=== PATIENT | male | born 1960 | race Caucasian/White ===

== ENCOUNTER → 2016-09-25 | Outpatient (CLI) | payer OTHER ==
[~2016-09-25] MED LIST: ASPCH81; ASPI81TA28 PO; ATOR-24 PO; DVN80 PO; EFF50 PO; GLC500 PO; HYDR-5688 PO; INSDGI SC; INSU1.2I INJ; LISI-725 PO; MORP15TA19 PO; OXYC-57 PO; PRED10TA PO; PREG1CAP28 PO; SIMV40TA2 PO; VIT C; VIT D; VITAMIN C PO
--- NOTE | 2016-09-25 12:59 | DIAGNOSTIC IMAGING REPORT ---
CT LEFT ANKLE NO CONTRAST CT DOSE: CLINICAL HISTORY: Left ankle pain. History of fifth metatarsal fracture. Diabetes. TECHNIQUE: Helical images in the transverse plane were acquired. Sagittal and coronal reformatted images were acquired. A dose lowering technique was utilized adhering to the principles of ALARA. COMPARISON STUDY: None. FINDINGS: There is lateral soft tissue edema. There is diffuse muscular atrophy. Degenerative changes are present with thin the tarsometatarsal joints. Degenerative changes are present within the intercuneiform joints. Degenerative changes are present at the navicular cuneiform articulation. There are degenerative changes within the subpatellar joint. There are degenerative changes present within the talus navicular joint. There is chronic irregularity of the medial malleolus and lateral malleolus. There are soft tissue calcifications located lateral to the distal fibula. There are extensive peritendinous Achilles calcifications. There is partial visualization of a healing fifth metatarsal neck fracture. IMPRESSION: 1. No acute fractures identified 2. Partial visualization of a healing fifth metatarsal tarsal neck fracture 3. Moderately extensive multifocal degenerative changes within the midfoot and hindfoot. 3. Extensive peritendinous Achilles calcifications, and soft tissue calcifications located adjacent to the distal fibula. 4. Diffuse muscular atrophy. Lateral soft tissue edema. Electronically signed by: Urbano Monroe M.D. 09/25/2016 12:58 PM Dictated Date/Time: 09/25/2016 12:49 PM
--- NOTE | 2016-09-25 13:05 | DIAGNOSTIC IMAGING REPORT ---
CT LEFT FOREFOOT NO CONTRAST CT DOSE: 236.18 mGy.cm CLINICAL HISTORY: Left foot pain. Fifth metatarsal fracture. TECHNIQUE: A dose lowering technique was utilized adhering to the principles of ALARA. COMPARISON STUDY: None. FINDINGS: Helical images were acquired in the transverse plane. Sagittal and coronal reformatted imaging was performed. There is a healing comminuted fracture the fifth metatarsal neck and head. There is disruption of the articular surface of the fifth metatarsal head which is minimally displaced respect to the fifth metatarsal neck. There is exuberant callus formation. The fracture line is still visualized. No additional fractures are visualized. There are moderately advanced degenerative changes present within the midfoot and hindfoot. There are extensive peritendinous Achilles calcifications. There are soft tissue calcifications adjacent to the distal fibula. There is lateral soft tissue edema. There is generalized muscular atrophy. IMPRESSION: 1. Incomplete bony union of a comminuted fracture involving the fifth metatarsal head and neck. There is disruption of the articular surface of the fifth metatarsal head. 2. Moderately advanced degenerative changes in the midfoot and hindfoot 3. Extensive peritendinous Achilles calcification and soft tissue calcifications adjacent distal fibula Electronically signed by: Urbano Monroe M.D. 09/25/2016 1:03 PM Dictated Date/Time: 09/25/2016 12:59 PM
--- NOTE | 2016-09-25 13:07 | DIAGNOSTIC IMAGING REPORT ---
CHEST 2 VIEWS ROUTINE HISTORY: PREOP - GOING TO CT FIRST COMPARISON: None. FINDINGS: The lungs are clear. Cardiac silhouette is normal in size. No pleural effusions. No pneumothorax. IMPRESSION: No acute process. Electronically signed by: Marco A Osborn M.D. 09/25/2016 1:06 PM Dictated Date/Time: 09/25/2016 1:02 PM
== END | disposition home or self-care (01) ==
LOC: C.CTS 12:07
PROVIDERS: ATTEND Podiatrist Foot & Ankle Surgery
DX: S92.352A Displaced fracture of fifth metatarsal bone, left foot, initial encounter for closed fracture (principal); X58.XXXA Exposure to other specified factors, initial encounter; Z01.818 Encounter for other preprocedural examination; M62.572 Muscle wasting and atrophy, not elsewhere classified, left ankle and foot; M79.9 Soft tissue disorder, unspecified; M24.872 Other specific joint derangements of left ankle, not elsewhere classified; M76.899 Other specified enthesopathies of unspecified lower limb, excluding foot; M79.662 Pain in left lower leg

== ENCOUNTER → 2016-09-25 | Outpatient (CLI) | payer OTHER ==
[2016-09-25 12:26] LABS: BASO % 1.1 %; BASO ABS # 0.15 K/uL (0-0.2); COMPLETE YES; EOS % 4.3 %; HEMATOCRIT 34.8 % (42-52); IG% 0.6 %; LYMPH % 24.8 %; LYMPH ABS # 3.38 K/uL (1.2-3.4); MEAN CELL VOLUME 80.9 fL (80-100); MEAN CORPUSCULAR HEMOGLOBIN 25.3 pg (25-34); MEAN CORPUSCULAR HGB CONC 31.3 g/dl (32-36); MEAN PLATELET VOLUME 10.2 fL (7.4-10.4); MONO % 7.9 %; NEUT % 61.3 %; PLATELET COUNT 375 K/uL (130-400); WHITE BLOOD COUNT 13.61 K/uL (4.8-10.8)
[2016-09-25 12:49] LABS: C-REACTIVE PROTEIN 0.47 mg/dl (0-0.29); RHEUMATOID FACTOR < 10.0 U/mL (0-15); URIC ACID 7.1 mg/dl (2.6-7.2)
[2016-09-28 20:19] LABS: HLA-B27** TC 528X NEGATIVE (NEGATIVE)
== END | disposition home or self-care (01) ==
LOC: C.RAD1850 11:15
PROVIDERS: ATTEND Podiatrist Foot & Ankle Surgery
DX: M24.872 Other specific joint derangements of left ankle, not elsewhere classified (principal); M76.899 Other specified enthesopathies of unspecified lower limb, excluding foot; M79.662 Pain in left lower leg

== ENCOUNTER 2016-09-29 10:50 | Day surgery (SDC) | payer OTHER ==
[2016-09-28 14:15] VITALS: BMI 28.0
--- NOTE | 2016-09-28 18:25 | HISTORY & PHYSICAL EXAMINATION ---
DATE OF ADMISSION: 09/29/2016 PREOPERATIVE HISTORY AND PHYSICAL HISTORY OF PRESENT ILLNESS: A 56-year-old male presents for followup of ankle pain, requesting surgical intervention. Condition is present on the left extremity. He has 2 problems, the ankle pain and foot pain, graded as an 8 on a 10-point scale with more pain focally on the ankle. He describes aching, swelling and throbbing that has been going on for approximately 2 months. He was also put into a Cam walker to help his foot pain secondary to a fracture which he notes he has been wearing since the spring with little improvement. Past treatment and test include ABIs, blood work, CT, MRI radiographs, steroid shots, nonsteroidals with little relief. Due to the nature of the discomfort, he is requesting surgical intervention. He has no ankle pain for over 2 years and has had extensive conservative treatment by and several foot doctors in [place]. He also notes a foot fracture appeared in the spring of this year, I am unsure why but notes that this occurred around with increasing pain. He has been in Cam walker since with no improvement, over the past 3 months. PAST SURGICAL HISTORY: Knee replacement in 2013 on the left and 2016 on the right, wrist surgery in 2011, back surgery x5 between the years of 1994 and 2001. PAST MEDICAL HISTORY: Hyperlipidemia, hypertension, diabetes mellitus, arthritis, back problems and gout. MEDICATIONS: Lisinopril, Lantus, Lyrica. ALLERGIES: POLLEN AND PENICILLIN. FAMILY HISTORY: Arthritis, diabetes, high cholesterol, and hypertension. SOCIAL HISTORY: The patient admits to tobacco use, is using 1 can of chew a day. REVIEW OF SYSTEMS: Unremarkable except chief complaint. PHYSICAL EXAMINATION: VITAL SIGNS: Height 5 feet 9 inches, weight 190 pounds. Body mass index 28. CONSTITUTIONAL: The patient appears well developed and nourished body grooming habitus. HEAD AND FACE: Head is normocephalic, atraumatic without any gross head, face, or neck masses. HEENT: Eyes conjunctivae accommodation normal. EARS, NOSE, MOUTH AND THROAT: Unremarkable. NECK: Supple. Trachea is midline. CARDIOVASCULAR: Normal S1, S2, without murmur, gallops, rubs, or clicks noted. Cardiovascular exam is normal. RESPIRATORY: Chest is symmetric. No scars are visible. LUNGS: Clear to auscultation bilaterally. GASTROINTESTINAL: Abdominal organs, bladder, and kidney showed no abnormalities, rigidity. LOWER EXTREMITIES: DP palpable. PT palpable. Digital hair is sparse. There is focal swelling noted over the left ankle, more anteriorly and moderate swelling noted over the neck of the metatarsal region. DERMATOLOGICAL: No rash, subcutaneous nodules or lesions observed. NEUROLOGICAL: Touch pin sensations are normal, deep tendon reflexes are normal. MUSCULOSKELETAL: Muscle tone is normal. Muscle strength is 5/5, anterior aspect of the left ankle. Precludes reliable exam with limited range of motion shows crepitance with pain, severe swelling precluding reliable exam on the left ankle. Ankle brachial indexes performed on September 23, the results are still pending. Will obtain these preoperatively. DATA: BRIGITTE and HLA-B27 are still pending. Uric acid 7.1, within normal limits, eosinophils and monocytes with complete blood count were high with the neutrophils. CT scan on 09/25/2016 showed partial visualization of a healing fifth metatarsal neck fracture, multi-degenerative changes within the mid foot and the hindfoot. Extensive Achilles calcification, soft tissue calcifications located adjacent to the distal fibula, diffuse muscular atrophy, lateral soft tissue edema. The ankle showed incomplete bony union of that fifth metatarsal, neck fracture with disruption of acute undersurface of the fifth metatarsal head, moderately advanced degenerative changes in the midfoot, hindfoot, extensive peritendinitis, Achilles contracture and soft tissue calcifications on the distal On 08/14/2016: Diffuse thickening of the anterior talofibular ligament, lobular soft tissue calcifications overlying the lateral posterior aspect of the Achilles tendon corresponding the findings on complex comparison radiographs, dorsally angulated fracture of the fifth metatarsal neck that is best appreciated on the sagittal sequence with bony edema tracking proximally tuberosity, diffuse fatty atrophy of the abductor digiti minimi muscle belly, suggestion of chronic Moraes's neuropathy. There is partially calcified subcutaneous nodule overlying the lateral malleolus that measures up to 22 mm partially calcified subcutaneous nodule overlying the lateral malleolus, course lobular calcification along the lateral and posterior aspect of the Achilles tendon. There are multiple differential considerations for the periarticular and soft tissue calcifications including gout, prior trauma, deposition connective tissue disorders. There is dorsally angulated fracture of the fifth metatarsal neck, moderate osteoarthritis, gout throughout the midfoot, hindfoot and ankle and diffuse nonspecific edema throughout the musculature of the foot and lower leg. IMPRESSION: 1. Degenerative joint capsulitis of the left. 2. Degenerative joint disease, left ankle. 3. Left fifth metatarsal neck fracture, nonunion with continued instability. 4. Pain. 5. Calcifications. 6. Pain, left leg and foot. PLAN AND RECOMMENDATIONS: Discussed conservative treatment options consisting of rest, ice, analgesics, nonsteroidals anti-inflammatory drugs, physical therapy, steroid injections, orthotics. We discussed the fact that the calcifications and underlying cause. The patient is quite frustrated he has seen multiple doctors in the past several years. He has had multiple conservative treatments and notes the pain is becoming worse and is requesting surgery at this date and time. He is aware that if the gout is the underlying cause, this surgery could make his ankle worse. Despite this, he would like to proceed with surgical intervention. surgeries to be performed: 1. Surgical arthroscopy, extensive debridement, left ankle. 2. Closed reduction, possible ORIF of fifth metatarsal fracture, this will be performed under general anesthesia as an outpatient at the hospital. The procedure, risks and complications were personally reviewed with the patient. The patient was sent to me by another crank hand in [place] requesting surgical intervention. We reviewed all of the procedure risks and complications including those that can be missed as we do not have an underlying diagnosis for the calcifications that are occurring structure of the lower extremity as well as muscle atrophy. We reviewed consent form and the foot diagram, all in their entirety. All the patient's questions were answered. He is aware that there is partial healing of the fifth metatarsal at this time and we may just pin this rather than a full open reduction internal fixation, partly due to the diabetes and partly due to he has had some there just with some added stability and he is aware that this is not 100% anatomical, this was performed would also allow earlier weightbearing to the ankle joint which is his main focal complaint. This was all discussed in detail and was outlined of the foot diagram. Other complications were discussed in detail with the patient including pain, infection, swelling that may not be excessive, pins and needles feeling, numbness, metatarsalgia, excessive bleeding, delayed or nonhealing of bone, delayed or nonhealing skin, enlarged scar, failure of the procedure, may not require further surgery, reaction to anesthesia, allergic reaction to suture or other implant material, Cam walker for minimum of 6-8 weeks and not return to postoperative edema second opinion. The patient stated they understood, consent form was signed, copy of the foot the patient. Verbal and written postoperative instructions were given. The patient to return to the office for postop check or sooner necessary. Instructed to keep the dressing clean, dry and intact at the office at the time of the preoperative appointment. Prescriptions for clindamycin and Percocet were dispensed. This is Olaf Gamble. AUGUST
[~2016-09-29] VITALS: Ht 175.3 cm; Wt 86.4 kg
[~2016-09-29 10:50] MED LIST changes: -ASPCH81; +ATROPINE SULFATE 0.1 MG/ML 5ML SYR IV PRN; +CEFAZOLIN 2000 MG/60 ML D5W IV SCH; -DVN80 PO; +EpHEDrine SULFATE INJ 50 MG/ML AMP IV PRN; +FENTANYL CITRATE INJ 50 MCG/1 ML 2 ML VIAL IV PRN; -GLC500 PO; -HYDR-5688 PO; +HYDROmorphone INJ 1 MG/ML SYR IV PRN; -INSDGI SC; -MORP15TA19 PO; +ONDANSETRON INJ 2 MG/ML 2 ML VIAL IV PRN; -PRED10TA PO; -SIMV40TA2 PO; +SODIUM CHLORIDE 0.9% 1000ML IV SCH; -VIT C; -VIT D
[2016-09-29 11:20] VITALS: BP 127/85; PULSE 81; TEMP 36.8; O2SAT 96; Ht 175.3 cm; Wt 86.4 kg
[2016-09-29 11:46] LABS: PROTHROMBIN TIME (PATIENT) 10.7 SECONDS (9.0-12.0)
[2016-09-29 11:55] LABS: ESTIMATED AVERAGE GLUCOSE 140 mg/dl; HA1C FLAG Normal (Normal)
[2016-09-29 11:58] LABS: BUN/CREATININE RATIO 15.6 (10-20); CALCIUM 8.6 mg/dl (8.5-10.1); CREATININE 1.1 mg/dl (0.60-1.40); POTASSIUM 4.6 mmol/L (3.5-5.1)
[2016-09-29] MEDS ORDERED: LIDOCAINE HCL 2% LOCAL 50ML VIAL ONE (13:01)
[2016-09-29] MEDS ORDERED: LIDOCAINE/EPINEPHRINE 1% 20 ML VIAL ONE (13:01)
[2016-09-29] MEDS ORDERED: BUPIVACAINE 0.25% 30 ML VIAL ONE ×2 (13:01→13:22)
[2016-09-29] MEDS ORDERED: BUPIVACAINE 0.5 % 5 MG/1 ML MPF 30ML VIAL ONE (13:02)
[2016-09-29] MEDS ORDERED: LIDOCAINE HCL 2% 2 ML VIAL (20MG/ML) ONE (13:03)
[2016-09-29] MEDS ORDERED: ROCURONIUM BROMIDE 10 MG/ML 5 ML VIAL ONE (13:03)
[2016-09-29] MEDS ORDERED: DEXAMETHASONE **PF** INJ 10 MG/ML VIAL ONE (13:03)
[2016-09-29] MEDS ORDERED: PROPOFOL IV EMULSION 10 MG/ML 20 ML VIAL IV ONE (13:03)
[2016-09-29] MEDS ORDERED: FENTANYL CITRATE INJ 50 MCG/1 ML 2 ML VIAL ONE (13:04)
[2016-09-29] MEDS ORDERED: MIDAZOLAM HCL 1 MG/ML 2ML VIAL ONE (13:04)
[2016-09-29] MEDS ORDERED: ROPIVACAINE 0.5% 5 MG/ML 30 ML VIAL ONE (13:20)
[2016-09-29] MEDS ORDERED: CLINDAMYCIN 600 MG/54 ML D5W IV ONE (13:23)
[2016-09-29] MEDS ORDERED: NURSING VERBAL MED ORDER ONE (13:30)
--- NOTE | 2016-09-29 13:30 | History & Physical Bridge Note ---
H&P Re-Evaluation Bridge Note: I have examined the patient, reviewed the History & Physical and in the interval since the performance of the History & Physical I have noted the following changes of clinical significance: No changes noted
[2016-09-29] MEDS ORDERED: SODIUM CHLORIDE 0.9% 1000ML 1,000 ML IV SCH (13:40)
--- NOTE | 2016-09-29 13:40 | Discharge Instructions ---
Discharge Instructions Date of Service Sep 29, 2016. Admission Reason for Admission: Left Ankle Capsulitis, Degenerative Joint Disease Discharge Discharge Diagnosis / Problem: same as above Discharge Goals Goal(s): Decrease discomfort Activity Recommendations Activity Limitations: as noted below Medications: * Resume previous medications unless instructed by your surgeon. * Take your medications as prescribed. Call our office ([phone]) at any time, if you experience severe pain that does not subside shortly after taking your pain medication. Activity: * Do not put any standing weight on your operated foot/ankle. Use the crutches or walker as instructed. Special Care: * Keep your bandage clean and dry. Do not remove your bandage unless otherwise instructed. A small amount of blood may appear on the bandage over the surgical site. Call our office ([phone]) if you bandage becomes blood-soaked or wet. * Elevate your operated foot/ankle on pillows, above the level of your heart, as often as possible during the first 2-3 days following surgery. Keep your knee flexed slightly with a pillow under your knee when you elevate your foot/ankle. * Apply a ice bag to your foot/ankle over the operative site for 20-30 minutes out of each hour while you are awake. Do not allow the ice bag to directly contact bare skin. * Avoid bumping or handling any pins visible in your toes. If any pin feels or appears loose, call the office ([phone]). * Take your oral temperature in the morning and at bedtime. Call our office ([phone]) if your temperature rises above 101 degrees Fahrenheit. Call your surgeon's office at ([phone]) for any problems or concerns such as excessive bleeding and/or pain unrelieved by your prescribed pain medications. If you have any questions, please do not hesitate to ask them. Avoid all tobacco products. If you need help to stop smoking, call [place]'s FREE QUITLINE at . This is a free call. Follow-up: Follow-up with Dr. Rubin . Current Hospital Diet Patient's current hospital diet: Discharge Diet Recommended Diet: Diabetes Type 2 Diet Pending Studies Studies pending at discharge: no Laboratory Results Hemoglobin A1c Test 09/29/16 11:23 Range/Units Estimated Average Glucose 140 mg/dl Hemoglobin A1c 6.5 H 4.5-5.6 % Medical Emergencies . Who to Call and When: Medical Emergencies: If at any time you feel your situation is an emergency, please call 911 immediately. . Non-Emergent Contact Non-Emergency issues call your: Primary Care Provider . "Provider Documentation" section prepared by Ara Pete. . VTE Core Measure Inpt VTE Proph given/why not?: Treatment not indicated
[2016-09-29] MEDS ORDERED: CLINDAMYCIN 600 MG/54 ML D5W IV STA (13:41)
[2016-09-29] MEDS ORDERED: ONDANSETRON INJ 2 MG/ML 2 ML VIAL ONE (14:19)
[2016-09-29] MEDS ORDERED: EpHEDrine SULFATE 50MG/5ML SYR ONE (14:20)
[2016-09-29] MEDS ORDERED: KETOROLAC TROMETHAMINE 30 MG/ML VIAL ONE (15:47)
--- NOTE | 2016-09-29 16:15 | DIAGNOSTIC IMAGING REPORT ---
LEFT ANKLE 2 VIEWS CLINICAL HISTORY: LT ARTHROSCOPY/POSS ORIF TECHNIQUE: Image intensifier COMPARISON STUDY: None FINDINGS: Linear pin placement traversing the distal aspect fifth metatarsal and associated phalanges. These images were utilized for intraoperative surgical planning purposes IMPRESSION: Image intensifier use of usage for surgical planning purposes post pin fixation fifth metatarsal and associated phalanges The above report was generated using voice recognition software. It may contain grammatical, syntax or spelling errors. Electronically signed by: Db Schmitz M.D. 09/29/2016 4:14 PM Dictated Date/Time: 09/29/2016 4:12 PM
[2016-09-29 16:59] VITALS: BP 185/86; PULSE 89; TEMP 36.5; O2SAT 95
[2016-09-29 17:30] VITALS: BP 178/93; PULSE 91; TEMP 36.6; O2SAT 96
[2016-09-29 18:00] VITALS: BP 165/85; PULSE 90; TEMP 36.6; O2SAT 98
--- NOTE | 2016-09-29 18:30 | Anesthesiology Progress Note ---
Anesthesia Post Op Note Date & Time Sep 29, 2016 at 16:41 Vital Signs Pain Intensity: 0 Vital Signs Past 12 Hours Date Time Temp Pulse Resp B/P (MAP) Pulse Ox O2 Delivery O2 Flow Rate FiO2 09/29/16 16:30 83 14 152/84 100 Oxymask 10 09/29/16 16:20 95 18 172/88 100 Oxymask 10 09/29/16 16:12 36.3 92 12 167/84 100 Oxymask 10 09/29/16 11:20 36.8 81 18 127/85 (99) 96 Room Air Notes Mental Status: alert / awake / arousable, participated in evaluation Pt Amnestic to Procedure: Yes Nausea / Vomiting: adequately controlled Pain: adequately controlled Airway Patency, RR, SpO2: stable & adequate BP & HR: stable & adequate Hydration State: stable & adequate Anesthetic Complications: no major complications apparent
--- NOTE | 2016-09-30 00:08 | OPERATIVE REPORT ---
DATE OF OPERATION: 09/29/2016 SURGEON: Ara Rubin DPM. PREOPERATIVE DIAGNOSES: 1. Ankle capsulitis with degenerative joint disease. 2. Multi calcified subcutaneous nodules and calcific tendinosis. 3. Closed displaced metatarsal fracture left fifth. POSTOPERATIVE DIAGNOSES: Same with crystalline deposition disease. PROCEDURE: 1. Surgical arthroscopy of left ankle with extensive debridement. 2. Joint tap left ankle. 3. Open reduction and internal fixation left fifth metatarsal fracture. 4. Biopsy synovial tissue of the ankle and fifth metatarsophalangeal joint. ANESTHESIA: General with regional field block performed by anesthesia. HEMOSTASIS: Pneumatic thigh tourniquet inflated to 300 mmHg for a total tourniquet time of 34 minutes. ESTIMATED BLOOD LOSS: 5 mL INJECTABLES: Dexamethasone sodium phosphate 10 mg/mL for a total of 1 mL. MATERIALS: 3-0 Vicryl and 4-0 nylon. 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 COMPLICATIONS: None. The patient tolerated the procedure and anesthesia well without complications. PROCEDURE IN DETAIL: The patient was brought to the OR and placed on the OR table in supine position. Upon completion of general anesthesia and a local field block, a well-padded thigh tourniquet was applied to the left lower extremity. Extremity was scrubbed, prepped and draped in the usual aseptic fashion. The extremity was positioned in a knee funk. It was also placed in a noninvasive distractor. Prior to the incision, a joint tap was performed to the ankle and fluid sent to pathology. The joint was then infiltrated with 20 mL of 1% lidocaine with 1:1000 intraarticular. At this time, just medial to tendon of tibialis anterior, a lateral stab incision was made using a 15 blade, just lateral to extensor tendons and peroneus tertius inferior to the joint line. Both these incisions were deepened using a small hemostat and blunt trocar. A camera was placed in the medial portal and the Sabre shaver 2.9 was placed in the lateral portal. This was used to abrade a large amount of hypertrophic synovium over the lateral aspect of the joint. Cartilage surface was examined both superior and inferior aspects. No specific cartilage defect; however, this was covered in a crystalline deposition type disease. Synovium was abraded and cartilage was examined. A large amount of hypertrophic synovium was abraded. Ligaments were intact. There was no instability to the ankle joint, rather a large amount of hypertrophic synovium. The shaver and the camera were switched. Again, the remaining portion of hypertrophic synovium was abraded. The wound was copiously lavaged. The camera and shaver were removed. Skin margins were closed in a deep fashion using 3-0 Vicryl. Superficial deep structures were closed using 4-0 nylon. One mL of dexamethasone sodium phosphate was instilled in the joint, 10 mg/mL. At this time, attention was directed to the fifth metatarsal fracture, it was attempted to be reduced. Exposure was gained over the axis of fifth metatarsal neck. It should be noted that upon opening the joint, there was a large amount of crystalline deposition disease within the joint. This was sent for biopsy. It should also be noted that during the ankle arthroscopy, punch was used to obtain synovial tissue which also was sent for biopsy. There was a large amount of destruction of fifth metatarsal head of arthritis mutilans with crystalline deposition disease. The metatarsal neck fracture was partly healed. It was stabilized using a K-wire. The wound was copiously lavaged with normal saline. C-arm was used to check positioning. Deep structures were closed using 3-0 Vicryl. Skin margins were reapproximated using 4-0 nylon in a running interlocking fashion. Dry sterile dressing was applied upon release of the tourniquet with normal hyperemic mendiola to digits 1 through 5, consisting of Adaptic, 4 x 4's, Kerlix and TIAGO. The patient tolerated the procedure and anesthesia well without complications and transported to the recovery room with vital signs stable and neurovascular status intact. I attest to the content of the Intraoperative Record and any orders documented therein. Any exceptions are noted below. MTDD
== END 2016-09-29 18:11 | disposition home or self-care (01) ==
LOC: C.ACU 10:50
PROVIDERS: ATTEND Podiatrist Foot & Ankle Surgery
DX: M65.272 Calcific tendinitis, left ankle and foot (principal); M77.8 Other enthesopathies, not elsewhere classified; M10.9 Gout, unspecified; S92.352A Displaced fracture of fifth metatarsal bone, left foot, initial encounter for closed fracture; X58.XXXA Exposure to other specified factors, initial encounter; E78.5 Hyperlipidemia, unspecified; I10 Essential (primary) hypertension; F17.220 Nicotine dependence, chewing tobacco, uncomplicated; E11.9 Type 2 diabetes mellitus without complications; M19.90 Unspecified osteoarthritis, unspecified site; Z96.653 Presence of artificial knee joint, bilateral; Z83.3 Family history of diabetes mellitus; Z82.49 Family history of ischemic heart disease and other diseases of the circulatory system

== ENCOUNTER → 2017-04-23 | Outpatient (CLI) | payer OTHER ==
[~2017-04-23] MED LIST changes: -ATROPINE SULFATE 0.1 MG/ML 5ML SYR IV PRN; -CEFAZOLIN 2000 MG/60 ML D5W IV SCH; -EpHEDrine SULFATE INJ 50 MG/ML AMP IV PRN; -FENTANYL CITRATE INJ 50 MCG/1 ML 2 ML VIAL IV PRN; -HYDROmorphone INJ 1 MG/ML SYR IV PRN; -ONDANSETRON INJ 2 MG/ML 2 ML VIAL IV PRN; +OPTIRAY 320 IV PRN; -SODIUM CHLORIDE 0.9% 1000ML IV SCH
--- NOTE | 2017-04-23 14:40 | DIAGNOSTIC IMAGING REPORT ---
L LOWER EXTREMITY COMBO HISTORY: 56 years-old Male L FOOT, FRAC L 5TH METATARSAL, L 5TH MTPJ follow-up study in a patient with prior fracture of the fifth metatarsal. Study is ordered to assess for healing. COMPARISON: Spot fluoroscopic images of the left ankle, 09/29/2016, left lower extremity CT 09/25/2016. TECHNIQUE: Multiple axial CT images of the left foot were obtained both with and without the use of 93 mL Optiray 320. A dose lowering technique was used consistent with the principals of JOERA. FINDINGS: The bones appear moderately demineralized throughout. Distal tibia and fibula appear intact. There is no acute fracture or subluxation identified. Multifocal degenerative changes about the forefoot, midfoot and hindfoot are noted with mild to moderate tibiotalar, moderate talonavicular, naviculocuneiform and cuneiform metatarsal osteoarthritis. Mild to moderate first MTP joint osteoarthritis. 4 mm osteochondral defect of the central posterior tibial plafond, image 44 series 401. Moderate enthesophytes about the calcaneus. Healed fracture deformity of the distal fifth metatarsal with cortical thickening noted medially. Subcortical cystic changes with mild fragmentation involves the distal fifth metatarsal with subcortical cystic changes and fragmentation also noted involving the base of the fifth proximal phalanx, nicely seen on image 62 of series 401. Loose bodies were seen within the fifth MTP joint on comparison CT 09/25/2016. No definite intra-articular loose bodies are identified at this time. Mild soft tissue swelling is noted about the fifth MTP joint. There is moderate atrophy involving the intrinsic musculature of the foot. Indeterminate soft tissue calcifications are seen within the subcutaneous tissues adjacent to the lateral malleolus measuring up to 2.6 cm in length which appear to have progressed from prior study. Calcifications are seen adjacent to the thickened mid and distal Achilles tendon which are partially imaged measuring up to 5.7 cm in length. Peripheral vascular disease. There is no abnormal enhancement identified. IMPRESSION: 1. Healed fracture deformity of the distal fifth metatarsal. Subcortical cystic changes with mild fragmentation involves the fifth metatarsal head and base of the fifth proximal phalanx. The changes involving the base of the fifth proximal phalanx are new from comparison CT 09/25/2016. These findings may be degenerative secondary to chronic intra-articular loose bodies, posttraumatic or alternatively may be sequela of septic arthropathy. Correlate with clinical presentation. 2. No acute fracture or subluxation. 3. Demineralized appearance of the bones with at least moderate multifocal degenerative changes throughout the hindfoot, midfoot and forefoot as above. 4. Moderate atrophy involves the intrinsic musculature of the foot, likely secondary to degeneration changes associated with patient's diabetes. 5. Peripheral vascular disease. 6. Extensive soft tissue calcifications are noted adjacent to the distal Achilles tendon and also within the subcutaneous tissues adjacent to the lateral malleolus. The above report was generated using voice recognition software. It may contain grammatical, syntax or spelling errors. Electronically signed by: Crow Resendiz M.D. 04/23/2017 2:38 PM Dictated Date/Time: 04/23/2017 2:23 PM
== END | disposition home or self-care (01) ==
LOC: C.CTS 13:37
PROVIDERS: ATTEND Podiatrist Foot & Ankle Surgery
DX: S92.352A Displaced fracture of fifth metatarsal bone, left foot, initial encounter for closed fracture (principal); X58.XXXA Exposure to other specified factors, initial encounter; I73.9 Peripheral vascular disease, unspecified

== ENCOUNTER 2024-11-17 13:34 | Inpatient (IN) ==
--- NOTE | 2024-11-17 13:52 | Emergency Department Note ---
Impression & Plan Fever, Acute hypotension, SIRS (systemic inflammatory response syndrome) ED Provider Note HISTORY OF PRESENT ILLNESS: Patient is a 64-year-old male presenting with hypotension and fever. Patient had presented to outpatient dialysis for his regularly scheduled Wednesday/Wednesday/Wednesday dialysis session. He reportedly was hypotensive in the 80s. He was noted to have a fever of 101.3 earlier today and was given Tylenol at 11:30 AM. Patient did have a full dialysis session 48 hours ago. He denies any chest pain or shortness of breath. Denies any abdominal pain, nausea or vomiting. He denies any recent sick contact exposures. He does not make urine. ROS: as above PHYSICAL EXAM: Constitutional: Patient appears in no acute distress. HENT: Head: Normocephalic and atraumatic. Eyes: EOMI, PERRL Mouth/Throat: Mucous membranes moist. Neck: Trachea midline. Neck supple. Cardiovascular: RRR, No murmurs, rubs or gallops. Intact distal pulses. Pulmonary/Chest: No respiratory distress. Breath sounds clear and equal bilaterally. No wheezes or rales. Right subclavian dialysis port noted on chest wall. Abdominal: Abdomen soft, no tenderness, rebound or guarding. Musculoskeletal: Bilateral BKA's. Skin: Warm and dry. No rash, erythema, pallor or cyanosis Psychiatric: Appropriate mood and affect for situation. Neurological: Alert and keenly responsive. CN II-XII grossly intact MDM: - Vitals signs showed elevated temperature - History obtained via patient. History as above. - Chronic conditions affecting care: ESRD - Differential diagnoses include, but are not limited to: Pneumonia; viral syndrome; ACS; electrolyte abnormality; line infection - Order placed for continuous cardiac monitoring. At this time, monitor showed rate of 83 bpm with normal sinus rhythm, per my interpretation. - External medical records reviewed. - EKG image interpreted by myself showed normal sinus rhythm. Rate 90 bpm. QT 358. No acute ischemic changes. - Laboratory workup interpreted by myself showed leukocytosis (WBC 11.06) with neutrophil predominance; chronic anemia; normal PT/INR; stable electrolytes; ESRD; elevated procalcitonin (0.53); normal lactate - Viral respiratory panel negative - CXR image reviewed by myself was negative for pneumonia but does show some pulmonary vascular congestion, per my interpretation. Radiology notes atelectasis versus pneumonia in the right lung base and mild CHF. - Patient given 50 mcg IV fentanyl for upper back pain. - Given IV levophed and daptomycin for empiric sepsis coverage given the patient's fever and hypotension. Patient has no focal source of infection other than the potential pneumonia in his right lower lung on chest x-ray imaging. There is still concern for potential line infection, given that he has a subclavian dialysis port. - Discussion was had with case management assistant about patient's case and need for admission - Hospitalist consulted for admission - Patient admitted to [facility] service for further evaluation and management. ASSESSMENT AND PLAN: Diagnosis: Fever; hypotension; SIRS Plan: Admit Past Med/Surg History Problem List (Updated 11/17/24 @ 16:41 by Kaila Bain MD) SIRS (systemic inflammatory response syndrome) (Acute) Acute hypotension (Acute) Fever (Acute) Social History Smoking Status: Never smoker Feels Safe at Home: Yes Allergies Allergies Allergy/AdvReac Type Severity Reaction Status Date / Time Penicillins Allergy Severe THROAT Verified 08/24/23 11:47 [facility] Home Medications Medication Instructions Recorded Confirmed lidocaine 4 % topical patch 1 patch topical Q12 08/24/23 11/17/24 acetaminophen 325 mg tablet 650 mg PO Q6 PRN PAIN 1-10 SCALE 11/17/24 11/17/24 (Tylenol) acetaminophen 325 mg tablet 650 mg PO Q6 PRN temp above 100.1 11/17/24 11/17/24 (Tylenol) allopurinol 100 mg tablet 100 mg PO UD 11/17/24 11/17/24 (Zyloprim) apixaban 5 mg tablet (Eliquis) 5 mg PO AMHS 11/17/24 11/17/24 aspirin 81 mg tablet,delayed 81 mg PO QAM 11/17/24 11/17/24 release clonidine HCl 0.1 mg tablet 0.1 mg PO .EVERY 24 HOURS PRN 11/17/24 11/17/24 Hypertension dextran 70-hypromellose (PF) 0.1 1 drp OPB QAM 11/17/24 11/17/24 %-0.3 % eye drops in a dropperette (Artificial Tears (PF)) diphenhydramine HCl 25 mg tablet 25 mg PO Q6 PRN Allergy Symptoms 11/17/24 11/17/24 (Benadryl Allergy) doxepin 10 mg capsule 10 mg PO HS 11/17/24 11/17/24 ergocalciferol (vitamin D2) 1,250 1,250 mcg PO WK 11/17/24 11/17/24 mcg (50,000 unit) capsule escitalopram oxalate 5 mg tablet 5 mg PO QAM 11/17/24 11/17/24 (Lexapro) ferric citrate 210 mg iron tablet 210 mg PO DAILY 11/17/24 11/17/24 (Auryxia) ferric citrate 210 mg iron tablet 420 mg PO WM 11/17/24 11/17/24 (Auryxia) gabapentin 100 mg tablet 200 mg PO TID 11/17/24 11/17/24 levetiracetam 1,000 mg tablet 1,000 mg PO QAM 11/17/24 11/17/24 levetiracetam 500 mg tablet 500 mg PO 3XWK 11/17/24 11/17/24 linagliptin 5 mg tablet 5 mg PO DAILY 11/17/24 11/17/24 loperamide 2 mg tablet (Imodium 2 mg PO Q6H PRN LOOSE STOOLS 11/17/24 11/17/24 A-D) menthol 0.44 %-zinc oxide 20.6 % 1 applic topical Q12 PRN Itching 11/17/24 11/17/24 topical ointment (Calmoseptine) menthol 0.44 %-zinc oxide 20.6 % 1 applic topical TID 11/17/24 11/17/24 topical ointment (Calmoseptine) nicotine 21 mg/24 hr daily 1 patch transdermal DAILY 11/17/24 11/17/24 transdermal patch oxycodone 10 mg tablet,crush 10 mg PO AMHS 11/17/24 11/17/24 resistant,extended release 12 hr (OxyContin) pantoprazole 40 mg tablet,delayed 40 mg PO QAM 11/17/24 11/17/24 release prazosin 1 mg capsule 1 mg PO HS 11/17/24 11/17/24 rosuvastatin 10 mg tablet 10 mg PO QPM 11/17/24 11/17/24 triamcinolone acetonide 0.1 % 1 applic topical 2XD 11/17/24 11/17/24 topical cream vitamin B complex-vitamin C-folic 1 tab PO QAM 11/17/24 11/17/24 acid 0.8 mg tablet (Renal Vitamin) Results & Data (ED) Vital Signs Vital Signs - 24 hr 11/17/24 13:52 11/17/24 14:08 11/17/24 14:08 Temperature 37.6 C H Temperature Source Oral Pulse Rate 91 H 92 H Pulse Rate from SpO2 Sensor Respiratory Rate 18 16 Respiratory Effort / Characteristics Non-Labored Spontaneous Respiratory Depth Normal Blood Pressure 105/68 Blood Pressure Mean 80 Pulse Oximetry 95 100 100 Oxygen Delivery Method Room Air Room Air Room Air Sepsis Recent Fever Within 48 Hours Yes Sepsis New/Unexplained Change in Mental Status No Sepsis Action Taken by Nursing No Action Required 11/17/24 14:31 11/17/24 15:00 11/17/24 15:31 Temperature Temperature Source Pulse Rate 91 H 91 H 86 Pulse Rate from SpO2 Sensor 92 H 92 H 86 Respiratory Rate 11 L 21 17 Respiratory Effort / Characteristics Respiratory Depth Blood Pressure 108/64 96/59 L 106/68 Blood Pressure Mean 82 63 82 Pulse Oximetry 94 95 95 Oxygen Delivery Method Room Air Room Air Room Air Sepsis Recent Fever Within 48 Hours Sepsis New/Unexplained Change in Mental Status Sepsis Action Taken by Nursing 11/17/24 15:47 11/17/24 16:00 11/17/24 16:30 Temperature Temperature Source Pulse Rate 83 83 86 Pulse Rate from SpO2 Sensor 84 Respiratory Rate 13 14 Respiratory Effort / Characteristics Respiratory Depth Blood Pressure 117/74 118/82 Blood Pressure Mean 95 103 Pulse Oximetry 98 Oxygen Delivery Method Room Air Sepsis Recent Fever Within 48 Hours Sepsis New/Unexplained Change in Mental Status Sepsis Action Taken by Nursing 11/17/24 17:00 Temperature Temperature Source Pulse Rate Pulse Rate from SpO2 Sensor Respiratory Rate Respiratory Effort / Characteristics Respiratory Depth Blood Pressure 122/73 Blood Pressure Mean 110 Pulse Oximetry Oxygen Delivery Method Sepsis Recent Fever Within 48 Hours Sepsis New/Unexplained Change in Mental Status Sepsis Action Taken by Nursing Laboratory Data 11/17/24 14:05 11/17/24 14:05 Lab Results 11/17/24 Range/Units 14:05 WBC 11.06 H (4.8-10.8) K/ul RBC 3.30 L (4.70-6.10) M/uL Hgb 9.8 L (14.0-18.0) g/dl Hct 31.1 L (42.0-52.0) % MCV 94.2 (80.0-100.0) fL MCH 29.7 (25.0-34.0) pg MCHC 31.5 L (32.0-36.0) g/dL RDW Std Deviation 59.1 H (36.4-46.3) fL RDW Coeff of John 17.2 H (11.5-14.5) % Plt Count 183 (130-400) K/uL MPV 9.3 L (9.4-12.4) fL Immature Gran % (Auto) 0.5 % Neut % (Auto) 75.9 % Lymph % (Auto) 7.0 % [place] % (Auto) 9.9 % Eos % (Auto) 5.8 % Baso % (Auto) 0.9 % Neut # (Auto) 8.39 H (1.40-6.50) K/uL Lymph # (Auto) 0.77 L (1.20-3.40) K/uL [place] # (Auto) 1.10 H (0.11-0.59) K/uL Eos # (Auto) 0.64 H (0.00-0.50) K/uL Baso # (Auto) 0.10 (0.00-0.20) K/uL Immature Gran # (Auto) 0.06 (0.01-0.20) K/uL PT 11.2 (9.0-12.0) Seconds INR 1.1 (0.9-1.1) APTT 31 (21-31) Seconds PTT Ratio 1.1 Sodium 137 (136-145) mmol/L Potassium 4.1 (3.5-5.1) mmol/L Chloride 99 (98-107) mmol/L Carbon Dioxide 29 (21-32) mmol/L Anion Gap 9 (3-11) BUN 45 H (6-23) mg/dl Creatinine 5.45 H* (0.6-1.4) mg/dl Est Cr Clr Drug Dosing 12.3 ml/min eGFR 10.92 BUN/Creatinine Ratio 8.3 L (10-20) Glucose 245 H (70-99(Fasting)) mg/dl Lactate 0.9 (0.4-2.0) mmol/L Calcium 9.0 (8.6-10.3) mg/dl Magnesium 1.9 (1.7-2.4) mg/dl Total Bilirubin 0.6 (0.2-1.0) mg/dl AST 11 L (13-39) U/L ALT 10 (7-52) U/L Alkaline Phosphatase 168 H (34-104) U/L Troponin I High Sens 8.0 (0-20) pg/ml Total Protein 5.6 L (6.0-8.3) gm/dl Albumin 3.2 L (3.4-5.0) gm/dl Globulin 2.4 L (2.5-4.0) gm/dl Albumin/Globulin Ratio 1.3 (0.9-2) Procalcitonin 0.53 H (0-0.5) ng/ml Adenovirus (PCR) Not Detected (NotDetected) B. pertussis DNA (PCR) Not Detected (NotDetected) B.parapertussis DNA PCR Not Detected (NotDetected) C. pneumoniae DNA (PCR) Not Detected (NotDetected) Coronavirus OC43 (PCR) Not Detected (NotDetected) Coronavirus HKU1 (PCR) Not Detected (NotDetected) Coronavirus 229E (PCR) Not Detected (NotDetected) SARS-CoV-2 (PCR) Not Detected (NotDetected) Coronavirus NL63 (PCR) Not Detected (NotDetected) Human Metapneumovir PCR Not Detected (NotDetected) Influenza Type A (PCR) Not Detected (NotDetected) Influenza Type B (PCR) Not Detected (NotDetected) M. pneumoniae (PCR) Not Detected (NotDetected) Parainfluenza 1 (PCR) Not Detected (NotDetected) Parainfluenza 2 (PCR) Not Detected (NotDetected) Parainfluenza 3 (PCR) Not Detected (NotDetected) Parainfluenza 4 (PCR) Not Detected (NotDetected) RSV (PCR) Not Detected (NotDetected) Entero/Rhino (PCR) Not Detected (NotDetected) Administered Medications Levofloxacin/Dextrose (Levaquin/D5w) 750 mg in 150 mls @ 100 mls/hr IV NOW STA Stop: 11/17/24 17:48 Last Admin: 11/17/24 16:47 Dose: 100 mls/hr Documented By: JAYA Discontinued Medications Fentanyl Citrate (Fentanyl Citrate Pf 100 Mcg/2 Ml Vial) 50 mcg IV NOW STA Stop: 11/17/24 16:31 Last Admin: 11/17/24 16:46 Dose: 50 mcg Documented By: JAYA Daptomycin 500 mg/ Syringe 10 mls @ 5 mls/min IV NOW ONE; Protocol Stop: 11/17/24 16:31 Last Admin: 11/17/24 16:47 Dose: 5 mls/min Documented By: JAYA Imaging Data Radiologist's Impression: Chest X-Ray 11/17/24 13:50 XR chest 1V portable CLINICAL HISTORY: Sepsis COMPARISON STUDY: None FINDINGS: Right dialysis catheter tip is at the cavoatrial junction. There is moderate cardiomegaly with mild pulmonary vascular congestion. Inspiration is shallow. There is mild stranding at the right lung base. No other consolidation or pleural effusion. No pneumothorax. IMPRESSION: 1. Mild CHF. 2. Atelectasis versus early pneumonia right lung base. ACT 112: Negative or not required by law. Electronically signed by: Christoph Holland M.D. 11/17/2024 2:22 PM Discharge Plan Visit Data Chief Complaint: Hypotension Stated Complaint: HYPOTENSION ED Provider: Kaila Bain Discharge Problem: Fever, Acute hypotension, SIRS (systemic inflammatory response syndrome) Condition: Fair Forms Stand Alone Forms: My [facility] Prescriptions Prescriptions: No Action lidocaine 4 % Adhesive Patch,Medicated 1 patch TOPICAL Q12 Rx Instructions: BACK PAIN REMOVE PER SCHEDULE aspirin [Aspirin Low-Strength] 81 mg Tablet,Delayed Release (Dr/Ec) 81 mg PO QAM linagliptin 5 mg Tablet 5 mg PO DAILY oxycodone [OxyContin] 10 mg tablet,oral only,ext.rel.12 hr 10 mg PO AMHS nicotine 21 mg/24 hr Patch 24 Hour 1 patch TRANSDERMAL DAILY Rx Instructions: remove per schedule gabapentin 100 mg Tablet 200 mg PO TID Eliquis 5 mg tablet 5 mg PO AMHS ferric citrate [Auryxia] 210 mg iron Tablet 420 mg PO WM ferric citrate [Auryxia] 210 mg iron Tablet 210 mg PO DAILY doxepin 10 mg capsule 10 mg PO HS pantoprazole 40 mg tablet,delayed release (DR/EC) 40 mg PO QAM allopurinol [Zyloprim] 100 mg Tablet 100 mg PO UD Rx Instructions: give 1 tablet in the morning every MON,WED,FRI prazosin [Minipress] 1 mg Capsule 1 mg PO HS Renal Vitamin 0.8 mg Tablet 1 tab PO QAM escitalopram oxalate [Lexapro] 5 mg Tablet 5 mg PO QAM levetiracetam 1,000 mg tablet 1,000 mg PO QAM levetiracetam 500 mg tablet 500 mg PO 3XWK Rx Instructions: GIVE EVERY MON,WED,FRI Artificial Tears (PF) 0.1-0.3 % Dropperette 1 drp OPB QAM rosuvastatin 10 mg tablet 10 mg PO QPM menthol-zinc oxide [Calmoseptine] 0.44-20.6 % Ointment 1 applic TOPICAL TID Rx Instructions: APPLY TO BUTTOCK AND GROIN REDDENED AREAS STOP APPLICATION WHEN HEALED clonidine HCl 0.1 mg tablet 0.1 mg PO .EVERY 24 HOURS PRN (Reason: Hypertension) Rx Instructions: GIVE FOR SBP > 140 ergocalciferol (vitamin D2) [Drisdol] 1,250 mcg (50,000 unit) Capsule 1,250 mcg PO WK Rx Instructions: GIVE 1 CAPSULE EVERY WEDNESDAY acetaminophen [Tylenol] 325 mg Tablet 650 mg PO Q6 MDD 3g PRN (Reason: temp above 100.1) acetaminophen [Tylenol] 325 mg Tablet 650 mg PO Q6 MDD 3G PRN (Reason: PAIN 1-10 SCALE) loperamide [Imodium A-D] 2 mg Tablet 2 mg PO Q6H MDD 4 TABS IN 24 HOURS PRN (Reason: LOOSE STOOLS) Rx Instructions: GIVE 2 TABS FIRST LOOSE STOOL ANDTHEN 1 TAB AFTER EACH SUBSEQUENT LOOSE STOOL diphenhydramine HCl [Benadryl Allergy] 25 mg Tablet 25 mg PO Q6 PRN (Reason: Allergy Symptoms) menthol-zinc oxide [Calmoseptine] 0.44-20.6 % Ointment 1 applic TOPICAL Q12 PRN (Reason: Itching) Rx Instructions: APPLY TO RASH ON BACK FOR ITCHING triamcinolone acetonide 0.1 % Cream 1 applic TOPICAL 2XD Rx Instructions: APPLY TO BACK EVERY DAY AND EVENING SHIFT Referrals Referrals: Calvin Fisher PA-C [Primary Care Provider] -
[2024-11-17 14:22] LABS: Hematocrit (blood only) 31.1 % (42.0-52.0); Hemoglobin 9.8 g/dl (14.0-18.0); Immature Granulocytes # (auto) 0.06 K/uL (0.01-0.20); Immature Granulocytes % (auto) 0.5 %; Mean Corpuscular Hemoglobin 29.7 pg (25.0-34.0); Mean Corpuscular Volume 94.2 fL (80.0-100.0); Platelet Count 183 K/uL (130-400); RDW Standard Deviation 59.1 fL (36.4-46.3); Red Blood Count 3.30 M/uL (4.70-6.10); White Blood Count 11.06 K/ul (4.8-10.8)
--- NOTE | 2024-11-17 14:23 | XRay Report ---
XR chest 1V portable CLINICAL HISTORY: Sepsis COMPARISON STUDY: None FINDINGS: Right dialysis catheter tip is at the cavoatrial junction. There is moderate cardiomegaly w ith mild pulmonary vascular congestion. Inspiration is shallow. There is mild stranding at the right lung base. No other consolidation or pleural effusion. No pneumothorax. IMPRESSION: 1. Mild CHF. 2. Atelectasis versus early pneumonia right lung base. ACT 112: Negative or not required by law. Electronically signed by: Christoph Holland M.D. 11/17/2024 2:22 PM
[2024-11-17 14:42] LABS: Alanine Aminotransferase 10.0 U/L (7-52); Albumin Globulin Ratio 1.3 (0.9-2); Albumin Level 3.2 gm/dl (3.4-5.0); Alkaline Phosphatase 168.0 U/L (34-104); Anion Gap 9.0 (3-11); Bilirubin,Total 0.6 mg/dl (0.2-1.0); Blood Urea Nitrogen 45.0 mg/dl (6-23); Calcium 9.0 mg/dl (8.6-10.3); Carbon Dioxide 29.0 mmol/L (21-32); Chloride 99.0 mmol/L (98-107); Creatinine Clr Calc Pharmacy 12.3 ml/min; Globulin 2.4 gm/dl (2.5-4.0); Glucose 245.0 mg/dl (70-99(Fasting)); Magnesium 1.9 mg/dl (1.7-2.4); Potassium 4.1 mmol/L (3.5-5.1); Sodium 137.0 mmol/L (136-145); Total Protein 5.6 gm/dl (6.0-8.3)
[2024-11-17 14:54] LABS: INR 1.1 (0.9-1.1); Partial Thromboplastin Time 31 Seconds (21-31); Prothrombin Time 11.2 Seconds (9.0-12.0)
[2024-11-17 15:10] LABS: Chlamydia pneumoniae PCR Not Detected (NotDetected); Coronavirus 229E PCR Not Detected (NotDetected); Coronavirus CoV-2 (COVID19)PCR Not Detected (NotDetected); Coronavirus HKU1 PCR Not Detected (NotDetected); Coronavirus NL63 PCR Not Detected (NotDetected); Coronavirus OC43PCR Not Detected (NotDetected); Human Metapneumovirus PCR Not Detected (NotDetected); Parainfluenza Virus 1 PCR Not Detected (NotDetected); Parainfluenza Virus 2 PCR Not Detected (NotDetected); Parainfluenza Virus 3 PCR Not Detected (NotDetected); Parainfluenza Virus 4 PCR Not Detected (NotDetected); Respiratory Syncytial VirusPCR Not Detected (NotDetected); Rhinovirus/Enterovirus PCR Not Detected (NotDetected)
[2024-11-17] MEDS: DAPTOmycin 500 MG in SYRINGE 0 ML IV ONE (16:47)
--- NOTE | 2024-11-17 17:59 | History & Physical Report ---
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: (12) Other chronic pain: (13) Cerebral infarction, unspecified: (14) Epilepsy, unspecified, not intractable, without status epilepticus: (15) Acquired absence of right leg below knee: Plan Sepsis, present on arrival Patient with tachycardia, fever, leukocytosis Blood cultures pending Patient anuric so no urine culture Levaquin 750mg given in ED; next dose would be q48 hour Daptomycin started in ED, renal dosing would be in 48 hours; will review with pharmacy Will add IVF, although will be judicious given his ESRD and lack of HD today ESRD Consult nephrology (Will) Electrolytes acceptable -- schedule at [facility] Diabetes Well controlled with A1c 6.4 Continue linagliptin paroxysmal atrial fibrillation Normal sinus today continue chronic anticoagulation with apixaban History of epilepsy Continue Keppra, home dose mild cognitive impairment Documented on problem list Suspect he is at baseline today Opioid dependence Continue current pain medications GERD Continue Protonix 40 mg DVT prophylaxis: On chronic anticoagulation Code Status: Full History of Present Illness Chief Complaint: Hypotension, Shakes Primary Care Provider: Calvin Fisher PA-C 64-year-old male with history of end-stage renal disease presents to the emergency department from the dialysis center for hypotension. The patient reports that he felt well yesterday and this morning up until about 8:00. When he was seated in the waiting room at the dialysis center he developed "shakes" and when he was first assessed by staff was noted to be hypotensive. He did not have any dialysis completed today. He is on a schedule and records indicate that he had a complete dialysis session on Wednesday. He was seen evaluated emergency department by ED staff. Blood cultures were taken. He reported he does not make any urine. While reported systolic blood pressures were in the 80s at the dialysis center, they are noted to be in the mid 110s here in the emergency department. No fluid has been given thus far. Emergency Department workup demonstrated a mild leukocytosis of 11.06, slightly elevated procalcitonin of 0.53. Viral PCR panel was negative. Upon exam around 6 PM, the patient is lying semi-reclined in his emergency department bed. He is eating a snack. He complains of being fatigued. His shakes that he experienced before have resolved. No other complaints. he is unable to live much medical history, in fact he cannot recall where he is currently living. Per the records, he is at [facility]. We also found that he follows with [facility] nephrology. is not clear how long he has been at [facility], with a prior [facility] it looks like he resided in [place]. We tried to contact his daughter, but there is no answer. Allergies Allergy/AdvReac Type Severity Reaction Status Date / Time Penicillins Allergy Severe THROAT Verified 08/24/23 11:47 [facility] Home Medications Medication Instructions Recorded Confirmed Type lidocaine 4 % topical patch 1 patch topical Q12 08/24/23 11/17/24 History acetaminophen 325 mg tablet 650 mg PO Q6 PRN PAIN 1-10 SCALE 11/17/24 11/17/24 History (Tylenol) acetaminophen 325 mg tablet 650 mg PO Q6 PRN temp above 100.1 11/17/24 11/17/24 History (Tylenol) allopurinol 100 mg tablet 100 mg PO UD 11/17/24 11/17/24 History (Zyloprim) apixaban 5 mg tablet (Eliquis) 5 mg PO AMHS 11/17/24 11/17/24 History aspirin 81 mg tablet,delayed 81 mg PO QAM 11/17/24 11/17/24 History release clonidine HCl 0.1 mg tablet 0.1 mg PO .EVERY 24 HOURS PRN 11/17/24 11/17/24 History Hypertension dextran 70-hypromellose (PF) 0.1 1 drp OPB QAM 11/17/24 11/17/24 History %-0.3 % eye drops in a dropperette (Artificial Tears (PF)) diphenhydramine HCl 25 mg tablet 25 mg PO Q6 PRN Allergy Symptoms 11/17/24 11/17/24 History (Benadryl Allergy) doxepin 10 mg capsule 10 mg PO HS 11/17/24 11/17/24 History ergocalciferol (vitamin D2) 1,250 1,250 mcg PO WK 11/17/24 11/17/24 History mcg (50,000 unit) capsule escitalopram oxalate 5 mg tablet 5 mg PO QAM 11/17/24 11/17/24 History (Lexapro) ferric citrate 210 mg iron tablet 210 mg PO DAILY 11/17/24 11/17/24 History (Auryxia) ferric citrate 210 mg iron tablet 420 mg PO WM 11/17/24 11/17/24 History (Auryxia) gabapentin 100 mg tablet 200 mg PO TID 11/17/24 11/17/24 History levetiracetam 1,000 mg tablet 1,000 mg PO QAM 11/17/24 11/17/24 History levetiracetam 500 mg tablet 500 mg PO 3XWK 11/17/24 11/17/24 History linagliptin 5 mg tablet 5 mg PO DAILY 11/17/24 11/17/24 History loperamide 2 mg tablet (Imodium 2 mg PO Q6H PRN LOOSE STOOLS 11/17/24 11/17/24 History A-D) menthol 0.44 %-zinc oxide 20.6 % 1 applic topical Q12 PRN Itching 11/17/24 11/17/24 History topical ointment (Calmoseptine) menthol 0.44 %-zinc oxide 20.6 % 1 applic topical TID 11/17/24 11/17/24 History topical ointment (Calmoseptine) nicotine 21 mg/24 hr daily 1 patch transdermal DAILY 11/17/24 11/17/24 History transdermal patch oxycodone 10 mg tablet,crush 10 mg PO AMHS 11/17/24 11/17/24 History resistant,extended release 12 hr (OxyContin) pantoprazole 40 mg tablet,delayed 40 mg PO QAM 11/17/24 11/17/24 History release prazosin 1 mg capsule 1 mg PO HS 11/17/24 11/17/24 History rosuvastatin 10 mg tablet 10 mg PO QPM 11/17/24 11/17/24 History triamcinolone acetonide 0.1 % 1 applic topical 2XD 11/17/24 11/17/24 History topical cream vitamin B complex-vitamin C-folic 1 tab PO QAM 11/17/24 11/17/24 History acid 0.8 mg tablet (Renal Vitamin) Past Med/Surg History Problem List (Updated 11/17/24 @ 18:23 by Christian Foreman DO) ESRD (end stage renal disease) SIRS (systemic inflammatory response syndrome) (Acute) Acute hypotension (Acute) Fever (Acute) Medical History (Updated 11/17/24 @ 18:23 by Christian Foreman DO) Amputation leg, bilat Opioid dependence, uncomplicated Nicotine dependence, unspecified, uncomplicated Gastro-esophageal reflux disease without esophagitis Unspecified atrial fibrillation Anxiety disorder, unspecified Cognitive communication deficit Atherosclerotic heart disease of [place] coronary artery without angina pectoris Other chronic pain Cerebral infarction, unspecified Epilepsy, unspecified, not intractable, without status epilepticus Acquired absence of right leg below knee Social History Smoking Status: Never smoker Feels Safe at Home: Yes Immunizations: PPD two-step completed 11/15/2024 seasonal flu 11/23/2023 last documented COVID immunization 12/08/2022 Pneumovax 2016 Prevnar 20 09/24/2021 Review of Systems Constitutional: + fever, + chills, + fatigue, + weakness and + daytime sleepin ess Respiratory: no cough, no chest congestion, no dyspnea, no dyspnea on exertion, no hemoptysis and no pain on inspiration Cardiovascular: no chest pain Gastrointestinal: no abdominal pain Physical Exam Constitutional: WD/WN, vitals as above ENMT: external ear and nose normal, oropharynx normal Neck: Supple Respiratory: coarse breath sounds bilaterally, expiratory wheezing. Cardiovascular: Rate/Rhythm: regular rate, regular rhythm and + tachycardic Musculoskeletal: Bilateral lower extremity amputations below the knee. Small open wound left stump, no erythema or induration. Psychiatric: Orientation: alert, oriented to place, oriented to time and cooperative He is unable to tell us the facility at which he is living. Noted history of mild cognitive impairment; this may be his baseline. Results & Data Results & Data Vital Signs (Past 12 Hours) Vital Signs Temp Pulse Resp BP Pulse Ox O2 Del Method 11/17/24 17:00 122/73 11/17/24 16:30 86 14 118/82 11/17/24 16:00 83 13 117/74 98 Room Air 11/17/24 15:47 83 11/17/24 15:31 86 17 106/68 95 Room Air 11/17/24 15:00 91 H 21 96/59 L 95 Room Air 11/17/24 14:31 91 H 11 L 108/64 94 Room Air 11/17/24 14:08 92 H 16 100 Room Air 11/17/24 14:08 100 Room Air 11/17/24 13:52 37.6 C H 91 H 18 105/68 95 Room Air Laboratory Results 11/17/24 Range/Units 14:05 WBC 11.06 H (4.8-10.8) K/ul RBC 3.30 L (4.70-6.10) M/uL Hgb 9.8 L (14.0-18.0) g/dl Hct 31.1 L (42.0-52.0) % MCV 94.2 (80.0-100.0) fL MCH 29.7 (25.0-34.0) pg MCHC 31.5 L (32.0-36.0) g/dL RDW Std Deviation 59.1 H (36.4-46.3) fL RDW Coeff of John 17.2 H (11.5-14.5) % Plt Count 183 (130-400) K/uL MPV 9.3 L (9.4-12.4) fL Immature Gran % (Auto) 0.5 % Neut % (Auto) 75.9 % Lymph % (Auto) 7.0 % [place] % (Auto) 9.9 % Eos % (Auto) 5.8 % Baso % (Auto) 0.9 % Neut # (Auto) 8.39 H (1.40-6.50) K/uL Lymph # (Auto) 0.77 L (1.20-3.40) K/uL [place] # (Auto) 1.10 H (0.11-0.59) K/uL Eos # (Auto) 0.64 H (0.00-0.50) K/uL Baso # (Auto) 0.10 (0.00-0.20) K/uL Immature Gran # (Auto) 0.06 (0.01-0.20) K/uL PT 11.2 (9.0-12.0) Seconds INR 1.1 (0.9-1.1) APTT 31 (21-31) Seconds PTT Ratio 1.1 Sodium 137 (136-145) mmol/L Potassium 4.1 (3.5-5.1) mmol/L Chloride 99 (98-107) mmol/L Carbon Dioxide 29 (21-32) mmol/L Anion Gap 9 (3-11) BUN 45 H (6-23) mg/dl Creatinine 5.45 H* (0.6-1.4) mg/dl Est Cr Clr Drug Dosing 12.3 ml/min eGFR 10.92 BUN/Creatinine Ratio 8.3 L (10-20) Glucose 245 H (70-99(Fasting)) mg/dl Lactate 0.9 (0.4-2.0) mmol/L Calcium 9.0 (8.6-10.3) mg/dl Magnesium 1.9 (1.7-2.4) mg/dl Total Bilirubin 0.6 (0.2-1.0) mg/dl AST 11 L (13-39) U/L ALT 10 (7-52) U/L Alkaline Phosphatase 168 H (34-104) U/L Troponin I High Sens 8.0 (0-20) pg/ml Total Protein 5.6 L (6.0-8.3) gm/dl Albumin 3.2 L (3.4-5.0) gm/dl Globulin 2.4 L (2.5-4.0) gm/dl Albumin/Globulin Ratio 1.3 (0.9-2) Procalcitonin 0.53 H (0-0.5) ng/ml Adenovirus (PCR) Not Detected (NotDetected) B. pertussis DNA (PCR) Not Detected (NotDetected) B.parapertussis DNA PCR Not Detected (NotDetected) C. pneumoniae DNA (PCR) Not Detected (NotDetected) Coronavirus OC43 (PCR) Not Detected (NotDetected) Coronavirus HKU1 (PCR) Not Detected (NotDetected) Coronavirus 229E (PCR) Not Detected (NotDetected) SARS-CoV-2 (PCR) Not Detected (NotDetected) Coronavirus NL63 (PCR) Not Detected (NotDetected) Human Metapneumovir PCR Not Detected (NotDetected) Influenza Type A (PCR) Not Detected (NotDetected) Influenza Type B (PCR) Not Detected (NotDetected) M. pneumoniae (PCR) Not Detected (NotDetected) Parainfluenza 1 (PCR) Not Detected (NotDetected) Parainfluenza 2 (PCR) Not Detected (NotDetected) Parainfluenza 3 (PCR) Not Detected (NotDetected) Parainfluenza 4 (PCR) Not Detected (NotDetected) RSV (PCR) Not Detected (NotDetected) Entero/Rhino (PCR) Not Detected (NotDetected) (4) Fever Fever type: unspecified Qualified Code(s): R50.9 - Fever, unspecified (6) Nicotine dependence, unspecified, uncomplicated Nicotine product type: unspecified Qualified Code(s): F17.200 - Nicotine dependence, unspecified, uncomplicated
[2024-11-17] MEDS ORDERED: PHARMACY GLYCEMIC MGMT CONSULT PRN (18:39)
[2024-11-17] MEDS: LACTATED RINGER'S 1,000 ML IV SCH (18:47)
[2024-11-17] MEDS: LACTATED RINGER'S 500 ML IV ONE (18:47)
--- NOTE | 2024-11-17 18:54 | Electrocardiogram Report ---
Test Reason : Blood Pressure : */* mmHG Vent. Rate : 90 BPM Atrial Rate : 90 BPM P-R Int : 172 ms QRS Dur : 78 ms QT Int : 358 ms P-R-T Axes : 20 3 23 degrees QTcB Int : 437 ms Normal sinus rhythm Minimal voltage criteria for LVH, may be normal variant Borderline ECG No previous ECGs available Confirmed by Eugene Garsia ([id number]) on 11/17/2024 6:53:38 PM Referred By: Confirmed By: Eugene Garsia
[2024-11-17] MEDS ORDERED: GLUCOSE 10 TAB/TUBE PO PRN (20:00)
[2024-11-17] MEDS ORDERED: GLUCAGON FOR INJ 1 MG VIAL SQ PRN (20:00)
[2024-11-17] MEDS ORDERED: CARBOHYDRATES FOR HYPOGLYCEMIA PO PRN (20:00)
[2024-11-17] MEDS ORDERED: GLUCOSE 40% GEL 15 GM TUBE PO PRN (20:00)
[2024-11-17] MEDS ORDERED: DEXTROSE 50% 50 ML SYRINGE IV PRN (20:00)
[2024-11-17] MEDS ORDERED: ACETAMINOPHEN 325 MG TAB PO PRN (20:11)
[2024-11-17] MEDS ORDERED: MENTHOL-ZINC OXIDE 360 APPLN/120 GM TUBE EXT PRN (20:11)
[2024-11-17] MEDS ORDERED: ONDANSETRON INJ 2 MG/ML 2 ML VIAL IV PRN (20:11)
[2024-11-17] MEDS ORDERED: diphenhydrAMINE Capsule 25 MG CAP PO PRN (20:28)
[2024-11-17] MEDS ORDERED: LOPERAMIDE HCL 2 MG CAP PO PRN (20:30)
--- NOTE | 2024-11-17 20:31 | Nephrology Consultation ---
Date of Consultation November 17, 2024 Assessment & Plan (1) ESRD (end stage renal disease): Patient on HD MWF and missed outpt HD today. CXR showed mild CHF. He is on room air. Electrolytes are stable. No inidcation for HD today. Besides patient was hypotensive earlier. Will plan HD tomorrow for 3.5hrs target UF 2 litres. (2) SIRS (systemic inflammatory response syndrome): Patient is septic. Blood cultures are pending. If blood cultures are positive, dialysis catheter will have to be removed by vascular surgery after dialysis tomorrrow. History of Present Illness Reason for Consultation: ESRD Requesting Physician: Christian Foreman DO Attending Physician: Christian Foreman DO History of Present Illness This is a 64 yo male with history of ESRD on dialysis Wednesday at [facility] who was admitted hypotension and fever. Last outpatient dialysis was wednesday. Today patinet went to dialysis but had fever and chills while in the waiting room and was sent to [facility] ER. Patient recenetly admitted at [facility] with dialysis catheter exit site infection. he feels better now. he denies SOB. He says he has not felt well since the current permcath was placed. No vomiting or diarrhoea. Patient has bilateral BKA and bed bound. CXR showed mild CHF. Allergies Allergy/AdvReac Type Severity Reaction Status Date / Time Penicillins Allergy Severe THROAT Verified 08/24/23 11:47 [facility] Home Medications Medication Instructions Recorded Confirmed Type lidocaine 4 % topical patch 1 patch topical Q12 08/24/23 11/17/24 History acetaminophen 325 mg tablet 650 mg PO Q6 PRN PAIN 1-10 SCALE 11/17/24 11/17/24 History (Tylenol) acetaminophen 325 mg tablet 650 mg PO Q6 PRN temp above 100.1 11/17/24 11/17/24 History (Tylenol) allopurinol 100 mg tablet 100 mg PO UD 11/17/24 11/17/24 History (Zyloprim) apixaban 5 mg tablet (Eliquis) 5 mg PO AMHS 11/17/24 11/17/24 History aspirin 81 mg tablet,delayed 81 mg PO QAM 11/17/24 11/17/24 History release clonidine HCl 0.1 mg tablet 0.1 mg PO .EVERY 24 HOURS PRN 11/17/24 11/17/24 History Hypertension dextran 70-hypromellose (PF) 0.1 1 drp OPB QAM 11/17/24 11/17/24 History %-0.3 % eye drops in a dropperette (Artificial Tears (PF)) diphenhydramine HCl 25 mg tablet 25 mg PO Q6 PRN Allergy Symptoms 11/17/24 11/17/24 History (Benadryl Allergy) doxepin 10 mg capsule 10 mg PO HS 11/17/24 11/17/24 History ergocalciferol (vitamin D2) 1,250 1,250 mcg PO WK 11/17/24 11/17/24 History mcg (50,000 unit) capsule escitalopram oxalate 5 mg tablet 5 mg PO QAM 11/17/24 11/17/24 History (Lexapro) ferric citrate 210 mg iron tablet 210 mg PO DAILY 11/17/24 11/17/24 History (Auryxia) ferric citrate 210 mg iron tablet 420 mg PO WM 11/17/24 11/17/24 History (Auryxia) gabapentin 100 mg tablet 200 mg PO TID 11/17/24 11/17/24 History levetiracetam 1,000 mg tablet 1,000 mg PO QAM 11/17/24 11/17/24 History levetiracetam 500 mg tablet 500 mg PO 3XWK 11/17/24 11/17/24 History linagliptin 5 mg tablet 5 mg PO DAILY 11/17/24 11/17/24 History loperamide 2 mg tablet (Imodium 2 mg PO Q6H PRN LOOSE STOOLS 11/17/24 11/17/24 History A-D) menthol 0.44 %-zinc oxide 20.6 % 1 applic topical Q12 PRN Itching 11/17/24 11/17/24 History topical ointment (Calmoseptine) menthol 0.44 %-zinc oxide 20.6 % 1 applic topical TID 11/17/24 11/17/24 History topical ointment (Calmoseptine) nicotine 21 mg/24 hr daily 1 patch transdermal DAILY 11/17/24 11/17/24 History transdermal patch oxycodone 10 mg tablet,crush 10 mg PO AMHS 11/17/24 11/17/24 History resistant,extended release 12 hr (OxyContin) pantoprazole 40 mg tablet,delayed 40 mg PO QAM 11/17/24 11/17/24 History release prazosin 1 mg capsule 1 mg PO HS 11/17/24 11/17/24 History rosuvastatin 10 mg tablet 10 mg PO QPM 11/17/24 11/17/24 History triamcinolone acetonide 0.1 % 1 applic topical 2XD 11/17/24 11/17/24 History topical cream vitamin B complex-vitamin C-folic 1 tab PO QAM 11/17/24 11/17/24 History acid 0.8 mg tablet (Renal Vitamin) Patient History Medical History (Updated 11/17/24 @ 18:23 by Christian Foreman, ) Amputation leg, bilat Opioid dependence, uncomplicated Nicotine dependence, unspecified, uncomplicated Gastro-esophageal reflux disease without esophagitis Unspecified atrial fibrillation Anxiety disorder, unspecified Cognitive communication deficit Atherosclerotic heart disease of [place] coronary artery without angina pectoris Other chronic pain Cerebral infarction, unspecified Epilepsy, unspecified, not intractable, without status epilepticus Acquired absence of right leg below knee Social History Smoking Status: Never smoker Feels Safe at Home: Yes Review of Systems 2 Review of Systems: All other systems were reviewed and negative except as noted in HPI Physical Exam 2 Physical Exam: General exam: Appears comfortable, no acute distress HEENT: Pupils are equal and reactive to light Neck: No JVD, neck is supple trachea is midline Respiratory system: Clear breath sounds bilaterally. Gastrointestinal: Abdomen is soft, non distended, non tender, bowel sounds are present CVS: Regular rate and rhythm. No murmurs, rubs or gallops Musculoskeletal: No joint or muscle tenderness Extremities: leo BKA Neuro: Oriented, no tremors, no focal neurological deficits Skin: No rashes Results & Data Vital Signs (Past 12 Hours) Vital Signs Temp Pulse Resp BP Pulse Ox O2 Del Method 11/17/24 19:25 Room Air 11/17/24 19:00 82 12 103/66 95 Room Air 11/17/24 17:00 122/73 11/17/24 16:30 86 14 118/82 11/17/24 16:00 83 13 117/74 98 Room Air 11/17/24 15:47 83 11/17/24 15:31 86 17 106/68 95 Room Air 11/17/24 15:00 91 H 21 96/59 L 95 Room Air 11/17/24 14:31 91 H 11 L 108/64 94 Room Air 11/17/24 14:08 92 H 16 100 Room Air 11/17/24 14:08 100 Room Air 11/17/24 13:52 37.6 C H 91 H 18 105/68 95 Room Air Laboratory Results 11/17/24 14:05 11/17/24 14:05 WBC 11.06 H RBC 3.30 L MCV 94.2 MCH 29.7 MCHC 31.5 L RDW Std Deviation 59.1 H RDW Coeff of John 17.2 H Plt Count 183 MPV 9.3 L Albumin 3.2 L
[2024-11-17] MEDS: INSULIN ASPART PER UNIT CHARGE SC SCH (21:54)
[2024-11-17] MEDS: APIXABAN 5 MG TABLET PO SCH (21:56)
[2024-11-17] MEDS: ROSUVASTATIN CALCIUM 10 MG TAB PO SCH (21:56)
[2024-11-17] MEDS: GABAPENTIN 100 MG CAP PO SCH (21:57)
[2024-11-17] MEDS: MENTHOL-ZINC OXIDE 360 APPLN/120 GM TUBE EXT SCH (21:58)
[2024-11-17] MEDS: PRAZOSIN HCL 1 MG CAP PO SCH (21:58)
[2024-11-17] MEDS: TRIAMCINOLONE ACET 0.1% CR 15 GM TUBE TOP SCH (21:59)
[2024-11-17] MEDS: DOXEPIN HCL 10 MG CAPSULE PO SCH (21:59)
[2024-11-18] MEDS: ACETAMINOPHEN 325 MG TAB PO PRN (02:28)
[2024-11-18 06:21] LABS: Hematocrit (blood only) 30.8 % (42.0-52.0); Hemoglobin 9.4 g/dl (14.0-18.0); Mean Corpuscular Hemoglobin 28.9 pg (25.0-34.0); Mean Corpuscular Volume 94.8 fL (80.0-100.0); Platelet Count 169 K/uL (130-400); RDW Standard Deviation 59.4 fL (36.4-46.3); Red Blood Count 3.25 M/uL (4.70-6.10); White Blood Count 10.03 K/ul (4.8-10.8)
[2024-11-18 06:49] LABS: Alanine Aminotransferase 10.0 U/L (7-52); Albumin Globulin Ratio 1.3 (0.9-2); Albumin Level 3.0 gm/dl (3.4-5.0); Alkaline Phosphatase 146.0 U/L (34-104); Anion Gap 11.0 (3-11); Bilirubin,Total 0.5 mg/dl (0.2-1.0); Blood Urea Nitrogen 57.0 mg/dl (6-23); Calcium 8.9 mg/dl (8.6-10.3); Carbon Dioxide 28.0 mmol/L (21-32); Chloride 100.0 mmol/L (98-107); Creatinine Clr Calc Pharmacy 10.8 ml/min; Globulin 2.3 gm/dl (2.5-4.0); Glucose 206.0 mg/dl (70-99(Fasting)); Potassium 4.1 mmol/L (3.5-5.1); Sodium 139.0 mmol/L (136-145); Total Protein 5.3 gm/dl (6.0-8.3)
--- NOTE | 2024-11-18 08:00 | Hospitalist Progress Note ---
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 Pt admitted for sepsis, likely bacteremia. #Sepsis, present on arrival Patient presented with tachycardia, fever, leukocytosis. All have resolved. Pt has received a total of 1.5L of IVF Blood cultures pending Patient anuric so no urine culture Levaquin 750mg given in ED; next dose would be 10/5 Daptomycin started in ED, renal dosing would 10/5; will review with pharmacy Completed 1L LR overnight #ESRD Consult nephrology (Will) Dialysis to day ay 0900 with goals of 3.5 hrs and UF 2L If blood cultures return positive, will recommend dialysis catheter removed by vascular surgery Electrolytes acceptable -- schedule at [facility] #Diabetes Well controlled with A1c 6.4, BSG ranging in low 200's today Glycemic consult placed with pharmacy, appreciate assistance Glargine 8 units daily Aspart per sliding scale #paroxysmal atrial fibrillation Remains in normal sinus -continue chronic anticoagulation with apixaban #History of epilepsy - Continue Keppra 1500mg qd #mild cognitive impairment Documented on problem list Suspect he continues at baseline today #Opioid dependence/Phantom pain Continue scheduled oxycodone and prn tylenol per home doses #GERD Continue Protonix 40 mg Dispo: Med/tele Diet: DM2, renal DVT prophylaxis: On chronic anticoagulation Code Status: Full Admission and Anticipated Discharge Date Admission Date: November 17, 2024 Supervising Physician Co-Signing Physician Notes ATTESTATION I also saw the patient and confirmed avery portions of the history and exam. I agree with the impression and plan in the resident documentation, and as summarized below. Patient without complaints this morning. He is headed to HD at the time I saw him. EXAM VS stable this morning Alert and oriented. NAD. Lungs Clear CV regular DATA Labs HgB 9.4 k 4.1, Na 139 Micro MRSA screen positive Blood cultures from 11/17/24 pending IMPRESSION & PLAN ESRD on HD Sepsis, clinically stable Diabetes Paroxysmal A-fib I agree with the impression and plan as noted in the resident documentation above. HD today; appreciate nephrology consultation. Continue antibiotics pending cultures. Additional per resident documentation Subjective No acute events overnight. Pt reports he awoke with phantom pain at bilateral legs this morning. He denies CP ,SOB, cough, congestion, abdominal pain, N/V or myalgias Review of Systems Review of Systems: As per HPI Physical Exam Physical Exam: Gen: NAD, sleeping upon arrival for exam. HENT: Normocephalic, atraumatic. Trachea midline, no thyromegaly Cardio: RRR, no murmurs or clicks. Trace edema at bilateral hands/forearms Resp: CTAB, Equal bilateral chest rise, no increased work of breathing GI: Non distended, soft, non tender, normoactive bowel sounds MSK: Moving all 4 extremities independently Skin: Dry, of normal skin tone, small laceration at distal left stump remains non erythematous, non tender. Dried blood on bandage. Neuro: A& O x 2, normal affect, no focal deficits Results & Data Results & Data Vital Signs (Past 12 Hours) Vital Signs Temp Pulse Pulse Resp BP BP Pulse Ox 11/18/24 02:06 36.5 C 82 18 129/83 96 11/17/24 23:35 85 11/17/24 22:14 36.7 C 82 16 113/74 96 11/17/24 20:15 83 11/17/24 20:11 11/17/24 20:11 36.8 C 18 120/75 95 O2 Del Method 11/18/24 02:06 Room Air 11/17/24 23:35 11/17/24 22:14 Room Air 11/17/24 20:15 11/17/24 20:11 Room Air 11/17/24 20:11 Room Air Resident Activity Tracking Resident Involvement: Resident Care Provided Care Provided: Adult Hospital Medicine (4) Fever Fever type: unspecified Qualified Code(s): R50.9 - Fever, unspecified (6) Nicotine dependence, unspecified, uncomplicated Nicotine product type: unspecified Qualified Code(s): F17.200 - Nicotine dependence, unspecified, uncomplicated
[2024-11-18] MEDS ORDERED: NON-FORMULARY MEDICATION (Ferric Citrate [Auryxia] 210 mg iron Tablet) PO SCH (09:00)
[2024-11-18] MEDS: NICOTINE 21 MG/24 HR TDSY TD SCH (09:01)
[2024-11-18] MEDS: VITAMIN B COMPLEX TAB PO SCH (09:01)
[2024-11-18] MEDS: ASPIRIN 81 MG ECTAB PO SCH (09:01)
[2024-11-18] MEDS: ESCITALOPRAM OXALATE 10 MG TAB PO SCH (09:02)
[2024-11-18] MEDS: levETIRAcetam 500 MG TAB PO SCH (09:02)
[2024-11-18] MEDS: LIDOCAINE 5% 1 PATCH TD SCH (09:03)
[2024-11-18] MEDS: REMOVE NICODERM PATCH SCH (09:06)
[2024-11-18] MEDS: LANTUS PER UNIT CHARGE SC SCH (09:11)
[2024-11-18] MEDS: ARTIFICIAL TEARS OP SCH (09:12)
[2024-11-18 10:58] LABS: Hep B Surface Ag with confirm Negative (Negative)
[2024-11-18] MEDS: EPOETIN ALFA 10,000 UNITS/ML VIAL IV ONE (11:02)
[2024-11-18] MEDS: MIDODRINE HCL 10 MG TAB PO SCH (11:02)
[2024-11-18] MEDS: HEPARIN SOD (PORCINE) 1000 UNIT/ML IV ONE (11:11)
[2024-11-18] MEDS: HEPARIN SOD (PORCINE) 1000 UNIT/ML IV SCH (11:11)
--- NOTE | 2024-11-18 12:00 | Nephrology Progress Note ---
Date of Service November 18, 2024 Assessment & Plan (1) ESRD (end stage renal disease): Plan: Patient on HD MWF and missed outpt HD today. CXR showed mild CHF. He is on room air. Electrolytes are stable. Patient is tolerating dialysis today but complicated by intra dialytic hypotension. Will plan for 3.5hrs target UF 1 litre. (2) SIRS (systemic inflammatory response syndrome): Plan: Patient is septic. Blood cultures are pending. If blood cultures are positive, dialysis catheter will have to be removed by vascular surgery after dialysis. Admission and Anticipated Discharge Date Admission Date: November 17, 2024 Subjective seen for ESRD. Recent worsen and examined while on dialysis. He is having intra dialytic hypotension. He denied shortness of breath. Review of Systems 2 Review of Systems: All other systems were reviewed and negative except as noted in HPI Physical Exam 2 Physical Exam: General exam: Appears comfortable, no acute distress HEENT: Pupils are equal and reactive to light Neck: No JVD, neck is supple trachea is midline Respiratory system: Clear breath sounds bilaterally. Gastrointestinal: Abdomen is soft, non distended, non tender, bowel sounds are present CVS: Regular rate and rhythm. No murmurs, rubs or gallops Musculoskeletal: No joint or muscle tenderness Extremities: leo BKA Neuro: Oriented, no tremors, no focal neurological deficits Skin: No rashes Results & Data Vital Signs (Past 12 Hours) Vital Signs Temp Pulse Pulse Resp BP BP Pulse Ox 11/18/24 11:30 90 105/55 L 11/18/24 11:00 89 96/53 L 11/18/24 10:32 84 84/41 L 11/18/24 10:30 86 56/35 L 11/18/24 10:00 90 83/56 L 11/18/24 09:30 91 H 101/59 L 11/18/24 09:16 91 H 101/59 L 11/18/24 09:11 36.5 C 11/18/24 08:36 36.8 C 81 20 130/81 96 11/18/24 02:06 36.5 C 82 18 129/83 96 O2 Del Method 11/18/24 11:30 11/18/24 11:00 11/18/24 10:32 11/18/24 10:30 11/18/24 10:00 11/18/24 09:30 11/18/24 09:16 11/18/24 09:11 11/18/24 08:36 Room Air 11/18/24 02:06 Room Air Laboratory Results 11/18/24 05:50 11/17/24 11/18/24 14:05 05:50 WBC 11.06 H 10.03 RBC 3.30 L 3.25 L MCV 94.2 94.8 MCH 29.7 28.9 MCHC 31.5 L 30.5 L RDW Std Deviation 59.1 H 59.4 H RDW Coeff of John 17.2 H 17.1 H Plt Count 183 169 MPV 9.3 L 9.7 Albumin 3.2 L 3.0 L
--- NOTE | 2024-11-18 14:34 | Pharmacy Report ---
Pharmacy Glycemic Short Note 2 - Date of Service November 18, 2024 - Glycemic Short BSG Results (Last 24 hours): 11/17/24 11/17/24 11/18/24 14:05 20:17 05:50 Glucose 245 H 206 H POC Glucose 198 H 11/18/24 07:58 Glucose POC Glucose 200 H OUTPATIENT ANTIDIABETIC REGIMEN: * linagliptin 5 mg PO daily HbA1c: 6.4% (11/15/24) * However, this result is likely somewhat unreliable in ESRD patients d/t interactions between the A1c analyzing technique and high levels of urea in ESRD, reduced RBC life span, iron deficiency anemia, and EPO administration. HbA1c > 7.5% in ESRD patient may overestimate the extent of hyperglycemia in ESRD patients. ASSESSMENT: * DM is a 64 year old male w/ sepsis (unknown source) * Pertinent PMH includes T2DM and ESRD (HD MWF) * Blood sugars elevated on admission and into this morning * HD session today PLAN FOR INPATIENT GLYCEMIC CONTROL: * Hold outpatient oral diabetes medications * Basal insulin * Lantus 8 units SC daily (~0.1 unit/kg) * Bolus insulin * NovoLog per scale ACHS or Q6hrs while NPO * Goal Range: Low 120 mg/dL - High 160 mg/dL * Correction Factor: 35 mg/dL/unit * Nutritional / Prandial insulin per carb ratio of 1 unit per 12 grams CHO consumed
[2024-11-18] MEDS: MELATONIN 3 MG TAB PO PRN (20:20)
[2024-11-18] MEDS: REMOVE LIDODERM PATCH SCH (20:21)
[2024-11-19 06:59] LABS: Hematocrit (blood only) 33.6 % (42.0-52.0); Hemoglobin 10.6 g/dl (14.0-18.0); Mean Corpuscular Hemoglobin 30.2 pg (25.0-34.0); Mean Corpuscular Volume 95.7 fL (80.0-100.0); Platelet Count 178 K/uL (130-400); RDW Standard Deviation 58.9 fL (36.4-46.3); Red Blood Count 3.51 M/uL (4.70-6.10); White Blood Count 9.72 K/ul (4.8-10.8)
[2024-11-19 07:21] LABS: Alanine Aminotransferase 11.0 U/L (7-52); Albumin Globulin Ratio 1.3 (0.9-2); Albumin Level 3.2 gm/dl (3.4-5.0); Alkaline Phosphatase 156.0 U/L (34-104); Anion Gap 9.0 (3-11); Bilirubin,Total 0.5 mg/dl (0.2-1.0); Blood Urea Nitrogen 38.0 mg/dl (6-23); Calcium 9.3 mg/dl (8.6-10.3); Carbon Dioxide 28.0 mmol/L (21-32); Chloride 103.0 mmol/L (98-107); Creatinine Clr Calc Pharmacy 15.9 ml/min; Globulin 2.4 gm/dl (2.5-4.0); Glucose 176.0 mg/dl (70-99(Fasting)); Potassium 4.4 mmol/L (3.5-5.1); Sodium 140.0 mmol/L (136-145); Total Protein 5.6 gm/dl (6.0-8.3)
--- NOTE | 2024-11-19 07:23 | Hospitalist Progress Note ---
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 Pt admitted for sepsis, likely bacteremia. #Sepsis, present on arrival Patient presented with tachycardia, fever, leukocytosis. All have resolved. Pt has received a total of 1.5L of IVF. Noted urine/discharge in urinal and on bed pad this morning. -Blood cultures pending- no growth after 24 hours -Patient typically anuric, however, with pus filled urine/discharge this morning. Sent for urine culture Ordered renal/bladder US due to appearance of urine/discharge - Continue IV Levaquin 50mg q24h - Continue IV Daptomycin 400mg q48 #ESRD Consult nephrology (Will). schedule at [facility] Dialysis anticipated for 11/20 If blood cultures return positive, will recommend dialysis catheter removed by vascular surgery Electrolytes acceptable #Diabetes Well controlled with A1c 6.4, BSG ranging from 176-233 Glycemic consult placed with pharmacy, appreciate assistance Glargine 8 units daily Aspart per sliding scale #paroxysmal atrial fibrillation Remains in normal sinus -continue chronic anticoagulation with apixaban #History of epilepsy - Continue Keppra 1500mg qd #mild cognitive impairment Documented on problem list Suspect he continues at baseline today #Opioid dependence/Phantom pain Continue scheduled oxycodone and prn tylenol per home doses #GERD Continue Protonix 40 mg Dispo: Med/tele Diet: DM2, renal DVT prophylaxis: On chronic anticoagulation Code Status: Full Admission and Anticipated Discharge Date Admission Date: November 17, 2024 Supervising Physician Co-Signing Physician Notes ATTESTATION I also saw the patient and confirmed avery portions of the history and exam. I agree with the impression and plan in the resident documentation, and as summarized below. Patient without complaints this morning. He urinated today - the first time he has urinated in about three weeks according to him - and it appears a milky white color. Dialytic hypotension yesterday; next HD Monday 11/20. EXAM 138/84, 80, 20 Alert and oriented. NAD. Lungs Clear CV regular DATA Labs HgB 10.6 k 4.16, Na 140 Micro MRSA screen positive Blood cultures from 11/17/24 negative at 24 hours Urine culture from today pending IMPRESSION & PLAN ESRD on HD Sepsis, clinically stable Diabetes Paroxysmal A-fib I agree with the impression and plan as noted in the resident documentation above. Appreciate nephrology consultation. Next HD scheduled tomorrow. Continue antibiotics pending cultures. Blood cultures negative at 24 hours Urine culture (first urine he has had in weeks) collected this AM Additional per resident documentation Subjective Yesterday evening, pt c/o facial swelling and bilateral eye pain with general blurry vision. Neurological exam was benign at that time. No acute events over night. This morning, pt reports facial swelling is better, but continues with bilateral eye pain/irritation and blurry vision both near and far. Pt denies scratching or itching eyes, eye drainage or wear corrective lenses at home. Pt reports he urinated for the first time in 3 weeks this morning. Urine is thin in consistency and white/off white in color. Mild dysuria. Endorses chronic phantom pain, eye irritation Denies CP, SOB, abdominal pain, N/V/D, Review of Systems Review of Systems: As per HPI Physical Exam Physical Exam: Gen: NAD, sleeping upon arrival for exam. HENT: Normocephalic, atraumatic. sclera is clear, no eye drainage noted. Ocular tracking is normal. Trachea midline, no thyromegaly. Seborrheic dermatitis at nasal folds is improved since yesterday afternoon Cardio: RRR, no murmurs or clicks. Trace edema at bilateral hands/forearms Resp: CTAB, Equal bilateral chest rise, no increased work of breathing GI: Non distended, soft, non tender, normoactive bowel sounds MSK: Moving all 4 extremities independently Skin: Dry, of normal skin tone, small laceration at distal left stump remains non erythematous, non tender. Stable scab, no drainage Neuro: A& O x 2, normal affect, no focal deficits Results & Data Results & Data Vital Signs (Past 12 Hours) Vital Signs Temp Pulse Pulse Resp BP Pulse Ox O2 Del Method 11/19/24 07:00 68 11/19/24 02:09 36.8 C 74 18 131/85 95 Room Air 11/18/24 22:46 37.1 C 81 16 128/72 94 Room Air 11/18/24 22:11 89 Resident Activity Tracking Resident Involvement: Resident Care Provided Care Provided: Adult Hospital Medicine (4) Fever Fever type: unspecified Qualified Code(s): R50.9 - Fever, unspecified (6) Nicotine dependence, unspecified, uncomplicated Nicotine product type: unspecified Qualified Code(s): F17.200 - Nicotine dependence, unspecified, uncomplicated
--- NOTE | 2024-11-19 10:27 | Nephrology Progress Note ---
Date of Service November 19, 2024 Assessment & Plan (1) ESRD (end stage renal disease): Plan: Patient on HD MWF and missed outpt HD wednesday. CXR showed mild CHF. He is on room air. Electrolytes are stable. Patient tolerated dialysis wednesday but complicated by intra dialytic hypotension. Will plan for 3.5hrs dialysis on Wednesday target UF 1 litre. (2) SIRS (systemic inflammatory response syndrome): Plan: Blood cultures are pending. If blood cultures are positive, dialysis catheter will have to be removed by vascular surgery after dialysis. Admission and Anticipated Discharge Date Admission Date: November 17, 2024 Subjective Seen for ESRD. he had HD yesterday with 1 litre UF. No SOB but hands are swollen. Review of Systems 2 Review of Systems: All other systems were reviewed and negative except as noted in HPI Physical Exam 2 Physical Exam: General exam: Appears comfortable, no acute distress HEENT: Pupils are equal and reactive to light Neck: No JVD, neck is supple trachea is midline Respiratory system: Clear breath sounds bilaterally. Gastrointestinal: Abdomen is soft, non distended, non tender, bowel sounds are present CVS: Regular rate and rhythm. No murmurs, rubs or gallops Musculoskeletal: No joint or muscle tenderness Extremities: leo BKA Neuro: Oriented, no tremors, no focal neurological deficits Skin: No rashes Results & Data Vital Signs (Past 12 Hours) Vital Signs Temp Pulse Pulse Resp BP Pulse Ox O2 Del Method 11/19/24 08:29 37.0 C 72 20 146/87 H 93 Room Air 11/19/24 07:00 68 11/19/24 02:09 36.8 C 74 18 131/85 95 Room Air 11/18/24 22:46 37.1 C 81 16 128/72 94 Room Air Laboratory Results 11/19/24 06:26 11/19/24 06:26 WBC 9.72 RBC 3.51 L MCV 95.7 MCH 30.2 MCHC 31.5 L RDW Std Deviation 58.9 H RDW Coeff of John 16.9 H Plt Count 178 MPV 9.7 Albumin 3.2 L
[2024-11-19] MEDS: DICLOFENAC SOD 1% GEL 100 GM TUBE EXT SCH (16:56)
[2024-11-19] MEDS: DAPTOmycin 400 MG in SYRINGE 0 ML IV SCH (16:57)
--- NOTE | 2024-11-19 18:32 | Ultrasound Report ---
INDICATION: pus in urine COMPARISON: None FINDINGS: RIGHT KIDNEY: Measures 11.2 cm. No hydronephrosis or nephrolithiasis. Cortical thinning. Increased echogenicity. 1.8 cm cyst. LEFT KIDNEY: Measures 10.1 cm. No hydronephrosis or nephrolithiasis. Cortical thinning. Increased echogenicity. 2.7 cm cyst. BLADDER: Debris in the urinary bladder. Bladder wall thickening. OTHER: Unremarkable. IMPRESSION: No hydronephrosis or nephrolithiasis. Findings suggestive of medical renal disease. Debris in the urinary bladder with bladder wall thickening. Cystitis changes are suspected. Electronically signed by Ajith Quiñones 11-19-2024 6:31 PM
[2024-11-20] MEDS ORDERED: SODIUM CHLORIDE 0.9% 1,000 ML IV PRN (07:00)
--- NOTE | 2024-11-20 07:09 | Hospitalist Progress Note ---
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 Pt admitted for sepsis, likely bacteremia. #Sepsis, present on arrival Patient presented with tachycardia, fever, leukocytosis. All have resolved. Pt has received a total of 1.5L of IVF. Noted urine/discharge in urinal and on bed pad this morning. -Blood cultures pending- no growth after 24 hours -Patient typically anuric, however, with pus filled urine/discharge this morning. Sent for urine culture Ordered renal/bladder US due to appearance of urine/discharge - Continue IV Levaquin 50mg q24h - Continue IV Daptomycin 400mg q48 #ESRD Consult nephrology (Will). schedule at [facility] Dialysis anticipated for 11/20 If blood cultures return positive, will recommend dialysis catheter removed by vascular surgery Electrolytes acceptable #Diabetes Well controlled with A1c 6.4, BSG ranging from 176-233 Glycemic consult placed with pharmacy, appreciate assistance Glargine 8 units daily Aspart per sliding scale #paroxysmal atrial fibrillation Remains in normal sinus -continue chronic anticoagulation with apixaban #History of epilepsy - Continue Keppra 1500mg qd #mild cognitive impairment Documented on problem list Suspect he continues at baseline today #Opioid dependence/Phantom pain Continue scheduled oxycodone and prn tylenol per home doses #GERD Continue Protonix 40 mg Dispo: Med/tele Diet: DM2, renal DVT prophylaxis: On chronic anticoagulation Code Status: Full Admission and Anticipated Discharge Date Admission Date: November 17, 2024 Subjective No acute events over night. Midodrine was stopped due to elevated BP. This morning, pt reports Endorses chronic phantom pain, eye irritation Denies CP, SOB, abdominal pain, N/V/D, Review of Systems Review of Systems: As per HPI Physical Exam Physical Exam: Gen: NAD, sleeping upon arrival for exam. HENT: Normocephalic, atraumatic. sclera is clear, no eye drainage noted. Ocular tracking is normal. Trachea midline, no thyromegaly. Seborrheic dermatitis at nasal folds is improved since yesterday afternoon Cardio: RRR, no murmurs or clicks. Trace edema at bilateral hands/forearms Resp: CTAB, Equal bilateral chest rise, no increased work of breathing GI: Non distended, soft, non tender, normoactive bowel sounds MSK: Moving all 4 extremities independently Skin: Dry, of normal skin tone, small laceration at distal left stump remains non erythematous, non tender. Stable scab, no drainage Neuro: A& O x 2, normal affect, no focal deficits Results & Data Results & Data Vital Signs (Past 12 Hours) Vital Signs Temp Pulse Pulse Resp BP Pulse Ox O2 Del Method 11/20/24 02:06 36.8 C 69 16 150/81 H 94 Room Air 11/20/24 00:00 69 11/19/24 23:20 36.7 C 73 16 155/79 H 92 Room Air (4) Fever Fever type: unspecified Qualified Code(s): R50.9 - Fever, unspecified (6) Nicotine dependence, unspecified, uncomplicated Nicotine product type: unspecified Qualified Code(s): F17.200 - Nicotine dependence, unspecified, uncomplicated
[2024-11-20 08:20] LABS: Hematocrit (blood only) 32.1 % (42.0-52.0); Hemoglobin 9.7 g/dl (14.0-18.0); Mean Corpuscular Hemoglobin 28.6 pg (25.0-34.0); Mean Corpuscular Volume 94.7 fL (80.0-100.0); Platelet Count 187 K/uL (130-400); RDW Standard Deviation 58.1 fL (36.4-46.3); Red Blood Count 3.39 M/uL (4.70-6.10); White Blood Count 9.80 K/ul (4.8-10.8)
[2024-11-20 08:53] LABS: Alanine Aminotransferase 9.0 U/L (7-52); Albumin Globulin Ratio 1.3 (0.9-2); Albumin Level 3.0 gm/dl (3.4-5.0); Alkaline Phosphatase 143.0 U/L (34-104); Anion Gap 10.0 (3-11); Bilirubin,Total 0.5 mg/dl (0.2-1.0); Blood Urea Nitrogen 63.0 mg/dl (6-23); Calcium 9.2 mg/dl (8.6-10.3); Carbon Dioxide 26.0 mmol/L (21-32); Chloride 103.0 mmol/L (98-107); Creatinine Clr Calc Pharmacy 12.1 ml/min; Globulin 2.4 gm/dl (2.5-4.0); Glucose 156.0 mg/dl (70-99(Fasting)); Potassium 4.6 mmol/L (3.5-5.1); Sodium 139.0 mmol/L (136-145); Total Protein 5.4 gm/dl (6.0-8.3)
[2024-11-20] MEDS: MIDODRINE HCL 10 MG TAB PO PRN (08:55)
[2024-11-20] MEDS ORDERED: levETIRAcetam 500 MG TAB PO SCH (09:00)
--- NOTE | 2024-11-20 09:28 | Nephrology Progress Note ---
Date of Service November 20, 2024 Assessment & Plan (1) ESRD (end stage renal disease): Plan: Patient on HD MWF and missed outpt HD friday 11/17. CXR showed mild CHF. He is on room air. Electrolytes are stable. Patient tolerated dialysis wednesday but complicated by intra dialytic hypotension. Will plan for 3.5hrs dialysis today target UF 1 litre. (2) SIRS (systemic inflammatory response syndrome): Plan: Blood cultures are pending but negative at 48 hours; he was recently admitted to [facility] 10/20-11/03; some the extended admission involved placement/ d-c planning issues but initial admission was d/t exit site infection. He was treated w/ a course of vancomycin but catheter was not exchanged. with negative blood cxs at 48 hrs, suggest remove TDC and replace at another site. No other infection source found to date for F last week. Reviewed w/ Dr Canela by phone re dialysis and catheter exchange dispo. [facility] surg c/s placed. [facility] hospital d/c summary and final neph prog note reviewed. (3) Labile blood pressure: Plan: extremely labile BP > has midodrine 10 mg PRN ON HD only so that we can remove fluid as needed Admission and Anticipated Discharge Date Admission Date: November 17, 2024 Results & Data Vital Signs (Past 12 Hours) Vital Signs Temp Pulse Pulse Resp BP Pulse Ox O2 Del Method 11/20/24 08:12 36.7 C 66 16 147/84 H 97 Room Air 11/20/24 06:45 67 11/20/24 02:06 36.8 C 69 16 150/81 H 94 Room Air 11/20/24 00:00 69 11/19/24 23:20 36.7 C 73 16 155/79 H 92 Room Air Laboratory Results 11/20/24 08:01 11/20/24 08:01
[2024-11-20] MEDS: HEPARIN SOD (PORCINE) 1000 UNIT/ML IV SCH (10:27)
[2024-11-20] MEDS: HEPARIN SOD (PORCINE) 1000 UNIT/ML IV ONE (10:27)
--- NOTE | 2024-11-20 15:19 | Hospitalist Progress Note ---
<Statement entered by Tiera Joe MD - 11/20/24 19:11> Agree with Dr. Arellano he could be having line sepsis though blood cultures negative to date. Replacement of HD line planned. On appropriate IV abx with daptomycin. Urine culture with skin anamaria. Levofloxacin not currently ordered - gram negative coverage should be resumed if he worsens Date of Service November 20, 2024 Assessment & Plan (1) ESRD (end stage renal disease): (2) SIRS (systemic inflammatory response syndrome): (3) Acute hypotension: (4) Fever: (5) Opioid dependence, uncomplicated: (6) Nicotine dependence, unspecified, uncomplicated: (7) Gastro-esophageal reflux disease without esophagitis: (8) Unspecified atrial fibrillation: (9) Anxiety disorder, unspecified: (10) Cognitive communication deficit: (11) Atherosclerotic heart disease of [place] coronary artery without angina pectoris: (12) Other chronic pain: (13) Cerebral infarction, unspecified: (14) Epilepsy, unspecified, not intractable, without status epilepticus: (15) Acquired absence of right leg below knee: Plan Pt is a 64 yo gentleman with PMH of ESRD on HD, DM2, a-fib, epilepsy, cognitive impairment, GERD, and bilateral BKA who presented to ED for rigors and hypotension. Pt admitted for sepsis, likely bacteremia. #Sepsis, present on arrival-Patient presented with tachycardia, fever, leukocytosis. All have resolved. Pt has received a total of 1.5L of IVF -Blood cultures pending- no growth after 48 hours -with typical anuria, episode of pus filled urine -UC: more than 3 types of organisms present, all moderate counts mixed with probable skin anamaria. -renal US: no hydro or nephrolithiasis, consistent findings associated with renal disease -Continue IV Levaquin 500mg q24h -Continue IV Daptomycin 400mg q48 -vascular surgery consultation for possible placement of new dialysis catheter #ESRD -nephrology (Will), schedule at [facility] -Dialysis 11/20 -trend electrolytes #Diabetes -Well controlled with A1c 6.4, POC BSG trends reviewed and acceptable -Glycemic consult placed with pharmacy -Glargine 8 units daily -Aspart per sliding scale #paroxysmal atrial fibrillation -NSR med/tele with rate in 70s -anticoagulation with Apixiban #History of epilepsy -Keppra 1500mg qd #mild cognitive impairment -documented per patient history #Opioid dependence/Phantom pain -Continue scheduled oxycodone and prn Tylenol per home doses #GERD -Continue Protonix 40 mg Dispo: Med/tele Diet: DM2, renal DVT prophylaxis: On chronic AC Code Status: Full Admission and Anticipated Discharge Date Admission Date: November 17, 2024 Subjective Seen in dialysis. States he is hungry. He has no complaints at this time and his pain is managed with his home Oxycodone dosing. Corresponded with Dr. Arellano with concerns surrounding discovered patient admission to [facility] from -11/03 d/t exit site infection. He was treated with Vancomycin, but dialysis catheter was not changed at that time. Suggested removal of TDC and replacement at another site. BC negative at 48 hours. Plant to consult vascular surgery. Review of Systems Review of Systems: All systems reviewed & are unremarkable except as noted in Subjective Physical Exam Physical Exam: GENERAL APPEARANCE: A&O. Lying in recliner. NAD. SKIN: Normal color without rashes or lesions. Normal turgor. HEENT: Head AT/NC. Buccal mucosa is moist and pink. NECK: No jugular venous distention. No thyroid enlargement. There is no lymphadenopathy. HEART: RRR without m/g/r LUNGS: Normal inspiratory effort. CTA without w/r/r ABDOMEN: No guarding or rigidity. Normoactive BS in all four quadrants. Abdomen soft and NT. MSK: No bony gross/deformities throughout. ROM intact. EXTREMITIES: Bilateral BKAs. Neuro: CN 2-12 grossly intact. No focal neuro deficits Results & Data Results & Data Vital Signs (Past 12 Hours) Vital Signs Temp Pulse Pulse Pulse Resp BP BP 11/20/24 14:22 36.7 C 65 16 163/82 H 11/20/24 13:20 36.8 C 62 139/74 11/20/24 13:00 69 110/69 11/20/24 12:30 66 119/70 11/20/24 12:00 72 118/69 11/20/24 11:30 71 115/75 11/20/24 11:00 70 99/61 L 11/20/24 10:30 71 118/72 11/20/24 10:15 81 80/55 L 11/20/24 10:00 72 116/64 11/20/24 09:43 70 113/69 10/06/25 08:55 11/20/24 08:12 36.7 C 66 16 147/84 H 11/20/24 06:45 67 Pulse Ox O2 Del Method 11/20/24 14:22 65 L Room Air 11/20/24 13:20 11/20/24 13:00 11/20/24 12:30 11/20/24 12:00 11/20/24 11:30 11/20/24 11:00 11/20/24 10:30 11/20/24 10:15 11/20/24 10:00 11/20/24 09:43 11/20/24 08:55 Room Air 11/20/24 08:12 97 Room Air 11/20/24 06:45 PG Care Time/CCT Total # of Minutes Spent Total Time Spent with Patient: Total time spent is greater than 50% in coordination of care (as documented) at patient's floor/unit and/or counseling patient: Coding Level of Care Code 41886 SUB INP/OBS CARE 3/50MIN Diagnoses ESRD (end stage renal disease) N18.6 SIRS (systemic inflammatory response syndrome) R65.10 Acute hypotension I95.9 Fever, unspecified fever cause R50.9 Fever type: unspecified Opioid dependence, uncomplicated F11.20 Nicotine dependence, uncomplicated, unspecified nicotine product type F17.200 Nicotine product type: unspecified Gastro-esophageal reflux disease without esophagitis K21.9 Unspecified atrial fibrillation I48.91 Anxiety disorder, unspecified F41.9 Cognitive communication deficit R41.841 Atherosclerotic heart disease of [place] coronary artery without angina pectoris I25.10 Other chronic pain G89.29 Cerebral infarction, unspecified I63.9 Epilepsy, unspecified, not intractable, without status epilepticus G40.909 Acquired absence of right leg below knee Z89.511 (4) Fever Fever type: unspecified Qualified Code(s): R50.9 - Fever, unspecified (6) Nicotine dependence, unspecified, uncomplicated Nicotine product type: unspecified Qualified Code(s): F17.200 - Nicotine dependence, unspecified, uncomplicated
[2024-11-20] MEDS: levETIRAcetam 500 MG TAB PO SCH (15:36)
[2024-11-20] MEDS ORDERED: MICONAZOLE NITRATE POWDER 85 GM EXT PRN (16:36)
[2024-11-21 07:14] LABS: Hematocrit (blood only) 32.8 % (42.0-52.0); Hemoglobin 10.3 g/dl (14.0-18.0); Mean Corpuscular Hemoglobin 29.9 pg (25.0-34.0); Mean Corpuscular Volume 95.3 fL (80.0-100.0); Platelet Count 192 K/uL (130-400); RDW Standard Deviation 57.3 fL (36.4-46.3); Red Blood Count 3.44 M/uL (4.70-6.10); White Blood Count 9.09 K/ul (4.8-10.8)
[2024-11-21 07:17] LABS: Albumin Level 3.0 gm/dl (3.4-5.0); Anion Gap 7.0 (3-11); Bilirubin,Total 0.5 mg/dl (0.2-1.0); Calcium 9.1 mg/dl (8.6-10.3); Carbon Dioxide 30.0 mmol/L (21-32); Chloride 102.0 mmol/L (98-107); Potassium 4.3 mmol/L (3.5-5.1); Sodium 139.0 mmol/L (136-145)
[2024-11-21 07:25] LABS: Alanine Aminotransferase 9.0 U/L (7-52); Albumin Globulin Ratio 1.3 (0.9-2); Alkaline Phosphatase 136.0 U/L (34-104); Blood Urea Nitrogen 45.0 mg/dl (6-23); Creatinine Clr Calc Pharmacy 13.9 ml/min; Globulin 2.4 gm/dl (2.5-4.0); Glucose 172.0 mg/dl (70-99(Fasting)); Total Protein 5.4 gm/dl (6.0-8.3)
[2024-11-21] MEDS: MICONAZOLE NITRATE POWDER 85 GM EXT PRN (09:20)
--- NOTE | 2024-11-21 09:44 | Consultation ---
Date of Consultation November 21, 2024 Assessment & Plan (1) ESRD (end stage renal disease): Pt with R IJ permcath in placed, but with previous exit site infection. Blood cultures negative, but catheter has not been removed. Nephrology requesting removal of permcath and placement of permcath via separate site. Procedure, risks, benefits, and alternatives discussed with pt by myself at Dr Stevens's request, he expresses understanding and agreement. Procedure scheduled for tomorrow afternoon. History of Present Illness Reason for Consultation: ESRD on HD Attending Physician: Tiera Joe MD History of Present Illness 64 yo m with hx of HTN, ESRD on HD, neuropathy, depression, hyperlipidemia, admitted with permcath exit site infection, seen in consultation today for permcath removal and new placement. Pt states current permcath has been in place for 7 months. Has hx of LUE AVF Creation which was used for HD for a short time, then thrombosed. Pt admits fatigue, malaise. Denies ANAYA, fever, chest pain, SOB abd pain, n/v, rest pain, claudication, other complaints. blood cultures negative. Allergies Allergy/AdvReac Type Severity Reaction Status Date / Time Penicillins Allergy Severe THROAT Verified 08/24/23 11:47 [facility] Home Medications Medication Instructions Recorded Confirmed Type lidocaine 4 % topical patch 1 patch topical Q12 08/24/23 11/17/24 History acetaminophen 325 mg tablet 650 mg PO Q6 PRN PAIN 1-10 SCALE 11/17/24 11/17/24 History (Tylenol) acetaminophen 325 mg tablet 650 mg PO Q6 PRN temp above 100.1 11/17/24 11/17/24 History (Tylenol) allopurinol 100 mg tablet 100 mg PO UD 11/17/24 11/17/24 History (Zyloprim) apixaban 5 mg tablet (Eliquis) 5 mg PO AMHS 11/17/24 11/17/24 History aspirin 81 mg tablet,delayed 81 mg PO QAM 11/17/24 11/17/24 History release clonidine HCl 0.1 mg tablet 0.1 mg PO .EVERY 24 HOURS PRN 11/17/24 11/17/24 History Hypertension dextran 70-hypromellose (PF) 0.1 1 drp OPB QAM 11/17/24 11/17/24 History %-0.3 % eye drops in a dropperette (Artificial Tears (PF)) diphenhydramine HCl 25 mg tablet 25 mg PO Q6 PRN Allergy Symptoms 11/17/24 11/17/24 History (Benadryl Allergy) doxepin 10 mg capsule 10 mg PO HS 11/17/24 11/17/24 History ergocalciferol (vitamin D2) 1,250 1,250 mcg PO WK 11/17/24 11/17/24 History mcg (50,000 unit) capsule escitalopram oxalate 5 mg tablet 5 mg PO QAM 11/17/24 11/17/24 History (Lexapro) ferric citrate 210 mg iron tablet 210 mg PO DAILY 11/17/24 11/17/24 History (Auryxia) ferric citrate 210 mg iron tablet 420 mg PO WM 11/17/24 11/17/24 History (Auryxia) gabapentin 100 mg tablet 200 mg PO TID 11/17/24 11/17/24 History levetiracetam 1,000 mg tablet 1,000 mg PO QAM 11/17/24 11/17/24 History levetiracetam 500 mg tablet 500 mg PO 3XWK 11/17/24 11/17/24 History linagliptin 5 mg tablet 5 mg PO DAILY 11/17/24 11/17/24 History loperamide 2 mg tablet (Imodium 2 mg PO Q6H PRN LOOSE STOOLS 11/17/24 11/17/24 History A-D) menthol 0.44 %-zinc oxide 20.6 % 1 applic topical Q12 PRN Itching 11/17/24 11/17/24 History topical ointment (Calmoseptine) menthol 0.44 %-zinc oxide 20.6 % 1 applic topical TID 11/17/24 11/17/24 History topical ointment (Calmoseptine) nicotine 21 mg/24 hr daily 1 patch transdermal DAILY 11/17/24 11/17/24 History transdermal patch oxycodone 10 mg tablet,crush 10 mg PO AMHS 11/17/24 11/17/24 History resistant,extended release 12 hr (OxyContin) pantoprazole 40 mg tablet,delayed 40 mg PO QAM 11/17/24 11/17/24 History release prazosin 1 mg capsule 1 mg PO HS 11/17/24 11/17/24 History rosuvastatin 10 mg tablet 10 mg PO QPM 11/17/24 11/17/24 History triamcinolone acetonide 0.1 % 1 applic topical 2XD 11/17/24 11/17/24 History topical cream vitamin B complex-vitamin C-folic 1 tab PO QAM 11/17/24 11/17/24 History acid 0.8 mg tablet (Renal Vitamin) Patient History Medical History Amputation leg, bilat Opioid dependence, uncomplicated Nicotine dependence, unspecified, uncomplicated Gastro-esophageal reflux disease without esophagitis Unspecified atrial fibrillation Anxiety disorder, unspecified Cognitive communication deficit Atherosclerotic heart disease of [place] coronary artery without angina pectoris Other chronic pain Cerebral infarction, unspecified Epilepsy, unspecified, not intractable, without status epilepticus Acquired absence of right leg below knee Social History Smoking Status: Never smoker Tobacco Type: E-cigarettes / Vaping Second Hand Exposure: No; Do You Dip or Chew Tobacco: No; Tobacco Cessation Education Requested by Patient: No Hx Alcohol Use: No Hx Substance Use: No Communication Ability: Effective Beliefs That Will Affect Care: None Current Living Situation: Custodial Other Information That Helps Us Care for You: No Feels Safe at Home: Yes Safety Concerns: Feels Safe At This Time Assistive Devices: None Review of Systems Review of Systems: All systems reviewed & are unremarkable except as noted in HPI & below Physical Exam Constitutional: WD/WN, vitals as above + disheveled and cooperative; not in distress Neck: trachea midline Respiratory: normal respiratory effort, lungs clear to auscultation Auscultation: + diminished lung sounds Cardiovascular: Rate/Rhythm: + irregularly irregular Vessels: femoral pulses present and radial pulses present; + abnormal peripheral pulses Extremities: normal capillary refill Gastrointestinal (Abdomen): Inspection/Auscultation: abdomen normal to inspection and normal bowel sounds Percussion/Palpation: abdomen soft; abdomen nontender Musculoskeletal: no cyanosis or clubbing, extremities motor strength 5/5 Skin: no rashes, warm and dry Neurologic: moves all extremities and awake; no focal motor deficits and not confused Results & Data Vital Signs (Past 12 Hours) Vital Signs Temp Pulse Pulse Resp BP Pulse Ox O2 Del Method 11/21/24 07:38 36.8 C 66 18 163/94 H 93 Room Air 11/21/24 06:45 69 11/21/24 02:36 36.9 C 74 18 163/79 H 92 Room Air 11/21/24 00:00 72 11/20/24 23:10 37 C 75 16 161/84 H 93 Room Air
--- NOTE | 2024-11-21 11:04 | Nephrology Progress Note ---
Date of Service November 21, 2024 Assessment & Plan (1) Infection of exit site of hemodialysis catheter: Plan: Blood cultures are pending but negative at 72 hours as is urine cx; he was recently admitted to [facility] 10/20-11/03; some of the extended admission involved placement/ d-c planning issues but initial admission was d/t exit site infection. He was treated w/ a course of vancomycin but catheter was not exchanged. urine cx negative. No other infection source found to date for F last week. second admission now w/ sepsis/SIRS from this; will remove and replace catheter different site, all one day vascular help appreciated; HD after exchange tomorrow Care coordinated w/ Dr Joe via TText regardign HD timing, clonidine/midodrine dosing, FR; we are in agreement. (2) ESRD (end stage renal disease): Plan: Patient on HD MWF and missed outpt HD friday 11/17. CXR showed mild CHF. He is on room air. Electrolytes are stable. Patient tolerated dialysis wednesday but complicated by intradialytic hypotension. yesterday tolerated 1.5 L UF w/ 3.5hrs dialysis . K 4.3; hgb 10.4 > no KITTY indicated for now -given HF on admission > 1.5 L FR ordered >plan HD tomorrow after exchange of catheter > 3.5 hrs, goal UF 2.5 L ordered on 2K bath; no heparin immediatley post procedure -last eliquis dose was 10/6; on hold now (3) SIRS (systemic inflammatory response syndrome): Plan: Blood cultures are pending but negative at 48 hours; he was recently admitted to [facility] 10/20-11/03; some the extended admission involved placement/ d-c planning issues but initial admission was d/t exit site infection. He was treated w/ a course of vancomycin but catheter was not exchanged. with negative blood cxs at 48 hrs, suggest remove TDC and replace at another site. No other infection source found to date for F last week. Reviewed w/ Dr Canela by phone re dialysis and catheter exchange dispo. [facility] c/s placed. [facility] hospital d/c summary and final neph prog note reviewed. (4) Labile blood pressure: Plan: extremely labile BP > has midodrine 10 mg PRN ON HD only so that we can remove fluid as needed PRN clonidine RX is far from ideal but will leave for now; note that our OP med list says he takes clonidine tid same mg > suggest hospital team pls verify Admission and Anticipated Discharge Date Admission Date: November 17, 2024 Subjective no acute interval eventsClinically. Dialysis catheter removal with placement at separate site planned for tomorrow 1300. Pain control acceptable. Breathing acceptable. Patient tells me he wishes to go back to the [facility] and hoping to start working on these arrangements after hospital discharge with his facility. No nausea vomiting Review of Systems 2 Review of Systems: All systems reviewed & are unremarkable except as noted in Subjective Physical Exam 2 Constitutional: well developed and well nourished Eyes: EOM intact bilaterally ENMT: Mouth: + dry oral mucous membranes Respiratory: normal respiratory effort Auscultation: + diminished lung sounds Gastrointestinal (Abdomen): Inspection/Auscultation: normal bowel sounds P ercussion/Palpation: abdomen soft; abdomen nontender Musculoskeletal: Extremities: strength 5/5 throughout and + amputation noted ( bilateral BKA) Skin: no rashes, warm and dry Neurologic: carlson, fluent speech, no tremor Results & Data Vital Signs (Past 12 Hours) Vital Signs Temp Pulse Pulse Resp BP Pulse Ox O2 Del Method 11/21/24 09:20 Room Air 11/21/24 07:38 36.8 C 66 18 163/94 H 93 Room Air 11/21/24 06:45 69 11/21/24 02:36 36.9 C 74 18 163/79 H 92 Room Air 11/21/24 00:00 72 11/20/24 23:10 37 C 75 16 161/84 H 93 Room Air Laboratory Results 11/21/24 06:42 11/21/24 06:42
--- NOTE | 2024-11-21 13:06 | Hospitalist Progress Note ---
Date of Service November 21, 2024 Assessment & Plan (1) ESRD (end stage renal disease): (2) SIRS (systemic inflammatory response syndrome): (3) Acute hypotension: (4) Fever: (5) Opioid dependence, uncomplicated: (6) Nicotine dependence, unspecified, uncomplicated: (7) Gastro-esophageal reflux disease without esophagitis: (8) Unspecified atrial fibrillation: (9) Anxiety disorder, unspecified: (10) Cognitive communication deficit: (11) Atherosclerotic heart disease of [place] coronary artery without angina pectoris: (12) Other chronic pain: (13) Cerebral infarction, unspecified: (14) Epilepsy, unspecified, not intractable, without status epilepticus: (15) Acquired absence of right leg below knee: Plan Pt is a 64 yo gentleman with PMH of ESRD on HD, DM2, a-fib, epilepsy, cognitive impairment, GERD, and bilateral BKA who presented to ED for rigors and hypotension. Pt admitted for sepsis, likely bacteremia. #Sepsis, present on arrival-Patient presented with tachycardia, fever, leukocytosis. All have resolved. Pt has received a total of 1.5L of IVF. Treated for exit infection from right IJ presumed catheter infection when hospitalized at [facility] 10/20/-11/03, with Vancomycin, reported negative aerobic BC on 10/20 -Blood cultures pending- no growth after 48 hours -with typical anuria, episode of pus filled urine -UC: more than 3 types of organisms present, all moderate counts mixed with probable skin anamaria. -renal US: no hydro or nephrolithiasis, consistent findings associated with renal disease -completed 48 hours of Levaquin IV empirically -Continue IV Daptomycin 400mg q48 -Clindamycin on hold for OR 11/22 -will tailor additional antibiotic treatment pending catheter tip culture -vascular surgery consultation 11/21, OR 11/22 for removal of current permcath and placement of permcath via separate site #ESRD -following with nephrology (Will), schedule at [facility], inhouse dialysis currently -Dialysis 11/20, scheduled post procedure 11/22 with new permcath placement -trend electrolytes-1500ml fluid restriction per nephrology due to mild CHF on CXR 11/17 -BP has been labile, midodrine on hold for dialysis, prn Clonidine for SBP>140, has not received Clonidine dosing with recorded measurements of SBP>160, will clarify with [facility] Clonidine dosing #Diabetes -Well controlled with A1c 6.4, POC BSG trends reviewed and acceptable -Glycemic consult placed with pharmacy -Glargine 8 units daily -Aspart per sliding scale #paroxysmal atrial fibrillation -med/tele NSR w/ PACS rate 60s-70s -Apixaban on hold for new permcath placement #History of epilepsy -Keppra 1500mg qd #mild cognitive impairment -documented per patient history #Opioid dependence/Phantom pain -Continue scheduled oxycodone and prn Tylenol per home doses #GERD -Continue Protonix 40 mg ##Pressure-induced deep tissue damage/injury of left buttock, present on arrival -WOCN consult -review of WOCN consult with assessment of DTI left buttock -cleanse with NSS, pat dry with gauze, aquacel Ag, optifoam to open wound, change daily and prn ##Right BKA site wound, amputation site, present on arrival-from previous surgical intervention one year ago at [place], follows with surgeon in [place] -wound care consult with appreciation of full thickness wound with tunneling after scabbed area removed 11/20 -nursing reports foul-smelling drainage, sent WC -will need to f/u with surgeon and outpatient wound care at discharge Dispo: Med/tele Diet: DM2, renal DVT prophylaxis: On chronic AC, held for now due to anticipated surgery Code Status: Full Admission and Anticipated Discharge Date Admission Date: November 17, 2024 Subjective Seen in room this am. Oriented times three. Overall reports feeling well. Reports good appetite and hydrating appropriately. Aware he has been placed on fluid restriction per nephrology. Denies SOB, CP, palpitations, fever or chills. Aware he is slated for OR tomorrow for removal of right IJ perm cath d/t previous exit site infection. Informed he will be NPO after midnight. Reports he has had a mild rash with no pain or itching to the right posterior trunk that was present prior to arrival. Kenalog cream helping. Denies any vesicular eruptions to area or exposure to any contacts with herpes zoster. Review of Systems Review of Systems: All systems reviewed & are unremarkable except as noted in Subjective Physical Exam Physical Exam: GENERAL APPEARANCE: A&O. Lying in recliner. NAD. SKIN: Scattered maculopapular rash to right posterior trunk with no vesicular lesions or crusting noted. HEENT: Head AT/NC. Buccal mucosa is moist and pink. NECK: No jugular venous distention. No thyroid enlargement. There is no lymphadenopathy. HEART: RRR without m/g/r LUNGS: Normal inspiratory effort. CTA without w/r/r. ABDOMEN: No guarding or rigidity. Normoactive BS in all four quadrants. Abdomen soft and NT. MSK: No bony gross/deformities throughout. ROM intact. EXTREMITIES: Bilateral BKAs. Noted foam dressing to right distal BKA closure per wound care. Neuro: CN 2-12 grossly intact. No focal neuro deficits Results & Data Results & Data Vital Signs (Past 12 Hours) Vital Signs Temp Pulse Pulse Resp BP Pulse Ox O2 Del Method 11/21/24 11:19 36.8 C 69 18 123/81 95 Room Air 11/21/24 09:20 Room Air 11/21/24 07:38 36.8 C 66 18 163/94 H 93 Room Air 11/21/24 06:45 69 11/21/24 02:36 36.9 C 74 18 163/79 H 92 Room Air PG Care Time/CCT Total # of Minutes Spent Total Time Spent with Patient: Total time spent is greater than 50% in coordination of care (as documented) at patient's floor/unit and/or counseling patient: Coding Level of Care Code 15970 SUB INP/OBS CARE 3/50MIN Diagnoses ESRD (end stage renal disease) N18.6 SIRS (systemic inflammatory response syndrome) R65.10 Acute hypotension I95.9 Fever, unspecified fever cause R50.9 Fever type: unspecified Opioid dependence, uncomplicated F11.20 Nicotine dependence, uncomplicated, unspecified nicotine product type F17.200 Nicotine product type: unspecified Gastro-esophageal reflux disease without esophagitis K21.9 Unspecified atrial fibrillation I48.91 Anxiety disorder, unspecified F41.9 Cognitive communication deficit R41.841 Atherosclerotic heart disease of [place] coronary artery without angina pectoris I25.10 Other chronic pain G89.29 Cerebral infarction, unspecified I63.9 Epilepsy, unspecified, not intractable, without status epilepticus G40.909 Acquired absence of right leg below knee Z89.511 (4) Fever Fever type: unspecified Qualified Code(s): R50.9 - Fever, unspecified (6) Nicotine dependence, unspecified, uncomplicated Nicotine product type: unspecified Qualified Code(s): F17.200 - Nicotine dependence, unspecified, uncomplicated
--- NOTE | 2024-11-21 13:31 | Pharmacy Report ---
Pharmacy Glycemic Short Note 2 - Date of Service November 21, 2024 - Glycemic Short BSG Results (Last 24 hours): 11/20/24 11/20/24 11/20/24 13:31 16:50 20:27 Glucose POC Glucose 159 H 133 H 87 11/21/24 11/21/24 11/21/24 06:42 08:00 12:01 Glucose 172 H POC Glucose 166 H 151 H OUTPATIENT ANTIDIABETIC REGIMEN: * linagliptin 5 mg PO daily HbA1c: 6.4% (11/15/24) * However, this result is likely somewhat unreliable in ESRD patients d/t interactions between the A1c analyzing technique and high levels of urea in ESRD, reduced RBC life span, iron deficiency anemia, and EPO administration. HbA1c > 7.5% in ESRD patient may overestimate the extent of hyperglycemia in ESRD patients. ASSESSMENT: 11/21 * Olaf received a total of 28 units of insulin yesterday (8 units were basal and 20 units were bolus). BSGs were [phone]/dL. Patient was dialyzed yeterday. * Fasting BSG was 166mg/dL this morning. Will continue current basal and bolus insulin regimens. 11/19 * DM is a 64 year old male w/ sepsis (unknown source) * Pertinent PMH includes T2DM and ESRD (HD MWF) * Blood sugars elevated on admission and into this morning * HD session today PLAN FOR INPATIENT GLYCEMIC CONTROL: * Hold outpatient oral diabetes medications * Basal insulin * Lantus 8 units SC daily (~0.1 unit/kg) * Bolus insulin * NovoLog per scale ACHS or Q6hrs while NPO * Goal Range: Low 120 mg/dL - High 160 mg/dL * Correction Factor: 30 mg/dL/unit * Nutritional / Prandial insulin per carb ratio of 1 unit per 8 grams CHO consumed
[2024-11-22] MEDS ORDERED: SODIUM CHLORIDE 0.9% 1,000 ML IV PRN ×2 (07:00→16:16)
[2024-11-22 08:17] LABS: Hematocrit (blood only) 32.5 % (42.0-52.0); Hemoglobin 9.7 g/dl (14.0-18.0); Mean Corpuscular Hemoglobin 28.6 pg (25.0-34.0); Mean Corpuscular Volume 95.9 fL (80.0-100.0); Platelet Count 195 K/uL (130-400); RDW Standard Deviation 58.2 fL (36.4-46.3); Red Blood Count 3.39 M/uL (4.70-6.10); White Blood Count 8.03 K/ul (4.8-10.8)
[2024-11-22 08:35] LABS: Alanine Aminotransferase 8.0 U/L (7-52); Albumin Globulin Ratio 1.3 (0.9-2); Albumin Level 3.1 gm/dl (3.4-5.0); Alkaline Phosphatase 144.0 U/L (34-104); Anion Gap 11.0 (3-11); Bilirubin,Total 0.4 mg/dl (0.2-1.0); Blood Urea Nitrogen 69.0 mg/dl (6-23); Calcium 9.1 mg/dl (8.6-10.3); Carbon Dioxide 27.0 mmol/L (21-32); Chloride 103.0 mmol/L (98-107); Creatinine Clr Calc Pharmacy 10.7 ml/min; Globulin 2.4 gm/dl (2.5-4.0); Glucose 154.0 mg/dl (70-99(Fasting)); Potassium 4.5 mmol/L (3.5-5.1); Sodium 141.0 mmol/L (136-145); Total Protein 5.5 gm/dl (6.0-8.3)
--- NOTE | 2024-11-22 13:17 | Pharmacy Report ---
Pharmacy Glycemic Short Note 2 - Date of Service November 22, 2024 - Glycemic Short BSG Results (Last 24 hours): 11/21/24 11/21/24 11/22/24 17:09 20:21 07:11 Glucose 154 H POC Glucose 115 H 81 11/22/24 11/22/24 07:54 12:03 Glucose POC Glucose 156 H 148 H OUTPATIENT ANTIDIABETIC REGIMEN: * linagliptin 5 mg PO daily HbA1c: 6.4% (11/15/24) * However, this result is likely somewhat unreliable in ESRD patients d/t interactions between the A1c analyzing technique and high levels of urea in ESRD, reduced RBC life span, iron deficiency anemia, and EPO administration. HbA1c > 7.5% in ESRD patient may overestimate the extent of hyperglycemia in ESRD patients. ASSESSMENT: 11/21 * Olaf received 29 units of insulin yesterday (8 units were basal and 21 units were bolus) * Fasting BSG was in goal range this morning and patient was made NPO for perm cath replacement this afternoon. Routine AM Lantus was discontinued and a Lantus scale was added for HS (0, 4, or 8 units depending on BSG). * Will continue bolus insulin regimen as ordered for now. 11/21 * Olaf received a total of 28 units of insulin yesterday (8 units were basal and 20 units were bolus). BSGs were [phone]/dL. Patient was dialyzed yeterday. * Fasting BSG was 166mg/dL this morning. Will continue current basal and bolus insulin regimens. 11/19 * DM is a 64 year old male w/ sepsis (unknown source) * Pertinent PMH includes T2DM and ESRD (HD MWF) * Blood sugars elevated on admission and into this morning * HD session today PLAN FOR INPATIENT GLYCEMIC CONTROL: * Hold outpatient oral diabetes medications * Basal insulin * Lantus scale at HS (0,4, or 8 units depending on BSG) * Bolus insulin * NovoLog per scale ACHS or Q6hrs while NPO * Goal Range: Low 120 mg/dL - High 160 mg/dL * Correction Factor: 30 mg/dL/unit * Nutritional / Prandial insulin per carb ratio of 1 unit per 8 grams CHO consumed
--- NOTE | 2024-11-22 13:26 | Hospitalist Progress Note ---
Date of Service November 22, 2024 Assessment & Plan (1) ESRD (end stage renal disease): (2) SIRS (systemic inflammatory response syndrome): (3) Acute hypotension: (4) Fever: (5) Opioid dependence, uncomplicated: (6) Nicotine dependence, unspecified, uncomplicated: (7) Gastro-esophageal reflux disease without esophagitis: (8) Unspecified atrial fibrillation: (9) Anxiety disorder, unspecified: (10) Cognitive communication deficit: (11) Atherosclerotic heart disease of [place] coronary artery without angina pectoris: (12) Other chronic pain: (13) Cerebral infarction, unspecified: (14) Epilepsy, unspecified, not intractable, without status epilepticus: (15) Acquired absence of right leg below knee: Plan Pt is a 64 yo gentleman with PMH of ESRD on HD, DM2, a-fib, epilepsy, cognitive impairment, GERD, and bilateral BKA who presented to ED for rigors and hypotension. Pt admitted for sepsis, likely bacteremia. #Sepsis, present on arrival-Patient presented with tachycardia, fever, leukocytosis. All have resolved. Pt has received a total of 1.5L of IVF. Treated for exit infection from right IJ presumed catheter infection when hospitalized at [facility] 10/20/-11/03, with Vancomycin, reported negative aerobic BC on 10/20 -Blood cultures pending- no growth after 48 hours -with typical anuria, episode of pus filled urine -UC: more than 3 types of organisms present, all moderate counts mixed with probable skin anamaria. -renal US: no hydro or nephrolithiasis, consistent findings associated with renal disease -completed 48 hours of Levaquin IV empirically, restarting at 250mg IV -Restart IV Daptomycin 400mg q48 -will tailor additional antibiotic treatment pending catheter tip culture -vascular surgery consultation 11/21, OR 11/24 now for removal of current permcath and placement of permcath via separate site #ESRD -following with nephrology (Will), schedule at [facility], inhouse dialysis currently -Dialysis 11/20, scheduled post procedure 11/22 with new permcath placement -trend electrolytes-1500ml fluid restriction per nephrology due to mild CHF on CXR 11/17 -BP has been labile, midodrine on hold for dialysis, prn Clonidine for SBP>140, has not received Clonidine dosing with recorded measurements of SBP>160, dosing of clonidine from [facility] confirmed at 0.1mg daily prn for SBP>140, BP has been reasonable since 11/21 at 1100 requiring no prn dosing, will monitor and add routine daily Clonidine if needed for persistent elevated blood pressures #Diabetes -Well controlled with A1c 6.4, POC BSG trends reviewed and acceptable -Glycemic consult placed with pharmacy -Glargine 8 units at hs -Aspart per sliding scale #paroxysmal atrial fibrillation -med/tele NSR 70s/80s -Apixaban on hold for new permcath placement, will cont to hold if patient goes to OR tomorrow pending schedule availability #History of epilepsy -Keppra 1500mg qd #mild cognitive impairment -documented per patient history #Opioid dependence/Phantom pain -Continue scheduled oxycodone and prn Tylenol per home doses #GERD -Continue Protonix 40 mg ##Pressure-induced deep tissue damage/injury of left buttock, present on arrival -WOCN consult -review of WOCN consult with assessment of DTI left buttock -cleanse with NSS, pat dry with gauze, aquacel Ag, optifoam to open wound, change daily and prn ##Right BKA site wound, amputation site, present on arrival-from previous surgical intervention one year ago at [place], follows with surgeon in [place] -wound care consult with appreciation of full thickness wound with tunneling after scabbed area removed 11/20 -nursing reports foul-smelling drainage -WC pending -will need to f/u with surgeon and outpatient wound care at discharge Dispo: Med/tele Diet: DM2, renal DVT prophylaxis: On chronic AC, held for now due to anticipated surgery Code Status: Full Admission and Anticipated Discharge Date Admission Date: November 17, 2024 Subjective Lying in bed this morning. Has no new acute complaints. OR time changed for new perm cath placement to this Wednesday, 11/24. Possibly tomorrow pending scheduling in OR with vascular. Correspondence with Dr. Green for dialysis today via current perm cath. Review of Systems Review of Systems: All systems reviewed & are unremarkable except as noted in Subjective Physical Exam Physical Exam: GENERAL APPEARANCE: A&O. Lying in bed. NAD. HEENT: Head AT/NC. Buccal mucosa is moist and pink. NECK: No jugular venous distention. No thyroid enlargement. There is no lymphadenopathy. HEART: RRR without m/g/r LUNGS: Normal inspiratory effort. CTA without w/r/r. ABDOMEN: No guarding or rigidity. Normoactive BS in all four quadrants. Abdomen soft and NT. MSK: No bony gross/deformities throughout. ROM intact. EXTREMITIES: Bilateral BKAs. Noted foam dressing to right distal BKA closure per wound care. Neuro: CN 2-12 grossly intact. No focal neuro deficits. Results & Data Results & Data Vital Signs (Past 12 Hours) Vital Signs Temp Pulse Pulse Resp BP BP Pulse Ox 11/22/24 10:54 37.3 C 73 18 126/78 92 11/22/24 08:30 11/22/24 07:08 36.9 C 74 18 123/74 91 11/22/24 07:00 71 11/22/24 03:20 36.4 C L 75 14 145/77 H 94 O2 Del Method 11/22/24 10:54 Room Air 11/22/24 08:30 Room Air 11/22/24 07:08 Room Air 11/22/24 07:00 11/22/24 03:20 Room Air PG Care Time/CCT Total # of Minutes Spent Total Time Spent with Patient: Total time spent is greater than 50% in coordination of care (as documented) at patient's floor/unit and/or counseling patient: Coding Level of Care Code 91336 SUB INP/OBS CARE 3/50MIN Diagnoses ESRD (end stage renal disease) N18.6 SIRS (systemic inflammatory response syndrome) R65.10 Acute hypotension I95.9 Fever, unspecified fever cause R50.9 Fever type: unspecified Opioid dependence, uncomplicated F11.20 Nicotine dependence, uncomplicated, unspecified nicotine product type F17.200 Nicotine product type: unspecified Gastro-esophageal reflux disease without esophagitis K21.9 Unspecified atrial fibrillation I48.91 Anxiety disorder, unspecified F41.9 Cognitive communication deficit R41.841 Atherosclerotic heart disease of [place] coronary artery without angina pectoris I25.10 Other chronic pain G89.29 Cerebral infarction, unspecified I63.9 Epilepsy, unspecified, not intractable, without status epilepticus G40.909 Acquired absence of right leg below knee Z89.511 (4) Fever Fever type: unspecified Qualified Code(s): R50.9 - Fever, unspecified (6) Nicotine dependence, unspecified, uncomplicated Nicotine product type: unspecified Qualified Code(s): F17.200 - Nicotine dependence, unspecified, uncomplicated
--- NOTE | 2024-11-22 16:10 | Dialysis Progress Note ---
Date of Service November 22, 2024 Assessment & Plan (1) Infection of exit site of hemodialysis catheter: Plan: Blood cultures are pending but negative at 48 hours as is urine cx; he was recently admitted to [facility] 10/20-11/03; some of the extended admission involved placement/ d-c planning issues but initial admission was d/t exit site infection. He was treated w/ a course of vancomycin but catheter was not exchanged. urine cx negative. No other infection source found to date for F last week. second admission now w/ sepsis/SIRS from this; will remove and replace catheter different site, all one day, with cath tip cx vascular help appreciated; TDC exch tomorrow or Wednesday -on empiric abtx until exch Care coordinated w/ Dr Conner multiple times through the day via TText regarding HD timing, timing of TDC exchange, need for f/u on pt prosthesis plan; we are in agreement. (2) ESRD (end stage renal disease): Plan: Patient on HD MWF and missed outpt HD friday 11/17. CXR showed mild CHF. He is on room air. Electrolytes are stable. Patient tolerated dialysis wednesday but complicated by intradialytic hypotension. yesterday tolerated 1.5 L UF w/ 3.5hrs dialysis . K 4.5; hgb 9.7 > no KITTY indicated for now -given HF on admission > 1.5 L FR ordered Tolerating dialysis today, although his blood pressure is been dropping on treatment and we will need as needed Midodrine as we have at prior treatments > > 3.5 hrs, goal UF 2.5 L ordered on 2K bath; no heparin immediatley post procedure -last eliquis dose was 11/20; on hold now >next HD on 11/23 as OP or IP depending on timing of TDC exch (3) Labile blood pressure: Plan: extremely labile BP > has midodrine 10 mg PRN ON HD only so that we can remove fluid as needed PRN clonidine RX is far from ideal but will leave for now; note that our OP med list says he takes clonidine tid same mg > suggest hospital team pls verify Admission and Anticipated Discharge Date Admission Date: November 17, 2024 Subjective Seen and evaluated on dialysis. Was to have dialysis catheter exchanged today but surgery canceled due to surgeon availability. Rescheduled for Wednesday or possibly tomorrow. No shortness of breath. No nausea vomiting. Pain control acceptable. No fevers or chills. Patient is interested in resuming work to get his leg prostheses that and to do PT with them Review of Systems 2 Review of Systems: All systems reviewed & are unremarkable except as noted in Subjective Physical Exam 2 Constitutional: well developed and well nourished Eyes: EOM intact bilaterally ENMT: Mouth: + dry oral mucous membranes Respiratory: normal respiratory effort Auscultation: + diminished lung sounds Gastrointestinal (Abdomen): Inspection/Auscultation: normal bowel sounds P ercussion/Palpation: abdomen soft; abdomen nontender Musculoskeletal: Extremities: strength 5/5 throughout and + amputation noted ( bilateral BKA) Skin: no rashes, warm and dry Results & Data Vital Signs (Past 12 Hours) Vital Signs Temp Pulse Pulse Pulse Resp BP BP 11/22/24 15:30 75 105/72 11/22/24 15:09 69 132/74 11/22/24 15:05 36.8 C 74 11/22/24 13:28 69 11/22/24 10:54 37.3 C 73 18 126/78 11/22/24 08:30 11/22/24 07:08 36.9 C 74 18 123/74 11/22/24 07:00 71 Pulse Ox O2 Del Method 11/22/24 15:30 11/22/24 15:09 11/22/24 15:05 11/22/24 13:28 11/22/24 10:54 92 Room Air 11/22/24 08:30 Room Air 11/22/24 07:08 91 Room Air 11/22/24 07:00 Laboratory Results 11/22/24 07:11 11/22/24 07:11
[2024-11-22] MEDS: MIDODRINE HCL 10 MG TAB PO PRN (16:13)
[2024-11-22] MEDS: HEPARIN SOD (PORCINE) 1000 UNIT/ML IV ONE (18:26)
[2024-11-22] MEDS: DAPTOmycin 400 MG in SYRINGE 0 ML IV SCH (18:32)
[2024-11-22] MEDS: CLINDAMYCIN/D5W 900 MG/50 ML BAG IV SCH (18:34)
[2024-11-22] MEDS: LANTUS PER UNIT CHARGE SC SCH (20:55)
[2024-11-23 07:39] LABS: Hematocrit (blood only) 32.1 % (42.0-52.0); Hemoglobin 10.3 g/dl (14.0-18.0); Immature Granulocytes # (auto) 0.03 K/uL (0.01-0.20); Immature Granulocytes % (auto) 0.3 %; Mean Corpuscular Hemoglobin 30.2 pg (25.0-34.0); Mean Corpuscular Volume 94.1 fL (80.0-100.0); Platelet Count 191 K/uL (130-400); RDW Standard Deviation 55.8 fL (36.4-46.3); Red Blood Count 3.41 M/uL (4.70-6.10); White Blood Count 8.72 K/ul (4.8-10.8)
[2024-11-23 08:10] LABS: Anion Gap 10.0 (3-11); Blood Urea Nitrogen 50.0 mg/dl (6-23); Calcium 9.1 mg/dl (8.6-10.3); Carbon Dioxide 27.0 mmol/L (21-32); Chloride 102.0 mmol/L (98-107); Creatinine Clr Calc Pharmacy 14.3 ml/min; Glucose 137.0 mg/dl (70-99(Fasting)); Potassium 4.2 mmol/L (3.5-5.1); Sodium 139.0 mmol/L (136-145)
--- NOTE | 2024-11-23 12:55 | Hospitalist Progress Note ---
Date of Service November 23, 2024 Assessment & Plan (1) ESRD (end stage renal disease): (2) SIRS (systemic inflammatory response syndrome): (3) Acute hypotension: (4) Fever: (5) Opioid dependence, uncomplicated: (6) Nicotine dependence, unspecified, uncomplicated: (7) Gastro-esophageal reflux disease without esophagitis: (8) Unspecified atrial fibrillation: (9) Anxiety disorder, unspecified: (10) Cognitive communication deficit: (11) Atherosclerotic heart disease of [place] coronary artery without angina pectoris: (12) Other chronic pain: (13) Cerebral infarction, unspecified: (14) Epilepsy, unspecified, not intractable, without status epilepticus: (15) Acquired absence of right leg below knee: Plan Pt is a 64 yo gentleman with PMH of ESRD on HD, DM2, a-fib, epilepsy, cognitive impairment, GERD, and bilateral BKA who presented to ED for rigors and hypotension. Pt admitted for sepsis, likely bacteremia. #Sepsis, present on arrival-Patient presented with tachycardia, fever, leukocytosis. All have resolved. Pt has received a total of 1.5L of IVF. Treated for exit infection from right IJ presumed catheter infection when hospitalized at [facility] 10/20/-11/03, with Vancomycin, reported negative aerobic BC on 10/20 -Blood cultures pending- no growth after 48 hours -with typical anuria, episode of pus filled urine -UC: more than 3 types of organisms present, all moderate counts mixed with probable skin anamaria. -renal US: no hydro or nephrolithiasis, consistent findings associated with renal disease -Levaquin 250mg IV q24h -Daptomycin IV 400mg q48h (renal dosing) -will tailor additional antibiotic treatment pending catheter tip culture -vascular surgery consultation 11/21, OR 11/24 now for removal of current permcath and placement of permcath via separate site #ESRD-blood pressure measurements have been reasonable with no overt elevation requiring dose changing of Clonidine -following with nephrology (Will), schedule at [facility], inhouse dialysis currently -Dialysis 11/20, scheduled post procedure 11/22 with new permcath placement -trend electrolytes-1500ml fluid restriction per nephrology due to mild CHF on CXR 11/17 -BP has been labile, midodrine on hold for dialysis, prn Clonidine for SBP>140, has not received Clonidine dosing with recorded measurements of SBP>160, dosing of clonidine from [facility] confirmed at 0.1mg daily prn for SBP>140, BP has been reasonable since 11/21 at 1100 requiring no prn dosing, will monitor and add routine daily Clonidine if needed for persistent elevated blood pressures #Diabetes -Well controlled with A1c 6.4, POC BSG trends reviewed and acceptable -Glycemic consult placed with pharmacy -Glargine 8 units at hs -Aspart per sliding scale #paroxysmal atrial fibrillation -med/tele NSR 70s -Apixaban on hold for new permcath placement #History of epilepsy -Keppra 1500mg qd #mild cognitive impairment -documented per patient history #Opioid dependence/Phantom pain -Continue scheduled oxycodone and prn Tylenol per home doses #GERD -Continue Protonix 40 mg ##Pressure-induced deep tissue damage/injury of left buttock, present on arrival -WOCN consult -review of WOCN consult with assessment of DTI left buttock -cleanse with NSS, pat dry with gauze, aquacel Ag, optifoam to open wound, change daily and prn ##Right BKA site wound, amputation site, present on arrival-from previous surgical intervention one year ago at [place], follows with surgeon in [place] -wound care consult with appreciation of full thickness wound with tunneling after scabbed area removed 11/20 -nursing reports foul-smelling drainage -WC pending -will need to f/u with surgeon and outpatient wound care at discharge Dispo: Med/tele Diet: DM2, renal DVT prophylaxis: On chronic AC, held for now due to anticipated surgery Code Status: Full Admission and Anticipated Discharge Date Admission Date: November 17, 2024 Subjective Resting in bed this am. He has no complaints. Scheduled to go to OR tomorrow (11/23/24) for new PermCath placement. Reports being in the process of being fitted for bilateral prostheses for his lower legs at [facility] in [place]. Will need to ensure patient goes to appointment upon d/c back to [facility]. Review of Systems Review of Systems: All systems reviewed & are unremarkable except as noted in Subjective Physical Exam Physical Exam: GENERAL APPEARANCE: A&O. Sitting comfortably in bed. NAD. SKIN: Normal color without rashes or lesions. Normal turgor. HEENT: Head AT/NC. Buccal mucosa is moist and pink. NECK: No jugular venous distention. No thyroid enlargement. There is no lymphadenopathy. HEART: RRR without m/g/r LUNGS: Normal inspiratory effort. CTA without w/r/r ABDOMEN: No guarding or rigidity. Normoactive BS in all four quadrants. Abdomen soft and NT. MSK: No bony gross/deformities throughout. ROM intact. EXTREMITIES: Bilateral BKAs. Noted foam dressing to right distal BKA closure per wound care. Neuro: CN 2-12 grossly intact. No focal neuro deficits PSYCHIATRIC: Normal affect. Eye contact is good. Speech is normal rate and content. Responses are appropriate. Results & Data Results & Data Vital Signs (Past 12 Hours) Vital Signs Temp Pulse Pulse Pulse Resp BP Pulse Ox 11/23/24 11:18 36.7 C 78 18 135/80 95 11/23/24 08:00 77 11/23/24 07:30 36.7 C 71 18 160/84 H 96 11/23/24 03:17 36.8 C 72 20 120/58 L 92 O2 Del Method 11/23/24 11:18 Room Air 11/23/24 08:00 11/23/24 07:30 Room Air 11/23/24 03:17 Room Air PG Care Time/CCT Total # of Minutes Spent Total Time Spent with Patient: Total time spent is greater than 50% in coordination of care (as documented) at patient's floor/unit and/or counseling patient: Coding Level of Care Code 62370 SUB INP/OBS CARE 3/50MIN Diagnoses ESRD (end stage renal disease) N18.6 SIRS (systemic inflammatory response syndrome) R65.10 Acute hypotension I95.9 Fever, unspecified fever cause R50.9 Fever type: unspecified Opioid dependence, uncomplicated F11.20 Nicotine dependence, uncomplicated, unspecified nicotine product type F17.200 Nicotine product type: unspecified Gastro-esophageal reflux disease without esophagitis K21.9 Unspecified atrial fibrillation I48.91 Anxiety disorder, unspecified F41.9 Cognitive communication deficit R41.841 Atherosclerotic heart disease of [place] coronary artery without angina pectoris I25.10 Other chronic pain G89.29 Cerebral infarction, unspecified I63.9 Epilepsy, unspecified, not intractable, without status epilepticus G40.909 Acquired absence of right leg below knee Z89.511 (4) Fever Fever type: unspecified Qualified Code(s): R50.9 - Fever, unspecified (6) Nicotine dependence, unspecified, uncomplicated Nicotine product type: unspecified Qualified Code(s): F17.200 - Nicotine dependence, unspecified, uncomplicated
--- NOTE | 2024-11-23 14:37 | Nephrology Progress Note ---
Date of Service November 23, 2024 Assessment & Plan (1) Infection of exit site of hemodialysis catheter: Plan: Blood cultures are pending but negative at 48 hours as is urine cx; he was recently admitted to [facility] 10/20-11/03; some of the extended admission involved placement/ d-c planning issues but initial admission was d/t exit site infection. He was treated w/ a course of vancomycin but catheter was not exchanged. urine cx negative. No other infection source found to date for F last week. second admission now w/ sepsis/SIRS from this; will remove and replace catheter different site, all one day, with cath tip cx -OR 11/24 now for removal of current permcath and placement of permcath via separate site -Continue on empiric abtx (2) ESRD (end stage renal disease): Plan: Patient on HD MWF and missed outpt HD friday 11/17. CXR showed mild CHF. He is on room air. Electrolytes are stable. Patient tolerated dialysis wednesday but complicated by intradialytic hypotension. yesterday tolerated 1.5 L UF w/ 3.5hrs dialysis . K 4.5; hgb 9.7 > no KITTY indicated for now -given HF on admission > 1.5 L FR ordered His blood pressure generally drops on treatment and we will need as needed Midodrine as we have at prior treatments > > 3.5 hrs, goal UF 2.5 L ordered on 2K bath; no heparin immediatley post procedure -last eliquis dose was 11/20; on hold now >next HD on 11/24 (3) Labile blood pressure: Plan: extremely labile BP > has midodrine 10 mg PRN ON HD only so that we can remove fluid as needed PRN clonidine RX is far from ideal but will leave for now; note that our OP med list says he takes clonidine tid same mg > suggest hospital team pls verify Admission and Anticipated Discharge Date Admission Date: November 17, 2024 Subjective Resting in bed this am. He has no complaints. Scheduled to go to OR tmrw (11/24/24) for new PermCath placement. Review of Systems 2 Review of Systems: All systems reviewed & are unremarkable except as noted in HPI & below Physical Exam 2 Physical Exam: Constitutional: well developed and well nourished Eyes: EOM intact bilater ally ENMT: Mouth: + dry oral mucous membranes Respiratory: normal respiratory effort Auscultat ion: + diminished lung sounds Gastrointestinal ( Abdomen): Inspection/Auscult ation: normal jerry l sounds Percussi on/Palpation: abdo men soft; abdomen nontender Musculoskeletal: Extremities: stren gth 5/5 throughout and + amputation noted ( bilateral BKA) Skin: no rashes, warm an d dry Results & Data Vital Signs (Past 12 Hours) Vital Signs Temp Pulse Pulse Pulse Resp BP Pulse Ox 11/23/24 11:18 36.7 C 78 18 135/80 95 11/23/24 08:00 77 11/23/24 07:30 36.7 C 71 18 160/84 H 96 11/23/24 03:17 36.8 C 72 20 120/58 L 92 O2 Del Method 11/23/24 11:18 Room Air 11/23/24 08:00 11/23/24 07:30 Room Air 11/23/24 03:17 Room Air Laboratory Results 11/23/24 07:23 11/23/24 07:23
[2024-11-23] MEDS: POLYETHYLENE (MIRALAX) 17 GM PACK PO PRN (21:06)
[2024-11-24] MEDS ORDERED: SODIUM CHLORIDE 0.9% 1,000 ML IV PRN (07:00)
--- NOTE | 2024-11-24 08:28 | Nephrology Progress Note ---
Date of Service November 24, 2024 Assessment & Plan Admission and Anticipated Discharge Date Admission Date: November 17, 2024 Subjective Assessment & Plan (1) Infection of exit site of hemodialysis catheter: Plan: Blood cultures are pending but negative at 48 hours as is urine cx; he was recently admitted to [facility] 10/20-11/03; some of the extended admission involved placement/ d-c planning issues but initial admission was d/t exit site infection. He was treated w/ a course of vancomycin but catheter was not exchanged. urine cx negative. No other infection source found to date for F last week. second admission now w/ sepsis/SIRS from this; will remove and replace catheter different site, all one day, with cath tip cx vascular help appreciated -on empiric abtx until exch (2) ESRD (end stage renal disease): Plan: Patient on HD MWF and missed outpt HD friday 11/17. CXR showed mild CHF. He is on room air. Electrolytes are stable. Patient tolerated dialysis wednesday but complicated by intradialytic hypotension. yesterday tolerated 1.5 L UF with 3.5 hrs dialysis . K 4.5; hgb 9.7 > no KITTY indicated for now -given HF on admission > 1.5 L FR ordered (3) Labile blood pressure: Plan: extremely labile BP > has midodrine 10 mg PRN ON HD only so that we can remove fluid as needed PRN clonidine RX is far from ideal but will leave for now; note that our OP med list says he takes clonidine tid same mg > suggest hospital team pls verify Subjective Seen and evaluated for ESRD on dialysis. he is to have dialysis catheter exchanged today . No shortness of breath. No nausea vomiting. Pain control acceptable. No fevers or chills. Patient is interested in resuming work to get his leg prostheses that and to do PT with them Review of Systems Review of Systems: All systems reviewed & are unremarkable except as noted in Subjective Physical Exam Constitutional: well developed and well nourished Eyes: EOM intact bilaterally ENMT: Mouth: + dry oral mucous membranes Respiratory: normal respiratory effort Auscultation: + diminished lung sounds Gastrointestinal (Abdomen): Inspection/Auscultation: normal bowel sounds Percussion/Palpation: abdomen soft; abdomen nontender Musculoskeletal: Extremities: strength 5/5 throughout and + amputation noted ( bilateral BKA) Skin: no rashes, warm and dry Results & Data Vital Signs (Past 12 Hours) Vital Signs Temp Pulse Pulse Resp BP BP Pulse Ox 11/24/24 08:12 36.7 C 76 20 125/79 92 11/24/24 03:43 36.7 C 76 20 133/66 92 11/24/24 00:18 36.9 C 75 20 147/78 H 94 11/23/24 21:44 78 11/23/24 20:47 O2 Del Method 11/24/24 08:12 Room Air 11/24/24 03:43 Room Air 11/24/24 00:18 Room Air 11/23/24 21:44 11/23/24 20:47 Room Air
--- NOTE | 2024-11-24 08:47 | Pharmacy Report ---
Pharmacy Glycemic Short Note 2 - Date of Service November 24, 2024 - Glycemic Short BSG Results (Last 24 hours): 11/23/24 11/23/24 11/23/24 11:49 16:07 17:09 POC Glucose 115 H 143 H 164 H 11/23/24 11/24/24 20:22 08:03 POC Glucose 181 H 160 H OUTPATIENT ANTIDIABETIC REGIMEN: * linagliptin 5 mg PO daily HbA1c: 6.4% (11/15/24) * However, this result is likely somewhat unreliable in ESRD patients d/t interactions between the A1c analyzing technique and high levels of urea in ESRD, reduced RBC life span, iron deficiency anemia, and EPO administration. HbA1c > 7.5% in ESRD patient may overestimate the extent of hyperglycemia in ESRD patients. ASSESSMENT: 11/24 * Patient received total of 18 units of insulin yesterday, of which 4 units were basal * Fasting BSG 160 mg/dL - will continue same scale for basal at HS time, NPO again this AM * no change to CF/CR 11/21 * Olaf received 29 units of insulin yesterday (8 units were basal and 21 units were bolus) * Fasting BSG was in goal range this morning and patient was made NPO for perm cath replacement this afternoon. Routine AM Lantus was discontinued and a Lantus scale was added for HS (0, 4, or 8 units depending on BSG). * Will continue bolus insulin regimen as ordered for now. 11/21 * Olaf received a total of 28 units of insulin yesterday (8 units were basal and 20 units were bolus). BSGs were [phone]/dL. Patient was dialyzed yeterday. * Fasting BSG was 166mg/dL this morning. Will continue current basal and bolus insulin regimens. 11/19 * DM is a 64 year old male w/ sepsis (unknown source) * Pertinent PMH includes T2DM and ESRD (HD MWF) * Blood sugars elevated on admission and into this morning * HD session today PLAN FOR INPATIENT GLYCEMIC CONTROL: * Hold outpatient oral diabetes medications * Basal insulin * Lantus scale at HS (0,4, or 8 units depending on BSG) * Bolus insulin * NovoLog per scale ACHS or Q6hrs while NPO * Goal Range: Low 120 mg/dL - High 160 mg/dL * Correction Factor: 30 mg/dL/unit * Nutritional / Prandial insulin per carb ratio of 1 unit per 8 grams CHO consumed
[2024-11-24 09:04] LABS: Anion Gap 13.0 (3-11); Calcium 8.7 mg/dl (8.6-10.3); Carbon Dioxide 23.0 mmol/L (21-32); Chloride 102.0 mmol/L (98-107); Potassium 4.6 mmol/L (3.5-5.1); Sodium 138.0 mmol/L (136-145)
[2024-11-24 09:07] LABS: Hematocrit (blood only) 33.5 % (42.0-52.0); Hemoglobin 10.4 g/dl (14.0-18.0); Immature Granulocytes # (auto) 0.04 K/uL (0.01-0.20); Immature Granulocytes % (auto) 0.5 %; Mean Corpuscular Hemoglobin 30.1 pg (25.0-34.0); Mean Corpuscular Volume 97.1 fL (80.0-100.0); Platelet Count 184 K/uL (130-400); RDW Standard Deviation 57.4 fL (36.4-46.3); Red Blood Count 3.45 M/uL (4.70-6.10); White Blood Count 7.69 K/ul (4.8-10.8)
[2024-11-24 09:17] LABS: Blood Urea Nitrogen 79.0 mg/dl (6-23); Creatinine Clr Calc Pharmacy 10.1 ml/min; Glucose 111.0 mg/dl (70-99(Fasting))
--- NOTE | 2024-11-24 09:34 | History & Physical Bridge Note ---
Date of Service November 24, 2024 History & Physical Bridge Note Patient for removal and insertion of a new permcath. I have discussed the risks options and benefits of the procedure with the patient. The patient understands the risks options and benefits and agrees to the procedure. I have examined the patient, reviewed the History & Physical and in the interval since the performance of the History & Physical I have noted the following changes of clinical significance: no changes noted
--- NOTE | 2024-11-24 10:11 | Pre Anesthesia Assessment ---
Date of Service November 24, 2024 Pre Sedation Assessment Vital Signs Temp Pulse Pulse Pulse Resp BP BP 11/24/24 10:10 70 19 154/79 H 11/24/24 09:12 37.2 C 72 20 141/73 H 11/24/24 08:12 36.7 C 76 20 125/79 11/24/24 03:43 36.7 C 76 20 133/66 11/24/24 00:18 36.9 C 75 20 147/78 H 11/23/24 21:44 78 11/23/24 20:47 11/23/24 19:48 37.1 C 82 20 120/72 11/23/24 15:16 36.9 C 77 18 123/77 11/23/24 15:00 72 11/23/24 11:18 36.7 C 78 18 135/80 Pulse Ox O2 Del Method O2 Flow Rate 11/24/24 10:10 99 Oxymask 4 11/24/24 09:12 93 Room Air 11/24/24 08:12 92 Room Air 11/24/24 03:43 92 Room Air 11/24/24 00:18 94 Room Air 11/23/24 21:44 11/23/24 20:47 Room Air 11/23/24 19:48 96 Room Air 11/23/24 15:16 97 Room Air 11/23/24 15:00 11/23/24 11:18 95 Room Air Cardiovascular RRR, no murmur, no edema Respiratory normal respiratory effort, lungs clear to auscultation Pre-Sedation Airway Assessment Smoking Status: Never smoker Hx Sleep Apnea: No Short, Thick Neck: No Thyromental Distance: > or= 3.5 Finger Breadths Oral Cavity: + WNL Mallampati Class: II ASA: ASA3 NPO Status Date of Last Intake of Fluids: 11/24/24 Time of Last Intake of Fluids: 12:00 Date of Last Intake of Solid Food: 11/23/24 Time of Last Intake of Solid Foods: 17:00 Procedure Planning Contraindications for Sedation: none Current Medications Reviewed: Yes Notes The planned sedation has been discussed with the patient. Informed Consent was obtained. I have identified the patient, determined the appropriateness of sedation and have assessed the patient immediately prior to the procedure. All medicine(s) and interventions are by my order.
[2024-11-24] MEDS: MIDAZOLAM HCL 1 MG/ML 2ML VIAL ONE (10:15)
--- NOTE | 2024-11-24 11:23 | Procedure Note ---
Angiogram Post Procedure Fluoroscopy Time (minutes): 2.1 Radiation (mGy): 12 Post Operative Report Pre & Post Diagnosis Operation Date: 11/24/24 10:00 Pre-Op Diagnosis: Infected Perm catheter Post-Op Diagnosis: Infected Perm catheter I identified the patient and participated in the time-out.: Yes Procedure Operation Date: 11/24/24 10:00 Actual Procedures p Removal of Perm Catheter, Insertion of Perm Catheter, Right Internal Jugular, Ultrasound Locialization of Right Jugular Vein, Fluoroscopy for Poisitioning, Moderate Sedation [id number](Left) - Mikael Stevens MD Surgeon Mikael Stevens MD Taste Tester none Estimated Blood Loss 20 Findings Consistent with Post-Op Diagnosis Specimens catheter for culture Anesthesia Type RN Sedation Complications none Disposition Accompanied Patient To Recovery: No Disposition: Recovery Room Indications This is a 64-year-old gentleman who had an infection of the exit site of his PermCath. The blood cultures have been negative. He now is here for removal of the PermCath and insertion of a new 1. I have discussed the risks options and benefits of the procedure with the patient. The patient understands the risks options and benefits and agrees to the procedure. Description of Procedure The patient was taken to the angio suite and placed in the supine position. The patient was identified and a timeout performed. The right side of the neck, chest wall and catheter were prepped and draped in a sterile manner. Local anesthesia was then accomplished. Using sharp and blunt dissection, the cuff of the permcath was freed up from the surrounding fibrous tissue. The permcath and cuff were completely removed. Pressure was then applied and adequate hemostasis was obtained. A sterile dressing was then applied. The left side of the neck and chest wall were prepped and draped in a sterile manner. The patient was identified and a timeout performed. Local anesthesia was then administered to the appropriate areas of the neck and chest wall. Ultrasound was then used to locate the left internal jugular vein. The vein ap peared to be thrombosed with collaterals in the area. We attempted to cannulate the external jugular with micropuncture technique however this was unsuccessful. At that point we decided placed the PermCath in the right side through a different follow-up site. The right side of the neck and chest wall were prepped and draped in a sterile manner. The patient was identified and a timeout performed. Local anesthesia was then administered to the appropriate areas of the neck and chest wall. Ultrasound was then used to locate the right internal jugular vein. The vein compressed easily, had no filing defects, and was patent. The vein was then punctured under direct ultrasound imaging. A guidewire was then passed centrally under fluoroscopic imaging. A stab wound was then made in the anterior chest wall and a 19 cm permcath was passed from the stab wound on the chest wall to the puncture site on the neck. The puncture site was then dilated till the 14Fr peel away sheath was inserted. The permcath was then inserted through the sheath to a central position in the distal superior vena cava. The peel away sheath was then removed. The catheter was then sutured in place using nylon sutures. The puncture was then closed using a 4-0 Vicryl subcuticular suture. Dermabond was used for a dressing on the puncture site. Both ports aspirated and flushed easily and were then packed with heparin. A sterile dressing was applied to the catheter. The patient left the operation room in satisfactory condition and tolerated the procedure well. All needle and sponge counts were correct at the end of the procedure. I attest to the content of the Intraoperative Record and any orders documented therein. Any exceptions are noted below.
--- NOTE | 2024-11-24 11:23 | Post Anesthesia Assessment ---
Date of Service November 24, 2024 Post Sedation Assessment Vital Signs Temp Pulse Pulse Pulse Resp BP BP 11/24/24 11:20 81 14 116/70 11/24/24 11:15 81 15 120/70 11/24/24 11:10 77 16 120/75 11/24/24 11:05 76 16 124/77 11/24/24 11:00 75 16 133/77 11/24/24 11:00 74 16 116/74 11/24/24 10:55 75 21 132/77 11/24/24 10:50 69 28 H 138/71 11/24/24 10:45 69 33 H 133/72 11/24/24 10:40 69 33 H 131/70 11/24/24 10:35 68 37 H 143/71 H 11/24/24 10:30 68 31 H 153/81 H 11/24/24 10:25 70 14 154/78 H 11/24/24 10:20 68 32 H 161/82 H 11/24/24 10:15 70 13 158/84 H 11/24/24 10:10 70 19 154/79 H 11/24/24 09:12 37.2 C 72 20 141/73 H 11/24/24 08:12 36.7 C 76 20 125/79 11/24/24 03:43 36.7 C 76 20 133/66 11/24/24 00:18 36.9 C 75 20 147/78 H 11/23/24 21:44 78 11/23/24 20:47 11/23/24 19:48 37.1 C 82 20 120/72 11/23/24 15:16 36.9 C 77 18 123/77 11/23/24 15:00 72 Pulse Ox O2 Del Method O2 Flow Rate 11/24/24 11:20 97 Room Air 11/24/24 11:15 100 Oxymask 4 11/24/24 11:10 100 Oxymask 4 11/24/24 11:05 100 Oxymask 4 11/24/24 11:00 100 Oxymask 4 11/24/24 11:00 99 Oxymask 4 11/24/24 10:55 98 Oxymask 4 11/24/24 10:50 100 Oxymask 4 11/24/24 10:45 100 Oxymask 4 11/24/24 10:40 100 Oxymask 4 11/24/24 10:35 100 Oxymask 4 11/24/24 10:30 99 Oxymask 4 11/24/24 10:25 100 Oxymask 4 11/24/24 10:20 100 Oxymask 4 11/24/24 10:15 99 Oxymask 4 11/24/24 10:10 99 Oxymask 4 11/24/24 09:12 93 Room Air 11/24/24 08:12 92 Room Air 11/24/24 03:43 92 Room Air 11/24/24 00:18 94 Room Air 11/23/24 21:44 11/23/24 20:47 Room Air 11/23/24 19:48 96 Room Air 11/23/24 15:16 97 Room Air 11/23/24 15:00 Recovery Score Activity: Moves 4 extremities Respiration: Deep Breath/Cough Circulation: +/-20% PreAnes Value Consciousness: Fully Awake Oxygen Saturation: > 92% On Room Air Post Anesthesia Score: 10 Discharge Sedation Level of Care: Fast Track Phase II Post Sedation Plan On clinical assessment, the patient appears to have tolerated the sedation without complications. Patient is recovering as anticipated. Patient will continue to be monitored by nursing and may be discharged when sedation discharge criteria are met per below protocol. Upon Completions of procedure up to 15 minutes continue every 5 minute vital signs and the P.A.R. score; then discharge to a Phase I or Fast Track to Phase II per the following guidelines: * Discharge Patient to appropriate Phase II area if PAR is 8 or greater or return to pre- procedure baseline. The post - procedure orders will be as directed. * If PAR score is less than 8 or not return to pre-procedure baseline then patient will follow Phase I monitoring till PAR is reached for Phase II. The Phase I may be done in procedure room or may call to secure a Phase I area. * If naloxone or flumazenil are used for reversal, hold in Phase I for continued monitoring from when last reversal dose was given for a minimum of 60 minutes or longer pending the nurse and/or physician discretion of patient condition before discharge to Phase II. Please call the Sedation Physician to re-evaluate and complete post-note for discharge to Phase II area. Do NOT discharge from procedure sedation or Phase 1 until post- sedation evaluation note is complete by procedure /sedation MD Sedation Discharge Instructions to be given to the patient at discharge to home.
--- NOTE | 2024-11-24 14:49 | Hospitalist Progress Note ---
Date of Service November 24, 2024 Assessment & Plan (1) ESRD (end stage renal disease): (2) SIRS (systemic inflammatory response syndrome): (3) Acute hypotension: (4) Fever: (5) Opioid dependence, uncomplicated: (6) Nicotine dependence, unspecified, uncomplicated: (7) Gastro-esophageal reflux disease without esophagitis: (8) Unspecified atrial fibrillation: (9) Anxiety disorder, unspecified: (10) Cognitive communication deficit: (11) Atherosclerotic heart disease of [place] coronary artery without angina pectoris: (12) Other chronic pain: (13) Cerebral infarction, unspecified: (14) Epilepsy, unspecified, not intractable, without status epilepticus: (15) Acquired absence of right leg below knee: Plan Pt is a 64 yo gentleman with PMH of ESRD on HD, DM2, a-fib, epilepsy, cognitive impairment, GERD, and bilateral BKA who presented to ED for rigors and hypotension. Pt admitted for sepsis, likely bacteremia. #Sepsis, present on arrival-Patient presented with tachycardia, fever, leukocytosis. All have resolved. Pt has received a total of 1.5L of IVF. Treated for exit infection from right IJ presumed catheter infection when hospitalized at [facility] 10/20/-11/03, with Vancomycin, reported negative aerobic BC on 10/20 -Blood cultures pending- no growth after 5 days -with typical anuria, episode of pus filled urine -UC: more than 3 types of organisms present, all moderate counts mixed with probable skin anamaria. -renal US: no hydro or nephrolithiasis, consistent findings associated with renal disease -WC to right BKA wound incisional site with e.faecalis (sensitivities pending, on Dapto) -Levaquin 250mg IV q24h -Daptomycin IV 400mg q48h (renal dosing) -will tailor additional antibiotic treatment pending catheter tip culture -vascular surgery consultation 11/21, OR 11/24 with placement of new permcath #ESRD-blood pressure measurements have been reasonable with no overt elevation requiring dose changing of Clonidine -following with nephrology (Will), schedule at [facility], inhouse dialysis currently -Dialysis 11/24 -trend electrolytes-1500ml fluid restriction removed -BP has been labile, midodrine on hold for dialysis, prn Clonidine for SBP>140, has not received Clonidine dosing with recorded measurements of SBP>160, dosing of clonidine from [facility] confirmed at 0.1mg daily prn for SBP>140, BP has been reasonable since 11/21 at 1100 requiring no prn dosing, will monitor and add routine daily Clonidine if needed for persistent elevated blood pressures #Diabetes -Well controlled with A1c 6.4, POC BSG trends reviewed and acceptable -Glycemic consult placed with pharmacy -Glargine 8 units at hs -Aspart per sliding scale #paroxysmal atrial fibrillation -med/tele NSR 70s -Apixaban start in am post procedure after discussion with Dr. Stevens #History of epilepsy -Keppra 1500mg qd #mild cognitive impairment -documented per patient history #Opioid dependence/Phantom pain -Continue scheduled oxycodone and prn Tylenol per home doses #GERD -Continue Protonix 40 mg ##Pressure-induced deep tissue damage/injury of left buttock, present on arrival -WOCN consult -review of WOCN consult with assessment of DTI left buttock -cleanse with NSS, pat dry with gauze, aquacel Ag, optifoam to open wound, change daily and prn ##Right BKA site wound, amputation site, present on arrival-from previous surgical intervention one year ago at [facility], follows with surgeon in [place] -wound care consult with appreciation of full thickness wound with tunneling after scabbed area removed 11/20 -nursing reports foul-smelling drainage -WC with e. faecalis, sensitivities pending -will need to f/u with surgeon and outpatient wound care at discharge Dispo: Med/tele Diet: DM2, renal DVT prophylaxis: On chronic AC, held for now due to anticipated surgery Code Status: Full Admission and Anticipated Discharge Date Admission Date: November 17, 2024 Subjective Pt. seen in dialysis post procedure of new perm cath placement. States he is sleepy from procedure. Dialysis nurse reports blood pressure soft during session and he was pre-medica andre with Midodrine. BP at end of dialysis session 102/58. Review of Systems Review of Systems: All systems reviewed & are unremarkable except as noted in Subjective Physical Exam Physical Exam: GENERAL APPEARANCE: Sleepy, but oriented. Sitting comfortably in bed. NAD. SKIN: Normal color without rashes or lesions. Normal turgor. HEENT: Head AT/NC. Buccal mucosa is moist and pink. NECK: No jugular venous distention. No thyroid enlargement. There is no lymphadenopathy. HEART: RRR without m/g/r LUNGS: Normal inspiratory effort. CTA without w/r/r ABDOMEN: No guarding or rigidity. Normoactive BS in all four quadrants. Abdomen soft and NT. MSK: No bony gross/deformities throughout. ROM intact. EXTREMITIES: Bilateral BKAs. Noted foam dressing to right distal BKA closure per wound care. Neuro: CN 2-12 grossly intact. No focal neuro deficits PSYCHIATRIC: Normal affect. Eye contact is good. Speech is normal rate and content. Responses are appropriate. Results & Data Results & Data Vital Signs (Past 12 Hours) Vital Signs Temp Pulse Pulse Resp BP BP Pulse Ox 11/24/24 13:30 80 102/58 L 11/24/24 13:00 90 71/38 L 11/24/24 12:30 89 89/50 L 11/24/24 12:00 86 114/65 11/24/24 11:43 74 121/67 11/24/24 11:38 36.3 C L 79 11/24/24 11:20 81 14 116/70 97 11/24/24 11:15 81 15 120/70 100 11/24/24 11:10 77 16 120/75 100 11/24/24 11:05 76 16 124/77 100 11/24/24 11:00 75 16 133/77 100 11/24/24 11:00 74 16 116/74 99 11/24/24 10:55 75 21 132/77 98 11/24/24 10:50 69 28 H 138/71 100 11/24/24 10:45 69 33 H 133/72 100 11/24/24 10:40 69 33 H 131/70 100 11/24/24 10:35 68 37 H 143/71 H 100 11/24/24 10:30 68 31 H 153/81 H 99 11/24/24 10:25 70 14 154/78 H 100 11/24/24 10:20 68 32 H 161/82 H 100 11/24/24 10:15 70 13 158/84 H 99 11/24/24 10:10 70 19 154/79 H 99 11/24/24 09:12 37.2 C 72 20 141/73 H 93 11/24/24 08:12 36.7 C 76 20 125/79 92 11/24/24 03:43 36.7 C 76 20 133/66 92 O2 Del Method O2 Flow Rate 11/24/24 13:30 11/24/24 13:00 11/24/24 12:30 11/24/24 12:00 11/24/24 11:43 11/24/24 11:38 11/24/24 11:20 Room Air 11/24/24 11:15 Oxymask 4 11/24/24 11:10 Oxymask 4 11/24/24 11:05 Oxymask 4 11/24/24 11:00 Oxymask 4 11/24/24 11:00 Oxymask 4 11/24/24 10:55 Oxymask 4 11/24/24 10:50 Oxymask 4 11/24/24 10:45 Oxymask 4 11/24/24 10:40 Oxymask 4 11/24/24 10:35 Oxymask 4 11/24/24 10:30 Oxymask 4 11/24/24 10:25 Oxymask 4 11/24/24 10:20 Oxymask 4 11/24/24 10:15 Oxymask 4 11/24/24 10:10 Oxymask 4 11/24/24 09:12 Room Air 11/24/24 08:12 Room Air 11/24/24 03:43 Room Air Laboratory Results Labs reviewed PG Care Time/CCT Total # of Minutes Spent Total Time Spent with Patient: Total time spent is greater than 50% in coordination of care (as documented) at patient's floor/unit and/or counseling patient: Coding Level of Care Code 79186 SUB INP/OBS CARE 3/50MIN Diagnoses ESRD (end stage renal disease) N18.6 SIRS (systemic inflammatory response syndrome) R65.10 Acute hypotension I95.9 Fever, unspecified fever cause R50.9 Fever type: unspecified Opioid dependence, uncomplicated F11.20 Nicotine dependence, uncomplicated, unspecified nicotine product type F17.200 Nicotine product type: unspecified Gastro-esophageal reflux disease without esophagitis K21.9 Unspecified atrial fibrillation I48.91 Anxiety disorder, unspecified F41.9 Cognitive communication deficit R41.841 Atherosclerotic heart disease of [place] coronary artery without angina pectoris I25.10 Other chronic pain G89.29 Cerebral infarction, unspecified I63.9 Epilepsy, unspecified, not intractable, without status epilepticus G40.909 Acquired absence of right leg below knee Z89.511 (4) Fever Fever type: unspecified Qualified Code(s): R50.9 - Fever, unspecified (6) Nicotine dependence, unspecified, uncomplicated Nicotine product type: unspecified Qualified Code(s): F17.200 - Nicotine dependence, unspecified, uncomplicated
[2024-11-24] MEDS: HEPARIN SOD (PORCINE) 5,000 UNITS/ML VIAL ONE (17:30)
[2024-11-24] MEDS: LIDOCAINE 1% LOCAL 20 ML VIAL ONE ×2 (17:30)
[2024-11-25 10:32] LABS: Hematocrit (blood only) 31.6 % (42.0-52.0); Hemoglobin 9.7 g/dl (14.0-18.0); Mean Corpuscular Hemoglobin 28.9 pg (25.0-34.0); Mean Corpuscular Volume 94.0 fL (80.0-100.0); Platelet Count 166 K/uL (130-400); RDW Standard Deviation 56.0 fL (36.4-46.3); Red Blood Count 3.36 M/uL (4.70-6.10); White Blood Count 8.59 K/ul (4.8-10.8)
[2024-11-25 10:57] LABS: Anion Gap 9.0 (3-11); Blood Urea Nitrogen 58.0 mg/dl (6-23); Calcium 9.0 mg/dl (8.6-10.3); Carbon Dioxide 29.0 mmol/L (21-32); Chloride 100.0 mmol/L (98-107); Creatinine Clr Calc Pharmacy 12.2 ml/min; Glucose 182.0 mg/dl (70-99(Fasting)); Potassium 4.0 mmol/L (3.5-5.1); Sodium 138.0 mmol/L (136-145)
--- NOTE | 2024-11-25 12:56 | Hospitalist Progress Note ---
"Date of Service November 25, 2024 Assessment & Plan (1) Infection of exit site of hemodialysis catheter: (2) Infection of amputation stump, right lower extremity: (3) ESRD (end stage renal disease): (4) SIRS (systemic inflammatory response syndrome): Plan Pt is a 64 yo gentleman with PMH of ESRD on HD, DM2, a-fib, epilepsy, cognitive impairment, GERD, and bilateral BKA who presented to ED for rigors and hypotension. He was tachycardic, febrile, and had a leukocytosis on arrival. He was admitted for sepsis with the source likely being an infection of exit site HD catheter. He was also found to have a deep tissue injury noted on his buttocks as well as an infected wound on his right BKA. He was taken to the OR on 11/24 for removal of his PermCath and reinsertion of a new PermCath and tolerated this procedure well. He remains in the hospital while awaiting finalized wound cultures. #Sepsis, present on arrival | Infection of acute site of HD catheter - was recently admitted at [facility] in October for exit site infection and was treated with a course of vancomycin but his catheter was not exchanged during that hospitalization. - Blood cultures negative and finalized - He is typically anuric but had 1 episode of pus filled urine - urine culture obtained and revealed moderate counts of mixed probable skin anamaria - Vascular surgery consulted - s/p placement of new PermCath on 11/24 - Continue Levaquin 250mg IV q24h and Daptomycin 400mg IV q48h (renal dosing) - PermCath tip culture pending #Pressure-induced deep tissue damage/injury of left buttock, present on arrival | Right BKA site wound, amputation site, present on arrival - Right BKA occurred 1 year ago at [facility], follows with surgeon in [place] - Wound care nurse consulted, appreciate assistance - Full-thickness wound of right BKA site with tunneling after scabbed area was removed on 11/20. RN reported foul-smelling drainage from the site at the time - Wound culture from R BKA site with Enterococcus faecalis, sensitivities reveal intermediate sensitivity to Vanco - Continue antibiotics as above - Follow-up with surgeon and wound care outpatient on discharge #ESRD | Labile BP - follows with [facility]. schedule at [facility], inhouse dialysis currently - Nephrology consulted - defer dialysis regimen to their service - Renal US: no hydro or nephrolithiasis, consistent findings associated with renal disease - BP has been labile - typically gets midodrine 10 mg PRN on HD only so fluid can be removed as needed. He uses clonidine 0.1 mg daily as needed for SBP> 140 - No PRN clonidine doses have been needed throughout this hospitalization #T2DM - A1c 6.4% in November 2024 - Home regimen of linagliptin 5 mg p.o. daily - hold while inpatient - Pharmacy glycemic consult in place and managing while inpatient #Paroxysmal atrial fibrillation - Remains in NSR on telemetry - Eliquis resumed post-procedure 11/25 #History of epilepsycontinue Keppra 1500mg daily (HD dosing) - give after HD on dialysis days #Mild cognitive impairment-documented per patient history but is A&Ox4 #Opioid dependence | Phantom pain -Continue scheduled oxycodone and prn Tylenol per home doses #GERD-Continue Protonix 40 mg VTE PPx: Eliquis Dispo: Anticipate discharge back to [facility] tomorrow 11/26 if wound cultures finalize Discussed discharge planning with case management Admission and Anticipated Discharge Date Admission Date: November 17, 2024 Supervising Physician Co-Signing Physician Notes PA Supervision Note: I did not personally see or examine the patient today, but I verified all avery points of LARRY Amador's assessment and plan with the following exc eptions/additions: None Subjective Patient seen and evaluated at bedside. He reports felling well overall. He reports some back pain which is chronic for him. Denies pain in either of his LE. Denies pain from his perm cath exchange yesterday. We discussed waiting on his RLE and perm cath tip cultures to tailor his antibiotics on discharge, pos kenny will have results tomorrow at which time he could return to [facility]. He is agreeable to this plan. He is tolerating his diet well and sleeping well overnight. No additional complaints or concerns at this time. Telemetry reviewed: NSR 80s. Physical Exam Physical Exam: General: No acute distress, nondiaphoretic, well-developed, well-nourished. Skin: Warm, dry. Perm cath to right chest wall - bandage clean dry intact. Cardiac: Regular rate and rhythm without murmurs gallops or rubs. Pulm: Clear to auscultation bilaterally without wheezes, rales or rhonchi. Normal respiratory effort. 92% on room air. Abdominal: Soft, nontender, nondistended. Bowel sounds present. Extremities: Bilateral BKAs. Right distal BKA covered with dressing clean dry intact, no signs of drainage. No signs of cellulitis. Neuro: A&O x3. No focal neurological deficits. Results & Data Results & Data Vital Signs (Past 12 Hours) Vital Signs Temp Pulse Pulse Resp BP Pulse Ox O2 Del Method 11/25/24 10:38 Room Air 11/25/24 10:32 97.9 F 71 18 115/59 L 92 Room Air 11/25/24 07:35 73 11/25/24 03:08 98.2 F 76 16 127/85 92 Room Air Laboratory Results Reviewed CBC Reviewed BMP PG Care Time/CCT Total # of Minutes Spent Total Time Spent with Patient: Total time spent is greater than 50% in coordination of care (as documented) at patient's floor/unit and/or counseling patient: Coding Level of Care Code 62057 SUB INP/OBS CARE 2/35MIN Diagnoses Infection of exit site of hemodialysis catheter T82.7XXA Infection of amputation stump, right lower extremity T87.43 ESRD (end stage renal disease) N18.6 SIRS (systemic inflammatory response syndrome) R65.10"
[2024-11-26 07:51] LABS: Hematocrit (blood only) 29.2 % (42.0-52.0); Hemoglobin 9.2 g/dl (14.0-18.0); Mean Corpuscular Hemoglobin 29.7 pg (25.0-34.0); Mean Corpuscular Volume 94.2 fL (80.0-100.0); Platelet Count 170 K/uL (130-400); RDW Standard Deviation 55.2 fL (36.4-46.3); Red Blood Count 3.10 M/uL (4.70-6.10); White Blood Count 8.15 K/ul (4.8-10.8)
[2024-11-26 08:07] VITALS: RESP 18
[2024-11-26 08:22] LABS: Anion Gap 12.0 (3-11); Blood Urea Nitrogen 76.0 mg/dl (6-23); Calcium 8.9 mg/dl (8.6-10.3); Carbon Dioxide 28.0 mmol/L (21-32); Chloride 101.0 mmol/L (98-107); Creatinine Clr Calc Pharmacy 9.8 ml/min; Glucose 124.0 mg/dl (70-99(Fasting)); Potassium 4.4 mmol/L (3.5-5.1); Sodium 141.0 mmol/L (136-145)
[2024-11-26 12:00] VITALS: BP 106/67; TEMP 98.2; O2SAT 96
[2024-11-26 13:39] VITALS: PULSE 75
--- NOTE | 2024-11-26 16:48 | Communication Note ---
Date of Service: November 26, 2024 Care reviewed; d/t negative cultures here and during prior stay at [facility] wr exit site infection from tunnelled dialysis catheter, will at this point stop abtx as cath has been replaced at different site and blood/cath tip cxs negative.
--- NOTE | 2024-11-26 18:26 | Discharge Summary ---
Discharge Summary Date of Service November 26, 2024 Principal Dx & Hospital Course #1 = Principal Diagnosis (1) Infection of exit site of hemodialysis catheter: (2) Infection of amputation stump, right lower extremity: (3) ESRD (end stage renal disease): (4) SIRS (systemic inflammatory response syndrome): Plan Pt is a 64 yo gentleman with PMH of ESRD on HD, DM2, a-fib, epilepsy, cognitive impairment, GERD, and bilateral BKA who presented to ED for rigors and hypotension. He was tachycardic, febrile, and had a leukocytosis on arrival. He was admitted for sepsis with the source likely being an infection of exit site HD catheter. He was also found to have a deep tissue injury noted on his buttocks as well as an infected wound on his right BKA. He was taken to the OR on 11/24 for removal of his PermCath and reinsertion of a new PermCath and tolerated this procedure well. He remains in the hospital while awaiting finalized wound cultures. #Sepsis, present on arrival | Infection of acute site of HD catheter - was recently admitted at [facility] in October for exit site infection and was treated with a course of vancomycin but his catheter was not exchanged during that hospitalization. - Blood cultures negative and finalized - He is typically anuric but had 1 episode of pus filled urine - urine culture obtained and revealed moderate counts of mixed probable skin anamaria - Vascular surgery consulted - s/p placement of new PermCath on 11/24 - PermCath tip culture finalized with no growth - Treated with 9 day course of IV Daptomycin and IV Levaquin - no further antibiotics needed on discharge given exchange of PermCath and negative PermCath tip and blood cultures #Pressure-induced deep tissue damage/injury of left buttock, present on arrival | Right BKA site wound, amputation site, present on arrival - Right BKA occurred 1 year ago at [facility], follows with surgeon in [place] - Wound care nurse consulted, appreciate assistance - Full-thickness wound of right BKA site with tunneling after scabbed area was removed on 11/20. RN reported foul-smelling drainage from the site at the time - Wound culture from R BKA site with Enterococcus faecalis, sensitivities reveal intermediate sensitivity to Vanco - Completed 9 day IV antibiotic course as above - no further antibiotics prescribed on discharge - Follow-up with surgeon and wound care outpatient on discharge #ESRD | Labile BP - follows with [facility]. schedule at [facility], inhouse dialysis currently - Nephrology consulted - defer dialysis regimen to their service - Renal US: no hydro or nephrolithiasis, consistent findings associated with renal disease - BP has been labile - typically gets midodrine 10 mg PRN on HD only so fluid can be removed as needed. He uses clonidine 0.1 mg daily as needed for SBP> 140 - No PRN clonidine doses have been needed throughout this hospitalization - Consider holding prazosin the night before HD given hypotension during HD requiring midodrine administration #T2DM - A1c 6.4% in November 2024 - Home regimen of linagliptin 5 mg p.o. daily - held while inpatient and resumed on discharge - Pharmacy glycemic consult placed and managed during hospital stay #Paroxysmal atrial fibrillation - Remained in NSR on telemetry - Eliquis resumed post-procedure 11/25 #History of epilepsycontinue Keppra 1500mg daily (HD dosing) - give after HD on dialysis days #Mild cognitive impairment-documented per patient history but is A&Ox4 #Opioid dependence | Phantom pain -Continue scheduled oxycodone and prn Tylenol per home doses #GERD-Continue Protonix 40 mg VTE PPx: Eliquis Dispo: Discharged back to [facility] 11/26 Notes For Next Care Provider Consider holding prazosin the night before HD given hypotension during HD requiring midodrine administration Medication Changes From Visit Voltaren gel 3 times daily Takes midodrine as needed for hypotension with dialysis but not on his home med rec so this was prescribed on discharge Admission HPI Per Admitting Provider 64-year-old male with history of end-stage renal disease presents to the emergency department from the dialysis center for hypotension. The patient reports that he felt well yesterday and this morning up until about 8:00. When he was seated in the waiting room at the dialysis center he developed "shakes" and when he was first assessed by staff was noted to be hypotensive. He did not have any dialysis completed today. He is on a schedule and records indicate that he had a complete dialysis session on Wednesday. He was seen evaluated emergency department by ED staff. Blood cultures were taken. He reported he does not make any urine. While reported systolic blood pressures were in the 80s at the dialysis center, they are noted to be in the mid 110s here in the emergency department. No fluid has been given thus far. Emergency Department workup demonstrated a mild leukocytosis of 11.06, slightly elevated procalcitonin of 0.53. Viral PCR panel was negative. Upon exam around 6 PM, the patient is lying semi-reclined in his emergency department bed. He is eating a snack. He complains of being fatigued. His shakes that he experienced before have resolved. No other complaints. he is unable to live much medical history, in fact he cannot recall where he is currently living. Per the records, he is at [facility]. We also found that he follows with [facility] nephrology. is not clear how long he has been at [facility], with a prior [facility] it looks like he resided in [place]. We tried to contact his daughter, but there is no answer. Discharge Exam General: No acute distress, nondiaphoretic, well-developed, well-nourished. Skin: Warm, dry. Perm cath to right chest wall - bandage clean dry intact. Cardiac: Regular rate and rhythm without murmurs gallops or rubs. Pulm: Clear to auscultation bilaterally without wheezes, rales or rhonchi. Normal respiratory effort. 96% on room air. Abdominal: Soft, nontender, nondistended. Bowel sounds present. Extremities: Bilateral BKAs. Right distal BKA with healed scab along incision site. No signs of cellulitis. Image below. Neuro: A&O x3. No focal neurological deficits. Discharge Plan Discharge Items Patient Disposition: Transfer Senior Living Fac Reason For Visit: SEPSIS Discharge Diagnosis: Infection of exit site of his HD catheter Right BKA site wound infection Condition on Discharge: Fair Activity: Resume your previous activity Non-emergency contact: Primary Care Provider and Wind Tunnel Mechanic Call non-emergency contact if: you have any medication questions, your symptoms worsen and you have a fever Follow-up/Referrals: Calvin Fisher PA-C [Primary Care Provider] - (Follow-up in 1-2 weeks) Diet: Carb Consistent or DM2 and Dialysis Renal Addtl Attending Provider Instructions: Mr. Barragan, You were admitted to the hospital due to sepsis suspected to be due to an infection of your hemodialysis catheter exit site. You also had an infection of your right amputation site wound. You were treated with IV antibiotics while in the hospital. You also had your PermCath exchanged on 11/[address] Stevens. No further antibiotics are needed on discharge. Upon discharge from the hospital: * Continue your usual dialysis schedule. * Continue your home medications as prescribed. * You can use Voltaren gel topically 3 times daily. * Follow-up with your PCP in 1-2 weeks. Please return to the hospital if you experience any of the following: Chest pain, difficulty breathing, new or worsening confusion, passing out, inability to tolerate oral intake, or any other symptoms concerning for you. It was a pleasure taking care of you while you were in the hospital! Pending Studies at Discharge: No Stand-Alone Forms: My [facility] Skilled Items Patient informed of condition?: Yes DNR: No Discharge Level of Care: Skilled Communicable Disease: No Discharge Prognosis: Stable Lines: None Urinary Catheter: No Medications and DC Order Prescriptions: New midodrine 10 mg Tablet 10 mg PO DAILY PRN (Reason: hypotension) Qty: 30 0RF diclofenac sodium [Voltaren Arthritis Pain] 1 % Gel 2 g EXT TID Qty: 50 0RF Continued lidocaine 4 % Adhesive Patch,Medicated 1 patch TOPICAL Q12 Rx Instructions: BACK PAIN REMOVE PER SCHEDULE aspirin 81 mg Tablet,Delayed Release (Dr/Ec) 81 mg PO QAM linagliptin 5 mg Tablet 5 mg PO DAILY oxycodone [OxyContin] 10 mg tablet,oral only,ext.rel.12 hr 10 mg PO AMHS nicotine 21 mg/24 hr Patch 24 Hour 1 patch TRANSDERMAL DAILY Rx Instructions: remove per schedule gabapentin 100 mg Tablet 200 mg PO TID Eliquis 5 mg tablet 5 mg PO AMHS ferric citrate [Auryxia] 210 mg iron Tablet 420 mg PO WM ferric citrate [Auryxia] 210 mg iron Tablet 210 mg PO DAILY doxepin 10 mg capsule 10 mg PO HS pantoprazole 40 mg tablet,delayed release (DR/EC) 40 mg PO QAM allopurinol [Zyloprim] 100 mg Tablet 100 mg PO UD Rx Instructions: give 1 tablet in the morning every MON,WED,FRI prazosin 1 mg Capsule 1 mg PO HS Renal Vitamin 0.8 mg Tablet 1 tab PO QAM escitalopram oxalate [Lexapro] 5 mg Tablet 5 mg PO QAM levetiracetam 1,000 mg tablet 1,000 mg PO QAM levetiracetam 500 mg tablet 500 mg PO 3XWK Rx Instructions: GIVE EVERY MON,WED,FRI Artificial Tears (PF) 0.1-0.3 % Dropperette 1 drp OPB QAM rosuvastatin 10 mg tablet 10 mg PO QPM menthol-zinc oxide [Calmoseptine] 0.44-20.6 % Ointment 1 applic TOPICAL TID Rx Instructions: APPLY TO BUTTOCK AND GROIN REDDENED AREAS STOP APPLICATION WHEN HEALED clonidine HCl 0.1 mg tablet 0.1 mg PO .EVERY 24 HOURS PRN (Reason: Hypertension) Rx Instructions: GIVE FOR SBP > 140 ergocalciferol (vitamin D2) 1,250 mcg (50,000 unit) Capsule 1,250 mcg PO WK Rx Instructions: GIVE 1 CAPSULE EVERY WEDNESDAY acetaminophen [Tylenol] 325 mg Tablet 650 mg PO Q6 MDD 3g PRN (Reason: temp above 100.1) acetaminophen [Tylenol] 325 mg Tablet 650 mg PO Q6 MDD 3G PRN (Reason: PAIN 1-10 SCALE) loperamide [Imodium A-D] 2 mg Tablet 2 mg PO Q6H MDD 4 TABS IN 24 HOURS PRN (Reason: LOOSE STOOLS) Rx Instructions: GIVE 2 TABS FIRST LOOSE STOOL ANDTHEN 1 TAB AFTER EACH SUBSEQUENT LOOSE STOOL diphenhydramine HCl [Benadryl Allergy] 25 mg Tablet 25 mg PO Q6 PRN (Reason: Allergy Symptoms) menthol-zinc oxide [Calmoseptine] 0.44-20.6 % Ointment 1 applic TOPICAL Q12 PRN (Reason: Itching) Rx Instructions: APPLY TO RASH ON BACK FOR ITCHING triamcinolone acetonide 0.1 % Cream 1 applic TOPICAL 2XD Rx Instructions: APPLY TO BACK EVERY DAY AND EVENING SHIFT Discharge Orders: Discharge Order (Routine); Ordered 11/26/24 Ordered By: Tiera Amador Admission Data Admit Date/Time: 11/17/24 18:07 Attending Provider: Carolina Smith Admit Provider: Devorah Bolivar Primary Care Provider: Calvin Fisher Other Providers: Vinicio,; Christian Foreman; Shahla Ramírez; Jaun Perez; Du Blanco; Phong Rose; Arelis Kinney; Mikael Stevens Other Interventions: Discharge Summary Assessment (RN) Last Done: 11/26/24 13:36 Hospital Stay Data Consultations 11/17/24 16:32 ED Decision to Admit Stat 11/17/24 19:01 Consult Nephrology Stat 11/20/24 10:41 Consult Vascular Surgery Routine Procedures Performed Operation Date: 11/24/24 10:00 Actual Procedures p Removal of Perm Catheter, Insertion of Perm Catheter, Right Internal Jugular, Ultrasound Locialization of Right Jugular Vein, Fluoroscopy for Poisitioning, Moderate Sedation [id number](Left) - Mikael Stevens MD Diagnostic Imagining Performed Chest X-Ray 11/17/24 13:50 XR chest 1V portable CLINICAL HISTORY: Sepsis COMPARISON STUDY: None FINDINGS: Right dialysis catheter tip is at the cavoatrial junction. There is moderate cardiomegaly with mild pulmonary vascular congestion. Inspiration is shallow. There is mild stranding at the right lung base. No other consolidation or pleural effusion. No pneumothorax. IMPRESSION: 1. Mild CHF. 2. Atelectasis versus early pneumonia right lung base. ACT 112: Negative or not required by law. Electronically signed by: Christoph Holland M.D. 11/17/2024 2:22 PM Renal Ultrasound 11/19/24 14:51 INDICATION: pus in urine COMPARISON: None FINDINGS: RIGHT KIDNEY: Measures 11.2 cm. No hydronephrosis or nephrolithiasis. Cortical thinning. Increased echogenicity. 1.8 cm cyst. LEFT KIDNEY: Measures 10.1 cm. No hydronephrosis or nephrolithiasis. Cortical thinning. Increased echogenicity. 2.7 cm cyst. BLADDER: Debris in the urinary bladder. Bladder wall thickening. OTHER: Unremarkable. IMPRESSION: No hydronephrosis or nephrolithiasis. Findings suggestive of medical renal disease. Debris in the urinary bladder with bladder wall thickening. Cystitis changes are suspected. Electronically signed by Ajith Quiñones 11-19-2024 6:31 PM Pending Results Patient Have Any Pending Studies at Discharge: No Discharge Instructions Given to Patient (Per Discharging Provider) Mr. Barragan, You were admitted to the hospital due to sepsis suspected to be due to an infection of your hemodialysis catheter exit site. You also had an infection of your right amputation site wound. You were treated with IV antibiotics while in the hospital. You also had your PermCath exchanged on 11/[address] Stevens. No further antibiotics are needed on discharge. Upon discharge from the hospital: * Continue your usual dialysis schedule. * Continue your home medications as prescribed. * You can use Voltaren gel topically 3 times daily. * Follow-up with your PCP in 1-2 weeks. Please return to the hospital if you experience any of the following: Chest pain, difficulty breathing, new or worsening confusion, passing out, inability to tolerate oral intake, or any other symptoms concerning for you. It was a pleasure taking care of you while you were in the hospital! Supervising Physician Co-Signing Physician Notes LARRY Supervision Note: I did not personally see or examine the patient today, but I verified all avery points of LARRY Amador's assessment and plan with the following exceptions/additions: None Total Time Total Time Spent Total Time Spent (In Minutes): Greater than 30 minutes spent completing this discharge process including direct patient care, medication reconciliation, documentation, review of labs and images, and coordination of care. Coding Level of Care Code 09541 INP/OBS DISCH >30 MIN Diagnoses Infection of exit site of hemodialysis catheter T82.7XXA Infection of amputation stump, right lower extremity T87.43 ESRD (end stage renal disease) N18.6 SIRS (systemic inflammatory response syndrome) R65.10
== END 2024-11-26 14:05 | DRG 314 ==
LOC: ED 13:34 → 2N 18:07 → SUATTDRO 18:07 → 2N 19:25

== ENCOUNTER 2024-12-11 05:18 | Inpatient (IN) ==
--- NOTE | 2024-12-11 06:08 | Emergency Department Note ---
Impression & Plan Pneumonia, ESRD on dialysis ED Provider Note Diagnosis: Pneumonia, confusion, end-stage renal disease Disposition: Admission CHIEF COMPLAINT: Fever HPI: Patient is a 64-year-old male dialysis patient presenting with complaint of fever and vomiting. Patient states symptoms started 4 AM this morning. Patient states episodes of vomiting but now is not nauseous. Patient complaining of lower back pain. Patient denies any trauma. Patient recent admission to the hospital 2 weeks ago for SIRS. Patient when asked believes that he was in the hospital last 2 years ago and does not remember. Patient febrile upon arrival in the emergency room. Patient denies any active chest pain or shortness of breath. Patient reportedly does not make urine anymore. PAST MEDICAL HISTORY: See Below PAST SURGICAL HISTORY: See Below SOCIAL HISTORY: See Below HOME MEDICATIONS: See Below ALLERGIES: See Below VITALS: See Below PHYSICAL EXAMINATION: GENERAL: Nontoxic EYE EXAM: Normal conjunctiva. OROPHARYNX: Moist mucus membranes. Grossly normal dentition. NECK: Supple, LUNGS: Clear to auscultation. Normal chest wall mechanics. HEART: NSR ABDOMEN: Abdomen soft, non-tender, BACK: No CVA TTP. SKIN: No rashes and no bruising. UPPER EXTREMITIES: Upper extremities are grossly normal LOWER EXTREMITIES: Below-knee amputations bilaterally, no redness or warmth to stump on either side NEURO EXAM: Confusion, normal speech, moves all 4 extremities PSYCH: Cooperative MEDICAL DECISION MAKING: Reviewed external documents: Discharge summary 2 weeks prior History obtained from: Patient ER Course: Patient is a 64-year-old male with end-stage renal disease dialysis normally on Wednesday presenting with fever. Patient from nursing facility. Patient confused and thought he had not been admitted in over 2 years time but upon review of prior records he was here 2 weeks prior. Patient thought he gets dialysis Wednesday but he gets it Wednesday. Patient has no focal deficits on exam today. Patient slightly tachycardic and febrile on evaluation. Patient had septic protocol ordered no elevation of lactate level. Patient does have leukocytosis. Patient's imaging studies show concerns for potential pneumonia and patient was started on cefepime. Patient's case discussed with hospital service who agrees to accept the patient further treatment and evaluation. Labs (independently interpreted) are significant for: Leukocytosis Imaging results (independently interpreted): Chest x-ray concerning for pneumonia EKG interpretation (independently interpreted): Sinus tachycardia no ST segment elevation or depression Medications given: Normal saline, Tylenol, fentanyl, cefepime Consultants: Hospitalist Triage Nursing notes reviewed and agree them. Vital Signs: reviewed and remarkable for: Tachycardia Past Med/Surg History Problem List (Updated 12/11/24 @ 16:37 by Jian Gonzalez DO) ESRD on dialysis (Acute) Pneumonia (Acute) Fever Labile blood pressure ESRD (end stage renal disease) Medical History Infection of amputation stump, right lower extremity Infection of exit site of hemodialysis catheter SIRS (systemic inflammatory response syndrome) Acute hypotension Amputation leg, bilat Opioid dependence, uncomplicated Nicotine dependence, unspecified, uncomplicated Gastro-esophageal reflux disease without esophagitis Unspecified atrial fibrillation Anxiety disorder, unspecified Cognitive communication deficit Atherosclerotic heart disease of kaibab coronary artery without angina pectoris Other chronic pain Cerebral infarction, unspecified Epilepsy, unspecified, not intractable, without status epilepticus Acquired absence of right leg below knee Social History Smoking Status: Never smoker Tobacco Type: E-cigarettes / Vaping Second Hand Exposure: No; Do You Dip or Chew Tobacco: No; Hx Alcohol Use: No Hx Substance Use: No Preferred Language: Libyan Communication Ability: Effective Beliefs That Will Affect Care: None Current Living Situation: Detention Feels Safe at Home: Yes Assistive Devices: None Allergies Allergies Allergy/AdvReac Type Severity Reaction Status Date / Time Penicillins Allergy Severe THROAT Verified 08/24/23 11:47 [facility] Home Medications Medication Instructions Recorded Confirmed lidocaine 4 % topical patch 1 patch topical Q12 08/24/23 12/11/24 acetaminophen 325 mg tablet 650 mg PO Q6 PRN PAIN 1-10 SCALE 11/17/24 12/11/24 (Tylenol) acetaminophen 325 mg tablet 650 mg PO Q6 PRN temp above 100.1 11/17/24 12/11/24 (Tylenol) allopurinol 100 mg tablet 100 mg PO .M,W,F 11/17/24 12/11/24 (Zyloprim) apixaban 5 mg tablet (Eliquis) 5 mg PO AMHS 11/17/24 12/11/24 aspirin 81 mg tablet,delayed 81 mg PO QAM 11/17/24 12/11/24 release clonidine HCl 0.1 mg tablet 0.1 mg PO .EVERY 24 HOURS PRN 11/17/24 12/11/24 Hypertension dextran 70-hypromellose (PF) 0.1 1 drp OPB QAM 11/17/24 12/11/24 %-0.3 % eye drops in a dropperette (Artificial Tears (PF)) diphenhydramine HCl 25 mg tablet 25 mg PO Q6 PRN Allergy Symptoms 11/17/24 12/11/24 (Benadryl Allergy) doxepin 10 mg capsule 10 mg PO HS 11/17/24 12/11/24 ergocalciferol (vitamin D2) 1,250 1,250 mcg PO WK 11/17/24 12/11/24 mcg (50,000 unit) capsule escitalopram oxalate 5 mg tablet 5 mg PO QAM 11/17/24 12/11/24 (Lexapro) ferric citrate 210 mg iron tablet 210 mg PO TID 11/17/24 12/11/24 (Auryxia) ferric citrate 210 mg iron tablet 420 mg PO WM 11/17/24 12/11/24 (Auryxia) gabapentin 100 mg tablet 0 mg PO TID 11/17/24 12/11/24 levetiracetam 1,000 mg tablet 0 mg PO QAM 11/17/24 12/11/24 levetiracetam 500 mg tablet 500 mg PO 3XWK 11/17/24 12/11/24 linagliptin 5 mg tablet 0 mg PO DAILY 11/17/24 12/11/24 loperamide 2 mg tablet (Imodium 2 mg PO Q6H PRN LOOSE STOOLS 11/17/24 12/11/24 A-D) menthol 0.44 %-zinc oxide 20.6 % 1 applic topical Q12 PRN Itching 11/17/24 12/11/24 topical ointment (Calmoseptine) menthol 0.44 %-zinc oxide 20.6 % 1 applic topical TID 11/17/24 12/11/24 topical ointment (Calmoseptine) nicotine 21 mg/24 hr daily 1 patch transdermal DAILY 11/17/24 12/11/24 transdermal patch oxycodone 10 mg tablet,crush 10 mg PO AMHS 11/17/24 12/11/24 resistant,extended release 12 hr (OxyContin) pantoprazole 40 mg tablet,delayed 40 mg PO QAM 11/17/24 12/11/24 release prazosin 1 mg capsule 1 mg PO HS 11/17/24 12/11/24 rosuvastatin 10 mg tablet 0 mg PO QPM 11/17/24 12/11/24 triamcinolone acetonide 0.1 % 1 applic topical 2XD 11/17/24 12/11/24 topical cream vitamin B complex-vitamin C-folic 1 tab PO QAM 11/17/24 12/11/24 acid 0.8 mg tablet (Renal Vitamin) atorvastatin 20 mg tablet 20 mg PO DAILY 12/11/24 12/11/24 bisacodyl 10 mg rectal suppository 10 mg IA DAILY PRN Constipation 12/11/24 12/11/24 (Dulcolax (bisacodyl)) diclofenac sodium 1 % topical gel 0 g EXT TID 12/11/24 12/11/24 (Voltaren Arthritis Pain) docusate sodium 100 mg capsule 100 mg PO DAILY 12/11/24 12/11/24 (Colace) ferric citrate 210 mg iron tablet 210 mg PO UD PRN end stage renal 12/11/24 12/11/24 disease lidocaine 4 % topical patch 1 patch topical DAILY 12/11/24 12/11/24 midodrine 10 mg tablet 0 mg PO DAILY PRN hypotension 12/11/24 12/11/24 midodrine 5 mg tablet 5 mg PO .M,W,F Post dialysis 12/11/24 12/11/24 midodrine 5 mg tablet 10 mg PO .M,W,F 12/11/24 12/11/24 nystatin 100,000 unit/gram topical 1 applic topical UD 12/11/24 12/11/24 cream oxycodone 5 mg tablet 5 mg PO Q4H PRN Pain 12/11/24 12/11/24 sitagliptin phosphate 25 mg tablet 25 mg PO DAILY 12/11/24 12/11/24 (Januvia) Results & Data (ED) Vital Signs Vital Signs - 24 hr 12/11/24 05:24 12/11/24 05:25 12/11/24 05:44 Temperature 37.8 C H Temperature Source Oral Pulse Rate 118 H 116 H 116 H Pulse Rate [Apical] Pulse Rhythm Regular Regular Pulse Rhythm [Apical] Pulse Strength Normal Pulse Strength [Apical] Respiratory Rate 18 16 Respiratory Effort / Characteristics Non-Labored Respiratory Depth Normal Respiratory Pattern Regular Blood Pressure 127/77 Blood Pressure [Right Arm] Blood Pressure Mean 93 Blood Pressure Mean [Right Arm] Blood Pressure Position Left Lateral Blood Pressure Position [Right Arm] Pulse Oximetry 92 94 Oxygen Delivery Method Room Air Room Air Sepsis Recent Fever Within 48 Hours Yes Sepsis New/Unexplained Change in Mental Status No Sepsis Action Taken by Nursing No Action Required 12/11/24 05:48 12/11/24 06:47 12/11/24 07:03 Temperature 36.9 C Temperature Source Oral Pulse Rate 107 H Pulse Rate [Apical] 116 H 106 H Pulse Rhythm Pulse Rhythm [Apical] Regular Pulse Strength Pulse Strength [Apical] Normal Respiratory Rate 19 18 14 Respiratory Effort / Characteristics Non-Labored Non-Labored Spontaneous Respiratory Depth Normal Normal Respiratory Pattern Regular Regular Blood Pressure 123/72 Blood Pressure [Right Arm] 142/83 H 133/67 Blood Pressure Mean 89 Blood Pressure Mean [Right Arm] 102 89 Blood Pressure Position Blood Pressure Position [Right Arm] Lying Pulse Oximetry 93 97 92 Oxygen Delivery Method Room Air Room Air Room Air Sepsis Recent Fever Within 48 Hours Sepsis New/Unexplained Change in Mental Status Sepsis Action Taken by Nursing 12/11/24 07:30 12/11/24 08:06 12/11/24 08:36 Temperature Temperature Source Pulse Rate 105 H 99 H 98 H Pulse Rate [Apical] Pulse Rhythm Pulse Rhythm [Apical] Pulse Strength Pulse Strength [Apical] Respiratory Rate 9 L 9 L 8 L Respiratory Effort / Characteristics Respiratory Depth Respiratory Pattern Blood Pressure 122/70 124/72 123/71 Blood Pressure [Right Arm] Blood Pressure Mean 98 89 88 Blood Pressure Mean [Right Arm] Blood Pressure Position Blood Pressure Position [Right Arm] Pulse Oximetry 93 94 93 Oxygen Delivery Method Room Air Room Air Room Air Sepsis Recent Fever Within 48 Hours Sepsis New/Unexplained Change in Mental Status Sepsis Action Taken by Nursing 12/11/24 09:03 Temperature Temperature Source Pulse Rate 100 H Pulse Rate [Apical] Pulse Rhythm Pulse Rhythm [Apical] Pulse Strength Pulse Strength [Apical] Respiratory Rate 8 L Respiratory Effort / Characteristics Respiratory Depth Respiratory Pattern Blood Pressure 150/80 H Blood Pressure [Right Arm] Blood Pressure Mean 103 Blood Pressure Mean [Right Arm] Blood Pressure Position Blood Pressure Position [Right Arm] Pulse Oximetry 93 Oxygen Delivery Method Room Air Sepsis Recent Fever Within 48 Hours Sepsis New/Unexplained Change in Mental Status Sepsis Action Taken by Nursing Laboratory Data 12/11/24 05:45 12/11/24 05:45 Lab Results 12/11/24 12/11/24 Range/Units 05:45 06:25 WBC 20.68 H (4.8-10.8) K/ul RBC 3.87 L (4.70-6.10) M/uL Hgb 11.2 L (14.0-18.0) g/dl Hct 36.7 L (42.0-52.0) % MCV 94.8 (80.0-100.0) fL MCH 28.9 (25.0-34.0) pg MCHC 30.5 L (32.0-36.0) g/dL RDW Std Deviation 54.5 H (36.4-46.3) fL RDW Coeff of John 15.9 H (11.5-14.5) % Plt Count 224 (130-400) K/uL MPV 9.5 (9.4-12.4) fL Immature Gran % (Auto) 0.9 % Neut % (Auto) 87.2 % Lymph % (Auto) 1.8 % Lassen % (Auto) 9.6 % Eos % (Auto) 0.0 % Baso % (Auto) 0.5 % Neut # (Auto) 18.02 H (1.40-6.50) K/uL Lymph # (Auto) 0.37 L (1.20-3.40) K/uL Lassen # (Auto) 1.98 H (0.11-0.59) K/uL Eos # (Auto) 0.01 (0.00-0.50) K/uL Baso # (Auto) 0.11 (0.00-0.20) K/uL Immature Gran # (Auto) 0.19 (0.01-0.20) K/uL Sodium 140 (136-145) mmol/L Potassium 3.5 (3.5-5.1) mmol/L Chloride 100 (98-107) mmol/L Carbon Dioxide 26 (21-32) mmol/L Anion Gap 14 H (3-11) BUN 32 H (6-23) mg/dl Creatinine 6.34 H* (0.6-1.4) mg/dl Est Cr Clr Drug Dosing Not Reportable eGFR 9.11 BUN/Creatinine Ratio 5.0 L (10-20) Glucose 238 H (70-99(Fasting)) mg/dl Lactate 1.6 (0.4-2.0) mmol/L Calcium 9.4 (8.6-10.3) mg/dl Magnesium 1.9 (1.7-2.4) mg/dl Total Bilirubin 0.8 (0.2-1.0) mg/dl Direct Bilirubin 0.2 (0-0.2) mg/dl AST 13 (13-39) U/L ALT 8 (7-52) U/L Alkaline Phosphatase 151 H (34-104) U/L Troponin I High Sens 16.4 (0-20) pg/ml Total Protein 6.2 (6.0-8.3) gm/dl Albumin 3.1 L (3.4-5.0) gm/dl Procalcitonin 4.94 H (0-0.5) ng/ml SARS-CoV-2 (PCR) NEGATIVE (Negative) Hep Bs Antigen Negative (Negative) Influenza Type A (PCR) Negative (Neg) Influenza Type B (PCR) Negative (Neg) RSV (RT-PCR) Negative (Neg) Administered Medications Discontinued Medications Fentanyl Citrate (Fentanyl Citrate Pf 100 Mcg/2 Ml Vial) 50 mcg IV NOW STA Stop: 12/11/24 06:03 Last Admin: 12/11/24 06:11 Dose: 50 mcg Documented By: mary Sodium Chloride (Nss) 500 mls @ 999 mls/hr IV .Q31M ONE Stop: 12/11/24 06:32 Last Infusion: 12/11/24 06:49 Dose: Infused Documented By: Admin: 12/11/24 06:11 Dose: 999 mls/hr Documented By: mary Acetaminophen (Ofirmev) 1,000 mg in 100 mls @ 400 mls/hr IV NOW STA Stop: 12/11/24 06:16 Last Infusion: 12/11/24 06:26 Dose: Infused Documented By: Admin: 12/11/24 06:11 Dose: 400 mls/hr Documented By: mary Cefepime HCl (Maxipime 2000mg) 2,000 mg in 20 mls @ 5 mls/min IV NOW STA; Protocol Stop: 12/11/24 06:22 Last Admin: 12/11/24 06:41 Dose: 5 mls/min Documented By: YURIY Daptomycin 700 mg/ Syringe 14 mls @ 10 mls/min IV Q24H AILYN; Protocol Stop: 12/13/24 14:37 Last Admin: 12/11/24 16:06 Dose: Not Given Documented By: KRISTY Midodrine (Midodrine Hcl 10 Mg Tab) 10 mg PO ONE PRN PRN Reason: AT DIALYSIS only prn sbp <10 Stop: 01/10/25 11:24 Last Admin: 12/11/24 15:17 Dose: 10 mg Documented By: CC Imaging Data Radiologist's Impression: Chest X-Ray 12/11/24 05:22 EXAM: XR chest 1V portable CLINICAL HISTORY: Sepsis TECHNIQUE: An X-ray image of the chest was obtained in the AP projection. COMPARISON: 13:02:18 [facility]. FINDINGS: A central venous line is seen in situ on the right side. Linear atelectatic bands are noted in the right lower zone. Trachea appears to be deviated to right with right hilar prominence. The rest of the lungs are clear and well-expanded, with no pulmonary infiltrate or pleural effusion. No acute osseous abnormality is identified. IMPRESSION: A central venous line is seen in situ on the right side?stable. Linear atelectatic bands are noted in the right lower zone?stable. The prior right-sided pleural effusion is resolved. Trachea appears to be deviated to right with right hilar prominence. Stable. Electronically signed by Daniel Hernandez 12-11-2024 06:40 AM Abdomen/Pelvis CT 12/11/24 06:02 EXAM: CT abd pelvis wo con CLINICAL HISTORY: fever, vomiting, TECHNIQUE: Contiguous axial images were obtained from the level of the diaphragm to the pubic symphysis with intravenous contrast. Coronal and sagittal reconstructions were likewise performed and indicated to increase the sensitivity for detecting clinically relevant pathology. If IV contrast material had not been administered, the likelihood of detecting abnormalities relevant to the patient's condition would have been substantially decreased. CT scan was performed according to ALARA (as low as reasonably achievable). COMPARISON: None. FINDINGS: Mild right pleural effusion with basal subsegmental collapse consolidation of right lower lobes are seen. Few atelectatic bands are noted involving bilateral lung bases and in right middle lobe. The liver is normal in size and attenuation. No focal liver lesions are seen. There is no intra or extrahepatic biliary ductal dilatation. Hepatic vasculature is patent. The gallbladder is surgically removed. The pancreas and adrenal glands are unremarkable. Multiple hypodense lesions are noted in spleen - could be cyst. - USG correlation suggested The kidneys are normal in size and attenuation. There is no hydronephrosis or perinephric fat stranding. No renal calculi or renal masses are identified. The ureters are normal in caliber and no ureteral calculi are seen. The bladder is normal in contour. Pelvic viscera are unremarkable. No focal or diffuse bowel wall thickening or evidence of bowel obstruction is identified. No imaging evidence of appendicitis. Abdominal and pelvic vasculature is patent. No adenopathy or fluid collections are seen. No aggressive appearing osseous lesions are identified. Multiple small uncomplicated sigmoid colonic diverticulosis Diffuse mucosal thickening is noted involving distal rectum and anal canal - possibility of proctocolitis. - clinical correlation suggested. Fixation screw are noted involving lumbar spine without obvious loosening. Disc device are noted through L3-L4 to L5-S1 level. IMPRESSION: Mild right pleural effusion with basal subsegmental collapse consolidation of right lower lobes are seen. Few atelectatic bands are noted involving bilateral lung bases and in right middle lobe. Multiple small uncomplicated sigmoid colonic diverticulosis Diffuse mucosal thickening is noted involving distal rectum and anal canal - possibility of proctocolitis. - clinical correlation suggested. Electronically signed by Daniel Hernandez 12-11-2024 07:[address] 12/11/24 06:05 EXAM: CT head/brain wo con CLINICAL HISTORY: confusion TECHNIQUE: Multiple axial images were obtained from the skull base to the vertex without contrast. CT scan was performed according to ALARA (as low as reasonably achievable). COMPARISON: None. FINDINGS: Cerebral atrophy is present. Focal encephalomalacia/gliosis is noted in the left frontal lobe. There is no evidence of space-occupying lesion, hemorrhage, edema, mass effect, midline shift, extra-axial collection, or hydrocephalus. The basal cisterns are symmetric and normal in size and configuration. There are scattered periventricular hypodensities, as can be seen with chronic microvascular ischemic changes. The armando-white matter differentiation is preserved. The visualized paranasal sinuses and mastoid air cells are well aerated. Orbital contents are within normal limits. Bony structures are intact. IMPRESSION: 1. No evidence of acute intracranial abnormality is demonstrated. 2. Chronic microvascular ischemic changes. 3. Cerebral atrophy. 4. Focal encephalomalacia/gliosis is noted in the left frontal lobe - sequelae of prior insult likely. Electronically signed by Daniel Hernandez 12-11-2024 07:08 AM Discharge Plan Visit Data Chief Complaint: Fever Stated Complaint: FEVER, N/V ED Provider: Jian Gonzalez Discharge Problem: Pneumonia, ESRD on dialysis Patient Disposition: Admitted As Inpatient Condition: Fair Discharge Instructions Interventions: ED Discharge Assessment Last Done: 12/11/24 14:13
[2024-12-11 06:11] LABS: Hematocrit (blood only) 36.7 % (42.0-52.0); Hemoglobin 11.2 g/dl (14.0-18.0); Immature Granulocytes # (auto) 0.19 K/uL (0.01-0.20); Immature Granulocytes % (auto) 0.9 %; Mean Corpuscular Hemoglobin 28.9 pg (25.0-34.0); Mean Corpuscular Volume 94.8 fL (80.0-100.0); Platelet Count 224 K/uL (130-400); RDW Standard Deviation 54.5 fL (36.4-46.3); Red Blood Count 3.87 M/uL (4.70-6.10); White Blood Count 20.68 K/ul (4.8-10.8)
[2024-12-11] MEDS: ACETAMINOPHEN 1,000 MG/100 ML VIAL IV STA (06:11)
[2024-12-11] MEDS: SODIUM CHLORIDE 0.9% 500 ML IV ONE (06:11)
[2024-12-11] MEDS: CEFEPIME 2000MG 2,000 MG/20 ML SYR IV STA (06:41)
--- NOTE | 2024-12-11 06:41 | XRay Report ---
EXAM: XR chest 1V portable CLINICAL HISTORY: Sepsis TECHNIQUE: An X-ray image of the chest was obtained in the AP projection. COMPARISON: 13:02:18 [facility]. FINDINGS: A central venous line is seen in situ on the right side. Linear atelectatic bands are noted in the right lower zone. Trachea appears to be deviated to right with right hilar prominence. The rest of the lungs are clear and well-expanded, with no pulmonary infiltrate or pleural effusion. No acute osseous abnormality is identified. IMPRESSION: A central venous line is seen in situ on the right side?stable. Linear atelectatic bands are noted in the right lower zone?stable. The prior right-sided pleural effusion is resolved. Trachea appears to be deviated to right with right hilar prominence. Stable. Electronically signed by Daniel Hernandez 12-11-2024 06:40 AM
[2024-12-11 07:08] LABS: Alanine Aminotransferase 8 U/L (7-52); Albumin Level 3.1 gm/dl (3.4-5.0); Alkaline Phosphatase 151 U/L (34-104); Anion Gap 14 (3-11); Bilirubin,Total 0.8 mg/dl (0.2-1.0); Blood Urea Nitrogen 32 mg/dl (6-23); Calcium 9.4 mg/dl (8.6-10.3); Carbon Dioxide 26 mmol/L (21-32); Chloride 100 mmol/L (98-107); Glucose 238 mg/dl (70-99(Fasting)); Magnesium 1.9 mg/dl (1.7-2.4); Potassium 3.5 mmol/L (3.5-5.1); Sodium 140 mmol/L (136-145); Total Protein 6.2 gm/dl (6.0-8.3)
--- NOTE | 2024-12-11 07:09 | CT Scan Report ---
EXAM: CT abd pelvis wo con CLINICAL HISTORY: fever, vomiting, TECHNIQUE: Contiguous axial images were obtained from the level of the diaphragm to the pubic symphysis with intravenous contrast. Coronal and sagittal reconstructions were likewise performed and indicated to increase the sensitivity for detecting clinically relevant pathology. If IV contrast material had not been administered, the likelihood of detecting abnormalities relevant to the patient's condition would have been substantially decreased. CT scan was performed according to ALARA (as low as reasonably achievable). COMPARISON: None. FINDINGS: Mild right pleural effusion with basal subsegmental collapse consolidation of right lower lobes are seen. Few atelectatic bands are noted involving bilateral lung bases and in right middle lobe. The liver is normal in size and attenuation. No focal liver lesions are seen. There is no intra or extrahepatic biliary ductal dilatation. Hepatic vasculature is patent. The gallbladder is surgically removed. The pancreas and adrenal glands are unremarkable. Multiple hypodense lesions are noted in spleen - could be cyst. - USG correlation suggested The kidneys are normal in size and attenuation. There is no hydronephrosis or perinephric fat stranding. No renal calculi or renal masses are identified. The ureters are normal in caliber and no ureteral calculi are seen. The bladder is normal in contour. Pelvic viscera are unremarkable. No focal or diffuse bowel wall thickening or evidence of bowel obstruction is identified. No imaging evidence of appendicitis. Abdominal and pelvic vasculature is patent. No adenopathy or fluid collections are seen. No aggressive appearing osseous lesions are identified. Multiple small uncomplicated sigmoid colonic diverticulosis Diffuse mucosal thickening is noted involving distal rectum and anal canal - possibility of proctocolitis. - clinical correlation suggested. Fixation screw are noted involving lumbar spine without obvious loosening. Disc device are noted through L3-L4 to L5-S1 level. IMPRESSION: Mild right pleural effusion with basal subsegmental collapse consolidation of right lower lobes are seen. Few atelectatic bands are noted involving bilateral lung bases and in right middle lobe. Multiple small uncomplicated sigmoid colonic diverticulosis Diffuse mucosal thickening is noted involving distal rectum and anal canal - possibility of proctocolitis. - clinical correlation suggested. Electronically signed by Daniel Hernandez 12-11-2024 07:09 AM
--- NOTE | 2024-12-11 07:09 | CT Scan Report ---
EXAM: CT head/brain wo con CLINICAL HISTORY: confusion TECHNIQUE: Multiple axial images were obtained from the skull base to the vertex without contrast. CT scan was performed according to ALARA (as low as reasonably achievable). COMPARISON: None. FINDINGS: Cerebral atrophy is present. Focal encephalomalacia/gliosis is noted in the left frontal lobe. There is no evidence of space-occupying lesion, hemorrhage, edema, mass effect, midline shift, extra-axial collection, or hydrocephalus. The basal cisterns are symmetric and normal in size and configuration. There are scattered periventricular hypodensities, as can be seen with chronic microvascular ischemic changes. The armando-white matter differentiation is preserved. The visualized paranasal sinuses and mastoid air cells are well aerated. Orbital contents are within normal limits. Bony structures are intact. IMPRESSION: 1. No evidence of acute intracranial abnormality is demonstrated. 2. Chronic microvascular ischemic changes. 3. Cerebral atrophy. 4. Focal encephalomalacia/gliosis is noted in the left frontal lobe - sequelae of prior insult likely. Electronically signed by Daniel Hernandez 12-11-2024 07:08 AM
[2024-12-11 07:20] LABS: Influenza A virus by PCR Negative (Neg); Influenza B virus by PCR Negative (Neg); SARS CoV2 RNA(COVID-19) Ceph NEGATIVE (Negative)
--- NOTE | 2024-12-11 09:14 | History & Physical Report ---
Date of Service December 11, 2024 Assessment & Plan (1) ESRD (end stage renal disease): (2) Infection of amputation stump, right lower extremity: (3) SIRS (systemic inflammatory response syndrome): (4) Opioid dependence, uncomplicated: (5) Gastro-esophageal reflux disease without esophagitis: (6) Anxiety disorder, unspecified: (7) Cognitive communication deficit: (8) Atherosclerotic heart disease of [place] coronary artery without angina pectoris: (9) Epilepsy, unspecified, not intractable, without status epilepticus: (10) Acquired absence of right leg below knee: (11) Nicotine dependence, unspecified, uncomplicated: Plan #SIRS/Sepsis #Recent cellutitis/Catheter site infection #Possible RLL PNx #New Proctocolitis - was recently admitted at [facility] in October for exit site infection and was treated with a 9 day course of IV Daptomycin here from 11/17 until 11/26 no further antibiotics needed on discharge given exchange of PermCath and negative PermCath tip and blood cultures. - possible right lung consolidation and proctocolitis on CT in ED - Enterococcus Faecalis on right stump culture from 11/21 - cefepime started in ED, continue, add daptomycin given enterococcus in site culture, send MRSA swab given recent hospitalizations - Catheter site and right stump clinically at baseline with minimal erythema or edema, abx as above, consult to ID, will not remove catheter at this time - supportive cares, IV Fluids, Admit Tele - trnd inflammatory markers, follow cultures #Pressure-induced deep tissue damage/injury of left buttock, present on arrival #Right BKA wound - Right BKA occurred 1 year ago at [facility], follows with surgeon in [place] - Wound care nurse consulted, appreciate assistance - Wound culture from R BKA site with Enterococcus faecalis, sensitivities reveal intermediate sensitivity to Vanco #ESRD - follows with [facility]. -- schedule at [facility], inhouse dialysis currently - Consult Nephrology #Hypotension -uses midodrine with dialysis will continue, also PRN while hospitalized #T2DM - A1c 6.4% in November 2024 - - Pharmacy glycemic consult placed and managed during hospital stay, hold oral DM2 agents #Atherosclerotic Disease #HLD -Statin, ASA no active sx a this time #Paroxysmal atrial fibrillation - Eliquis #History of epilepsy continue Keppra 1500mg Dialysis Dosing #Mild cognitive impairment - somnolent today, hx limited, noted previously #Opioid dependence #Phantom pain - Continue scheduled oxycodone, gabapentin and prn Tylenol per home doses #GERD -Continue Protonix 40 mg #FEN -Renal Diet #CODE STATUS -Full code per his wishes History of Present Illness Chief Complaint: Malaise/Vomiting Primary Care Provider: Calvin Fisher PA-C Pt is a 64 yo gentleman with PMH of ESRD on HD, DM2, a-fib, epilepsy, cognitive impairment, GERD, and bilateral BKA who presented to ED for rigors and vomiting x 24 hours. reports yesterday was a normal and uneventful day, woke up this morning with fatigue, malaise, nasuea and ultimately vomiting, emesis was food/clear, no blood. Denies abdominal pain or diarrhea. No sick contacts, this is an unusual symptom for him. Otherwise recent medical hx notable for ho spitalization from 11/17 to 11/26/24 with concern for sepsis/cauti and R stump cellulitis. He was treated with a 9 day course of daptomycin, catheter was excahnged and he DCd to resume dialysis, has been well until this AM. Allergies Allergy/AdvReac Type Severity Reaction Status Date / Time Penicillins Allergy Severe THROAT Verified 08/24/23 11:47 [facility] Medications Medication Instructions Recorded Confirmed Type lidocaine 4 % topical patch 1 patch topical Q12 08/24/23 12/11/24 History acetaminophen 325 mg tablet 650 mg PO Q6 PRN PAIN 1-10 SCALE 11/17/24 12/11/24 History (Tylenol) acetaminophen 325 mg tablet 650 mg PO Q6 PRN temp above 100.1 11/17/24 12/11/24 History (Tylenol) allopurinol 100 mg tablet 100 mg PO .M,W,F 11/17/24 12/11/24 History (Zyloprim) apixaban 5 mg tablet (Eliquis) 5 mg PO AMHS 11/17/24 12/11/24 History aspirin 81 mg tablet,delayed 81 mg PO QAM 11/17/24 12/11/24 History release clonidine HCl 0.1 mg tablet 0.1 mg PO .EVERY 24 HOURS PRN 11/17/24 12/11/24 History Hypertension dextran 70-hypromellose (PF) 0.1 1 drp OPB QAM 11/17/24 12/11/24 History %-0.3 % eye drops in a dropperette (Artificial Tears (PF)) diphenhydramine HCl 25 mg tablet 25 mg PO Q6 PRN Allergy Symptoms 11/17/24 12/11/24 History (Benadryl Allergy) doxepin 10 mg capsule 10 mg PO HS 11/17/24 12/11/24 History ergocalciferol (vitamin D2) 1,250 1,250 mcg PO WK 11/17/24 12/11/24 History mcg (50,000 unit) capsule escitalopram oxalate 5 mg tablet 5 mg PO QAM 11/17/24 12/11/24 History (Lexapro) ferric citrate 210 mg iron tablet 210 mg PO TID 11/17/24 12/11/24 History (Auryxia) ferric citrate 210 mg iron tablet 420 mg PO WM 11/17/24 12/11/24 History (Auryxia) gabapentin 100 mg tablet 0 mg PO TID 11/17/24 12/11/24 History levetiracetam 1,000 mg tablet 0 mg PO QAM 11/17/24 12/11/24 History levetiracetam 500 mg tablet 500 mg PO 3XWK 11/17/24 12/11/24 History linagliptin 5 mg tablet 0 mg PO DAILY 11/17/24 12/11/24 History loperamide 2 mg tablet (Imodium 2 mg PO Q6H PRN LOOSE STOOLS 11/17/24 12/11/24 History A-D) menthol 0.44 %-zinc oxide 20.6 % 1 applic topical Q12 PRN Itching 11/17/24 12/11/24 History topical ointment (Calmoseptine) menthol 0.44 %-zinc oxide 20.6 % 1 applic topical TID 11/17/24 12/11/24 History topical ointment (Calmoseptine) nicotine 21 mg/24 hr daily 1 patch transdermal DAILY 11/17/24 12/11/24 History transdermal patch oxycodone 10 mg tablet,crush 10 mg PO AMHS 11/17/24 12/11/24 History resistant,extended release 12 hr (OxyContin) pantoprazole 40 mg tablet,delayed 40 mg PO QAM 11/17/24 12/11/24 History release prazosin 1 mg capsule 1 mg PO HS 11/17/24 12/11/24 History rosuvastatin 10 mg tablet 0 mg PO QPM 11/17/24 12/11/24 History triamcinolone acetonide 0.1 % 1 applic topical 2XD 11/17/24 12/11/24 History topical cream vitamin B complex-vitamin C-folic 1 tab PO QAM 11/17/24 12/11/24 History acid 0.8 mg tablet (Renal Vitamin) atorvastatin 20 mg tablet 20 mg PO DAILY 12/11/24 12/11/24 History bisacodyl 10 mg rectal suppository 10 mg [place] DAILY PRN Constipation 12/11/24 12/11/24 History (Dulcolax (bisacodyl)) diclofenac sodium 1 % topical gel 0 g EXT TID 12/11/24 12/11/24 History (Voltaren Arthritis Pain) docusate sodium 100 mg capsule 100 mg PO DAILY 12/11/24 12/11/24 History (Colace) ferric citrate 210 mg iron tablet 210 mg PO UD PRN end stage renal 12/11/24 12/11/24 History disease lidocaine 4 % topical patch 1 patch topical DAILY 12/11/24 12/11/24 History midodrine 10 mg tablet 0 mg PO DAILY PRN hypotension 12/11/24 12/11/24 History midodrine 5 mg tablet 5 mg PO .M,W,F Post dialysis 12/11/24 12/11/24 History midodrine 5 mg tablet 10 mg PO .M,W,F 12/11/24 12/11/24 History nystatin 100,000 unit/gram topical 1 applic topical UD 12/11/24 12/11/24 History cream oxycodone 5 mg tablet 5 mg PO Q4H PRN Pain 12/11/24 12/11/24 History sitagliptin phosphate 25 mg tablet 25 mg PO DAILY 12/11/24 12/11/24 History (Sawyer) Past Med/Surg History Problem List (Updated 12/08/24 @ 00:07 by Nicky Bland) Labile blood pressure ESRD (end stage renal disease) Medical History Amputation leg, bilat Opioid dependence, uncomplicated Nicotine dependence, unspecified, uncomplicated Gastro-esophageal reflux disease without esophagitis Unspecified atrial fibrillation Anxiety disorder, unspecified Cognitive communication deficit Atherosclerotic heart disease of [place] coronary artery without angina pectoris Other chronic pain Cerebral infarction, unspecified Epilepsy, unspecified, not intractable, without status epilepticus Acquired absence of right leg below knee Social History Smoking Status: Never smoker Tobacco Type: E-cigarettes / Vaping Second Hand Exposure: No; Do You Dip or Chew Tobacco: No; Hx Alcohol Use: No Hx Substance Use: No Preferred Language: Nepalese Communication Ability: Effective Beliefs That Will Affect Care: None Current Living Situation: [facility] Feels Safe at Home: Yes Assistive Devices: None Physical Exam Constitutional: WD/WN, vitals as above Eyes: PERRL, conjunctivae normal, anicteric sclerae Respiratory: normal respiratory effort, lungs clear to auscultation Cardiovascular: 2/6 KAREN heard throughout the precordium, no rubs/gallops Gastrointestinal (Abdomen): normal bowel sounds, soft, nontender, no hepatosplenomegaly Musculoskeletal: No LE Edema Skin: Pale, no rash or discoloration Neurologic: patellar DTR's 2+ bilat, sensation intact Psychiatric: SOmnolent, generally flat affect Results & Data Results & Data Vital Signs (Past 12 Hours) Vital Signs Temp Pulse Pulse Resp BP BP Pulse Ox 12/11/24 06:47 36.9 C 106 H 18 133/67 97 12/11/24 05:48 116 H 19 142/83 H 93 12/11/24 05:44 116 H 16 94 12/11/24 05:25 37.8 C H 116 H 18 127/77 92 12/11/24 05:24 118 H O2 Del Method 12/11/24 06:47 Room Air 12/11/24 05:48 Room Air 12/11/24 05:44 Room Air 12/11/24 05:25 Room Air 12/11/24 05:24 Laboratory Results 12/11/24 06:03 Aerobic Blood Culture - Pending Blood Anaerobic Blood Culture - Pending 12/11/24 05:45 Aerobic Blood Culture - Pending Blood Anaerobic Blood Culture - Pending 12/11/24 12/11/24 06:25 05:45 WBC 20.68 H RBC 3.87 L Hgb 11.2 L Hct 36.7 L MCV 94.8 MCH 28.9 MCHC 30.5 L RDW Std Deviation 54.5 H RDW Coeff of John 15.9 H Plt Count 224 MPV 9.5 Immature Gran % (Auto) 0.9 Neut % (Auto) 87.2 Lymph % (Auto) 1.8 [place] % (Auto) 9.6 Eos % (Auto) 0.0 Baso % (Auto) 0.5 Neut # (Auto) 18.02 H Lymph # (Auto) 0.37 L [place] # (Auto) 1.98 H Eos # (Auto) 0.01 Baso # (Auto) 0.11 Immature Gran # (Auto) 0.19 Sodium 140 Potassium 3.5 Chloride 100 Carbon Dioxide 26 Anion Gap 14 H BUN 32 H Creatinine 6.34 H* Est Cr Clr Drug Dosing Not Reportable eGFR 9.11 BUN/Creatinine Ratio 5.0 L Glucose 238 H Lactate 1.6 Calcium 9.4 Magnesium 1.9 Total Bilirubin 0.8 Direct Bilirubin 0.2 AST 13 ALT 8 Alkaline Phosphatase 151 H Troponin I High Sens 16.4 Total Protein 6.2 Albumin 3.1 L Procalcitonin 4.94 H SARS-CoV-2 (PCR) NEGATIVE Influenza Type A (PCR) Negative Influenza Type B (PCR) Negative RSV (RT-PCR) Negative Diagnostic Findings Chest X-Ray 12/11/24 05:22 EXAM: XR chest 1V portable CLINICAL HISTORY: Sepsis TECHNIQUE: An X-ray image of the chest was obtained in the AP projection. COMPARISON: 13:02:18 INFORMATION SECURITY ENGINEER. FINDINGS: A central venous line is seen in situ on the right side. Linear atelectatic bands are noted in the right lower zone. Trachea appears to be deviated to right with right hilar prominence. The rest of the lungs are clear and well-expanded, with no pulmonary infiltrate or pleural effusion. No acute osseous abnormality is identified. IMPRESSION: A central venous line is seen in situ on the right side?stable. Linear atelectatic bands are noted in the right lower zone?stable. The prior right-sided pleural effusion is resolved. Trachea appears to be deviated to right with right hilar prominence. Stable. Electronically signed by Daniel Hernandez 12-11-2024 06:40 AM Abdomen/Pelvis CT 12/11/24 06:02 EXAM: CT abd pelvis wo con CLINICAL HISTORY: fever, vomiting, TECHNIQUE: Contiguous axial images were obtained from the level of the diaphragm to the pubic symphysis with intravenous contrast. Coronal and sagittal reconstructions were likewise performed and indicated to increase the sensitivity for detecting clinically relevant pathology. If IV contrast material had not been administered, the likelihood of detecting abnormalities relevant to the patient's condition would have been substantially decreased. CT scan was performed according to ALARA (as low as reasonably achievable). COMPARISON: None. FINDINGS: Mild right pleural effusion with basal subsegmental collapse consolidation of right lower lobes are seen. Few atelectatic bands are noted involving bilateral lung bases and in right middle lobe. The liver is normal in size and attenuation. No focal liver lesions are seen. There is no intra or extrahepatic biliary ductal dilatation. Hepatic vasculature is patent. The gallbladder is surgically removed. The pancreas and adrenal glands are unremarkable. Multiple hypodense lesions are noted in spleen - could be cyst. - USG correlation suggested The kidneys are normal in size and attenuation. There is no hydronephrosis or perinephric fat stranding. No renal calculi or renal masses are identified. The ureters are normal in caliber and no ureteral calculi are seen. The bladder is normal in contour. Pelvic viscera are unremarkable. No focal or diffuse bowel wall thickening or evidence of bowel obstruction is identified. No imaging evidence of appendicitis. Abdominal and pelvic vasculature is patent. No adenopathy or fluid collections are seen. No aggressive appearing osseous lesions are identified. Multiple small uncomplicated sigmoid colonic diverticulosis Diffuse mucosal thickening is noted involving distal rectum and anal canal - possibility of proctocolitis. - clinical correlation suggested. Fixation screw are noted involving lumbar spine without obvious loosening. Disc device are noted through L3-L4 to L5-S1 level. IMPRESSION: Mild right pleural effusion with basal subsegmental collapse consolidation of right lower lobes are seen. Few atelectatic bands are noted involving bilateral lung bases and in right middle lobe. Multiple small uncomplicated sigmoid colonic diverticulosis Diffuse mucosal thickening is noted involving distal rectum and anal canal - possibility of proctocolitis. - clinical correlation suggested. Electronically signed by Daniel Hernandez 12-11-2024 07:[address] 12/11/24 06:05 EXAM: CT head/brain wo con CLINICAL HISTORY: confusion TECHNIQUE: Multiple axial images were obtained from the skull base to the vertex without contrast. CT scan was performed according to ALARA (as low as reasonably achievable). COMPARISON: None. FINDINGS: Cerebral atrophy is present. Focal encephalomalacia/gliosis is noted in the left frontal lobe. There is no evidence of space-occupying lesion, hemorrhage, edema, mass effect, midline shift, extra-axial collection, or hydrocephalus. The basal cisterns are symmetric and normal in size and configuration. There are scattered periventricular hypodensities, as can be seen with chronic microvascular ischemic changes. The armando-white matter differentiation is preserved. The visualized paranasal sinuses and mastoid air cells are well aerated. Orbital contents are within normal limits. Bony structures are intact. IMPRESSION: 1. No evidence of acute intracranial abnormality is demonstrated. 2. Chronic microvascular ischemic changes. 3. Cerebral atrophy. 4. Focal encephalomalacia/gliosis is noted in the left frontal lobe - sequelae of prior insult likely. Electronically signed by Daniel Hernandez 12-11-2024 07:08 AM ECG Additional Comments: Sinus tachycardia, aside from rate, no change compared to prior PG Care Time/CCT Total # of Minutes Spent Total Time Spent with Patient: Total time spent is greater than 50% in coordination of care (as documented) at patient's floor/unit and/or counseling patient: Coding Level of Care Code 73949 INT INP/OBS CARE 3/75MIN Diagnoses ESRD (end stage renal disease) N18.6 Infection of amputation stump, right lower extremity T87.43 SIRS (systemic inflammatory response syndrome) R65.10 Opioid dependence, uncomplicated F11.20 Gastro-esophageal reflux disease without esophagitis K21.9 Anxiety disorder, unspecified F41.9 Cognitive communication deficit R41.841 Atherosclerotic heart disease of [place] coronary artery without angina pectoris I25.10 Epilepsy, unspecified, not intractable, without status epilepticus G40.909 Acquired absence of right leg below knee Z89.511 Nicotine dependence, uncomplicated, unspecified nicotine product type F17.200 Nicotine product type: unspecified (11) Nicotine dependence, unspecified, uncomplicated Nicotine product type: unspecified Qualified Code(s): F17.200 - Nicotine dependence, unspecified, uncomplicated
[2024-12-11] MEDS ORDERED: SODIUM CHLORIDE 0.9% 1,000 ML IV PRN (11:20)
--- NOTE | 2024-12-11 11:36 | Nephrology Consultation ---
Date of Consultation December 11, 2024 Assessment & Plan (1) ESRD (end stage renal disease): ordered HD for today via TDC on 3K bath > no more than 1.8 L UF next HD for 12/13 or as clinical needs dictate (2) Labile blood pressure: ordered PRN midodrine w/ HD ONLY (3) Fever: F w/ tachycardia; bp maintained so far. -f/u pending cultures >>dialysis catheter site was stained yellow on gauze per dental scheduling coordinator but exit site was ok History of Present Illness Reason for Consultation: ESRD on dialysis Requesting Physician: Dr Mcfadden Attending Physician: Dr Mcfadden History of Present Illness 64 y/o M whom I'm asked to see for ESRD needs was admitted tis AM for evaluation of fever, vomiting, and tachycardia at his residential facility. PMH includes ESRD on dialysis Wednesday HD via tunnelled dialysis catheter at [facility] , BK and bed bound, stroke, mild cognitive impairment which can wax/wane; chronic pain, nicotine dependence, severe PVF, CAD, gout, HL. He had very labile blood pressures ranging from hypotension to hypertension. He had recent course of 9 day course of daptomycin/levaquin and TDC exchange for exit site infection with negative cultures earlier this month (d/c 11/26 from here). he is adherent w/ HD txs; last tx was 12/08 w/ 1.4 L UF; does not tolerate large UF usually and often needs prn midodrine. blood cultures are pending. pt last temp was 38.6. no c/o rigors or sob, no edema; no rash. no current n/v. + diarrhea. Allergies Allergy/AdvReac Type Severity Reaction Status Date / Time Penicillins Allergy Severe THROAT Verified 08/24/23 11:47 [facility] Home Medications Medication Instructions Recorded Confirmed Type lidocaine 4 % topical patch 1 patch topical Q12 08/24/23 12/11/24 History acetaminophen 325 mg tablet 650 mg PO Q6 PRN PAIN 1-10 SCALE 11/17/24 12/11/24 History (Tylenol) acetaminophen 325 mg tablet 650 mg PO Q6 PRN temp above 100.1 11/17/24 12/11/24 History (Tylenol) allopurinol 100 mg tablet 100 mg PO .M,W,F 11/17/24 12/11/24 History (Zyloprim) apixaban 5 mg tablet (Eliquis) 5 mg PO AMHS 11/17/24 12/11/24 History aspirin 81 mg tablet,delayed 81 mg PO QAM 11/17/24 12/11/24 History release clonidine HCl 0.1 mg tablet 0.1 mg PO .EVERY 24 HOURS PRN 11/17/24 12/11/24 History Hypertension dextran 70-hypromellose (PF) 0.1 1 drp OPB QAM 11/17/24 12/11/24 History %-0.3 % eye drops in a dropperette (Artificial Tears (PF)) diphenhydramine HCl 25 mg tablet 25 mg PO Q6 PRN Allergy Symptoms 11/17/24 12/11/24 History (Benadryl Allergy) doxepin 10 mg capsule 10 mg PO HS 11/17/24 12/11/24 History ergocalciferol (vitamin D2) 1,250 1,250 mcg PO WK 11/17/24 12/11/24 History mcg (50,000 unit) capsule escitalopram oxalate 5 mg tablet 5 mg PO QAM 11/17/24 12/11/24 History (Lexapro) ferric citrate 210 mg iron tablet 210 mg PO TID 11/17/24 12/11/24 History (Auryxia) ferric citrate 210 mg iron tablet 420 mg PO WM 11/17/24 12/11/24 History (Auryxia) gabapentin 100 mg tablet 0 mg PO TID 11/17/24 12/11/24 History levetiracetam 1,000 mg tablet 0 mg PO QAM 11/17/24 12/11/24 History levetiracetam 500 mg tablet 500 mg PO 3XWK 11/17/24 12/11/24 History linagliptin 5 mg tablet 0 mg PO DAILY 11/17/24 12/11/24 History loperamide 2 mg tablet (Imodium 2 mg PO Q6H PRN LOOSE STOOLS 11/17/24 12/11/24 History A-D) menthol 0.44 %-zinc oxide 20.6 % 1 applic topical Q12 PRN Itching 11/17/24 12/11/24 History topical ointment (Calmoseptine) menthol 0.44 %-zinc oxide 20.6 % 1 applic topical TID 11/17/24 12/11/24 History topical ointment (Calmoseptine) nicotine 21 mg/24 hr daily 1 patch transdermal DAILY 11/17/24 12/11/24 History transdermal patch oxycodone 10 mg tablet,crush 10 mg PO AMHS 11/17/24 12/11/24 History resistant,extended release 12 hr (OxyContin) pantoprazole 40 mg tablet,delayed 40 mg PO QAM 11/17/24 12/11/24 History release prazosin 1 mg capsule 1 mg PO HS 11/17/24 12/11/24 History rosuvastatin 10 mg tablet 0 mg PO QPM 11/17/24 12/11/24 History triamcinolone acetonide 0.1 % 1 applic topical 2XD 11/17/24 12/11/24 History topical cream vitamin B complex-vitamin C-folic 1 tab PO QAM 11/17/24 12/11/24 History acid 0.8 mg tablet (Renal Vitamin) atorvastatin 20 mg tablet 20 mg PO DAILY 12/11/24 12/11/24 History bisacodyl 10 mg rectal suppository 10 mg VA DAILY PRN Constipation 12/11/24 12/11/24 History (Dulcolax (bisacodyl)) diclofenac sodium 1 % topical gel 0 g EXT TID 12/11/24 12/11/24 History (Voltaren Arthritis Pain) docusate sodium 100 mg capsule 100 mg PO DAILY 12/11/24 12/11/24 History (Colace) ferric citrate 210 mg iron tablet 210 mg PO UD PRN end stage renal 12/11/24 12/11/24 History disease lidocaine 4 % topical patch 1 patch topical DAILY 12/11/24 12/11/24 History midodrine 10 mg tablet 0 mg PO DAILY PRN hypotension 12/11/24 12/11/24 History midodrine 5 mg tablet 5 mg PO .M,W,F Post dialysis 12/11/24 12/11/24 History midodrine 5 mg tablet 10 mg PO .M,W,F 12/11/24 12/11/24 History nystatin 100,000 unit/gram topical 1 applic topical UD 12/11/24 12/11/24 History cream oxycodone 5 mg tablet 5 mg PO Q4H PRN Pain 12/11/24 12/11/24 History sitagliptin phosphate 25 mg tablet 25 mg PO DAILY 12/11/24 12/11/24 History (Januvia) Patient History Medical History Infection of amputation stump, right lower extremity Infection of exit site of hemodialysis catheter SIRS (systemic inflammatory response syndrome) Acute hypotension Amputation leg, bilat Opioid dependence, uncomplicated Nicotine dependence, unspecified, uncomplicated Gastro-esophageal reflux disease without esophagitis Unspecified atrial fibrillation Anxiety disorder, unspecified Cognitive communication deficit Atherosclerotic heart disease of [place] coronary artery without angina pectoris Other chronic pain Cerebral infarction, unspecified Epilepsy, unspecified, not intractable, without status epilepticus Acquired absence of right leg below knee Social History Smoking Status: Never smoker Tobacco Type: E-cigarettes / Vaping Second Hand Exposure: No; Do You Dip or Chew Tobacco: No; Hx Alcohol Use: No Hx Substance Use: No Preferred Language: Russian Communication Ability: Effective Beliefs That Will Affect Care: None Current Living Situation: Assisted Feels Safe at Home: Yes Assistive Devices: None Review of Systems 2 Review of Systems: All systems reviewed & are unremarkable except as noted in HPI & below Physical Exam 2 Constitutional: well developed and well nourished Eyes: EOM intact bilaterally ENMT: Mouth: + dry oral mucous membranes Respiratory: normal respiratory effort Auscultation: + diminished lung sounds Gastrointestinal (Abdomen): Inspection/Auscultation: normal bowel sounds P ercussion/Palpation: abdomen soft; abdomen nontender Musculoskeletal: Extremities: + abnormal strength (s/p BL BKA) Skin: no rashes, warm and dry Neurologic: carlson, fluent speech, no tremor Results & Data Vital Signs (Past 12 Hours) Vital Signs Temp Pulse Pulse Resp BP BP Pulse Ox 12/11/24 10:39 106 H 12 155/93 H 99 12/11/24 10:12 100 H 8 L 153/79 H 97 12/11/24 09:03 100 H 8 L 150/80 H 93 12/11/24 08:36 98 H 8 L 123/71 93 12/11/24 08:06 99 H 9 L 124/72 94 12/11/24 07:30 105 H 9 L 122/70 93 12/11/24 07:03 107 H 14 123/72 92 12/11/24 06:47 36.9 C 106 H 18 133/67 97 12/11/24 05:48 116 H 19 142/83 H 93 12/11/24 05:44 116 H 16 94 12/11/24 05:25 37.8 C H 116 H 18 127/77 92 12/11/24 05:24 118 H O2 Del Method 12/11/24 10:39 Room Air 12/11/24 10:12 Room Air 12/11/24 09:03 Room Air 12/11/24 08:36 Room Air 12/11/24 08:06 Room Air 12/11/24 07:30 Room Air 12/11/24 07:03 Room Air 12/11/24 06:47 Room Air 12/11/24 05:48 Room Air 12/11/24 05:44 Room Air 12/11/24 05:25 Room Air 12/11/24 05:24 Laboratory Results 12/11/24 05:45 12/11/24 05:[address] a/p no con Mild right pleural effusion with basal subsegmental collapse consolidation of right lower lobes are seen. Few atelectatic bands are noted involving bilateral lung bases and in right middle lobe. Multiple small uncomplicated sigmoid colonic diverticulosis Diffuse mucosal thickening is noted involving distal rectum and anal canal - possibility of proctocolitis. - clinical correlation suggested. cxr > A central venous line is seen in situ on the right side?stable. Linear atelectatic bands are noted in the right lower zone?stable. The prior right-sided pleural effusion is resolved. Trachea appears to be deviated to right with right hilar prominence. Stable. head CT unremarkable for acute changes
--- NOTE | 2024-12-11 13:54 | Electrocardiogram Report ---
Test Reason : Blood Pressure : */* mmHG Vent. Rate : 118 BPM Atrial Rate : 119 BPM P-R Int : 144 ms QRS Dur : 70 ms QT Int : 326 ms P-R-T Axes : * 24 35 degrees QTcB Int : 456 ms Sinus tachycardia Low voltage QRS Borderline ECG When compared with ECG of 17-Nov-2024 14:04, No significant change was found Confirmed by Eugene Garsia ([id number]) on 12/11/2024 1:53:50 PM Referred By: Jonn Josephdiana Confirmed By: Eugene Garsia
[2024-12-11] MEDS ORDERED: PHARMACY GLYCEMIC MGMT CONSULT PRN (14:38)
[2024-12-11] MEDS ORDERED: MAGNESIUM HYDROXIDE SUSP 30 ML UDC PO PRN (14:38)
[2024-12-11] MEDS ORDERED: ONDANSETRON INJ 2 MG/ML 2 ML VIAL IV PRN (14:38)
[2024-12-11] MEDS ORDERED: MIDODRINE HCL 10 MG TAB PO SCH (14:38)
[2024-12-11] MEDS ORDERED: FERRIC CITRATE 210 MG PO PRN (14:38)
[2024-12-11] MEDS ORDERED: IRON PO PRN (14:38)
[2024-12-11] MEDS ORDERED: ACETAMINOPHEN 325 MG TAB PO PRN ×2 (14:38)
[2024-12-11] MEDS ORDERED: NON-FORMULARY MEDICATION (Ferric Citrate [Auryxia] 210 mg iron Tablet) PO SCH ×2 (14:38)
[2024-12-11] MEDS ORDERED: diphenhydrAMINE Capsule 25 MG CAP PO PRN (15:02)
[2024-12-11] MEDS: MIDODRINE HCL 10 MG TAB PO PRN (15:17)
[2024-12-11] MEDS ORDERED: GLUCOSE 10 TAB/TUBE PO PRN (15:45)
[2024-12-11] MEDS ORDERED: DEXTROSE 50% 50 ML SYRINGE IV PRN (15:45)
[2024-12-11] MEDS ORDERED: GLUCOSE 40% GEL 15 GM TUBE PO PRN (15:45)
[2024-12-11] MEDS ORDERED: GLUCAGON FOR INJ 1 MG VIAL SQ PRN (15:45)
[2024-12-11] MEDS ORDERED: CARBOHYDRATES FOR HYPOGLYCEMIA PO PRN (15:45)
[2024-12-11] MEDS: DAPTOmycin 700 MG in SYRINGE 0 ML IV SCH ×2 (16:06→18:48)
--- NOTE | 2024-12-11 16:57 | Infectious Disease Consult ---
Date of Consultation December 11, 2024 Assessment & Plan (1) ESRD on dialysis: (2) Fever: Plan This is a 64-year-old male with past medical history of ESRD on HD, (M, W, F), DM2, A-fib, epilepsy, cognitive impairment, bilateral BKA recently admitted 11/17/2024 - 11/26/2024 with hypotension and rigors. During that admission he was noted to be febrile with leukocytosis and tachycardia. Diagnosed with a possible exit site HD catheter infection. He was also found to have a right BKA wound. Wound culture grew Enterococcus faecalis with intermediate sensitivities to vancomycin. He was taken to the OR for removal of HD catheter, blood cultures and cath tip sterile. A new permacath was placed on 11/24/24. He is usually anuric but was found to have an episode of purulent urine. Culture grew moderate counts of mixed skin anamaria. He completed 9 days of daptomycin and Levaquin. He returned to the ED from his SNF on 12/11/24 with fever, nausea and vomiting. He also complained of low back pain. In the ED T 37.8, Tmax 38.6, HR 118, RR 14, BP 142/83. Labs: WBC 20.68, jean telets 224, anion gap 14, BUN 32, creatinine 6.34, alk phos 151, MRSA nasal screen positive. Blood cultures no growth to date. Influenza, RSV, COVID-19 PCR negative. Chest x-ray shows a linear atelectatic band of the right lower zone. Prior right-sided pleural effusion resolved. Stable right sided tracheal deviation with hilar prominence. CTAP demonstrated mild right pleural effusion with basal lobe segmental collapse consolidation of the right lower lobe. Few atelectatic bands noted involving the bilateral lung bases and in the right middle lobe. Diffuse mucosal thickening involving the distal rectum and anal canal with the possibility of proctocolitis. CT head shows no acute intracranial abnormality. Chronic microvascular ischemic changes. Focal encephalomalacia/gliosis in the left frontal lobe which may be sequela of prior insult. He has been started on daptomycin and cefepime. Infectious disease consulted for possible SIRS Microbiology: 12/11/24 blood culture NGTD Prior microbiology: 11/24/2024 catheter tip culture NG 11/21/2024 right BKA site culture E faecalis (ampicillin sensitive, intermediate vancomycin) 11/19/2024 urine culture more than 3 types of organisms presentall moderate counts of mixed probable skin anamaria Antimicrobials: Cefepime 12/11present Daptomycin 12/11present # SIRS Leukocytosis, fever, tachycardia, unknown source # Proctocolitis on imaging # Presence of lumbar spine hardware # Focal encephalomalacia/gliosis in the left frontal lobe # ESRD on HD MWF # Recent right BKA site wound, cx + E faecalis (amp Susceptible, Vanco Int tang sceptibility ) # Recent HD catheter possible exit site Infection, blood cx, cath tip cx NG # Penicillin allergy, throat swelling # Elevated procalcitonin Discussion: He presents with nausea, vomiting, back pain, fever. Labs notable for leukocytosis, elevated procalcitonin, positive MRSA screen. It is hard to interpret an elevated procalcitonin in a patient with end-stage renal disease but it has increased since his recent admission 0.53---> 4.94 . Chest x-ray with no humza infiltrate and he is on room air, without documentation of respiratory symptoms. CTAP shows sub seq collapse consolidation of RLL as well as diffuse mucosal thickening involving the distal rectum and anal canal c/f proctocolitis. Blood cultures NGTD. He is currently on cefepime and daptomycin. Cefepime will cover gram-negative's in the abdomen and possible pneumonia. Daptomycin will cover for recent vancomycin intermediate Enterococcus faecalis, if truly has an abdominal infection. Daptomycin will not provide optimal coverage for MRSA pneumonia. He is on an SSRI so would hold off on switching to Linezolid. He develops throat swelling with PCN. Per chart review he complained back pain and has hardware in the back. Recommendations -Continue cefepime 1 g IV every 24 hours for ? Proctocolitis, ? Pna ( less likely) -Continue daptomycin 700 mg IV every 48 hours for recent h/o E faecalis with I vanco susc and possible proctocolitis -Added metronidazole 500 mg IV every 12 hours for anaerobic/GI coverage -If he decompensates or hypoxic on current abx then would target possible MRSA pneumonia with Iv vancomycin per pharmacy protocol and discontinue Daptomycin -Consider Spinal imaging if continued back pain. -If diarrhea, check C diff. -Follow up blood culture and adjust abx as needed Thank you for this consult. ID will continue to follow. Lester Medina MD, MPH Infectious Disease [facility], [facility] Call [phone] with questions Consultation Information This patient recommendation is based on a telemedicine consult request which was completed asynchronously through chart review and information provided by the primary physician. The patient was not seen or examined today. The evaluation is consultative in nature and all patient care and treatment decisions can either be accepted or rejected by the patient's primary hospital-based treating physician using their own independent medical judgment for their patient. Meter Mechanic contact information: Please call [facility] Call Center . (Phone Number For Physician Use Only) Time Spent Reviewing Chart: 31+ minutes History of Present Illness Reason for Consultation: SIRS Requesting Physician: Gabriel Mcfadden MD Attending Physician: Gabriel Mcfadden MD History of Present Illness This is a 64-year-old male with past medical history of ESRD on HD, (M, W, F), DM2, A-fib, epilepsy, cognitive impairment, bilateral BKA recently admitted 11/17/2024 - 11/26/2024 with hypotension and rigors. During that admission he was noted to be febrile with leukocytosis and tachycardia. Diagnosed with a possible exit site HD catheter infection. He was also found to have a right BKA wound. Wound culture grew Enterococcus faecalis with intermediate sensitivities to vancomycin. He was taken to the OR for removal of HD catheter, blood cultures and cath tip sterile. A new permacath was placed on 11/24/24. He is usually anuric but was found to have an episode of purulent urine. Culture grew moderate counts of mixed skin anamaria. He completed 9 days of daptomycin and Levaquin. He returned to the ED from his SNF on 12/11/24 with fever, nausea and vomiting. He also complained of low back pain. In the ED T 37.8, Tmax 38.6, HR 118, RR 14, BP 142/83. Labs: WBC 20.68, platelets 224, anion gap 14, BUN 32, creatinine 6.34, alk phos 151, MRSA nasal screen positive. Blood cultures no growth to date. Influenza, RSV, COVID-19 PCR negative. Chest x-ray shows a linear atelectatic band of the right lower zone. Prior right-sided pleural effusion resolved. Stable right sided tracheal deviation with hilar prominence. CTAP demonstrated mild right pleural effusion with basal lobe segmental collapse consolidation of the right lower lobe. Few atelectatic bands noted involving the bilateral lung bases and in the right middle lobe. Diffuse mucosal thickening involving the distal rectum and anal canal with the possibility of proctocolitis. CT head shows no acute intracranial abnormality. Chronic microvascular ischemic changes. Focal encephalomalacia/gliosis in the left frontal lobe which may be sequela of prior insult. He has been started on daptomycin and cefepime. Infectious disease consulted for possible SIRS Allergies Allergy/AdvReac Type Severity Reaction Status Date / Time Penicillins Allergy Severe THROAT Verified 08/24/23 11:47 [facility] Medications Medication Instructions Recorded Confirmed Type lidocaine 4 % topical patch 1 patch topical Q12 08/24/23 12/11/24 History acetaminophen 325 mg tablet 650 mg PO Q6 PRN PAIN 1-10 SCALE 11/17/24 12/11/24 History (Tylenol) acetaminophen 325 mg tablet 650 mg PO Q6 PRN temp above 100.1 11/17/24 12/11/24 History (Tylenol) allopurinol 100 mg tablet 100 mg PO .M,W,F 11/17/24 12/11/24 History (Zyloprim) apixaban 5 mg tablet (Eliquis) 5 mg PO AMHS 11/17/24 12/11/24 History aspirin 81 mg tablet,delayed 81 mg PO QAM 11/17/24 12/11/24 History release clonidine HCl 0.1 mg tablet 0.1 mg PO .EVERY 24 HOURS PRN 11/17/24 12/11/24 History Hypertension dextran 70-hypromellose (PF) 0.1 1 drp OPB QAM 11/17/24 12/11/24 History %-0.3 % eye drops in a dropperette (Artificial Tears (PF)) diphenhydramine HCl 25 mg tablet 25 mg PO Q6 PRN Allergy Symptoms 11/17/24 12/11/24 History (Benadryl Allergy) doxepin 10 mg capsule 10 mg PO HS 11/17/24 12/11/24 History ergocalciferol (vitamin D2) 1,250 1,250 mcg PO WK 11/17/24 12/11/24 History mcg (50,000 unit) capsule escitalopram oxalate 5 mg tablet 5 mg PO QAM 11/17/24 12/11/24 History (Lexapro) ferric citrate 210 mg iron tablet 210 mg PO TID 11/17/24 12/11/24 History (Auryxia) ferric citrate 210 mg iron tablet 420 mg PO WM 11/17/24 12/11/24 History (Auryxia) gabapentin 100 mg tablet 0 mg PO TID 11/17/24 12/11/24 History levetiracetam 1,000 mg tablet 0 mg PO QAM 11/17/24 12/11/24 History levetiracetam 500 mg tablet 500 mg PO 3XWK 11/17/24 12/11/24 History linagliptin 5 mg tablet 0 mg PO DAILY 11/17/24 12/11/24 History loperamide 2 mg tablet (Imodium 2 mg PO Q6H PRN LOOSE STOOLS 11/17/24 12/11/24 History A-D) menthol 0.44 %-zinc oxide 20.6 % 1 applic topical Q12 PRN Itching 11/17/24 12/11/24 History topical ointment (Calmoseptine) menthol 0.44 %-zinc oxide 20.6 % 1 applic topical TID 11/17/24 12/11/24 History topical ointment (Calmoseptine) nicotine 21 mg/24 hr daily 1 patch transdermal DAILY 11/17/24 12/11/24 History transdermal patch oxycodone 10 mg tablet,crush 10 mg PO AMHS 11/17/24 12/11/24 History resistant,extended release 12 hr (OxyContin) pantoprazole 40 mg tablet,delayed 40 mg PO QAM 11/17/24 12/11/24 History release prazosin 1 mg capsule 1 mg PO HS 11/17/24 12/11/24 History rosuvastatin 10 mg tablet 0 mg PO QPM 11/17/24 12/11/24 History triamcinolone acetonide 0.1 % 1 applic topical 2XD 11/17/24 12/11/24 History topical cream vitamin B complex-vitamin C-folic 1 tab PO QAM 11/17/24 12/11/24 History acid 0.8 mg tablet (Renal Vitamin) atorvastatin 20 mg tablet 20 mg PO DAILY 12/11/24 12/11/24 History bisacodyl 10 mg rectal suppository 10 mg MD DAILY PRN Constipation 12/11/24 12/11/24 History (Dulcolax (bisacodyl)) diclofenac sodium 1 % topical gel 0 g EXT TID 12/11/24 12/11/24 History (Voltaren Arthritis Pain) docusate sodium 100 mg capsule 100 mg PO DAILY 12/11/24 12/11/24 History (Colace) ferric citrate 210 mg iron tablet 210 mg PO UD PRN end stage renal 12/11/24 12/11/24 History disease lidocaine 4 % topical patch 1 patch topical DAILY 12/11/24 12/11/24 History midodrine 10 mg tablet 0 mg PO DAILY PRN hypotension 12/11/24 12/11/24 History midodrine 5 mg tablet 5 mg PO .M,W,F Post dialysis 12/11/24 12/11/24 History midodrine 5 mg tablet 10 mg PO .M,W,F 12/11/24 12/11/24 History nystatin 100,000 unit/gram topical 1 applic topical UD 12/11/24 12/11/24 History cream oxycodone 5 mg tablet 5 mg PO Q4H PRN Pain 12/11/24 12/11/24 History sitagliptin phosphate 25 mg tablet 25 mg PO DAILY 12/11/24 12/11/24 History (Januvia) Patient History Medical History Infection of amputation stump, right lower extremity Infection of exit site of hemodialysis catheter SIRS (systemic inflammatory response syndrome) Acute hypotension Amputation leg, bilat Opioid dependence, uncomplicated Nicotine dependence, unspecified, uncomplicated Gastro-esophageal reflux disease without esophagitis Unspecified atrial fibrillation Anxiety disorder, unspecified Cognitive communication deficit Atherosclerotic heart disease of havasupai coronary artery without angina pectoris Other chronic pain Cerebral infarction, unspecified Epilepsy, unspecified, not intractable, without status epilepticus Acquired absence of right leg below knee Social History Smoking Status: Never smoker Tobacco Type: E-cigarettes / Vaping Second Hand Exposure: No; Do You Dip or Chew Tobacco: No; Hx Alcohol Use: No Hx Substance Use: No Preferred Language: Occitan Communication Ability: Effective Beliefs That Will Affect Care: None Current Living Situation: [facility] Feels Safe at Home: Yes Assistive Devices: None Results & Data Vital Signs (Past 12 Hours) Vital Signs Temp Pulse Pulse Resp BP BP Pulse Ox 12/11/24 16:30 100 H 84/61 L 12/11/24 16:00 118 H 100/65 12/11/24 15:30 111 H 109/79 12/11/24 15:00 107 H 110/69 12/11/24 14:55 38.6 C H 109 H 125/73 12/11/24 14:39 38.6 C H 12/11/24 12:52 37.9 C H 12/11/24 12:30 112 H 8 L 149/89 H 96 12/11/24 12:03 115 H 16 154/101 H 98 12/11/24 11:36 115 H 17 150/88 H 12/11/24 11:06 106 H 14 157/88 H 95 12/11/24 10:39 106 H 12 155/93 H 99 12/11/24 10:12 100 H 8 L 153/79 H 97 12/11/24 09:03 100 H 8 L 150/80 H 93 12/11/24 08:36 98 H 8 L 123/71 93 12/11/24 08:06 99 H 9 L 124/72 94 12/11/24 07:30 105 H 9 L 122/70 93 12/11/24 07:03 107 H 14 123/72 92 12/11/24 06:47 36.9 C 106 H 18 133/67 97 12/11/24 05:48 116 H 19 142/83 H 93 12/11/24 05:44 116 H 16 94 12/11/24 05:25 37.8 C H 116 H 18 127/77 92 12/11/24 05:24 118 H O2 Del Method 12/11/24 16:30 12/11/24 16:00 12/11/24 15:30 12/11/24 15:00 12/11/24 14:55 12/11/24 14:39 12/11/24 12:52 12/11/24 12:30 12/11/24 12:03 12/11/24 11:36 12/11/24 11:06 12/11/24 10:39 Room Air 12/11/24 10:12 Room Air 12/11/24 09:03 Room Air 12/11/24 08:36 Room Air 12/11/24 08:06 Room Air 12/11/24 07:30 Room Air 12/11/24 07:03 Room Air 12/11/24 06:47 Room Air 12/11/24 05:48 Room Air 12/11/24 05:44 Room Air 12/11/24 05:25 Room Air 12/11/24 05:24 Laboratory Results Laboratory Results - last 48 hr 12/11/24 12/11/24 12/11/24 05:45 06:25 Unknown WBC 20.68 H RBC 3.87 L Hgb 11.2 L Hct 36.7 L MCV 94.8 MCH 28.9 MCHC 30.5 L RDW Std Deviation 54.5 H RDW Coeff of John 15.9 H Plt Count 224 MPV 9.5 Immature Gran % (Auto) 0.9 Neut % (Auto) 87.2 Lymph % (Auto) 1.8 Aiken % (Auto) 9.6 Eos % (Auto) 0.0 Baso % (Auto) 0.5 Neut # (Auto) 18.02 H Lymph # (Auto) 0.37 L Aiken # (Auto) 1.98 H Eos # (Auto) 0.01 Baso # (Auto) 0.11 Immature Gran # (Auto) 0.19 Sodium 140 Potassium 3.5 Chloride 100 Carbon Dioxide 26 Anion Gap 14 H BUN 32 H Creatinine 6.34 H* Est Cr Clr Drug Dosing Not Reportable eGFR 9.11 BUN/Creatinine Ratio 5.0 L Glucose 238 H Lactate 1.6 Calcium 9.4 Magnesium 1.9 Total Bilirubin 0.8 Direct Bilirubin 0.2 AST 13 ALT 8 Alkaline Phosphatase 151 H Troponin I High Sens 16.4 Total Protein 6.2 Albumin 3.1 L Procalcitonin 4.94 H Nasal Screen MRSA (PCR) Positive A SARS-CoV-2 (PCR) NEGATIVE Hep Bs Antigen Negative Influenza Type A (PCR) Negative Influenza Type B (PCR) Negative RSV (RT-PCR) Negative Diagnostic Findings Chest X-Ray 12/11/24 05:22 EXAM: XR chest 1V portable CLINICAL HISTORY: Sepsis TECHNIQUE: An X-ray image of the chest was obtained in the AP projection. COMPARISON: 13:02:18 [employer]. FINDINGS: A central venous line is seen in situ on the right side. Linear atelectatic bands are noted in the right lower zone. Trachea appears to be deviated to right with right hilar prominence. The rest of the lungs are clear and well-expanded, with no pulmonary infiltrate or pleural effusion. No acute osseous abnormality is identified. IMPRESSION: A central venous line is seen in situ on the right side?stable. Linear atelectatic bands are noted in the right lower zone?stable. The prior right-sided pleural effusion is resolved. Trachea appears to be deviated to right with right hilar prominence. Stable. Electronically signed by Daniel Hernandez 12-11-2024 06:40 AM Abdomen/Pelvis CT 12/11/24 06:02 EXAM: CT abd pelvis wo con CLINICAL HISTORY: fever, vomiting, TECHNIQUE: Contiguous axial images were obtained from the level of the diaphragm to the pubic symphysis with intravenous contrast. Coronal and sagittal reconstructions were likewise performed and indicated to increase the sensitivity for detecting clinically relevant pathology. If IV contrast material had not been administered, the likelihood of detecting abnormalities relevant to the patient's condition would have been substantially decreased. CT scan was performed according to ALARA (as low as reasonably achievable). COMPARISON: None. FINDINGS: Mild right pleural effusion with basal subsegmental collapse consolidation of right lower lobes are seen. Few atelectatic bands are noted involving bilateral lung bases and in right middle lobe. The liver is normal in size and attenuation. No focal liver lesions are seen. There is no intra or extrahepatic biliary ductal dilatation. Hepatic vasculature is patent. The gallbladder is surgically removed. The pancreas and adrenal glands are unremarkable. Multiple hypodense lesions are noted in spleen - could be cyst. - USG correlation suggested The kidneys are normal in size and attenuation. There is no hydronephrosis or perinephric fat stranding. No renal calculi or renal masses are identified. The ureters are normal in caliber and no ureteral calculi are seen. The bladder is normal in contour. Pelvic viscera are unremarkable. No focal or diffuse bowel wall thickening or evidence of bowel obstruction is identified. No imaging evidence of appendicitis. Abdominal and pelvic vasculature is patent. No adenopathy or fluid collections are seen. No aggressive appearing osseous lesions are identified. Multiple small uncomplicated sigmoid colonic diverticulosis Diffuse mucosal thickening is noted involving distal rectum and anal canal - possibility of proctocolitis. - clinical correlation suggested. Fixation screw are noted involving lumbar spine without obvious loosening. Disc device are noted through L3-L4 to L5-S1 level. IMPRESSION: Mild right pleural effusion with basal subsegmental collapse consolidation of right lower lobes are seen. Few atelectatic bands are noted involving bilateral lung bases and in right middle lobe. Multiple small uncomplicated sigmoid colonic diverticulosis Diffuse mucosal thickening is noted involving distal rectum and anal canal - possibility of proctocolitis. - clinical correlation suggested. Electronically signed by Daniel Hernandez 12-11-2024 07:[address] 12/11/24 06:05 EXAM: CT head/brain wo con CLINICAL HISTORY: confusion TECHNIQUE: Multiple axial images were obtained from the skull base to the vertex without contrast. CT scan was performed according to ALARA (as low as reasonably achievable). COMPARISON: None. FINDINGS: Cerebral atrophy is present. Focal encephalomalacia/gliosis is noted in the left frontal lobe. There is no evidence of space-occupying lesion, hemorrhage, edema, mass effect, midline shift, extra-axial collection, or hydrocephalus. The basal cisterns are symmetric and normal in size and configuration. There are scattered periventricular hypodensities, as can be seen with chronic microvascular ischemic changes. The armando-white matter differentiation is preserved. The visualized paranasal sinuses and mastoid air cells are well aerated. Orbital contents are within normal limits. Bony structures are intact. IMPRESSION: 1. No evidence of acute intracranial abnormality is demonstrated. 2. Chronic microvascular ischemic changes. 3. Cerebral atrophy. 4. Focal encephalomalacia/gliosis is noted in the left frontal lobe - sequelae of prior insult likely. Electronically signed by Daniel Hernandez 12-11-2024 07:08 AM Medications Administered Home Medications Medication Instructions Recorded Confirmed Last Taken lidocaine 4 % topical patch 1 patch topical Q12 08/24/23 12/11/24 Unknown acetaminophen 325 mg tablet 650 mg PO Q6 PRN PAIN 1-10 SCALE 11/17/24 12/11/24 Unknown (Tylenol) acetaminophen 325 mg tablet 650 mg PO Q6 PRN temp above 100.1 11/17/24 12/11/24 Unknown (Tylenol) allopurinol 100 mg tablet 100 mg PO .M,W,F 11/17/24 12/11/24 Unknown (Zyloprim) apixaban 5 mg tablet (Eliquis) 5 mg PO AMHS 11/17/24 12/11/24 Unknown aspirin 81 mg tablet,delayed 81 mg PO QAM 11/17/24 12/11/24 Unknown release clonidine HCl 0.1 mg tablet 0.1 mg PO .EVERY 24 HOURS PRN 11/17/24 12/11/24 Unknown Hypertension dextran 70-hypromellose (PF) 0.1 1 drp OPB QAM 11/17/24 12/11/24 Unknown %-0.3 % eye drops in a dropperette (Artificial Tears (PF)) diphenhydramine HCl 25 mg tablet 25 mg PO Q6 PRN Allergy Symptoms 11/17/24 12/11/24 Unknown (Benadryl Allergy) doxepin 10 mg capsule 10 mg PO HS 11/17/24 12/11/24 Unknown ergocalciferol (vitamin D2) 1,250 1,250 mcg PO WK 11/17/24 12/11/24 Unknown mcg (50,000 unit) capsule escitalopram oxalate 5 mg tablet 5 mg PO QAM 11/17/24 12/11/24 Unknown (Lexapro) ferric citrate 210 mg iron tablet 210 mg PO TID 11/17/24 12/11/24 Unknown (Auryxia) ferric citrate 210 mg iron tablet 420 mg PO WM 11/17/24 12/11/24 Unknown (Auryxia) gabapentin 100 mg tablet 0 mg PO TID 11/17/24 12/11/24 Unknown levetiracetam 1,000 mg tablet 0 mg PO QAM 11/17/24 12/11/24 Unknown levetiracetam 500 mg tablet 500 mg PO 3XWK 11/17/24 12/11/24 Unknown linagliptin 5 mg tablet 0 mg PO DAILY 11/17/24 12/11/24 Unknown loperamide 2 mg tablet (Imodium 2 mg PO Q6H PRN LOOSE STOOLS 11/17/24 12/11/24 Unknown A-D) menthol 0.44 %-zinc oxide 20.6 % 1 applic topical Q12 PRN Itching 11/17/24 12/11/24 Unknown topical ointment (Calmoseptine) menthol 0.44 %-zinc oxide 20.6 % 1 applic topical TID 11/17/24 12/11/24 Unknown topical ointment (Calmoseptine) nicotine 21 mg/24 hr daily 1 patch transdermal DAILY 11/17/24 12/11/24 Unknown transdermal patch oxycodone 10 mg tablet,crush 10 mg PO AMHS 11/17/24 12/11/24 Unknown resistant,extended release 12 hr (OxyContin) pantoprazole 40 mg tablet,delayed 40 mg PO QAM 11/17/24 12/11/24 Unknown release prazosin 1 mg capsule 1 mg PO HS 11/17/24 12/11/24 Unknown rosuvastatin 10 mg tablet 0 mg PO QPM 11/17/24 12/11/24 Unknown triamcinolone acetonide 0.1 % 1 applic topical 2XD 11/17/24 12/11/24 Unknown topical cream vitamin B complex-vitamin C-folic 1 tab PO QAM 11/17/24 12/11/24 Unknown acid 0.8 mg tablet (Renal Vitamin) atorvastatin 20 mg tablet 20 mg PO DAILY 12/11/24 12/11/24 Unknown bisacodyl 10 mg rectal suppository 10 mg MD DAILY PRN Constipation 12/11/24 12/11/24 Unknown (Dulcolax (bisacodyl)) diclofenac sodium 1 % topical gel 0 g EXT TID 12/11/24 12/11/24 Unknown (Voltaren Arthritis Pain) docusate sodium 100 mg capsule 100 mg PO DAILY 12/11/24 12/11/24 Unknown (Colace) ferric citrate 210 mg iron tablet 210 mg PO UD PRN end stage renal 12/11/24 12/11/24 Unknown disease lidocaine 4 % topical patch 1 patch topical DAILY 12/11/24 12/11/24 Unknown midodrine 10 mg tablet 0 mg PO DAILY PRN hypotension 12/11/24 12/11/24 Unknown midodrine 5 mg tablet 5 mg PO .M,W,F Post dialysis 12/11/24 12/11/24 Unknown midodrine 5 mg tablet 10 mg PO .M,W,F 12/11/24 12/11/24 Unknown nystatin 100,000 unit/gram topical 1 applic topical UD 12/11/24 12/11/24 Unknown cream oxycodone 5 mg tablet 5 mg PO Q4H PRN Pain 12/11/24 12/11/24 Unknown sitagliptin phosphate 25 mg tablet 25 mg PO DAILY 12/11/24 12/11/24 Unknown (Januvia)
[2024-12-11] MEDS: INSULIN ASPART PER UNIT CHARGE SC SCH (17:41)
[2024-12-11] MEDS: CEFEPIME 1000MG 1,000 MG/10 ML SYR IV SCH (17:55)
[2024-12-11] MEDS: metroNIDAZOLE 500 MG/100 ML BAG IV SCH (17:55)
--- NOTE | 2024-12-11 19:25 | Pharmacy Report ---
Pharmacy Glycemic Short Note 2 - Date of Service December 11, 2024 - Glycemic Short BSG Results (Last 24 hours): 12/11/24 05:45 Glucose 238 H OUTPATIENT ANTIDIABETIC REGIMEN: * Sitagliptin 25mg daily * HbA1c: 6.4% (11/15/2024) ASSESSMENT: * Olaf is a 64 year old male with T2DM who presents to the hospital with fever and vomiting * Patient is on HD Wednesday, Wednesday, and Wednesday (last session 12/11, completed this evening) * Glucose was 238 mg/dL on arrival, elevated * Patient was in dialysis and unable to get insulin or glucose checks * Now that patient has returned, will plan on just getting 2100 glucose check and administer Novolog as necessary * Renal diet ordered * Stressors: infection * Patient had recent hospitalization where he had an insulin regimen of CF 30, CR 8 * Chose regimen of CF 30, CR 9 - stress level of 2 PLAN FOR INPATIENT GLYCEMIC CONTROL: * Hold outpatient oral diabetes medications * Basal insulin * Lantus - none * Bolus insulin * NovoLog per scale ACHS or Q6hrs while NPO * Goal Range: Low 110 mg/dL - High 140 mg/dL * Correction Factor: 30 mg/dL/unit * Nutritional / Prandial insulin per carb ratio of 1 unit per 9 grams CHO consumed
[2024-12-11] MEDS: DICLOFENAC SOD 1% GEL 100 GM TUBE EXT SCH (20:43)
[2024-12-11] MEDS: APIXABAN 5 MG TABLET PO SCH (20:44)
[2024-12-11] MEDS: GABAPENTIN 100 MG CAP PO SCH (20:45)
[2024-12-11] MEDS: PRAZOSIN HCL 1 MG CAP PO SCH (20:46)
[2024-12-11] MEDS: DOXEPIN HCL 10 MG CAPSULE PO SCH (20:46)
[2024-12-11] MEDS ORDERED: ROSUVASTATIN CALCIUM 10 MG TAB PO SCH (21:00)
[2024-12-11] MEDS: TRIAMCINOLONE ACET 0.1% CR 15 GM TUBE TOP SCH (21:14)
[2024-12-11 23:57] LABS: Hematocrit (blood only) 36.7 % (42.0-52.0); Hemoglobin 11.3 g/dl (14.0-18.0)
[2024-12-12 07:13] LABS: Cdiff Toxin B Gene (2yr or >) Positive Cdiff Gene (Neg)
[2024-12-12] MEDS: DOCUSATE SODIUM 100 MG CAP PO SCH (07:50)
[2024-12-12 08:03] LABS: Alanine Aminotransferase 7 U/L (7-52); Albumin Globulin Ratio 1.0 (0.9-2); Albumin Level 2.9 gm/dl (3.4-5.0); Alkaline Phosphatase 135 U/L (34-104); Anion Gap 11 (3-11); Bilirubin,Total 0.7 mg/dl (0.2-1.0); Blood Urea Nitrogen 27 mg/dl (6-23); Calcium 9.2 mg/dl (8.6-10.3); Carbon Dioxide 25 mmol/L (21-32); Chloride 101 mmol/L (98-107); Globulin 3.0 gm/dl (2.5-4.0); Glucose 129 mg/dl (70-99(Fasting)); Magnesium 1.9 mg/dl (1.7-2.4); Potassium 3.5 mmol/L (3.5-5.1); Sodium 137 mmol/L (136-145); Total Protein 5.9 gm/dl (6.0-8.3)
[2024-12-12 08:15] LABS: Cdiff Toxin A+B Negative Cdiff Toxin (Negative)
[2024-12-12 08:34] LABS: Acanthocytes 2+; Hematocrit (blood only) 32.6 % (42.0-52.0); Hemoglobin 10.2 g/dl (14.0-18.0); Immature Granulocytes # (auto) 0.14 K/uL (0.01-0.20); Immature Granulocytes % (auto) 0.9 %; Mean Corpuscular Hemoglobin 30.1 pg (25.0-34.0); Mean Corpuscular Volume 96.2 fL (80.0-100.0); Ovalocytes 1+; Platelet Count 183 K/uL (130-400); Polychromasia 1+; RDW Standard Deviation 57.4 fL (36.4-46.3); Red Blood Count 3.39 M/uL (4.70-6.10); White Blood Count 15.74 K/ul (4.8-10.8)
[2024-12-12] MEDS ORDERED: ATORVASTATIN 20 MG TAB PO SCH (09:00)
[2024-12-12] MEDS: REMOVE NICODERM PATCH SCH (09:15)
[2024-12-12] MEDS: NEPHROCAPS PO SCH (09:16)
[2024-12-12] MEDS: ESCITALOPRAM OXALATE 10 MG TAB PO SCH (09:16)
[2024-12-12] MEDS: ASPIRIN 81 MG ECTAB PO SCH (09:17)
[2024-12-12] MEDS: ATORVASTATIN 20 MG TAB PO SCH (09:17)
[2024-12-12] MEDS: ERGOCALCIFEROL 1250 MCG (50,000 UNITS) CAP PO SCH (09:17)
[2024-12-12] MEDS: levETIRAcetam 500 MG TAB PO SCH (09:18)
[2024-12-12] MEDS: NICOTINE 21 MG/24 HR TDSY TD SCH (09:19)
[2024-12-12] MEDS: REMOVE LIDODERM PATCH SCH (09:20)
[2024-12-12] MEDS: LIDOCAINE 5% 1 PATCH TD SCH (09:20)
[2024-12-12] MEDS: ARTIFICIAL TEARS OP SCH (10:24)
--- NOTE | 2024-12-12 12:15 | Nephrology Progress Note ---
Date of Service December 12, 2024 Assessment & Plan (1) ESRD (end stage renal disease): Plan: ordered HD for tomorrow via [facility]DC on 3K bath > no more than 1.8 L UF next HD for 12/13 or as clinical needs dictate (2) Labile blood pressure: Plan: ordered PRN midodrine w/ HD ONLY >would NOT start standing midodrine but could consider prn low dose 2.5-5 mg (3) Fever: Plan: F w/ tachycardia; bp maintained so far. ID following > recommends MRI spine/stumps; recommends dapto, cefepime, metronidazole -f/u pending cultures >>dialysis catheter site was stained yellow on gauze per rigging up man but exit site was ok Admission and Anticipated Discharge Date Admission Date: December 11, 2024 Subjective no further F since yesterday 1500; blood cxs NGTD; came off hour early ey d/t fatigue; some SBP 80s today asx; + C diff gene and some stools Review of Systems 2 Review of Systems: All systems reviewed & are unremarkable except as noted in Subjective Physical Exam 2 Constitutional: well developed and well nourished Eyes: EOM intact bilaterally ENMT: Mouth: + dry oral mucous membranes Respiratory: normal respiratory effort Auscultation: + diminished lung sounds Gastrointestinal (Abdomen): Inspection/Auscultation: normal bowel sounds P ercussion/Palpation: abdomen soft; abdomen nontender Musculoskeletal: Extremities: + abnormal strength (s/p BL BKA) Skin: no rashes, warm and dry Results & Data Vital Signs (Past 12 Hours) Vital Signs Temp Pulse Pulse Resp BP Pulse Ox O2 Del Method 12/12/24 11:26 36.7 C 90 18 86/54 L 98 Room Air 12/12/24 08:06 36.6 C 80 18 109/71 96 Room Air 12/12/24 08:06 79 12/12/24 03:46 36.4 C L 82 16 112/72 98 Room Air Laboratory Results 12/12/24 07:13 12/12/24 07:13
--- NOTE | 2024-12-12 12:23 | Hospitalist Progress Note ---
Date of Service December 12, 2024 Assessment & Plan (1) ESRD (end stage renal disease): (2) Infection of amputation stump, right lower extremity: (3) SIRS (systemic inflammatory response syndrome): (4) Opioid dependence, uncomplicated: (5) Gastro-esophageal reflux disease without esophagitis: (6) Anxiety disorder, unspecified: (7) Cognitive communication deficit: (8) Atherosclerotic heart disease of [place] coronary artery without angina pectoris: (9) Epilepsy, unspecified, not intractable, without status epilepticus: (10) Acquired absence of right leg below knee: (11) Nicotine dependence, unspecified, uncomplicated: Plan #SIRS/Sepsis #Recent cellutitis/Catheter site infection #Possible RLL PNx #New Proctocolitis - was recently admitted at [facility] in October for exit site infection and was treated with a 9 day course of IV Daptomycin here from 11/17 until 11/26 no further antibiotics needed on discharge given exchange of PermCath and negative PermCath tip and blood cultures. - possible right lung consolidation and proctocolitis on CT in ED - Enterococcus Faecalis on right stump culture from 11/21 - cefepime started in ED, continue, add daptomycin given enterococcus in site culture, send MRSA swab given recent hospitalizations - Catheter site and right stump clinically at baseline with minimal erythema or edema, abx as above, see ID consult, appreacaiate recs - imaging of Lumbar spine/prior hardware and right stump for occult inection source. - supportive cares, IV Fluids, Admit Tele - trnd inflammatory markers, follow cultures #Pressure-induced deep tissue damage/injury of left buttock, present on arrival #Right BKA wound - Right BKA occurred 1 year ago at [facility] [address], follows with surgeon in [place] - Wound care nurse consulted, appreciate assistance - Wound culture from R BKA site with Enterococcus faecalis, sensitivities reveal intermediate sensitivity to Vanco - Imaging as above Consult psychiatry -CDiff PCR postiive, toxin negative, no additional loost stools noted #ESRD - follows with [facility]. -- schedule at [facility], inhouse dialysis currently - Consult Nephrology, see dialysis orders #Hypotension -uses midodrine with dialysis will continue, also PRN while hospitalized #T2DM - A1c 6.4% in November 2024 - - Pharmacy glycemic consult placed and managed during hospital stay, hold oral DM2 agents #Atherosclerotic Disease #HLD -Statin, ASA no active sx a this time #Paroxysmal atrial fibrillation - Eliquis #History of epilepsy continue Keppra 1500mg Dialysis Dosing #Mild cognitive impairment - somnolent today, hx limited, noted previously #Opioid dependence #Phantom pain - Continue scheduled oxycodone, gabapentin and prn Tylenol per home doses #GERD -Continue Protonix 40 mg #FEN -Renal Diet #CODE STATUS -Full code per his wishes Admission and Anticipated Discharge Date Admission Date: December 11, 2024 Subjective Sitting in the bedside chair this morning, somnolent but was able to eat some breakfast. No new complaints. Still having some hip pain but does not elaborate much this morning. No new events or concerns per nursing. To goals. C. difficile test was sent positive toxin test is still pending. Consult pulmonary team and they are following. Physical Exam Constitutional: WD/WN, vitals as above Eyes: PERRL, conjunctivae normal, anicteric sclerae Respiratory: normal respiratory effort, lungs clear to auscultation Cardiovascular: 2/6 KAREN heard throughout the precordium, no rubs/gallops Gastrointestinal (Abdomen): normal bowel sounds, soft, nontender, no hepato splenomegaly Musculoskeletal: No LE Edema Skin: Pale, no rash or discoloration, site of previous right BKA stump ulceration clear dry intact with no underlying deterioration, drainage or erythema or tenderness Neurologic: patellar DTR's 2+ bilat, sensation intact Psychiatric: Somnolent, generally flat affect Results & Data Results & Data Vital Signs (Past 12 Hours) Vital Signs Temp Pulse Pulse Resp BP Pulse Ox O2 Del Method 12/12/24 11:26 36.7 C 90 18 86/54 L 98 Room Air 12/12/24 08:06 36.6 C 80 18 109/71 96 Room Air 12/12/24 08:06 79 12/12/24 03:46 36.4 C L 82 16 112/72 98 Room Air Laboratory Results 12/11/24 06:03 Aerobic Blood Culture - Preliminary Blood No growth in Aerobic bottle after 24 hours. Anaerobic Blood Culture - Pending 12/11/24 05:45 Aerobic Blood Culture - Preliminary Blood No growth in Aerobic bottle after 24 hours. Anaerobic Blood Culture - Preliminary No growth in Anaerobic bottle after 24 hours. 12/12/24 12/12/24 12/12/24 12:18 08:18 07:13 WBC 15.74 H RBC 3.39 L Hgb 10.2 L Hct 32.6 L MCV 96.2 MCH 30.1 MCHC 31.3 L RDW Std Deviation 57.4 H RDW Coeff of John 16.4 H Plt Count 183 MPV 10.1 Immature Gran % (Auto) 0.9 Neut % (Auto) 79.2 Lymph % (Auto) 5.8 Dickinson % (Auto) 8.3 Eos % (Auto) 5.1 Baso % (Auto) 0.7 Neut # (Auto) 12.46 H Lymph # (Auto) 0.92 L Dickinson # (Auto) 1.30 H Eos # (Auto) 0.81 H Baso # (Auto) 0.11 Immature Gran # (Auto) 0.14 Platelet Estimate Normal Polychromasia 1+ Ovalocytes 1+ Echinocytes 1+ Acanthocytes (Spur) 2+ Sodium 137 Potassium 3.5 Chloride 101 Carbon Dioxide 25 Anion Gap 11 BUN 27 H Creatinine 5.16 H* D Est Cr Clr Drug Dosing Not Reportable eGFR 11.66 BUN/Creatinine Ratio 5.2 L Glucose 129 H POC Glucose 195 H 129 H Calcium 9.2 Magnesium 1.9 Total Bilirubin 0.7 AST 13 ALT 7 Alkaline Phosphatase 135 H C-Reactive Protein 25.26 H Total Protein 5.9 L Albumin 2.9 L Globulin 3.0 Albumin/Globulin Ratio 1.0 Procalcitonin 17.60 H Stl C. diff Tox B Gene Stl C.difficile Tox A&B Stl C. diff 027-NAP1-BI Hep Bs Antigen 12/12/24 12/11/24 12/11/24 05:40 22:59 20:15 WBC RBC Hgb 11.3 L Hct 36.7 L MCV MCH MCHC RDW Std Deviation RDW Coeff of John Plt Count MPV Immature Gran % (Auto) Neut % (Auto) Lymph % (Auto) Dickinson % (Auto) Eos % (Auto) Baso % (Auto) Neut # (Auto) Lymph # (Auto) Dickinson # (Auto) Eos # (Auto) Baso # (Auto) Immature Gran # (Auto) Platelet Estimate Polychromasia Ovalocytes Echinocytes Acanthocytes (Spur) Sodium Potassium Chloride Carbon Dioxide Anion Gap BUN Creatinine Est Cr Clr Drug Dosing eGFR BUN/Creatinine Ratio Glucose POC Glucose 182 H Calcium Magnesium Total Bilirubin AST ALT Alkaline Phosphatase C-Reactive Protein Total Protein Albumin Globulin Albumin/Globulin Ratio Procalcitonin Stl C. diff Tox B Gene Positive Cdiff Gene A Stl C.difficile Tox A&B Negative Cdiff Toxin Stl C. diff 027-NAP1-BI NEGATIVE Hep Bs Antigen 12/11/24 05:45 WBC RBC Hgb Hct MCV MCH MCHC RDW Std Deviation RDW Coeff of John Plt Count MPV Immature Gran % (Auto) Neut % (Auto) Lymph % (Auto) Dickinson % (Auto) Eos % (Auto) Baso % (Auto) Neut # (Auto) Lymph # (Auto) Dickinson # (Auto) Eos # (Auto) Baso # (Auto) Immature Gran # (Auto) Platelet Estimate Polychromasia Ovalocytes Echinocytes Acanthocytes (Spur) Sodium Potassium Chloride Carbon Dioxide Anion Gap BUN Creatinine Est Cr Clr Drug Dosing eGFR BUN/Creatinine Ratio Glucose POC Glucose Calcium Magnesium Total Bilirubin AST ALT Alkaline Phosphatase C-Reactive Protein Total Protein Albumin Globulin Albumin/Globulin Ratio Procalcitonin Stl C. diff Tox B Gene Stl C.difficile Tox A&B Stl C. diff 027-NAP1-BI Hep Bs Antigen Negative PG Care Time/CCT Total # of Minutes Spent Total Time Spent with Patient: Total time spent is greater than 50% in coordination of care (as documented) at patient's floor/unit and/or counseling patient: Coding Level of Care Code 35723 SUB INP/OBS CARE 3/50MIN Diagnoses ESRD (end stage renal disease) N18.6 Infection of amputation stump, right lower extremity T87.43 SIRS (systemic inflammatory response syndrome) R65.10 Opioid dependence, uncomplicated F11.20 Gastro-esophageal reflux disease without esophagitis K21.9 Anxiety disorder, unspecified F41.9 Cognitive communication deficit R41.841 Atherosclerotic heart disease of [place] coronary artery without angina pectoris I25.10 Epilepsy, unspecified, not intractable, without status epilepticus G40.909 Acquired absence of right leg below knee Z89.511 Nicotine dependence, uncomplicated, unspecified nicotine product type F17.200 Nicotine product type: unspecified (11) Nicotine dependence, unspecified, uncomplicated Nicotine product type: unspecified Qualified Code(s): F17.200 - Nicotine dependence, unspecified, uncomplicated
--- NOTE | 2024-12-12 12:35 | Infectious Disease Progress Nt ---
Date of Service December 12, 2024 Assessment & Plan (1) ESRD on dialysis: (2) Fever: Plan ID Problem List: # SIRS of unclear etiology Leukocytosis, fever, tachycardia, unknown source # Proctocolitis on imaging # Presence of lumbar spine hardware # Focal encephalomalacia/gliosis in the left frontal lobe # ESRD on HD MWF # Recent right BKA site wound, cx + E faecalis (amp Susceptible, Vanco Int susceptibility ) # Recent HD catheter possible exit site Infection, blood cx, cath tip cx NG # Penicillin allergy, throat swelling # Elevated procalcitonin Impression: Olaf Gamble is a 64-year-old male with past medical history of ESRD on HD, (M, W, F), DM2, A-fib, epilepsy, cognitive impairment, bilateral BKA recently admitted 11/17/2024 - 11/26/2024 with hypotension and rigors. During that admission he was noted to be febrile with leukocytosis and tachycardia. Diagnosed with a possible exit site HD catheter infection. He was also found to have a right BKA wound. Wound culture grew Enterococcus faecalis with intermediate sensitivities to vancomycin. He was taken to the OR for removal of HD catheter, blood cultures and cath tip sterile. A new permacath was placed on 11/24/24. He is usually anuric but was found to have an episode of purulent urine. Culture grew moderate counts of mixed skin anamaria. He completed 9 days of daptomycin and Levaquin. He [facility] the ED from his [facility] on 12/11/24 with fever, nausea and vomiting. He also complained of low back pain. In the ED T 37.8, Tmax 38.6, HR 118, RR 14, BP 142/83. Labs: WBC 20.68, platelets 224, anion gap 14, BUN 32, creatinine 6.34, alk phos 151, MRSA nasal screen positive. Blood cultures no growth to date. Influenza, RSV, COVID-19 PCR negative. Chest x-ray shows a linear atelectatic band of the right lower zone. Prior right-sided pleural effusion resolved. Stable right sided tracheal deviation with hilar prominence. CTAP demonstrated mild right pleural effusion with basal lobe segmental collapse consolidation of the right lower lobe. Few a telectatic bands noted involving the bilateral lung bases and in the right middle lobe. Diffuse mucosal thickening involving the distal rectum and anal canal with the possibility of proctocolitis. CT head shows no acute intracranial abnormality. Chronic microvascular ischemic changes. Focal encephalomalacia/gliosis in the left frontal lobe which may be sequela of prior insult. He has been started on daptomycin and cefepime. Infectious disease consulted for possible SIRS. Discussion He presents with nausea, vomiting, back pain, and fever. Labs notable for leukocytosis, elevated procalcitonin, positive MRSA screen. It is hard to interpret an elevated procalcitonin in a patient with end-stage renal disease but it has increased since his recent admission 0.53---> 4.94. Chest x-ray with no humza infiltrate and he is on room air, without documentation of respiratory symptoms. CTAP shows sub seq collapse consolidation of RLL as well as diffuse mucosal thickening involving the distal rectum and anal canal c/f proctocolitis. Blood cultures NGTD. On 12/12 evaluation, pt with baseline aphasia and had difficulty providing review of systems. Seemed to indicate pain in his bilateral stumps vs. hips, and also said yes when asked about back pain. Given difficulty soliciting history, and given uncertain source of infection, will recommend imaging of the bilateral stumps and spine (MRI if can tolerate) He is currently on cefepime and daptomycin. Cefepime will cover gram-negatives in the abdomen and possible pneumonia. Daptomycin will cover for recent va ncomycin-intermediate Enterococcus faecalis, if he truly has an abdominal infection. Daptomycin would not provide optimal coverage for MRSA pneumonia, thus linezolid or vancomycin could be considered were he to have worsening respiratory symptoms. He has an allergy to PCN, throat swelling. Recommendations: - Continue daptomycin 700 mg IV q48h (renally dosed) for recent h/o E faecalis with I vanco susc and possible proctocolitis - Continue cefepime 1 g IV q24h (renally dosed) for ?proctocolitis, ?Pna ( less likely) - Continue metronidazole 500 mg IV every 12 hours for anaerobic/GI coverage given possible proctocolitis - Recommend MRI spine given back pain - Recommend MRI bilateral stumps given possible stump pain - F/u 12/11 BCx ID will continue to follow. Nora Conroy MD, MHS Infectious Diseases [facility] direct line: [phone] Admission and Anticipated Discharge Date Admission Date: December 11, 2024 Subjective Subsequent visit was provided via telemedicine using two-way real-time interactive telecommunication between the patient and the telemedicine provider. For the duration of the visit, the provider was performing the assessment from a different facility than the patient. This includesuse of bluetooth stethoscope forauscultationperformed by the telepresenter that the telemedicine provider can hear if described in the physical exam. P[employer] Husband[employer] Worker contact information: Please call [facility] Call Center [phone]. (Phone Number For Physician Use Only) After establishing a telemedicine visit, patient was: Patient was verified with two unique identifiers, Patient/authorized rep acknowledged consent and understanding and Gave permission to continue telehealth session Time Spent with Patient: Subsequent => 55 min - Afebrile, WBC 15.74 - Pt with baseline aphasia and had difficulty providing review of systems. Seemed to indicate pain in his bilateral stumps vs. hips, and also said yes when asked about back pain. Physical Exam Physical Exam: Exam obtained with assistance of an in-person telepresenter General: Well-appearing, no acute distress HEENT: Conjunctivae non-injected, sclerae anicteric, MMM, OP clear. Resp: Respirations nonlabored. Abd: Soft, nontender, nondistended. Back: Exam deferred d/t patient discomfort Ext: Bilateral BKAs pt with aphasia but possibly endorsing pain of his bilateral stumps. Skin: No rashes or lesions. Neuro: Alert & interactive. Baseline aphasia Psych: Pleasant, appropriate. Results & Data Vital Signs (Past 12 Hours) Vital Signs Temp Pulse Pulse Resp BP Pulse Ox O2 Del Method 12/12/24 11:26 36.7 C 90 18 86/54 L 98 Room Air 12/12/24 08:06 36.6 C 80 18 109/71 96 Room Air 12/12/24 08:06 79 12/12/24 03:46 36.4 C L 82 16 112/72 98 Room Air Laboratory Results Diagnostics: 12/11 CT A/P Mild right pleural effusion with basal subsegmental collapse consolidation of right lower lobes are seen. Few atelectatic bands are noted involving bilateral lung bases and in right middle lobe. Multiple small uncomplicated sigmoid colonic diverticulosis Diffuse mucosal thickening is noted involving distal rectum and anal canal - possibility of proctocolitis. - clinical correlation suggested. Micro Data: 12/11/24 blood culture: NGTD Prior microbiology: 11/24/2024 catheter tip culture: NG 11/21/2024 right BKA site culture: E faecalis (ampicillin sensitive, intermediate vancomycin) 11/19/2024 urine culture more than 3 types of organisms presentall moderate counts of mixed probable skin anamaria Antibiotic Summary: Cefepime 12/11present Daptomycin 12/11present
[2024-12-12] MEDS: ACETAMINOPHEN 325 MG TAB PO PRN (21:32)
[2024-12-12] MEDS ORDERED: SODIUM CHLORIDE 0.9% 1,000 ML IV PRN (22:18)
[2024-12-12] MEDS: Patient's HEIGHT &/or WEIGHT Needed STA (23:46)
[2024-12-13 06:19] LABS: Albumin Level 2.8 gm/dl (3.4-5.0); Anion Gap 12 (3-11); Bilirubin,Total 0.5 mg/dl (0.2-1.0); Calcium 8.3 mg/dl (8.6-10.3); Carbon Dioxide 23 mmol/L (21-32); Chloride 103 mmol/L (98-107); Potassium 2.9 mmol/L (3.5-5.1); Sodium 138 mmol/L (136-145)
[2024-12-13 06:27] LABS: Alanine Aminotransferase 7 U/L (7-52); Albumin Globulin Ratio 1.1 (0.9-2); Alkaline Phosphatase 137 U/L (34-104); Blood Urea Nitrogen 38 mg/dl (6-23); Globulin 2.6 gm/dl (2.5-4.0); Glucose 143 mg/dl (70-99(Fasting)); Total Protein 5.4 gm/dl (6.0-8.3)
[2024-12-13 06:53] LABS: Hematocrit (blood only) 29.7 % (42.0-52.0); Hemoglobin 9.3 g/dl (14.0-18.0); Immature Granulocytes # (auto) 0.16 K/uL (0.01-0.20); Immature Granulocytes % (auto) 1.3 %; Mean Corpuscular Hemoglobin 30.3 pg (25.0-34.0); Mean Corpuscular Volume 96.7 fL (80.0-100.0); Platelet Count 202 K/uL (130-400); RDW Standard Deviation 57.9 fL (36.4-46.3); Red Blood Count 3.07 M/uL (4.70-6.10); White Blood Count 12.71 K/ul (4.8-10.8)
[2024-12-13] MEDS ORDERED: SODIUM CHLORIDE 0.9% 1,000 ML IV PRN (07:00)
[2024-12-13] MEDS: MIDODRINE HCL 10 MG TAB PO PRN (08:34)
[2024-12-13] MEDS ORDERED: MIDODRINE HCL 2.5 MG TAB PO SCH ×2 (09:00)
[2024-12-13] MEDS: MIDODRINE HCL 10 MG TAB PO STA (11:07)
--- NOTE | 2024-12-13 12:34 | Pharmacy Report ---
Pharmacy Glycemic Short Note 2 - Date of Service December 13, 2024 - Glycemic Short BSG Results (Last 24 hours): 12/12/24 12/12/24 12/13/24 16:31 20:21 05:15 Glucose 143 H POC Glucose 70 89 12/13/24 07:51 Glucose POC Glucose 169 H OUTPATIENT ANTIDIABETIC REGIMEN: * Sitagliptin 25mg daily * HbA1c: 6.4% (11/15/2024) ASSESSMENT: 12/13: * Patient received total of 20 units of insulin yesterday, all of correctional * BSGs trending down later in day - will loosen CF and broaden goal range 12/11: * Olaf is a 64 year old male with T2DM who presents to the hospital with fever and vomiting * Patient is on HD Wednesday, Wednesday, and Wednesday (last session 12/11, completed this evening) * Glucose was 238 mg/dL on arrival, elevated * Patient was in dialysis and unable to get insulin or glucose checks * Now that patient has returned, will plan on just getting 2100 glucose check and administer Novolog as necessary * Renal diet ordered * Stressors: infection * Patient had recent hospitalization where he had an insulin regimen of CF 30, CR 8 * Chose regimen of CF 30, CR 9 - stress level of 2 PLAN FOR INPATIENT GLYCEMIC CONTROL: * Hold outpatient oral diabetes medications * Basal insulin * Lantus - none * Bolus insulin * NovoLog per scale ACHS or Q6hrs while NPO * Goal Range: Low 110 mg/dL - High 160 mg/dL * Correction Factor: 40 mg/dL/unit * Nutritional / Prandial insulin per carb ratio of 1 unit per 9 grams CHO consumed
[2024-12-13] MEDS: HEPARIN SOD (PORCINE) 1000 UNIT/ML IV ONE (13:22)
[2024-12-13] MEDS: HEPARIN SOD (PORCINE) 1000 UNIT/ML IV SCH (13:23)
[2024-12-13] MEDS: levETIRAcetam 500 MG TAB PO SCH (13:23)
--- NOTE | 2024-12-13 14:35 | Nephrology Progress Note ---
Date of Service December 13, 2024 Assessment & Plan (1) ESRD (end stage renal disease): Plan: Changed dialysis orders to 4K bath based on potassium 2.9 today Has not had UF due to labile blood pressure Attempt treatment tomorrow given mild edema and relative hypertension Suggest checking basic metabolic panel 4 PM to evaluate potassium Care coordinated with Dr. Mcfadden via [place] text regarding relative hypotension, plans for extra treatment tomorrow, potassium status; we are in agreement (2) Labile blood pressure: Plan: ordered PRN midodrine w/ HD ONLY: Despite this he had significant hypotension on treatment. We gave an extra Midodrine dose with some improvement but he ended the session 500 mL positive. >would NOT start standing midodrine but could consider prn low dose 2.5-5 mg (3) Fever: Plan: F w/ tachycardia; bp maintained so far. ID following > recommends MRI spine/stumps not ordered yet; recommends dapto, cefepime, metronidazole: Empiric treatment for presumed proctocolitis -f/u pending cultures >>dialysis catheter site was stained yellow on gauze per training lead but exit site was ok Leukocytosis improved from 21,000 down to 13,000 Admission and Anticipated Discharge Date Admission Date: December 11, 2024 Subjective no further fevers. Denies shortness of breath. He does feel somewhat swollen on his hands and stumps. Tells me diarrhea has slowed. Review of Systems 2 Review of Systems: All systems reviewed & are unremarkable except as noted in Subjective Physical Exam 2 Constitutional: well developed and well nourished Eyes: EOM intact bilaterally ENMT: Mouth: + dry oral mucous membranes Respiratory: normal respiratory effort Auscultation: + diminished lung sounds Cardiovascular: Rate/Rhythm: regular rate and regular rhythm Extremities: + edema (Trace on distal extremities) Gastrointestinal (Abdomen): Inspection/Auscultation: normal bowel sounds P ercussion/Palpation: abdomen soft; abdomen nontender Musculoskeletal: Extremities: + abnormal strength (s/p BL BKA) Skin: no rashes, warm and dry Results & Data Vital Signs (Past 12 Hours) Vital Signs Temp Pulse Pulse Pulse Resp BP BP 12/13/24 14:00 146/77 H 12/13/24 12:45 36.6 C 84 118/74 12/13/24 12:30 83 111/71 12/13/24 12:15 91 H 103/76 12/13/24 11:45 89 90/65 L 12/13/24 11:30 92 H 81/64 L 12/13/24 11:15 93 H 74/54 L 12/13/24 11:00 97 H 73/54 L 12/13/24 10:45 99 H 75/56 L 12/13/24 10:30 100 H 70/49 L 12/13/24 10:17 96 H 92/55 L 12/13/24 10:15 98 H 75/47 L 12/13/24 10:00 92 H 79/68 L 12/13/24 09:35 87 118/61 12/13/24 09:30 87 75/50 L 12/13/24 09:17 84 108/65 12/13/24 09:10 36.3 C L 86 12/13/24 07:17 36.6 C 78 18 99/64 L 12/13/24 07:14 70 12/13/24 03:28 36.6 C 80 18 98/62 L Pulse Ox O2 Del Method 12/13/24 14:00 12/13/24 12:45 12/13/24 12:30 12/13/24 12:15 12/13/24 11:45 12/13/24 11:30 12/13/24 11:15 12/13/24 11:00 12/13/24 10:45 12/13/24 10:30 12/13/24 10:17 12/13/24 10:15 12/13/24 10:00 12/13/24 09:35 12/13/24 09:30 12/13/24 09:17 12/13/24 09:10 12/13/24 07:17 94 Room Air 12/13/24 07:14 12/13/24 03:28 99 Room Air Laboratory Results 12/13/24 05:15 12/13/24 05:15
--- NOTE | 2024-12-13 14:50 | Hospitalist Progress Note ---
Date of Service December 13, 2024 Assessment & Plan (1) ESRD (end stage renal disease): (2) Infection of amputation stump, right lower extremity: (3) SIRS (systemic inflammatory response syndrome): (4) Opioid dependence, uncomplicated: (5) Gastro-esophageal reflux disease without esophagitis: (6) Anxiety disorder, unspecified: (7) Cognitive communication deficit: (8) Atherosclerotic heart disease of [place] coronary artery without angina pectoris: (9) Epilepsy, unspecified, not intractable, without status epilepticus: (10) Acquired absence of right leg below knee: (11) Nicotine dependence, unspecified, uncomplicated: Plan #SIRS/Sepsis #Recent cellutitis/Catheter site infection #Possible RLL PNx #New Proctocolitis - was recently admitted at [facility] in October for exit site infection and was treated with a 9 day course of IV Daptomycin here from 11/17 until 11/26 no further antibiotics needed on discharge given exchange of PermCath and negative PermCath tip and blood cultures. - possible right lung consolidation and proctocolitis on CT in ED - Enterococcus Faecalis on right stump culture from 11/21 - cefepime started in ED, continue, add daptomycin given enterococcus in site culture, send MRSA swab given recent hospitalizations - Catheter site and right stump clinically at baseline with minimal erythema or edema, abx as above, see ID consult, appreacaiate recs - imaging of Lumbar spine/prior hardware and right stump for occult inection source. - Abdominal pain stable, still some loose stools but no humza bloody stools or diarrhea. Improving oral intake. #Pressure-induced deep tissue damage/injury of left buttock, present on arrival #Right BKA wound - Right BKA occurred 1 year ago at [facility], follows with surgeon in [place] - Wound care nurse consulted, appreciate assistance - Wound culture from R BKA site with Enterococcus faecalis, sensitivities reveal intermediate sensitivity to Vanco - Imaging as above, unable to complete MRI today as he would likely need some small amount of sedation minutes quite hypotensive after dialysis. #Hypokalemia -Unable to make a full run of dialysis today, will recheck at 1800, replete with one third dose orally if still below normal range. Possible repeat dialysis tomorrow for volume #Diarrhea -CDiff PCR postiive, toxin negative, no additional loost stools noted " #ESRD - follows with [facility]. M-W- schedule at [facility], inhouse dialysis currently - Consult Nephrology, see dialysis orders -Unable to make a full run of dialysis today, will recheck at 1800, replete with one third dose orally if still below normal range. Possible repeat dialysis tomorrow for volume #Hypotension -uses midodrine with dialysis will continue, also PRN while hospitalized, on the low side most of the day, responding to midodrine #T2DM - A1c 6.4% in November 2024 - - Pharmacy glycemic consult placed and managed during hospital stay, hold oral DM2 agents #Atherosclerotic Disease #HLD -Statin, ASA no active sx a this time #Paroxysmal atrial fibrillation - Eliquis #History of epilepsy continue Keppra 1500mg Dialysis Dosing #Mild cognitive impairment - somnolent today, hx limited, noted previously #Opioid dependence #Phantom pain - Continue scheduled oxycodone, gabapentin and prn Tylenol per home doses #GERD -Continue Protonix 40 mg #FEN -Renal Diet #CODE STATUS -Full code per his wishes Admission and Anticipated Discharge Date Admission Date: December 11, 2024 Subjective Doing okay this morning. [facility] quite fatigued. Somnolent but appropriate during examination. No new pain or discomfort. Seems to be eating okay. No other concerns or eliminations. No new events or concerns per nursing staff. No drainage from wound site, no new or changing back pain Physical Exam Constitutional: WD/WN, vitals as above Eyes: PERRL, conjunctivae normal, anicteric sclerae Respiratory: normal respiratory effort, lungs clear to auscultation Cardiovascular: 2/6 KAREN heard throughout the precordium, no rubs/gallops Gastrointestinal (Abdomen): normal bowel sounds, soft, nontender, no hepatosplenomegaly Musculoskeletal: No LE Edema Skin: Pale, no rash or discoloration, site of previous right BKA stump ulceration clear dry intact with no underlying deterioration, drainage or erythema or tenderness Neurologic: patellar DTR's 2+ bilat, sensation intact Psychiatric: Somnolent, generally flat affect Results & Data Results & Data Vital Signs (Past 12 Hours) Vital Signs Temp Pulse Pulse Pulse Resp BP BP 12/13/24 14:00 146/77 H 12/13/24 12:45 36.6 C 84 118/74 12/13/24 12:30 83 111/71 12/13/24 12:15 91 H 103/76 12/13/24 11:45 89 90/65 L 12/13/24 11:30 92 H 81/64 L 12/13/24 11:15 93 H 74/54 L 12/13/24 11:00 97 H 73/54 L 12/13/24 10:45 99 H 75/56 L 12/13/24 10:30 100 H 70/49 L 12/13/24 10:17 96 H 92/55 L 12/13/24 10:15 98 H 75/47 L 12/13/24 10:00 92 H 79/68 L 12/13/24 09:35 87 118/61 12/13/24 09:30 87 75/50 L 12/13/24 09:17 84 108/65 12/13/24 09:10 36.3 C L 86 12/13/24 07:17 36.6 C 78 18 99/64 L 12/13/24 07:14 70 12/13/24 03:28 36.6 C 80 18 98/62 L Pulse Ox O2 Del Method 12/13/24 14:00 12/13/24 12:45 12/13/24 12:30 12/13/24 12:15 12/13/24 11:45 12/13/24 11:30 12/13/24 11:15 12/13/24 11:00 12/13/24 10:45 12/13/24 10:30 12/13/24 10:17 12/13/24 10:15 12/13/24 10:00 12/13/24 09:35 12/13/24 09:30 12/13/24 09:17 12/13/24 09:10 12/13/24 07:17 94 Room Air 12/13/24 07:14 12/13/24 03:28 99 Room Air Laboratory Results 12/11/24 06:03 Aerobic Blood Culture - Preliminary Blood No growth in Aerobic bottle after 48 hours. Anaerobic Blood Culture - Final 12/11/24 05:45 Aerobic Blood Culture - Preliminary Blood No growth in Aerobic bottle after 48 hours. Anaerobic Blood Culture - Preliminary No growth in Anaerobic bottle after 48 hours. 12/13/24 12/13/24 12/13/24 13:01 07:51 05:15 WBC 12.71 H RBC 3.07 L Hgb 9.3 L Hct 29.7 L MCV 96.7 MCH 30.3 MCHC 31.3 L RDW Std Deviation 57.9 H RDW Coeff of John 16.4 H Plt Count 202 MPV 9.9 Immature Gran % (Auto) 1.3 Neut % (Auto) 69.5 Lymph % (Auto) 5.7 Saline % (Auto) 10.7 Eos % (Auto) 12.0 Baso % (Auto) 0.8 Neut # (Auto) 8.84 H Lymph # (Auto) 0.72 L Saline # (Auto) 1.36 H Eos # (Auto) 1.53 H Baso # (Auto) 0.10 Immature Gran # (Auto) 0.16 Sodium 138 Potassium 2.9 L Chloride 103 Carbon Dioxide 23 Anion Gap 12 H BUN 38 H Creatinine 6.23 H* D Est Cr Clr Drug Dosing Not Reportable eGFR 9.30 BUN/Creatinine Ratio 6.1 L Glucose 143 H POC Glucose 137 H 169 H Calcium 8.3 L Total Bilirubin 0.5 AST 9 L ALT 7 Alkaline Phosphatase 137 H C-Reactive Protein 12.37 H Total Protein 5.4 L Albumin 2.8 L Globulin 2.6 Albumin/Globulin Ratio 1.1 Procalcitonin 15.80 H 12/12/24 12/12/24 20:21 16:31 WBC RBC Hgb Hct MCV MCH MCHC RDW Std Deviation RDW Coeff of Ojhn Plt Count MPV Immature Gran % (Auto) Neut % (Auto) Lymph % (Auto) Saline % (Auto) Eos % (Auto) Baso % (Auto) Neut # (Auto) Lymph # (Auto) Saline # (Auto) Eos # (Auto) Baso # (Auto) Immature Gran # (Auto) Sodium Potassium Chloride Carbon Dioxide Anion Gap BUN Creatinine Est Cr Clr Drug Dosing eGFR BUN/Creatinine Ratio Glucose POC Glucose 89 70 Calcium Total Bilirubin AST ALT Alkaline Phosphatase C-Reactive Protein Total Protein Albumin Globulin Albumin/Globulin Ratio Procalcitonin PG Care Time/CCT Total # of Minutes Spent Total Time Spent with Patient: Total time spent is greater than 50% in coordination of care (as documented) at patient's floor/unit and/or counseling patient: Coding Level of Care Code 87970 SUB INP/OBS CARE 2/35MIN Diagnoses ESRD (end stage renal disease) N18.6 Infection of amputation stump, right lower extremity T87.43 SIRS (systemic inflammatory response syndrome) R65.10 Opioid dependence, uncomplicated F11.20 Gastro-esophageal reflux disease without esophagitis K21.9 Anxiety disorder, unspecified F41.9 Cognitive communication deficit R41.841 Atherosclerotic heart disease of [place] coronary artery without angina pectoris I25.10 Epilepsy, unspecified, not intractable, without status epilepticus G40.909 Acquired absence of right leg below knee Z89.511 Nicotine dependence, uncomplicated, unspecified nicotine product type F17.200 Nicotine product type: unspecified (11) Nicotine dependence, unspecified, uncomplicated Nicotine product type: unspecified Qualified Code(s): F17.200 - Nicotine dependence, unspecified, uncomplicated
--- NOTE | 2024-12-13 15:05 | Infectious Disease Progress Nt ---
Date of Service December 13, 2024 Assessment & Plan (1) ESRD on dialysis: (2) Fever: Plan ID Problem List: # SIRS of unclear etiology Leukocytosis, fever, tachycardia, unknown source # Proctocolitis on imaging # Presence of lumbar spine hardware # Focal encephalomalacia/gliosis in the left frontal lobe # ESRD on HD MWF # Recent right BKA site wound, cx + E faecalis (amp Susceptible, Vanco Int susceptibility ) # Recent HD catheter possible exit site Infection, blood cx, cath tip cx NG # Penicillin allergy, throat swelling # Elevated procalcitonin Impression: Olaf Gamlbe is a 64-year-old male with past medical history of ESRD on HD, (M, W, F), DM2, A-fib, epilepsy, cognitive impairment, bilateral BKA recently admitted 11/17/2024 - 11/26/2024 with hypotension and rigors. During that admission he was noted to be febrile with leukocytosis and tachycardia. Diagnosed with a possible exit site HD catheter infection. He was also found to have a right BKA wound. Wound culture grew Enterococcus faecalis with intermediate sensitivities to vancomycin. He was taken to the OR for removal of HD catheter, blood cultures and cath tip sterile. A new permacath was placed on 11/24/24. He is usually anuric but was found to have an episode of purulent urine. Culture grew moderate counts of mixed skin anamaria. He completed 9 days of daptomycin and Levaquin. He [facility] the ED from his [facility] on 12/11[facility]24 with fever, nausea and vomiting. He also complained of low back pain. In the ED T 37.8, Tmax 38.6, HR 118, RR 14, BP 142/83. Labs: WBC 20.68, platelets 224, anion gap 14, BUN 32, creatinine 6.34, alk phos 151, MRSA nasal screen positive. Blood cultures no growth to date. Influenza, RSV, COVID-19 PCR negative. Chest x-ray shows a linear atelectatic band of the right lower zone. Prior right-sided pleural effusion resolved. Stable right sided tracheal deviation with hilar prominence. CTAP demonstrated mild right pleural effusion with basal lobe segmental collapse consolidation of the right lower lobe. Few a telectatic bands noted involving the bilateral lung bases and in the right middle lobe. Diffuse mucosal thickening involving the distal rectum and anal canal with the possibility of proctocolitis. CT head shows no acute intracranial abnormality. Chronic microvascular ischemic changes. Focal encephalomalacia/gliosis in the left frontal lobe which may be sequela of prior insult. He has been started on daptomycin and cefepime. Infectious disease consulted for possible SIRS. Discussion He presents with nausea, vomiting, back pain, and fever. Labs notable for leukocytosis, elevated procalcitonin, positive MRSA screen. It is hard to interpret an elevated procalcitonin in a patient with end-stage renal disease but it has increased since his recent admission 0.53---> 4.94. Chest x-ray with no humza infiltrate and he is on room air, without documentation of respiratory symptoms. CTAP shows sub seq collapse consolidation of RLL as well as diffuse mucosal thickening involving the distal rectum and anal canal c/f proctocolitis. Blood cultures NGTD. On 12/12 evaluation, pt with baseline aphasia and had difficulty providing review of systems. Seemed to indicate pain in his bilateral stumps vs. hips, and also said yes when asked about back pain. Given difficulty soliciting history, and given uncertain source of infection, recommend imaging of the bilateral stumps and spine (MRI if can tolerate). He is currently on cefepime and daptomycin. Cefepime will cover gram-negatives in the abdomen and possible pneumonia. Daptomycin will cover for recent vancomycin-intermediate Enterococcus faecalis and possible proctocolitis. He has an allergy to PCN, throat swelling. Recommendations: - Continue daptomycin 700 mg IV q48h (renally dosed) - Continue cefepime 1 g IV q24h (renally dosed) - Continue metronidazole 500 mg IV every 12 hours for anaerobic/GI coverage given possible proctocolitis - F/u MRI L-spine given back pain - F/u MRI bilateral stumps given possible stump pain - F/u 12/11 BCx until finalized to ensure remains negative ID will continue to follow. Nora Conroy MD, MHS Infectious Diseases [facility]/ID Connect ID Connect direct line: [phone] Admission and Anticipated Discharge Date Admission Date: December 11, 2024 Subjective This patient recommendation is based on a telemedicine consult request which was completed asynchronously through chart review and information provided by the primary physician. The patient was not seen or examined today. The evaluation is consultative in nature and all patient care and treatment decisions can either be accepted or rejected by the patient's primary hospital-based treating physician using their own independent medical judgment for their patient. PLEASE NOTE: E-consult was performed for this visit given lack of telepresenter availability. Time Spent Reviewing Chart: 31+ minutes PLEASE NOTE: E-consult was performed for this visit given lack of telepresenter availability. - Afebrile, WBC 12.71 - Awaiting MRI RLE and MRI L-spine Results & Data Vital Signs (Past 12 Hours) Vital Signs Temp Pulse Pulse Pulse Resp BP BP 12/13/24 14:00 146/77 H 12/13/24 12:45 36.6 C 84 118/74 12/13/24 12:30 83 111/71 12/13/24 12:15 91 H 103/76 12/13/24 11:45 89 90/65 L 12/13/24 11:30 92 H 81/64 L 12/13/24 11:15 93 H 74/54 L 12/13/24 11:00 97 H 73/54 L 12/13/24 10:45 99 H 75/56 L 12/13/24 10:30 100 H 70/49 L 12/13/24 10:17 96 H 92/55 L 12/13/24 10:15 98 H 75/47 L 12/13/24 10:00 92 H 79/68 L 12/13/24 09:35 87 118/61 12/13/24 09:30 87 75/50 L 12/13/24 09:17 84 108/65 12/13/24 09:10 36.3 C L 86 12/13/24 07:17 36.6 C 78 18 99/64 L 12/13/24 07:14 70 12/13/24 03:28 36.6 C 80 18 98/62 L Pulse Ox O2 Del Method 12/13/24 14:00 12/13/24 12:45 12/13/24 12:30 12/13/24 12:15 12/13/24 11:45 12/13/24 11:30 12/13/24 11:15 12/13/24 11:00 12/13/24 10:45 12/13/24 10:30 12/13/24 10:17 12/13/24 10:15 12/13/24 10:00 12/13/24 09:35 12/13/24 09:30 12/13/24 09:17 12/13/24 09:10 12/13/24 07:17 94 Room Air 12/13/24 07:14 12/13/24 03:28 99 Room Air Laboratory Results Diagnostics: 12/11 CT A/P Mild right pleural effusion with basal subsegmental collapse consolidation of right lower lobes are seen. Few atelectatic bands are noted involving bilateral lung bases and in right middle lobe. Multiple small uncomplicated sigmoid colonic diverticulosis Diffuse mucosal thickening is noted involving distal rectum and anal canal - possibility of proctocolitis. - clinical correlation suggested. Micro Data: 12/11/24 blood culture: NGTD Prior microbiology: 11/24/2024 catheter tip culture: NG 11/21/2024 right BKA site culture: E faecalis (ampicillin sensitive, intermediate vancomycin) 11/19/2024 urine culture more than 3 types of organisms presentall moderate counts of mixed probable skin anamaria Antibiotic Summary: Cefepime 12/11present Daptomycin 12/11present
[2024-12-13] MEDS: MIDODRINE HCL 2.5 MG TAB PO SCH (16:35)
[2024-12-13 20:18] LABS: Anion Gap 9 (3-11); Blood Urea Nitrogen 19 mg/dl (6-23); Calcium 8.5 mg/dl (8.6-10.3); Carbon Dioxide 25 mmol/L (21-32); Chloride 105 mmol/L (98-107); Glucose 156 mg/dl (70-99(Fasting)); Potassium 3.3 mmol/L (3.5-5.1); Sodium 139 mmol/L (136-145)
[2024-12-14 06:38] LABS: Hematocrit (blood only) 32.7 % (42.0-52.0); Hemoglobin 10.3 g/dl (14.0-18.0); Immature Granulocytes # (auto) 0.13 K/uL (0.01-0.20); Immature Granulocytes % (auto) 1.1 %; Mean Corpuscular Hemoglobin 30.1 pg (25.0-34.0); Mean Corpuscular Volume 95.6 fL (80.0-100.0); Platelet Count 216 K/uL (130-400); RDW Standard Deviation 56.5 fL (36.4-46.3); Red Blood Count 3.42 M/uL (4.70-6.10); White Blood Count 11.77 K/ul (4.8-10.8)
[2024-12-14 07:08] LABS: Blood Urea Nitrogen 27 mg/dl (6-23); Calcium 8.5 mg/dl (8.6-10.3); Carbon Dioxide 25 mmol/L (21-32); Chloride 105 mmol/L (98-107); Glucose 118 mg/dl (70-99(Fasting))
[2024-12-14] MEDS ORDERED: SODIUM CHLORIDE 0.9% 1,000 ML IV PRN (07:26)
[2024-12-14 08:22] LABS: Potassium 3.3 mmol/L (3.5-5.1); Sodium 141.0 mmol/L (136-145)
--- NOTE | 2024-12-14 12:20 | Hospitalist Progress Note ---
Date of Service December 14, 2024 Assessment & Plan (1) ESRD (end stage renal disease): (2) Infection of amputation stump, right lower extremity: (3) SIRS (systemic inflammatory response syndrome): (4) Opioid dependence, uncomplicated: (5) Gastro-esophageal reflux disease without esophagitis: (6) Anxiety disorder, unspecified: (7) Cognitive communication deficit: (8) Atherosclerotic heart disease of [place] coronary artery without angina pectoris: (9) Epilepsy, unspecified, not intractable, without status epilepticus: (10) Acquired absence of right leg below knee: (11) Nicotine dependence, unspecified, uncomplicated: Plan #SIRS/Sepsis #Recent cellutitis/Catheter site infection #Possible RLL PNx #New Proctocolitis - was recently admitted at [facility] in October for exit site infection and was treated with a 9 day course of IV Daptomycin here from 11/17 until 11/26 no further antibiotics needed on discharge given exchange of PermCath and negative PermCath tip and blood cultures. - possible right lung consolidation and proctocolitis on CT in ED - Enterococcus Faecalis on right stump culture from 11/21 - cefepime started in ED, continue, add daptomycin given enterococcus in site culture, send MRSA swab given recent hospitalizations - Catheter site and right stump clinically at baseline with minimal erythema or edema, abx as above, see ID consult, appreacaiate recs - imaging of Lumbar spine/prior hardware and right stump for occult inection source. - Abdominal pain improved, only 1 recorded BM #Pressure-induced deep tissue damage/injury of left buttock, present on arrival #Right BKA wound - Right BKA occurred 1 year ago at [facility], follows with surgeon in [place] - Wound care nurse consulted, appreciate assistance - Wound culture from R BKA site with Enterococcus faecalis, sensitivities reveal intermediate sensitivity to Vanco - Imaging as above, unable to complete MRI today as he would likely need some small amount of sedation minutes quite hypotensive after dialysis. #Hypokalemia -Unable to make a full run of dialysis today, will recheck at 1800, replete with one third dose orally if still below normal range. Possible repeat dialysis tomorrow for volume - normalizing with dialysis #Diarrhea -CDiff PCR postiive, toxin negative, no additional loost stools noted " #ESRD - follows with [facility]. M-W- schedule at [facility], inhouse dialysis currently - Consult Nephrology, see dialysis orders -repeat dialysis today per nephrology, BP much better this AM #Hypotension -uses midodrine with dialysis will continue, also PRN while hospitalized, on the low side most of the day, responding to midodrine #T2DM - A1c 6.4% in November 2024 - - Pharmacy glycemic consult placed and managed during hospital stay, hold oral DM2 agents #Atherosclerotic Disease #HLD -Statin, ASA no active sx a this time #Paroxysmal atrial fibrillation - Eliquis #History of epilepsy continue Keppra 1500mg Dialysis Dosing #Mild cognitive impairment - somnolent today, hx limited, noted previously #Opioid dependence #Phantom pain - Continue scheduled oxycodone, gabapentin and prn Tylenol per home doses #GERD -Continue Protonix 40 mg #FEN -Renal Diet #CODE STATUS -Full code per his wishes Admission and Anticipated Discharge Date Admission Date: December 11, 2024 Subjective Doing okay this morning, ate breakfast okay but was separately eating. He is. No new pain or discomfort. Vital signs been stable. No events or new concerns per nursing staff. He is going to have another round of dialysis today for volume as his pressures have stabilized since yesterday. Arrangements for MRI to be done after dialysis today realyed to patient. Physical Exam Constitutional: WD/WN, vitals as above Eyes: PERRL, conjunctivae normal, anicteric sclerae Respiratory: normal respiratory effort, lungs clear to auscultation Cardiovascular: 2/6 KAREN heard throughout the precordium, no rubs/gallops Gastrointestinal (Abdomen): normal bowel sounds, soft, nontender, no hepatosplenomegaly Musculoskeletal: No LE Edema Skin: Pale, no rash or discoloration, site of previous right BKA stump ulceration clear dry intact with no underlying deterioration, drainage or erythema or tenderness Neurologic: patellar DTR's 2+ bilat, sensation intact Psychiatric: Somnolent, generally flat affect Results & Data Results & Data Vital Signs (Past 12 Hours) Vital Signs Temp Pulse Pulse Pulse Resp BP BP 12/14/24 11:30 86 125/74 12/14/24 11:00 82 152/80 H 12/14/24 10:35 74 159/91 H 12/14/24 10:25 36.8 C 75 12/14/24 07:25 36.7 C 68 18 146/75 H 12/14/24 03:10 36.8 C 70 17 154/85 H Pulse Ox O2 Del Method 12/14/24 11:30 12/14/24 11:00 12/14/24 10:35 12/14/24 10:25 12/14/24 07:25 98 Room Air 12/14/24 03:10 95 Room Air Laboratory Results 12/11/24 06:03 Aerobic Blood Culture - Preliminary Blood No growth in Aerobic bottle after 48 hours. Anaerobic Blood Culture - Final 12/14/24 12/14/24 12/14/24 07:59 07:42 07:38 WBC RBC Hgb Hct MCV MCH MCHC RDW Std Deviation RDW Coeff of John Plt Count MPV Immature Gran % (Auto) Neut % (Auto) Lymph % (Auto) [place] % (Auto) Eos % (Auto) Baso % (Auto) Neut # (Auto) Lymph # (Auto) [place] # (Auto) Eos # (Auto) Baso # (Auto) Immature Gran # (Auto) Absolute Nucleated RBC Nucleated RBC % (auto) Sodium 141 Potassium 3.3 L Chloride Carbon Dioxide Anion Gap BUN Creatinine Est Cr Clr Drug Dosing eGFR BUN/Creatinine Ratio Glucose POC Glucose 126 H Calcium C-Reactive Protein 5.99 H Procalcitonin 12.90 H 12/14/24 12/13/24 12/13/24 05:46 20:22 19:39 WBC 11.77 H RBC 3.42 L Hgb 10.3 L Hct 32.7 L MCV 95.6 MCH 30.1 MCHC 31.5 L RDW Std Deviation 56.5 H RDW Coeff of John 16.1 H Plt Count 216 MPV 9.8 Immature Gran % (Auto) 1.1 Neut % (Auto) 59.6 Lymph % (Auto) 8.7 [place] % (Auto) 11.6 Eos % (Auto) 17.8 Baso % (Auto) 1.2 Neut # (Auto) 7.02 H Lymph # (Auto) 1.02 L [place] # (Auto) 1.36 H Eos # (Auto) 2.10 H Baso # (Auto) 0.14 Immature Gran # (Auto) 0.13 Absolute Nucleated RBC 0.02 Nucleated RBC % (auto) 0.2 Sodium TNP 139 Potassium TNP 3.3 L Chloride 105 105 Carbon Dioxide 25 25 Anion Gap TNP 9 BUN 27 H 19 Creatinine 4.40 H D 3.56 H D Est Cr Clr Drug Dosing Not Reportable Not Reportable eGFR 14.11 18.20 BUN/Creatinine Ratio 6.1 L 5.3 L Glucose 118 H 156 H POC Glucose 137 H Calcium 8.5 L 8.5 L C-Reactive Protein Procalcitonin 12/13/24 12/13/24 16:37 13:01 WBC RBC Hgb Hct MCV MCH MCHC RDW Std Deviation RDW Coeff of John Plt Count MPV Immature Gran % (Auto) Neut % (Auto) Lymph % (Auto) [place] % (Auto) Eos % (Auto) Baso % (Auto) Neut # (Auto) Lymph # (Auto) [place] # (Auto) Eos # (Auto) Baso # (Auto) Immature Gran # (Auto) Absolute Nucleated RBC Nucleated RBC % (auto) Sodium Potassium Chloride Carbon Dioxide Anion Gap BUN Creatinine Est Cr Clr Drug Dosing eGFR BUN/Creatinine Ratio Glucose POC Glucose 138 H 137 H Calcium C-Reactive Protein Procalcitonin PG Care Time/CCT Total # of Minutes Spent Total Time Spent with Patient: Total time spent is greater than 50% in coordination of care (as documented) at patient's floor/unit and/or counseling patient: Coding Level of Care Code 87733 SUB INP/OBS CARE MIN Diagnoses ESRD (end stage renal disease) N18.6 Infection of amputation stump, right lower extremity T87.43 SIRS (systemic inflammatory response syndrome) R65.10 Opioid dependence, uncomplicated F11.20 Gastro-esophageal reflux disease without esophagitis K21.9 Anxiety disorder, unspecified F41.9 Cognitive communication deficit R41.841 Atherosclerotic heart disease of [place] coronary artery without angina pectoris I25.10 Epilepsy, unspecified, not intractable, without status epilepticus G40.909 Acquired absence of right leg below knee Z89.511 Nicotine dependence, uncomplicated, unspecified nicotine product type F17.200 Nicotine product type: unspecified (11) Nicotine dependence, unspecified, uncomplicated Nicotine product type: unspecified Qualified Code(s): F17.200 - Nicotine dependence, unspecified, uncomplicated
--- NOTE | 2024-12-14 12:26 | Dialysis Progress Note ---
Date of Service December 14, 2024 Assessment & Plan (1) ESRD (end stage renal disease): Plan: Changed dialysis orders to 4K bath based on potassium 3.3 today Has not had UF due to labile blood pressure >> BP better today and tolerating UF; continue 4K bath -next HD tomorrow (2) Labile blood pressure: Plan: ordered PRN midodrine w/ HD ONLY: Despite this he had significant hypotension on treatment. We gave an extra Midodrine dose with some improvement but he ended the session 500 mL positive. >would NOT start standing midodrine but could consider prn low dose 2.5-5 mg (3) Fever: Plan: F w/ tachycardia; bp maintained so far. ID following > recommends MRI spine/stumps not ordered yet; recommends dapto, cefepime, metronidazole: Empiric treatment for presumed proctocolitis -f/u pending cultures >>dialysis catheter site was stained yellow on gauze per spring production supervisor but exit site was ok Leukocytosis improved from 21,000 down to 12,000 Admission and Anticipated Discharge Date Admission Date: December 11, 2024 Subjective tolerating tx well today; no c/o sob; feels a bit swollen ; more word findin difficulties Review of Systems 2 Review of Systems: All systems reviewed & are unremarkable except as noted in Subjective Physical Exam 2 Constitutional: well developed and well nourished Eyes: EOM intact bilaterally ENMT: Mouth: + dry oral mucous membranes Respiratory: normal respiratory effort Auscultation: + diminished lung sounds Cardiovascular: Rate/Rhythm: regular rate and regular rhythm Extremities: + edema (Trace on distal extremities) Gastrointestinal (Abdomen): Inspection/Auscultation: normal bowel sounds P ercussion/Palpation: abdomen soft; abdomen nontender Musculoskeletal: Extremities: + abnormal strength (s/p BL BKA) Skin: no rashes, warm and dry Results & Data Vital Signs (Past 12 Hours) Vital Signs Temp Pulse Pulse Pulse Resp BP BP 12/14/24 12:00 86 138/83 12/14/24 11:30 86 125/74 12/14/24 11:00 82 152/80 H 12/14/24 10:35 74 159/91 H 12/14/24 10: 36.8 C 75 12/14/24 07:25 36.7 C 68 18 146/75 H 12/14/24 03:10 36.8 C 70 17 154/85 H Pulse Ox O2 Del Method 12/14/24 12:00 12/14/24 11:30 12/14/24 11:00 12/14/24 10:35 12/14/24 10:25 12/14/24 07:25 98 Room Air 12/14/24 03:10 95 Room Air Laboratory Results 12/14/24 05:46 12/14/24 07:38
[2024-12-14] MEDS: DAPTOmycin 700 MG in SYRINGE 0 ML IV SCH (12:47)
[2024-12-14] MEDS: CEFEPIME 1000MG 1,000 MG/10 ML SYR IV SCH (12:47)
[2024-12-14] MEDS: HEPARIN SOD (PORCINE) 1000 UNIT/ML IV SCH (14:29)
[2024-12-14] MEDS: HEPARIN SOD (PORCINE) 1000 UNIT/ML IV ONE (14:29)
--- NOTE | 2024-12-14 14:57 | Infectious Disease Progress Nt ---
Date of Service December 14, 2024 Assessment & Plan (1) ESRD on dialysis: (2) Fever: Plan ID Problem List: # SIRS of unclear etiology Leukocytosis, fever, tachycardia, unknown source # Proctocolitis on imaging # Presence of lumbar spine hardware # Focal encephalomalacia/gliosis in the left frontal lobe # ESRD on HD MWF # Recent right BKA site wound, cx + E faecalis (amp Susceptible, Vanco Int susceptibility ) # Recent HD catheter possible exit site Infection, blood cx, cath tip cx NG # Penicillin allergy, throat swelling # Elevated procalcitonin Impression: Olaf Gamble is a 64-year-old male with past medical history of ESRD on HD, (M, W, F), DM2, A-fib, epilepsy, cognitive impairment, bilateral BKA recently admitted 11/17/2024 - 11/26/2024 with hypotension and rigors. During that admission he was noted to be febrile with leukocytosis and tachycardia. Diagnosed with a possible exit site HD catheter infection. He was also found to have a right BKA wound. Wound culture grew Enterococcus faecalis with intermediate sensitivities to vancomycin. He was taken to the OR for removal of HD catheter, blood cultures and cath tip sterile. A new permacath was placed on 11/24/24. He is usually anuric but was found to have an episode of purulent urine. Culture grew moderate counts of mixed skin anamaria. He completed 9 days of daptomycin and Levaquin. He returned to the ED from his [facility] on 12/11/24 with fever, nausea and vomiting. He also complained of low back pain. In the ED T 37.8, Tmax 38.6, HR 118, RR 14, BP 142/83. Labs: WBC 20.68, platelets 224, anion gap 14, BUN 32, creatinine 6.34, alk phos 151, MRSA nasal screen positive. Blood cultures no growth to date. Influenza, RSV, COVID-19 PCR negative. Chest x-ray shows a linear atelectatic band of the right lower zone. Prior right-sided pleural effusion resolved. Stable right sided tracheal deviation with hilar prominence. CTAP demonstrated mild right pleural effusion with basal lobe segmental collapse consolidation of the right lower lobe. Few a telectatic bands noted involving the bilateral lung bases and in the right middle lobe. Diffuse mucosal thickening involving the distal rectum and anal canal with the possibility of proctocolitis. CT head shows no acute intracranial abnormality. Chronic microvascular ischemic changes. Focal encephalomalacia/gliosis in the left frontal lobe which may be sequela of prior insult. He has been started on daptomycin and cefepime. Infectious disease consulted for possible SIRS. Discussion He presents with nausea, vomiting, back pain, and fever. Labs notable for leukocytosis, elevated procalcitonin, positive MRSA screen. It is hard to interpret an elevated procalcitonin in a patient with end-stage renal disease but it has increased since his recent admission 0.53---> 4.94. Chest x-ray with no humza infiltrate and he is on room air, without documentation of respiratory symptoms. CTAP shows sub seq collapse consolidation of RLL as well as diffuse mucosal thickening involving the distal rectum and anal canal c/f proctocolitis. Blood cultures NGTD. On 12/12 evaluation, pt with baseline aphasia and had difficulty providing review of systems. Seemed to indicate pain in his bilateral stumps vs. hips, and also said yes when asked about back pain. Given difficulty soliciting history, and given uncertain source of infection, recommend imaging of the R>L bilateral stumps and spine (MRI if can tolerate). He is currently on cefepime and daptomycin. Cefepime will cover gram-negatives in the abdomen and possible pneumonia. Daptomycin will cover for recent vanc omycin-intermediate Enterococcus faecalis and possible proctocolitis. He has an allergy to PCN, throat swelling. His WBC count has improved significantly on broad-spectrum abx. However, still unknown if there is a clear source, and still awaiting imaging of the spine and R stump. Recommendations: - Continue daptomycin 700 mg IV q48h (renally dosed) - Continue cefepime 1 g IV q24h (renally dosed) - Continue metronidazole 500 mg IV every 12 hours for anaerobic/GI coverage given possible proctocolitis - F/u MRI L-spine given back pain - F/u MRI bilateral stumps given possible stump pain - F/u 12/11 BCx until finalized to ensure remains negative ID will continue to follow. Nora Conroy MD, [facility] Infectious Diseases [facility] [place] [facility] direct line: [phone] Admission and Anticipated Discharge Date Admission Date: December 11, 2024 Subjective Subsequent visit was provided via telemedicine using two-way real-time interactive telecommunication between the patient and the telemedicine provider. For the duration of the visit, the provider was performing the assessment from a different facility than the patient. This includesuse of bluetooth stethoscope forauscultationperformed by the telepresenter that the telemedicine provider can hear if described in the physical exam. Supervisor [employer] contact information: Please call [facility] Call Center [phone]. (Phone Number For Physician Use Only) After establishing a telemedicine visit, patient was: Patient was verified with two unique identifiers, Patient/authorized rep acknowledged consent and understanding and Gave permission to continue telehealth session Time Spent with Patient: Subsequent => 35 min - Afebrile, WBC 11.77 - Awaiting MRI RLE and MRI L-spine - In HD today - At the time of evaluation, reports feeling better. Denies any pain or discomfort, though when asked specifically does report ongoing lower back pain. Physical Exam Physical Exam: Exam obtained with assistance of an in-person telepresenter General: Well-appearing, no acute distress HEENT: Conjunctivae non-injected, sclerae anicteric, MMM, OP clear. Resp: Respirations nonlabored. Abd: Soft, nontender, nondistended. Back: Exam deferred d/t pt receiving HD Ext: Bilateral BKAs. Stumps without warmth or fluctuance, small pinpoint area of skin opening on R stump without surrounding erythema Skin: As above Neuro: Alert & interactive Psych: Pleasant, appropriate. Results & Data Vital Signs (Past 12 Hours) Vital Signs Temp Pulse Pulse Pulse Resp BP BP 12/14/24 12:00 86 138/83 12/14/24 11:30 86 125/74 12/14/24 11:00 82 152/80 H 12/14/24 10:35 74 159/91 H 12/14/24 10: 36.8 C 75 12/14/24 08:00 77 12/14/24 07:25 36.7 C 68 18 146/75 H 12/14/24 03:10 36.8 C 70 17 154/85 H Pulse Ox O2 Del Method 12/14/24 12:00 12/14/24 11:30 12/14/24 11:00 12/14/24 10:35 12/14/24 10:25 12/14/24 08:00 12/14/24 07:25 98 Room Air 12/14/24 03:10 95 Room Air Laboratory Results Diagnostics: 12/11 CT A/P Mild right pleural effusion with basal subsegmental collapse consolidation of right lower lobes are seen. Few atelectatic bands are noted involving bilateral lung bases and in right middle lobe. Multiple small uncomplicated sigmoid colonic diverticulosis Diffuse mucosal thickening is noted involving distal rectum and anal canal - possibility of proctocolitis. - clinical correlation suggested. Micro Data: 12/11/24 blood culture: NGTD Prior microbiology: 11/24/2024 catheter tip culture: NG 11/21/2024 right BKA site culture: E faecalis (ampicillin sensitive, intermediate vancomycin) 11/19/2024 urine culture more than 3 types of organisms presentall moderate counts of mixed probable skin anamaria Antibiotic Summary: Cefepime 12/11present Daptomycin 12/11present
[2024-12-14] MEDS: LORazepam Inj 0.5 MG in SYRINGE 0.25 ML IV PRN (17:16)
--- NOTE | 2024-12-14 20:44 | Magnetic Resonance Report ---
EXAM: MR lower leg RT wo con CLINICAL HISTORY: right BKA with recent stump infection, r/o abscess TECHNIQUE: A multiplanar, multiecho MRI of the right leg was performed without intravenous contrast administration. Images were sent through PACS for diagnostic interpretation. COMPARISON: None. FINDINGS: Postoperative Changes: Status post right total knee arthroplasty (TKA). Metallic prosthetic components produce blooming (susceptibility) artifacts that degrade image quality and limit diagnostic evaluation of the periarticular soft tissues and marrow structures. Mild right knee synovial effusion. A small fluid signal is seen related to the tibial component of the metallic hardware. A posttraumatic or inflammatory collection is suggested. Further workup is recommended in the appropriate clinical setting. Amputation Stump: Right below-knee amputation is noted. The amputation stump is well-circumscribed, with no abnormal marrow signal intensity or evidence of osteomyelitis, abscess, or periosteal reaction. Muscles and Soft Tissues: There are altered myogenic signals involving the right thigh and proximal leg muscles, associated with posterior subcutaneous edema. Differential considerations include: ? Inflammatory myositis and soft tissue cellulitis ?vs. ? Neuropathic (denervation) changes secondary to chronic peripheral nerve injury. No focal abscess, hematoma, or myonecrosis is identified. Bones: The remaining segments of the tibia and fibula demonstrate normal marrow signal and cortical integrity. There is no evidence of marrow replacement, fracture, or infection. Neurovascular Structures: The visualized neurovascular bundles are intact and unremarkable without abnormal dilatation, thrombosis, or signal loss. IMPRESSION: 1. Status post right total knee arthroplasty (TKA) with associated metallic susceptibility artifacts limiting detailed assessment. (Limited). 2. Synovial effusion and small fluid signals adjacent to the tibial component, likely postoperative or inflammatory in nature?infectious etiology cannot be excluded; recommend clinical and laboratory correlation. 3. Right below-knee amputation (BKA) with a well-formed stump and no MRI evidence of abscess, osteomyelitis, or periosteal reaction. 4. Diffuse myogenic signal alteration with posterior subcutaneous edema?likely inflammatory myositis or cellulitis, though neuropathic injury changes may contribute. 5. Unremarkable residual tibia, fibula, and neurovascular structures. Electronically signed by Cory Hurst 12-14-2024 8:43 PM
--- NOTE | 2024-12-14 21:11 | Magnetic Resonance Report ---
EXAM: MR lumbar spine wo con CLINICAL HISTORY: Prior hardware concern for occult infection TECHNIQUE: Different pulse sequences were performed in different planes for the lumbar spine without contrast. Images were sent through PACS for diagnostic interpretation. COMPARISON: Prior CT study dated 12/11/2024. FINDINGS: Postoperative Status: Status post posterior spinal fixation with transpedicular screws and rods involving L2 through S1, and interbody fusion devices at the L3?L4, L4?L5, and L5?S1 levels. Post-laminectomy changes are noted at L4 and L5 opposite the corresponding intervertebral discs. Metallic hardware artifacts (blooming/susceptibility) markedly limit the evaluation of adjacent bone and soft tissues. The interbody fusion device at L5?S1 appears posteriorly displaced within the intervertebral disc space, suggesting hardware instability or migration?CT correlation is strongly recommended. No abnormal paravertebral soft tissue collection or marrow edema to suggest overt infection is appreciable within artifact-free zones. Osseous Structures: Myogenic atrophy of the paraspinal muscles, particularly the quadratus lumborum and erector spinae, is consistent with chronic denervation changes or lower motor neuron lesion. Posterior subcutaneous orthostatic edema is seen over the lumbar and sacral regions, demonstrating low T1 and bright STIR signal. Multiple Schmorl's nodes are present at the vertebral endplates. Anterior bridging osteophytes are noted at L1?L2. Mild degenerative retrolisthesis is present at L1?L2. Levoconvex degenerative lumbar scoliosis is observed with a Crocker?Lippmann angle of 11.5°. Intervertebral Discs: The remaining non-fused discs demonstrate variable degeneration with low T2 signal intensity, denoting desiccation. Bilateral senile atrophy with parenchymal cysts is present. Multilevel thoracic disc pathologies are seen. A dedicated MRI study is recommended after a detailed neurological evaluation. Cumlf-uy-Uoldi Analysis: T12?L1: No focal disc pathology, spinal canal, or foraminal stenosis. L1?L2: A 3.5 mm asymmetric annular bulge is indenting the thecal sac, compromising the subarticular recesses (left right), causing moderate spinal canal stenosis and bilateral foraminal stenosis with nerve root impingement; effects are augmented by degenerative retrolisthesis, ligamentous buckling, and facet arthropathy. L2?L3: No focal disc pathology, spinal canal, or foraminal stenosis. L3?L4: Adequate postoperative decompression. Postoperative facet hypertrophy and ankylosis cause foraminal narrowing with nerve root impingement. L4?L5: Adequate postoperative decompression. Facet hypertrophy and ankylosis cause foraminal narrowing with nerve root impingement. L5?S1: Adequate postoperative decompression. Facet hypertrophy and ankylosis cause foraminal narrowing with nerve root impingement. Spinal Cord and Nerve Roots: The conus medullaris terminates at the L1 level and appears normal. The cauda equina and lower thoracic cord show no abnormal signal or enhancement. No developmental canal stenosis is identified. Soft Tissues: No paraspinal or epidural fluid collection or abscess formation is visible within the limits of metallic artifact. No soft tissue mass or inflammatory fat stranding is identified. Bilateral paraspinal muscular fatty atrophy is present. IMPRESSION: 1. Status post posterior spinal fixation from L2?S1 with interbody fusion at L3?L4, L4?L5, and L5?S1. 2. Posterior displacement of the L5?S1 interbody fusion device suggests hardware instability?CT correlation is recommended. 3. No definite MRI evidence of abscess or osteomyelitis in the evaluated regions, though evaluation is limited by metallic susceptibility artifact. 4. Post-laminectomy changes at L4 and L5 with facet hypertrophy and ankylosis causing foraminal narrowing and nerve root impingement at the operated levels. 5. Mild L1?L2 degenerative retrolisthesis with a 3.5 mm asymmetric annular bulge causing mild canal and foraminal stenosis. 6. Myogenic atrophy of the paraspinal muscles is consistent with neuropathic injury or chronic denervation. 7. Levoconvex lumbar scoliosis (Crocker?Lippmann angle 11.5°). 8. Posterior subcutaneous orthostatic edema and Schmorl's nodes at multiple levels. 9. Bilateral senile atrophy with parenchymal cysts. 10. Multilevel thoracic disc pathologies are seen. A dedicated MRI study is recommended after a detailed neurological evaluation. 11. The comparison matches CT findings. Electronically signed by Cory Hurst 12-14-2024 9:10 PM
[2024-12-15] MEDS ORDERED: SODIUM CHLORIDE 0.9% 1,000 ML IV PRN (07:20)
[2024-12-15] MEDS: MIDODRINE HCL 10 MG TAB PO SCH (08:08)
--- NOTE | 2024-12-15 13:16 | Pharmacy Report ---
Pharmacy Glycemic Short Note 2 - Date of Service December 15, 2024 - Glycemic Short BSG Results (Last 24 hours): 12/14/24 12/14/24 12/14/24 14:14 16:29 20:37 POC Glucose 129 H 204 H 187 H 12/15/24 12/15/24 07:55 11:52 POC Glucose 158 H 188 H OUTPATIENT ANTIDIABETIC REGIMEN: * Sitagliptin 25mg daily * HbA1c: 6.4% (11/15/2024) ASSESSMENT: 12/15: * Olaf received only 1 units of insulin, it was correctional * Fasting BSG was 158mg/dL this morning. He was dialyzed again today. * Will continue current regimen with correction insulin only.-Of note, he reportedly has refused a few doses of insulin. 12/13: * Patient received total of 20 units of insulin yesterday, all of correctional * BSGs trending down later in day - will loosen CF and broaden goal range 12/11: * Olaf is a 64 year old male with T2DM who presents to the hospital with fever and vomiting * Patient is on HD Wednesday, Wednesday, and Wednesday (last session 12/11, completed this evening) * Glucose was 238 mg/dL on arrival, elevated * Patient was in dialysis and unable to get insulin or glucose checks * Now that patient has returned, will plan on just getting 2100 glucose check and administer Novolog as necessary * Renal diet ordered * Stressors: infection * Patient had recent hospitalization where he had an insulin regimen of CF 30, CR 8 * Chose regimen of CF 30, CR 9 - stress level of 2 PLAN FOR INPATIENT GLYCEMIC CONTROL: * Hold outpatient oral diabetes medications * Basal insulin * Lantus - none * Bolus insulin * NovoLog per scale ACHS or Q6hrs while NPO * Goal Range: Low 110 mg/dL - High 160 mg/dL * Correction Factor: 40 mg/dL/unit * Nutritional / Prandial insulin per carb ratio of 1 unit per 11 grams CHO consumed
--- NOTE | 2024-12-15 14:39 | Orthopedic Consultation ---
Date of Service December 15, 2024 Assessment & Plan (1) Fixation hardware in spine: Plan * Case/imaging reviewed and discussed with Dr Meneses * Ongoing treatment for SIRS/Sepsis. R lung consolidation, proctocolitis, Enterococcus Faecalis on right stump culture from 11/21 * Reports vague low back pain with approximate onset a few weeks ago, no known injury. No radicular symptoms * MRI without evidence of abscess or osteomyelitis of the lumbar spine * Recommend continued treatment of sepsis, abx as directed by ID recommendations * No further spine work-up or procedure indicated at this time, but will certainly follow given his ongoing infection work-up * Weight bearing status: Activity as tolerated * Daily treatment: Physical Therapy/ Occupational Therapy per protocol * Pain control * Disposition: TBD * Remainder care per primary team * Will continue to follow History of Present Illness Reason for Consultation: SIRS/Sepsis of unknown source, low back pain, history of lumbar fusion Requesting Physician: . Attending Physician: Gabriel Mcfadden MD .Patient is a 64 y/o male with low back pain, SIRS/sepsis of unknown source, history of lumbar fusion. PMH including ESRD on HD, DM2, a-fib, epilepsy, cognitive impairment, GERD, and bilateral BKA. Recently admitted 11/17/2024 - 11/26/2024 with hypotension and rigors. During that admission he was noted to be febrile with leukocytosis and tachycardia. Diagnosed with a possible exit site HD catheter infection. He was also found to have a right BKA wound. Wound culture grew Enterococcus faecalis with intermediate sensitivities to vancomycin. He was taken to the OR for removal of HD catheter, blood cultures and cath tip sterile. A new permacath was placed on 11/24/24. He is usually anuric but was found to have an episode of purulent urine. Culture grew moderate counts of mixed skin anamaria. He completed 9 days of daptomycin and Levaquin. He [facility] ED from his [facility] on 12/11[facility]24 with fever, nausea and vomiting. He also complained of low back pain. Current workup including MRI lumbar spine without definitive evidence of lumbar abscess or osteomyelitis. Orthopedics consulted for management recommendations. At time of exam patient sitting in bed, no acute distress. Actively receiving dialysis. Reports several week history of low back pain without known event preceding onset of pain. States that he had surgery many years ago and cannot remember his surgeon, but has not had any specific issues or complaints regarding the low back since then. Denies tingling/numbness of b/l LE, no limitations in movement or subjective weakness. Allergies Allergy/AdvReac Type Severity Reaction Status Date / Time Penicillins Allergy Severe THROAT Verified 08/24/23 11:47 [facility] [place] Home Medications Medication Instructions Recorded Confirmed Type lidocaine 4 % topical patch 1 patch topical Q12 08/24/23 12/11/24 History acetaminophen 325 mg tablet 650 mg PO Q6 PRN PAIN 1-10 SCALE 11/17/24 12/11/24 History (Tylenol) acetaminophen 325 mg tablet 650 mg PO Q6 PRN temp above 100.1 11/17/24 12/11/24 History (Tylenol) allopurinol 100 mg tablet 100 mg PO .M,W,F 11/17/24 12/11/24 History (Zyloprim) apixaban 5 mg tablet (Eliquis) 5 mg PO AMHS 11/17/24 12/11/24 History aspirin 81 mg tablet,delayed 81 mg PO QAM 11/17/24 12/11/24 History release clonidine HCl 0.1 mg tablet 0.1 mg PO .EVERY 24 HOURS PRN 11/17/24 12/11/24 History Hypertension dextran 70-hypromellose (PF) 0.1 1 drp OPB QAM 11/17/24 12/11/24 History %-0.3 % eye drops in a dropperette (Artificial Tears (PF)) diphenhydramine HCl 25 mg tablet 25 mg PO Q6 PRN Allergy Symptoms 11/17/24 12/11/24 History (Benadryl Allergy) doxepin 10 mg capsule 10 mg PO HS 11/17/24 12/11/24 History ergocalciferol (vitamin D2) 1,250 1,250 mcg PO WK 11/17/24 12/11/24 History mcg (50,000 unit) capsule escitalopram oxalate 5 mg tablet 5 mg PO QAM 11/17/24 12/11/24 History (Lexapro) ferric citrate 210 mg iron tablet 210 mg PO TID 11/17/24 12/11/24 History (Auryxia) ferric citrate 210 mg iron tablet 420 mg PO WM 11/17/24 12/11/24 History (Auryxia) gabapentin 100 mg tablet 0 mg PO TID 11/17/24 12/11/24 History levetiracetam 1,000 mg tablet 0 mg PO QAM 11/17/24 12/11/24 History levetiracetam 500 mg tablet 500 mg PO 3XWK 11/17/24 12/11/24 History linagliptin 5 mg tablet 0 mg PO DAILY 11/17/24 12/11/24 History loperamide 2 mg tablet (Imodium 2 mg PO Q6H PRN LOOSE STOOLS 11/17/24 12/11/24 History A-D) menthol 0.44 %-zinc oxide 20.6 % 1 applic topical Q12 PRN Itching 11/17/24 12/11/24 History topical ointment (Calmoseptine) menthol 0.44 %-zinc oxide 20.6 % 1 applic topical TID 11/17/24 12/11/24 History topical ointment (Calmoseptine) nicotine 21 mg/24 hr daily 1 patch transdermal DAILY 11/17/24 12/11/24 History transdermal patch oxycodone 10 mg tablet,crush 10 mg PO AMHS 11/17/24 12/11/24 History resistant,extended release 12 hr (OxyContin) pantoprazole 40 mg tablet,delayed 40 mg PO QAM 11/17/24 12/11/24 History release prazosin 1 mg capsule 1 mg PO HS 11/17/24 12/11/24 History rosuvastatin 10 mg tablet 0 mg PO QPM 11/17/24 12/11/24 History triamcinolone acetonide 0.1 % 1 applic topical 2XD 11/17/24 12/11/24 History topical cream vitamin B complex-vitamin C-folic 1 tab PO QAM 11/17/24 12/11/24 History acid 0.8 mg tablet (Renal Vitamin) atorvastatin 20 mg tablet 20 mg PO DAILY 12/11/24 12/11/24 History bisacodyl 10 mg rectal suppository 10 mg UT DAILY PRN Constipation 12/11/24 12/11/24 History (Dulcolax (bisacodyl)) diclofenac sodium 1 % topical gel 0 g EXT TID 12/11/24 12/11/24 History (Voltaren Arthritis Pain) docusate sodium 100 mg capsule 100 mg PO DAILY 12/11/24 12/11/24 History (Colace) ferric citrate 210 mg iron tablet 210 mg PO UD PRN end stage renal 12/11/24 12/11/24 History disease lidocaine 4 % topical patch 1 patch topical DAILY 12/11/24 12/11/24 History midodrine 10 mg tablet 0 mg PO DAILY PRN hypotension 12/11/24 12/11/24 History midodrine 5 mg tablet 5 mg PO .M,W,F Post dialysis 12/11/24 12/11/24 History midodrine 5 mg tablet 10 mg PO .M,W,F 12/11/24 12/11/24 History nystatin 100,000 unit/gram topical 1 applic topical UD 12/11/24 12/11/24 History cream oxycodone 5 mg tablet 5 mg PO Q4H PRN Pain 12/11/24 12/11/24 History sitagliptin phosphate 25 mg tablet 25 mg PO DAILY 12/11/24 12/11/24 History (Januvia) Past Med/Surg History Problem List (Updated 12/15/24 @ 14:28 by Jian Arellano PA-C) Fixation hardware in spine ESRD on dialysis (Acute) Pneumonia (Acute) Fever Labile blood pressure ESRD (end stage renal disease) Medical History Infection of amputation stump, right lower extremity Infection of exit site of hemodialysis catheter SIRS (systemic inflammatory response syndrome) Acute hypotension Amputation leg, bilat Opioid dependence, uncomplicated Nicotine dependence, unspecified, uncomplicated Gastro-esophageal reflux disease without esophagitis Unspecified atrial fibrillation Anxiety disorder, unspecified Cognitive communication deficit Atherosclerotic heart disease of [place] coronary artery without angina pectoris Other chronic pain Cerebral infarction, unspecified Epilepsy, unspecified, not intractable, without status epilepticus Acquired absence of right leg below knee Social History Smoking Status: Unknown if ever smoked Tobacco Type: E-cigarettes / Vaping Second Hand Exposure: No; Do You Dip or Chew Tobacco: No; Preferred Language: [place]i Communication Ability: Effective Communication Ability Comment: patient confused, unable to assess [employer] Person Required: No Beliefs That Will Affect Care: None Current Living Situation: [facility] Other Information That Helps Us Care for You: No Feels Safe at Home: Declines to Answer Assistive Devices: None Assistive Devices Comment: patient unable to answer Review of Systems All systems reviewed & are unremarkable except as noted in HPI & below. Physical Exam . * General: Alert and oriented, no acute distress * Constitutional: well-developed, well-nourished. * Respiratory: Normal respiratory effort, no distress * Gastrointestinal: No tenderness to palpation, no rigidity or guarding. * Skin: No rash or lesion. * Neurologic: Grossly normal * Musculoskeletal: Healing superficial wound/ulcer to the sacral region per inpatient wound images. Otherwise no overlying skin changes, incision breakdown, or drainage from the lumbar region. Mild diffuse TTP of the midline lumbar spine and paraspinal regions. AROM lumbar flexion and extension without pain. AROM hip flexion, knee flexion and extension intact b/l. Sensation intact anterior and lateral thigh b/l. Results & Data Results & Data Laboratory Results . Diagnostic Findings Lumbar Spine MRI 12/14/24 00:00 EXAM: MR lumbar spine wo con CLINICAL HISTORY: Prior hardware concern for occult infection TECHNIQUE: Different pulse sequences were performed in different planes for the lumbar spine without contrast. Images were sent through PACS for diagnostic interpretation. COMPARISON: Prior CT study dated 12/11/2024. FINDINGS: Postoperative Status: Status post posterior spinal fixation with transpedicular screws and rods involving L2 through S1, and interbody fusion devices at the L3?L4, L4?L5, and L5?S1 levels. Post-laminectomy changes are noted at L4 and L5 opposite the corresponding intervertebral discs. Metallic hardware artifacts (blooming/susceptibility) markedly limit the evaluation of adjacent bone and soft tissues. The interbody fusion device at L5?S1 appears posteriorly displaced within the intervertebral disc space, suggesting hardware instability or migration?CT correlation is strongly recommended. No abnormal paravertebral soft tissue collection or marrow edema to suggest overt infection is appreciable within artifact-free zones. Osseous Structures: Myogenic atrophy of the paraspinal muscles, particularly the quadratus lumborum and erector spinae, is consistent with chronic denervation changes or lower motor neuron lesion. Posterior subcutaneous orthostatic edema is seen over the lumbar and sacral regions, demonstrating low T1 and bright STIR signal. Multiple Schmorl's nodes are present at the vertebral endplates. Anterior bridging osteophytes are noted at L1?L2. Mild degenerative retrolisthesis is present at L1?L2. Levoconvex degenerative lumbar scoliosis is observed with a Crocker?Lippmann angle of 11.5°. Intervertebral Discs: The remaining non-fused discs demonstrate variable degeneration with low T2 signal intensity, denoting desiccation. Bilateral senile atrophy with parenchymal cysts is present. Multilevel thoracic disc pathologies are seen. A dedicated MRI study is recommended after a detailed neurological evaluation. [id number] Analysis: T12?L1: No focal disc pathology, spinal canal, or foraminal stenosis. L1?L2: A 3.5 mm asymmetric annular bulge is indenting the thecal sac, compromising the subarticular recesses (left right), causing moderate spinal canal stenosis and bilateral foraminal stenosis with nerve root impingement; effects are augmented by degenerative retrolisthesis, ligamentous buckling, and facet arthropathy. L2?L3: No focal disc pathology, spinal canal, or foraminal stenosis. L3?L4: Adequate postoperative decompression. Postoperative facet hypertrophy and ankylosis cause foraminal narrowing with nerve root impingement. L4?L5: Adequate postoperative decompression. Facet hypertrophy and ankylosis cause foraminal narrowing with nerve root impingement. L5?S1: Adequate postoperative decompression. Facet hypertrophy and ankylosis cause foraminal narrowing with nerve root impingement. Spinal Cord and Nerve Roots: The conus medullaris terminates at the L1 level and appears normal. The cauda equina and lower thoracic cord show no abnormal signal or enhancement. No developmental canal stenosis is identified. Soft Tissues: No paraspinal or epidural fluid collection or abscess formation is visible within the limits of metallic artifact. No soft tissue mass or inflammatory fat stranding is identified. Bilateral paraspinal muscular fatty atrophy is present. IMPRESSION: 1. Status post posterior spinal fixation from L2?S1 with interbody fusion at L3?L4, L4?L5, and L5?S1. 2. Posterior displacement of the L5?S1 interbody fusion device suggests hardware instability?CT correlation is recommended. 3. No definite MRI evidence of abscess or osteomyelitis in the evaluated regions, though evaluation is limited by metallic susceptibility artifact. 4. Post-laminectomy changes at L4 and L5 with facet hypertrophy and ankylosis causing foraminal narrowing and nerve root impingement at the operated levels. 5. Mild L1?L2 degenerative retrolisthesis with a 3.5 mm asymmetric annular bulge causing mild canal and foraminal stenosis. 6. Myogenic atrophy of the paraspinal muscles is consistent with neuropathic injury or chronic denervation. 7. Levoconvex lumbar scoliosis (Crocker?Lippmann angle 11.5°). 8. Posterior subcutaneous orthostatic edema and Schmorl's nodes at multiple levels. 9. Bilateral senile atrophy with parenchymal cysts. 10. Multilevel thoracic disc pathologies are seen. A dedicated MRI study is recommended after a detailed neurological evaluation. 11. The comparison matches CT findings. Electronically signed by Cory Hurst 12-14-2024 9:10 PM PG Care Time/CCT Total # of Minutes Spent Total Time Spent with Patient: Total time spent is greater than 50% in coordination of care (as documented) at patient's floor/unit and/or counseling patient: [place] [address] IN/OBS CONSULT LVL 4,60M Patient Type New Medical Decision Making Moderate Complexity Diagnoses Fixation hardware in spine Z96.7
--- NOTE | 2024-12-15 14:54 | Infectious Disease Progress Nt ---
Date of Service December 15, 2024 Assessment & Plan (1) ESRD on dialysis: (2) Fever: Plan ID Problem List: # SIRS of unclear etiology, improving Leukocytosis, fever, tachycardia, unknown source # Proctocolitis on imaging # R stump pain with synovial effusion # Presence of lumbar spine hardware. 12/14 MRI L-spine with history of L2-S1 interbody fusion, showing posterior displacement of the L5-S1 fusion c/f hardware instability # Focal encephalomalacia/gliosis in the left frontal lobe # ESRD on HD MWF # Recent right BKA site wound, cx + E faecalis (amp Susceptible, Vanco Int susceptibility ) # Recent HD catheter possible exit site Infection, blood cx, cath tip cx NG # Penicillin allergy, throat swelling # Elevated procalcitonin Impression: Olaf Gamble is a 64-year-old male with past medical history of ESRD on HD, (M, W, F), DM2, A-fib, epilepsy, cognitive impairment, bilateral BKA recently admitted 11/17/2024 - 11/26/2024 with hypotension and rigors. During that admission he was noted to be febrile with leukocytosis and tachycardia. Diagnosed with a possible exit site HD catheter infection. He was also found to have a right BKA wound. Wound culture grew Enterococcus faecalis with intermediate sensitivities to vancomycin. He was taken to the OR for removal of HD catheter, blood cultures and cath tip sterile. A new permacath was placed on 11/24/24. He is usually anuric but was found to have an episode of purulent urine. Culture grew moderate counts of mixed skin anamaria. He completed 9 days of daptomycin and Levaquin. He returned [facility] the ED from his [facility] on 12/11/24 with fever, nausea and vomiting. He also complained of low back pain. In the ED T 37.8, Tmax 38.6, HR 118, RR 14, BP 142/83. Labs: WBC 20.68, platelets 224, anion gap 14, BUN 32, creatinine 6.34, alk phos 151, MRSA nasal screen positive. Blood cultures no growth to date. Influenza, RSV, COVID-19 PCR negative. Chest x-ray shows a linear atelectatic band of the right lower zone. Prior right-sided pleural effusion resolved. Stable right sided tracheal deviation with hilar prominence. CTAP demonstrated mild right pleural effusion with basal lobe segmental collapse consolidation of the right lower lobe. Few atelectatic bands noted involving the bilateral lung bases and in the right middle lobe. Diffuse mucosal thickening involving the distal rectum and anal canal with the possibility of proctocolitis. CT head shows no acute intracranial abnormality. Chronic microvascular ischemic changes. Focal encephalomalacia/gliosis in the left frontal lobe which may be sequela of prior insult. He has been started on daptomycin and cefepime. Infectious disease consulted for possible SIRS. Discussion He presents with nausea, vomiting, back pain, and fever. Labs notable for leukocytosis, elevated procalcitonin, positive MRSA screen. It is hard to interpret an elevated procalcitonin in a patient with end-stage renal disease but it has increased since his recent admission 0.53---> 4.94. Chest x-ray with no humza infiltrate and he is on room air, without documentation of respiratory symptoms. CTAP shows sub seq collapse consolidation of RLL as well as diffuse mucosal thickening involving the distal rectum and anal canal c/f proctocolitis. Blood cultures NGTD. On 12/12 evaluation, pt with baseline aphasia and had difficulty providing ROS, but seemed to indicate pain in his R stump vs. hips, and also said yes when asked about back pain, thus imaging of the back and R stump were performed. 12/14 MRI L-spine with history of L2-S1 interbody fusion, showing posterior displacement of the L5-S1 fusion c/f hardware instability; no definitive e/o abscess or osteomyelitis though evaluation is limited by artifact. 12/14 MRI RLE with synovial effusion and small fluid signals adjacent to tibial component, possibly post-operative though infection cannot be excluded; diffuse myogenic signal alteration c/f myositis/cellulitis vs. neuropathic injury. Ortho evaluated the patient on 12/15 and recommended no further evaluation of the spine at this time (will have outpatient f/u) given lack of e/o infection on MRI. Recommend ortho to reevaluate R stump synovial effusion and consider joint aspiration to evaluate for septic arthritis. Although R stump infection is considered, the pt does not report any ongoing pain of his R stump (though limited by neuropathy); there are no overt skin findings of R stump cellulitis. Overall, patients initial presentation is concerning for infection, though without a definitive source. He has had improvement of his symptoms, fevers, and WBC count on daptomycin, cefepime, and metronidazole. Pending ortho recs, if improving and discharging, would consider changing to linezolid, cefpodoxime, and metronidazole, to complete a 2-week course (12/1112/25/24) for possible R stump SSTI and possible proctocolitis. Of note, pt with reported allergy to PCN, throat swelling. Recommendations: - Continue daptomycin 700 mg IV q48h (renally dosed) for possible R stump infection - Continue cefepime 1 g IV q24h (renally dosed) for possible proctocolitis - Continue metronidazole 500 mg PO BID for anaerobic/GI coverage given possible proctocolitis - Recommend ortho to reevaluate R stump synovial effusion and consider joint aspiration to evaluate for septic arthritis - Pending ortho recs, if improving and discharging, would consider changing to linezolid 600 mg PO BID, cefpodoxime 400 mg PO BID, and metronidazole 500 mg PO BID, to complete a 2-week course (12/1112/25/24) for possible R stump SSTI and possible proctocolitis - Ortho evaluated spine hardware displacement, low suspicion for infection at this time, recommending outpatient follow-up - F/u 12/11 BCx until finalized to ensure remains negative - Ensure outpatient f/u with ortho spine and PCP ID will continue to follow. Please contact us with any questions. Over the weekend, the on-call ID provider can be reached at [phone] for urgent/time-sensitive questions. Dr. Lester Medina will resume care of the ID service on Wednesday. Nora Conroy MD, S Infectious Diseases [facility]/ID Connect ID Connect direct line: [phone] Admission and Anticipated Discharge Date Admission Date: December 11, 2024 Subjective This patient recommendation is based on a telemedicine consult request which was completed asynchronously through chart review and information provided by the primary physician. The patient was not seen or examined today. The evaluation is consultative in nature and all patient care and treatment decisions can either be accepted or rejected by the patient's primary hospital-based treating physician using their own independent medical judgment for their patient. PLEASE NOTE: E-consult was performed for this visit given lack of telepresenter availability. Time Spent Reviewing Chart: 31+ minutes PLEASE NOTE: E-consult was performed for this visit given lack of telepresenter availability. - Afebrile, WBC 11.77 - 12/14 MRI L-spine with history of L2-S1 interbody fusion, showing posterior displacement of the L5-S1 fusion c/f hardware instability; no definitive e/o abscess or osteomyelitis though evaluation is limited by artifact - 12/14 MRI RLE with synovial effusion and small fluid signals adjacent to tibial component, possibly post-operative though infection cannot be excluded; diffuse myogenic signal alteration c/f myositis/cellulitis vs. neuropathic injury - Discussed with Dr. Mcfadden. Pt reports that he has been feeling better. Main localizing symptom is back pain Results & Data Vital Signs (Past 12 Hours) Vital Signs Temp Pulse Pulse Pulse Resp BP Pulse Ox 12/15/24 11:48 36.6 C 77 18 131/69 95 12/15/24 07:33 36.9 C 81 18 116/76 97 12/15/24 07:00 74 12/15/24 03:07 36.9 C 75 17 114/75 95 O2 Del Method 12/15/24 11:48 Room Air 12/15/24 07:33 Room Air 12/15/24 07:00 12/15/24 03:07 Room Air Laboratory Results Diagnostics: 12/14 MRI L-spine 1. Status post posterior spinal fixation from L2?S1 with interbody fusion at L3?L4, L4?L5, and L5?S1. 2. Posterior displacement of the L5?S1 interbody fusion device suggests hardware instability?CT correlation is recommended. 3. No definite MRI evidence of abscess or osteomyelitis in the evaluated regions, though evaluation is limited by metallic susceptibility artifact. 4. Post-laminectomy changes at L4 and L5 with facet hypertrophy and ankylosis causing foraminal narrowing and nerve root impingement at the operated levels. 5. Mild L1?L2 degenerative retrolisthesis with a 3.5 mm asymmetric annular bulge causing mild canal and foraminal stenosis. 6. Myogenic atrophy of the paraspinal muscles is consistent with neuropathic injury or chronic denervation. 7. Levoconvex lumbar scoliosis (Crocker?Lippmann angle 11.5°). 8. Posterior subcutaneous orthostatic edema and Schmorl's nodes at multiple levels. 9. Bilateral senile atrophy with parenchymal cysts. 10. Multilevel thoracic disc pathologies are seen. A dedicated MRI study is recommended after a detailed neurological evaluation. 11. The comparison matches CT findings. 12/14 MRI RLE 1. Status post right total knee arthroplasty (TKA) with associated metallic susceptibility artifacts limiting detailed assessment. (Limited). 2. Synovial effusion and small fluid signals adjacent to the tibial component, likely postoperative or inflammatory in nature?infectious etiology cannot be excluded; recommend clinical and laboratory correlation. 3. Right below-knee amputation (BKA) with a well-formed stump and no MRI evidence of abscess, osteomyelitis, or periosteal reaction. 4. Diffuse myogenic signal alteration with posterior subcutaneous edema?likely inflammatory myositis or cellulitis, though neuropathic injury changes may contribute. 5. Unremarkable residual tibia, fibula, and neurovascular structures. 12/11 CT A/P Mild right pleural effusion with basal subsegmental collapse consolidation of right lower lobes are seen. Few atelectatic bands are noted involving bilateral lung bases and in right middle lobe. Multiple small uncomplicated sigmoid colonic diverticulosis Diffuse mucosal thickening is noted involving distal rectum and anal canal - possibility of proctocolitis. - clinical correlation suggested. Micro Data: 12/11/24 blood culture: NGTD Prior microbiology: 11/24/2024 catheter tip culture: NG 11/21/2024 right BKA site culture: E faecalis (ampicillin sensitive, intermediate vancomycin) 11/19/2024 urine culture more than 3 types of organisms presentall moderate counts of mixed probable skin anamaria Antibiotic Summary: Cefepime 12/11present Daptomycin 12/11present metronidazole 12/11 present
[2024-12-15 14:58] LABS: Anion Gap 10 (3-11); Blood Urea Nitrogen 33 mg/dl (6-23); Calcium 9.1 mg/dl (8.6-10.3); Carbon Dioxide 27 mmol/L (21-32); Chloride 103 mmol/L (98-107); Glucose 264 mg/dl (70-99(Fasting)); Potassium 3.1 mmol/L (3.5-5.1); Sodium 140 mmol/L (136-145)
--- NOTE | 2024-12-15 15:46 | XRay Report ---
XR knee RT 3V CLINICAL HISTORY: right stump infection COMPARISON: MRI of 12/14/2024 FINDINGS: Right knee prosthesis shows no hardware complication. There is named-ppm-oxek amputation. No fracture or dislocation seen. No evidence of osteomyelitis seen. There are diffuse atherosclerotic calcifications. IMPRESSION: No osteomyelitis seen. ACT 112: Negative or not required by law. Electronically signed by: Christoph Holland M.D. 12/15/2024 3:44 PM
[2024-12-15] MEDS: HEPARIN SOD (PORCINE) 1000 UNIT/ML IV SCH (16:54)
[2024-12-15] MEDS: HEPARIN SOD (PORCINE) 1000 UNIT/ML IV ONE (16:54)
[2024-12-15] MEDS: EPOETIN ALFA 4,000 UNIT/ML VIAL IV ONE (17:07)
--- NOTE | 2024-12-15 17:13 | Hospitalist Progress Note ---
Date of Service December 15, 2024 Assessment & Plan (1) ESRD (end stage renal disease): (2) Infection of amputation stump, right lower extremity: (3) SIRS (systemic inflammatory response syndrome): (4) Opioid dependence, uncomplicated: (5) Gastro-esophageal reflux disease without esophagitis: (6) Anxiety disorder, unspecified: (7) Cognitive communication deficit: (8) Atherosclerotic heart disease of [place] coronary artery without angina pectoris: (9) Epilepsy, unspecified, not intractable, without status epilepticus: (10) Acquired absence of right leg below knee: (11) Nicotine dependence, unspecified, uncomplicated: Plan #SIRS/Sepsis #Recent cellutitis/Catheter site infection #Possible RLL PNx #New Proctocolitis - was recently admitted at [facility] in October for exit site infection and was treated with a 9 day course of IV Daptomycin here from 11/17 until 11/26 no further antibiotics needed on discharge given exchange of PermCath and negative PermCath tip and blood cultures. - possible right lung consolidation and proctocolitis on CT in ED - Enterococcus Faecalis on right stump culture from 11/21 - cefepime started in ED, continue, add daptomycin given enterococcus in site culture, send MRSA swab given recent hospitalizations - Catheter site and right stump clinically at baseline with minimal erythema or edema, abx as above, see ID consult, appreacaiate recs - imaging of Lumbar spine/prior hardware and right stump for occult inection source. - Abdominal pain improved, only 1 recorded BM, uncertain role that the proctocolitis is playing in his initial presentation this may well be as infectious source however MRI findings from the back leg did not eliminate those from consideration from source #Pressure-induced deep tissue damage/injury of left buttock, present on arrival #Right BKA wound #MRI findings with retrolisthesis and foraminal stenosis - Right BKA occurred 1 year ago at [facility], follows with surgeon in [place] - Wound care nurse consulted, appreciate assistance - Wound culture from R BKA site with Enterococcus faecalis, sensitivities reveal intermediate sensitivity to Vanco - Imaging as above, unable to complete MRI today as he would likely need some small amount of sedation minutes quite hypotensive after dialysis. - Consult to spinal surgery for evaluation, pending at this time #Recent right stump ulceration - MRI findings not suggestive of acute source although there are findings that could indicate occult-infection, will continue to monitor, - See orthopedics consult- - no discrete indication for intervention per orthopedic surgery at this time #Hypokalemia -Unable to make a full run of dialysis today, will recheck at 1800, replete with one third dose orally if still below normal range. Possible repeat dialysis tomorrow for volume - normalizing with dialysis #Diarrhea -CDiff PCR postiive, toxin negative, no additional loost stools noted " #ESRD - follows with [facility]. - schedule at [facility], inhouse dialysis currently - Consult Nephrology, see dialysis orders -repeat dialysis today per nephrology, BP much better this AM #Hypotension -uses midodrine with dialysis will continue, also PRN while hospitalized, on the low side most of the day, responding to midodrine #T2DM - A1c 6.4% in November 2024 - - Pharmacy glycemic consult placed and managed during hospital stay, hold oral DM2 agents #Atherosclerotic Disease #HLD -Statin, ASA no active sx a this time #Paroxysmal atrial fibrillation - Eliquis #History of epilepsy continue Keppra 1500mg Dialysis Dosing #Mild cognitive impairment - somnolent today, hx limited, noted previously #Opioid dependence #Phantom pain - Continue scheduled oxycodone, gabapentin and prn Tylenol per home doses #GERD -Continue Protonix 40 mg #FEN -Renal Diet #CODE STATUS -Full code per his wishes Admission and Anticipated Discharge Date Admission Date: December 11, 2024 Subjective Doing okay this morning. Up watching television. Eating breakfast. Much more alert and open disposition this morning more conversational that he has been at any point since I seen him during his hospitalization. He has no new complaints or concerns. Back pain is persistent has not changed but has not improved much either. Denies fevers chills or other generalized signs of illness. No new complaints events or concerns per nursing staff Physical Exam Physical Exam: General: Well-appearing, no acute distress much more conversational today, HEENT: Conjunctivae non-injected, sclerae anicteric, MMM, OP clear. Resp: Clear to auscultation bilaterally Abd: Soft, nontender, nondistended. Back: No specific midline status or deformities. Ext: Bilateral BKAs. stumps without warmth or erythema , small pinpoint area of skin opening on R stump without surrounding erythema, no palpable induration or underlying fluctuance Skin: No rash or discoloration Neuro: Alert & interactive Psych: Pleasant, appropriate. Results & Data Results & Data Vital Signs (Past 12 Hours) Vital Signs Temp Pulse Pulse Resp BP BP Pulse Ox 12/15/24 16:30 96 H 112/70 12/15/24 16:00 94 H 107/64 12/15/24 15:30 93 H 128/58 L 12/15/24 15:00 91 H 126/65 12/15/24 14:30 87 96/57 L 12/15/24 14:00 73 138/70 12/15/24 13:46 78 147/79 H 12/15/24 13:40 36.5 C 81 12/15/24 11:48 36.6 C 77 18 131/69 95 12/15/24 07:33 36.9 C 81 18 116/76 97 12/15/24 07:00 74 O2 Del Method 12/15/24 16:30 12/15/24 16:00 12/15/24 15:30 12/15/24 15:00 12/15/24 14:30 12/15/24 14:00 12/15/24 13:46 12/15/24 13:40 12/15/24 11:48 Room Air 12/15/24 07:33 Room Air 12/15/24 07:00 Laboratory Results 12/15/24 12/15/24 12/15/24 14:17 11:52 07:55 Sodium 140 Potassium 3.1 L Chloride 103 Carbon Dioxide 27 Anion Gap 10 BUN 33 H Creatinine 4.67 H* Est Cr Clr Drug Dosing Not Reportable eGFR 13.14 BUN/Creatinine Ratio 7.1 L Glucose 264 H POC Glucose 188 H 158 H Calcium 9.1 12/14/24 20:37 Sodium Potassium Chloride Carbon Dioxide Anion Gap BUN Creatinine Est Cr Clr Drug Dosing eGFR BUN/Creatinine Ratio Glucose POC Glucose 187 H Calcium Diagnostic Findings Knee X-Ray 12/15/24 14:45 XR knee RT 3V CLINICAL HISTORY: right stump infection COMPARISON: MRI of 12/14/2024 FINDINGS: Right knee prosthesis shows no hardware complication. There is [id number]-igh-oafh amputation. No fracture or dislocation seen. No evidence of osteomyelitis seen. There are diffuse atherosclerotic calcifications. IMPRESSION: No osteomyelitis seen. ACT 112: Negative or not required by law. Electronically signed by: Christoph Holland M.D. 12/15/2024 3:44 PM PG Care Time/CCT Total # of Minutes Spent Total Time Spent with Patient: Total time spent is greater than 50% in coordination of care (as documented) at patient's floor/unit and/or counseling patient: Coding Level of Care Code 63888 SUB INP/OBS CARE 2/35MIN Diagnoses ESRD (end stage renal disease) N18.6 Infection of amputation stump, right lower extremity T87.43 SIRS (systemic inflammatory response syndrome) R65.10 Opioid dependence, uncomplicated F11.20 Gastro-esophageal reflux disease without esophagitis K21.9 Anxiety disorder, unspecified F41.9 Cognitive communication deficit R41.841 Atherosclerotic heart disease of [place] coronary artery without angina pectoris I25.10 Epilepsy, unspecified, not intractable, without status epilepticus G40.909 Acquired absence of right leg below knee Z89.511 Nicotine dependence, uncomplicated, unspecified nicotine product type F17.200 Nicotine product type: unspecified (11) Nicotine dependence, unspecified, uncomplicated Nicotine product type: unspecified Qualified Code(s): F17.200 - Nicotine dependence, unspecified, uncomplicated
--- NOTE | 2024-12-15 18:00 | Orthopedic Consultation ---
Date of Consultation December 15, 2024 Assessment & Plan (1) Amputation leg, bilat: IMPRESSION: Right TKA, BKA, no evidence of infection at this time. PLAN: Continue care per primary service. PT/OT. Should follow-up with his orthopedic surgeon 2 to 4 weeks after discharge. Should obtain referral for prosthesis Discharge planning, please include the referral for BKA prosthesis. Will sign off, please recall if there are any orthopedic issues. History of Present Illness Reason for Consultation: H/O R TKA, possible infection Requesting Physician: Colin Croft MD Attending Physician: Gabriel Mcfadden MD History of Present Illness Patient is a 64 male, with multiple medical problems including ESRD on hemodialysis, was admitted for sepsis. He has a history of bilateral TKAs & BKA's following with surgeons in [place]. His right BKA occurred a year ago at [facility]. At some point he had a wound culture of the right BKA site with Enterococcus faecalis with sensitivities intermediate to vancomycin. There were concerns regarding possible right leg hardware infection. When the patient was seen while in dialysis, he did not describe any new knee pain. He wished to get prosthesis for his BKA. Allergies Allergy/AdvReac Type Severity Reaction Status Date / Time Penicillins Allergy Severe THROAT Verified 08/24/23 11:47 [facility] Home Medications Medication Instructions Recorded Confirmed Type lidocaine 4 % topical patch 1 patch topical Q12 08/24/23 12/11/24 History acetaminophen 325 mg tablet 650 mg PO Q6 PRN PAIN 1-10 SCALE 11/17/24 12/11/24 History (Tylenol) acetaminophen 325 mg tablet 650 mg PO Q6 PRN temp above 100.1 11/17/24 12/11/24 History (Tylenol) allopurinol 100 mg tablet 100 mg PO .M,W,F 11/17/24 12/11/24 History (Zyloprim) apixaban 5 mg tablet (Eliquis) 5 mg PO AMHS 11/17/24 12/11/24 History aspirin 81 mg tablet,delayed 81 mg PO QAM 11/17/24 12/11/24 History release clonidine HCl 0.1 mg tablet 0.1 mg PO .EVERY 24 HOURS PRN 11/17/24 12/11/24 History Hypertension dextran 70-hypromellose (PF) 0.1 1 drp OPB QAM 11/17/24 12/11/24 History %-0.3 % eye drops in a dropperette (Artificial Tears (PF)) diphenhydramine HCl 25 mg tablet 25 mg PO Q6 PRN Allergy Symptoms 11/17/24 12/11/24 History (Benadryl Allergy) doxepin 10 mg capsule 10 mg PO HS 11/17/24 12/11/24 History ergocalciferol (vitamin D2) 1,250 1,250 mcg PO WK 11/17/24 12/11/24 History mcg (50,000 unit) capsule escitalopram oxalate 5 mg tablet 5 mg PO QAM 11/17/24 12/11/24 History (Lexapro) ferric citrate 210 mg iron tablet 210 mg PO TID 11/17/24 12/11/24 History (Auryxia) ferric citrate 210 mg iron tablet 420 mg PO WM 11/17/24 12/11/24 History (Auryxia) gabapentin 100 mg tablet 0 mg PO TID 11/17/24 12/11/24 History levetiracetam 1,000 mg tablet 0 mg PO QAM 11/17/24 12/11/24 History levetiracetam 500 mg tablet 500 mg PO 3XWK 11/17/24 12/11/24 History linagliptin 5 mg tablet 0 mg PO DAILY 11/17/24 12/11/24 History loperamide 2 mg tablet (Imodium 2 mg PO Q6H PRN LOOSE STOOLS 11/17/24 12/11/24 History A-D) menthol 0.44 %-zinc oxide 20.6 % 1 applic topical Q12 PRN Itching 11/17/24 12/11/24 History topical ointment (Calmoseptine) menthol 0.44 %-zinc oxide 20.6 % 1 applic topical TID 11/17/24 12/11/24 History topical ointment (Calmoseptine) nicotine 21 mg/24 hr daily 1 patch transdermal DAILY 11/17/24 12/11/24 History transdermal patch oxycodone 10 mg tablet,crush 10 mg PO AMHS 11/17/24 12/11/24 History resistant,extended release 12 hr (OxyContin) pantoprazole 40 mg tablet,delayed 40 mg PO QAM 11/17/24 12/11/24 History release prazosin 1 mg capsule 1 mg PO HS 11/17/24 12/11/24 History rosuvastatin 10 mg tablet 0 mg PO QPM 11/17/24 12/11/24 History triamcinolone acetonide 0.1 % 1 applic topical 2XD 11/17/24 12/11/24 History topical cream vitamin B complex-vitamin C-folic 1 tab PO QAM 11/17/24 12/11/24 History acid 0.8 mg tablet (Renal Vitamin) atorvastatin 20 mg tablet 20 mg PO DAILY 12/11/24 12/11/24 History bisacodyl 10 mg rectal suppository 10 mg AL DAILY PRN Constipation 12/11/24 12/11/24 History (Dulcolax (bisacodyl)) diclofenac sodium 1 % topical gel 0 g EXT TID 12/11/24 12/11/24 History (Voltaren Arthritis Pain) docusate sodium 100 mg capsule 100 mg PO DAILY 12/11/24 12/11/24 History (Colace) ferric citrate 210 mg iron tablet 210 mg PO UD PRN end stage renal 12/11/24 12/11/24 History disease lidocaine 4 % topical patch 1 patch topical DAILY 12/11/24 12/11/24 History midodrine 10 mg tablet 0 mg PO DAILY PRN hypotension 12/11/24 12/11/24 History midodrine 5 mg tablet 5 mg PO .M,W,F Post dialysis 12/11/24 12/11/24 History midodrine 5 mg tablet 10 mg PO .M,W,F 12/11/24 12/11/24 History nystatin 100,000 unit/gram topical 1 applic topical UD 12/11/24 12/11/24 History cream oxycodone 5 mg tablet 5 mg PO Q4H PRN Pain 12/11/24 12/11/24 History sitagliptin phosphate 25 mg tablet 25 mg PO DAILY 12/11/24 12/11/24 History (Januvia) Patient History Medical History Infection of amputation stump, right lower extremity Infection of exit site of hemodialysis catheter SIRS (systemic inflammatory response syndrome) Acute hypotension Amputation leg, bilat Opioid dependence, uncomplicated Nicotine dependence, unspecified, uncomplicated Gastro-esophageal reflux disease without esophagitis Unspecified atrial fibrillation Anxiety disorder, unspecified Cognitive communication 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 Other chronic pain Cerebral infarction, unspecified Epilepsy, unspecified, not intractable, without status epilepticus Acquired absence of right leg below knee Social History Smoking Status: Unknown if ever smoked Tobacco Type: E-cigarettes / Vaping Second Hand Exposure: No; Do You Dip or Chew Tobacco: No; Preferred Language: Guamanian Communication Ability: Effective Communication Ability Comment: patient confused, unable to assess Lap Cutter Required: No Beliefs That Will Affect Care: None Current Living Situation: Snf Other Information That Helps Us Care for You: No Feels Safe at Home: Declines to Answer Assistive Devices: None Assistive Devices Comment: patient unable to answer Physical Exam Physical Exam: Focusing on the right lower extremity: BCR <2 seconds of the stump. - Tenderness palpation about the knee. - Effusion. - Swelling or erythema. normal skin temperature Limited ROM of the stump 10-30 degrees. Previous incisions for the TKA and the stump show no evidence of infection, well-healed. Results & Data Vital Signs (Past 12 Hours) Vital Signs Temp Pulse Pulse Resp BP BP Pulse Ox 12/15/24 17:20 36.5 C 79 122/66 12/15/24 17:00 91 H 98/58 L 12/15/24 16:30 96 H 112/70 12/15/24 16:00 94 H 107/64 12/15/24 15:30 93 H 128/58 L 12/15/24 15:00 91 H 126/65 12/15/24 14:30 87 96/57 L 12/15/24 14:00 73 138/70 12/15/24 13:46 78 147/79 H 12/15/24 13:40 36.5 C 81 12/15/24 11:48 36.6 C 77 18 131/69 95 12/15/24 07:33 36.9 C 81 18 116/76 97 12/15/24 07:00 74 O2 Del Method 12/15/24 17:20 12/15/24 17:00 12/15/24 16:30 12/15/24 16:00 12/15/24 15:30 12/15/24 15:00 12/15/24 14:30 12/15/24 14:00 12/15/24 13:46 12/15/24 13:40 12/15/24 11:48 Room Air 12/15/24 07:33 Room Air 12/15/24 07:00 Laboratory Results Laboratory Results WBC 11.77 K/ul (4.8-10.8) H 12/14/24 05:46 RBC 3.42 M/uL (4.70-6.10) L 12/14/24 05:46 Hgb 10.3 g/dl (14.0-18.0) L 12/14/24 05:46 Hct 32.7 % (42.0-52.0) L 12/14/24 05:46 MCV 95.6 fL (80.0-100.0) 12/14/24 05:46 MCH 30.1 pg (25.0-34.0) 12/14/24 05:46 MCHC 31.5 g/dL (32.0-36.0) L 12/14/24 05:46 RDW Std Deviation 56.5 fL (36.4-46.3) H 12/14/24 05:46 RDW Coeff of John 16.1 % (11.5-14.5) H 12/14/24 05:46 Plt Count 216 K/uL (130-400) 12/14/24 05:46 MPV 9.8 fL (9.4-12.4) 12/14/24 05:46 Immature Gran % (Auto) 1.1 % 12/14/24 05:46 Neut % (Auto) 59.6 % 12/14/24 05:46 Lymph % (Auto) 8.7 % 12/14/24 05:46 Hancock % (Auto) 11.6 % 12/14/24 05:46 Eos % (Auto) 17.8 % 12/14/24 05:46 Baso % (Auto) 1.2 % 12/14/24 05:46 Neut # (Auto) 7.02 K/uL (1.40-6.50) H 12/14/24 05:46 Lymph # (Auto) 1.02 K/uL (1.20-3.40) L 12/14/24 05:46 Hancock # (Auto) 1.36 K/uL (0.11-0.59) H 12/14/24 05:46 Eos # (Auto) 2.10 K/uL (0.00-0.50) H 12/14/24 05:46 Baso # (Auto) 0.14 K/uL (0.00-0.20) 12/14/24 05:46 Immature Gran # (Auto) 0.13 K/uL (0.01-0.20) 12/14/24 05:46 Absolute Nucleated RBC 0.02 K/uL (0.00-0.12) 12/14/24 05:46 Nucleated RBC % (auto) 0.2 % 12/14/24 05:46 Platelet Estimate Normal (Normal) 12/12/24 07:13 Polychromasia 1+ 12/12/24 07:13 Ovalocytes 1+ 12/12/24 07:13 Echinocytes 1+ 12/12/24 07:13 Acanthocytes (Spur) 2+ 12/12/24 07:13 Sodium 140 mmol/L (136-145) 12/15/24 14:17 Potassium 3.1 mmol/L (3.5-5.1) L 12/15/24 14:17 Chloride 103 mmol/L (98-107) 12/15/24 14:17 Carbon Dioxide 27 mmol/L (21-32) 12/15/24 14:17 Anion Gap 10 (3-11) 12/15/24 14:17 BUN 33 mg/dl (6-23) H 12/15/24 14:17 Creatinine 4.67 mg/dl (0.6-1.4) H* 12/15/24 14:17 Est Cr Clr Drug Dosing Not Reportable 12/15/24 14:17 eGFR 13.14 12/15/24 14:17 BUN/Creatinine Ratio 7.1 (10-20) L 12/15/24 14:17 Glucose 264 mg/dl (70-99(Fasting)) H 12/15/24 14:17 POC Glucose 231 mg/dl (70-99) H 12/15/24 17:12 Lactate 1.6 mmol/L (0.4-2.0) 12/11/24 05:45 Calcium 9.1 mg/dl (8.6-10.3) 12/15/24 14:17 Magnesium 1.9 mg/dl (1.7-2.4) 12/12/24 07:13 Total Bilirubin 0.5 mg/dl (0.2-1.0) 12/13/24 05:15 Direct Bilirubin 0.2 mg/dl (0-0.2) 12/11/24 05:45 AST 9 U/L (13-39) L 12/13/24 05:15 ALT 7 U/L (7-52) 12/13/24 05:15 Alkaline Phosphatase 137 U/L (34-104) H 12/13/24 05:15 Troponin I High Sens 16.4 pg/ml (0-20) 12/11/24 05:45 C-Reactive Protein 5.99 mg/dl (0-0.5) H 12/14/24 07:38 Total Protein 5.4 gm/dl (6.0-8.3) L 12/13/24 05:15 Albumin 2.8 gm/dl (3.4-5.0) L 12/13/24 05:15 Globulin 2.6 gm/dl (2.5-4.0) 12/13/24 05:15 Albumin/Globulin Ratio 1.1 (0.9-2) 12/13/24 05:15 Procalcitonin 12.90 ng/ml (0-0.5) H 12/14/24 07:42 Nasal Screen MRSA (PCR) Positive (Negative) A 12/11/24 Unknown Stl C. diff Tox B Gene Positive Cdiff Gene (Neg) A 12/12/24 05:40 Stl C.difficile Tox A&B Negative Cdiff Toxin (Negative) 12/12/24 05:40 Stl C. diff [id number] NEGATIVE 12/12/24 05:40 SARS-CoV-2 (PCR) NEGATIVE (Negative) 12/11/24 06:25 Hep Bs Antigen Negative (Negative) 12/11/24 05:45 Influenza Type A (PCR) Negative (Neg) 12/11/24 06:25 Influenza Type B (PCR) Negative (Neg) 12/11/24 06:25 RSV (RT-PCR) Negative (Neg) 12/11/24 06:25 Impressions Chest X-Ray 12/11/24 05:22 EXAM: XR chest 1V portable CLINICAL HISTORY: Sepsis TECHNIQUE: An X-ray image of the chest was obtained in the AP projection. COMPARISON: 13:02:18 FINISHER HAND. FINDINGS: A central venous line is seen in situ on the right side. Linear atelectatic bands are noted in the right lower zone. Trachea appears to be deviated to right with right hilar prominence. The rest of the lungs are clear and well-expanded, with no pulmonary infiltrate or pleural effusion. No acute osseous abnormality is identified. IMPRESSION: A central venous line is seen in situ on the right side?stable. Linear atelectatic bands are noted in the right lower zone?stable. The prior right-sided pleural effusion is resolved. Trachea appears to be deviated to right with right hilar prominence. Stable. Electronically signed by Daniel Hernandez 12-11-2024 06:40 AM Abdomen/Pelvis CT 12/11/24 06:02 EXAM: CT abd pelvis wo con CLINICAL HISTORY: fever, vomiting, TECHNIQUE: Contiguous axial images were obtained from the level of the diaphragm to the pubic symphysis with intravenous contrast. Coronal and sagittal reconstructions were likewise performed and indicated to increase the sensitivity for detecting clinically relevant pathology. If IV contrast material had not been administered, the likelihood of detecting abnormalities relevant to the patient's condition would have been substantially decreased. CT scan was performed according to ALARA (as low as reasonably achievable). COMPARISON: None. FINDINGS: Mild right pleural effusion with basal subsegmental collapse consolidation of right lower lobes are seen. Few atelectatic bands are noted involving bilateral lung bases and in right middle lobe. The liver is normal in size and attenuation. No focal liver lesions are seen. There is no intra or extrahepatic biliary ductal dilatation. Hepatic vasculature is patent. The gallbladder is surgically removed. The pancreas and adrenal glands are unremarkable. Multiple hypodense lesions are noted in spleen - could be cyst. - USG correlation suggested The kidneys are normal in size and attenuation. There is no hydronephrosis or perinephric fat stranding. No renal calculi or renal masses are identified. The ureters are normal in caliber and no ureteral calculi are seen. The bladder is normal in contour. Pelvic viscera are unremarkable. No focal or diffuse bowel wall thickening or evidence of bowel obstruction is identified. No imaging evidence of appendicitis. Abdominal and pelvic vasculature is patent. No adenopathy or fluid collections are seen. No aggressive appearing osseous lesions are identified. Multiple small uncomplicated sigmoid colonic diverticulosis Diffuse mucosal thickening is noted involving distal rectum and anal canal - possibility of proctocolitis. - clinical correlation suggested. Fixation screw are noted involving lumbar spine without obvious loosening. Disc device are noted through L3-L4 to L5-S1 level. IMPRESSION: Mild right pleural effusion with basal subsegmental collapse consolidation of right lower lobes are seen. Few atelectatic bands are noted involving bilateral lung bases and in right middle lobe. Multiple small uncomplicated sigmoid colonic diverticulosis Diffuse mucosal thickening is noted involving distal rectum and anal canal - possibility of proctocolitis. - clinical correlation suggested. Electronically signed by Daniel Hernandez 12-11-2024 07:[address] 12/11/24 06:05 EXAM: CT head/brain wo con CLINICAL HISTORY: confusion TECHNIQUE: Multiple axial images were obtained from the skull base to the vertex without contrast. CT scan was performed according to ALARA (as low as reasonably achievable). COMPARISON: None. FINDINGS: Cerebral atrophy is present. Focal encephalomalacia/gliosis is noted in the left frontal lobe. There is no evidence of space-occupying lesion, hemorrhage, edema, mass effect, midline shift, extra-axial collection, or hydrocephalus. The basal cisterns are symmetric and normal in size and configuration. There are scattered periventricular hypodensities, as can be seen with chronic microvascular ischemic changes. The armando-white matter differentiation is preserved. The visualized paranasal sinuses and mastoid air cells are well aerated. Orbital contents are within normal limits. Bony structures are intact. IMPRESSION: 1. No evidence of acute intracranial abnormality is demonstrated. 2. Chronic microvascular ischemic changes. 3. Cerebral atrophy. 4. Focal encephalomalacia/gliosis is noted in the left frontal lobe - sequelae of prior insult likely. Electronically signed by Daniel Hernandez 12-11-2024 07:08 AM Lower Extremity MRI 12/14/24 00:00 EXAM: MR lower leg RT wo con CLINICAL HISTORY: right BKA with recent stump infection, r/o abscess TECHNIQUE: A multiplanar, multiecho MRI of the right leg was performed without intravenous contrast administration. Images were sent through PACS for diagnostic interpretation. COMPARISON: None. FINDINGS: Postoperative Changes: Status post right total knee arthroplasty (TKA). Metallic prosthetic components produce blooming (susceptibility) artifacts that degrade image quality and limit diagnostic evaluation of the periarticular soft tissues and marrow structures. Mild right knee synovial effusion. A small fluid signal is seen related to the tibial component of the metallic hardware. A posttraumatic or inflammatory collection is suggested. Further workup is recommended in the appropriate clinical setting. Amputation Stump: Right below-knee amputation is noted. The amputation stump is well-circumscribed, with no abnormal marrow signal intensity or evidence of osteomyelitis, abscess, or periosteal reaction. Muscles and Soft Tissues: There are altered myogenic signals involving the right thigh and proximal leg muscles, associated with posterior subcutaneous edema. Differential considerations include: ? Inflammatory myositis and soft tissue cellulitis ?vs. ? Neuropathic (denervation) changes secondary to chronic peripheral nerve injury. No focal abscess, hematoma, or myonecrosis is identified. Bones: The remaining segments of the tibia and fibula demonstrate normal marrow signal and cortical integrity. There is no evidence of marrow replacement, fracture, or infection. Neurovascular Structures: The visualized neurovascular bundles are intact and unremarkable without abnormal dilatation, thrombosis, or signal loss. IMPRESSION: 1. Status post right total knee arthroplasty (TKA) with associated metallic susceptibility artifacts limiting detailed assessment. (Limited). 2. Synovial effusion and small fluid signals adjacent to the tibial component, likely postoperative or inflammatory in nature?infectious etiology cannot be excluded; recommend clinical and laboratory correlation. 3. Right below-knee amputation (BKA) with a well-formed stump and no MRI evidence of abscess, osteomyelitis, or periosteal reaction. 4. Diffuse myogenic signal alteration with posterior subcutaneous edema?likely inflammatory myositis or cellulitis, though neuropathic injury changes may contribute. 5. Unremarkable residual tibia, fibula, and neurovascular structures. Electronically signed by Cory Hurst 12-14-2024 8:43 PM Lumbar Spine MRI 12/14/24 00:00 EXAM: MR lumbar spine wo con CLINICAL HISTORY: Prior hardware concern for occult infection TECHNIQUE: Different pulse sequences were performed in different planes for the lumbar spine without contrast. Images were sent through PACS for diagnostic interpretation. COMPARISON: Prior CT study dated 12/11/2024. FINDINGS: Postoperative Status: Status post posterior spinal fixation with transpedicular screws and rods involving L2 through S1, and interbody fusion devices at the L3?L4, L4?L5, and L5?S1 levels. Post-laminectomy changes are noted at L4 and L5 opposite the corresponding intervertebral discs. Metallic hardware artifacts (blooming/susceptibility) markedly limit the evaluation of adjacent bone and soft tissues. The interbody fusion device at L5?S1 appears posteriorly displaced within the intervertebral disc space, suggesting hardware instability or migration?CT correlation is strongly recommended. No abnormal paravertebral soft tissue collection or marrow edema to suggest overt infection is appreciable within artifact-free zones. Osseous Structures: Myogenic atrophy of the paraspinal muscles, particularly the quadratus lumborum and erector spinae, is consistent with chronic denervation changes or lower motor neuron lesion. Posterior subcutaneous orthostatic edema is seen over the lumbar and sacral regions, demonstrating low T1 and bright STIR signal. Multiple Schmorl's nodes are present at the vertebral endplates. Anterior bridging osteophytes are noted at L1?L2. Mild degenerative retrolisthesis is present at L1?L2. Levoconvex degenerative lumbar scoliosis is observed with a Crocker?Lippmann angle of 11.5°. Intervertebral Discs: The remaining non-fused discs demonstrate variable degeneration with low T2 signal intensity, denoting desiccation. Bilateral senile atrophy with parenchymal cysts is present. Multilevel thoracic disc pathologies are seen. A dedicated MRI study is recommended after a detailed neurological evaluation. [id number] Analysis: T12?L1: No focal disc pathology, spinal canal, or foraminal stenosis. L1?L2: A 3.5 mm asymmetric annular bulge is indenting the thecal sac, compromising the subarticular recesses (left right), causing moderate spinal canal stenosis and bilateral foraminal stenosis with nerve root impingement; effects are augmented by degenerative retrolisthesis, ligamentous buckling, and facet arthropathy. L2?L3: No focal disc pathology, spinal canal, or foraminal stenosis. L3?L4: Adequate postoperative decompression. Postoperative facet hypertrophy and ankylosis cause foraminal narrowing with nerve root impingement. L4?L5: Adequate postoperative decompression. Facet hypertrophy and ankylosis cause foraminal narrowing with nerve root impingement. L5?S1: Adequate postoperative decompression. Facet hypertrophy and ankylosis cause foraminal narrowing with nerve root impingement. Spinal Cord and Nerve Roots: The conus medullaris terminates at the L1 level and appears normal. The cauda equina and lower thoracic cord show no abnormal signal or enhancement. No developmental canal stenosis is identified. Soft Tissues: No paraspinal or epidural fluid collection or abscess formation is visible within the limits of metallic artifact. No soft tissue mass or inflammatory fat stranding is identified. Bilateral paraspinal muscular fatty atrophy is present. IMPRESSION: 1. Status post posterior spinal fixation from L2?S1 with interbody fusion at L3?L4, L4?L5, and L5?S1. 2. Posterior displacement of the L5?S1 interbody fusion device suggests hardware instability?CT correlation is recommended. 3. No definite MRI evidence of abscess or osteomyelitis in the evaluated regions, though evaluation is limited by metallic susceptibility artifact. 4. Post-laminectomy changes at L4 and L5 with facet hypertrophy and ankylosis causing foraminal narrowing and nerve root impingement at the operated levels. 5. Mild L1?L2 degenerative retrolisthesis with a 3.5 mm asymmetric annular bulge causing mild canal and foraminal stenosis. 6. Myogenic atrophy of the paraspinal muscles is consistent with neuropathic injury or chronic denervation. 7. Levoconvex lumbar scoliosis (Crocker?Lippmann angle 11.5°). 8. Posterior subcutaneous orthostatic edema and Schmorl's nodes at multiple levels. 9. Bilateral senile atrophy with parenchymal cysts. 10. Multilevel thoracic disc pathologies are seen. A dedicated MRI study is recommended after a detailed neurological evaluation. 11. The comparison matches CT findings. Electronically signed by Cory Hurst 12-14-2024 9:10 PM Knee X-Ray 12/15/24 14:45 XR knee RT 3V CLINICAL HISTORY: right stump infection COMPARISON: MRI of 12/14/2024 FINDINGS: Right knee prosthesis shows no hardware complication. There is [id number] amputation. No fracture or dislocation seen. No evidence of osteomyelitis seen. There are diffuse atherosclerotic calcifications. IMPRESSION: No osteomyelitis seen. ACT 112: Negative or not required by law. Electronically signed by: Christoph Holland M.D. 12/15/2024 3:44 PM
--- NOTE | 2024-12-15 19:02 | Nephrology Progress Note ---
Date of Service December 15, 2024 Assessment & Plan (1) ESRD (end stage renal disease): Plan: K low again > posted after HD at 3.1 today (drawn at start of HD) tolerated 2L UF ; less edema next HD on 12/18 or as needs dictate >gave 20 mEq po K x 1 today >ordered bmp for tomorrow to evaluate K w/ primary service (2) Labile blood pressure: Plan: ordered PRN midodrine w/ HD ONLY: Despite this he had significant hypotension on treatment. We gave an extra Midodrine dose with some improvement but he ended the session 500 mL positive. >would NOT start standing midodrine but could consider prn low dose 2.5-5 mg (3) Fever: Plan: F w/ tachycardia; bp maintained so far. ID following > recommends MRI spine/stumps not ordered yet; recommends dapto, cefepime, metronidazole: Empiric treatment for presumed proctocolitis -f/u pending cultures >>dialysis catheter site was stained yellow on gauze per web weaver but exit site was ok Leukocytosis improved from 21,000 down to 12,000 as of yesterday Admission and Anticipated Discharge Date Admission Date: December 11, 2024 Subjective tolerated HD well; ortho evaluated R /TKA/BKA stump at ID request and no e/o infection; for d/c and OP f/u Review of Systems 2 Review of Systems: All systems reviewed & are unremarkable except as noted in Subjective Physical Exam 2 Constitutional: well developed and well nourished Eyes: EOM intact bilaterally ENMT: Mouth: + dry oral mucous membranes Respiratory: normal respiratory effort Auscultation: + diminished lung sounds Cardiovascular: Rate/Rhythm: regular rate and regular rhythm Extremities: + edema (Trace on distal extremities) Gastrointestinal (Abdomen): Inspection/Auscultation: normal bowel sounds P ercussion/Palpation: abdomen soft; abdomen nontender Musculoskeletal: Extremities: + abnormal strength (s/p BL BKA) Skin: no rashes, warm and dry Results & Data Vital Signs (Past 12 Hours) Vital Signs Temp Pulse Pulse Resp BP BP Pulse Ox 12/15/24 17:20 36.5 C 79 122/66 12/15/24 17:00 91 H 98/58 L 12/15/24 16:30 96 H 112/70 12/15/24 16:00 94 H 107/64 12/15/24 15:30 93 H 128/58 L 12/15/24 15:00 91 H 126/65 12/15/24 14:30 87 96/57 L 12/15/24 14:00 73 138/70 12/15/24 13:46 78 147/79 H 12/15/24 13:40 36.5 C 81 12/15/24 11:48 36.6 C 77 18 131/69 95 12/15/24 07:33 36.9 C 81 18 116/76 97 12/15/24 07:00 74 O2 Del Method 12/15/24 17:20 12/15/24 17:00 12/15/24 16:30 12/15/24 16:00 12/15/24 15:30 12/15/24 15:00 12/15/24 14:30 12/15/24 14:00 12/15/24 13:46 12/15/24 13:40 12/15/24 11:48 Room Air 12/15/24 07:33 Room Air 12/15/24 07:00 Laboratory Results 12/14/24 05:46 12/15/24 14:17
[2024-12-15] MEDS: LANTUS PER UNIT CHARGE SQ SCH (21:14)
[2024-12-15] MEDS: Patient's HEIGHT &/or WEIGHT Needed STA (21:45)
[2024-12-15] MEDS: POTASSIUM CHLORIDE CRTAB 20 MEQ TABCR PO ONE (22:35)
[2024-12-15] MEDS: metroNIDAZOLE 500 MG TAB PO SCH (22:36)
[2024-12-16 07:02] LABS: Albumin Level 3.8 gm/dl (3.4-5.0); Anion Gap 13 (3-11); Bilirubin,Total 0.7 mg/dl (0.2-1.0); Calcium 9.5 mg/dl (8.6-10.3); Carbon Dioxide 25 mmol/L (21-32); Chloride 103 mmol/L (98-107); Magnesium 1.8 mg/dl (1.7-2.4); Potassium 3.7 mmol/L (3.5-5.1); Sodium 141 mmol/L (136-145)
[2024-12-16 07:08] LABS: Alanine Aminotransferase 9 U/L (7-52); Albumin Globulin Ratio 1.3 (0.9-2); Alkaline Phosphatase 168 U/L (34-104); Blood Urea Nitrogen 36 mg/dl (6-23); Globulin 3.0 gm/dl (2.5-4.0); Glucose 202 mg/dl (70-99(Fasting)); Total Protein 6.8 gm/dl (6.0-8.3)
[2024-12-16 07:25] LABS: Hematocrit (blood only) 38.1 % (42.0-52.0); Hemoglobin 11.9 g/dl (14.0-18.0); Immature Granulocytes # (auto) 0.54 K/uL (0.01-0.20); Immature Granulocytes % (auto) 4.2 %; Mean Corpuscular Hemoglobin 29.8 pg (25.0-34.0); Mean Corpuscular Volume 95.5 fL (80.0-100.0); Platelet Count 188 K/uL (130-400); RDW Standard Deviation 55.8 fL (36.4-46.3); Red Blood Count 3.99 M/uL (4.70-6.10); White Blood Count 12.90 K/ul (4.8-10.8)
--- NOTE | 2024-12-16 15:21 | Nephrology Progress Note ---
Date of Service December 16, 2024 Assessment & Plan (1) ESRD (end stage renal disease): Plan: patient is on dialysis Wednesday. He tolerated dialysis well yesterday. Electrolytes are stable no signs of volume overload. No indication for dialysis today. next HD on 12/18 or as needs dictate (2) Labile blood pressure: Plan: Continue midodrine w/ HD ONLY: Despite this he had significant hypotension on treatment. We gave an extra Midodrine dose with some improvement but he ended the session 500 mL positive. will continue midodrine with dialysis Admission and Anticipated Discharge Date Admission Date: December 11, 2024 Subjective Seen for ESRD. No shortness of breath. He had dialysis yesterday. Review of Systems 2 Review of Systems: All other systems were reviewed and negative except as noted in HPI Physical Exam 2 Physical Exam: General exam: Appears comfortable, no acute distress HEENT: Pupils are equal and reactive to light Neck: No JVD, neck is supple trachea is midline Respiratory system: Clear breath sounds bilaterally. Gastrointestinal: Abdomen is soft, non distended, non tender, bowel sounds are present CVS: Regular rate and rhythm. No murmurs, rubs or gallops Musculoskeletal: No joint or muscle tenderness Extremities: Bilateral amputations Neuro: Oriented, no tremors, no focal neurological deficits Skin: No rashes Results & Data Vital Signs (Past 12 Hours) Vital Signs Temp Pulse Pulse Resp BP Pulse Ox O2 Del Method 12/16/24 14:24 98 H 12/16/24 11:04 36.7 C 86 17 131/83 97 Room Air 12/16/24 07:54 36.6 C 91 H 15 128/84 97 Room Air 12/16/24 07:49 Room Air 12/16/24 07:00 88 12/16/24 04:28 37.0 C 90 19 142/89 H 94 Room Air Laboratory Results 12/16/24 05:32 12/16/24 05:32 WBC 12.90 H RBC 3.99 L MCV 95.5 MCH 29.8 MCHC 31.2 L RDW Std Deviation 55.8 H RDW Coeff of John 16.0 H Plt Count 188 MPV 10.1 Albumin 3.8
--- NOTE | 2024-12-16 15:35 | Hospitalist Progress Note ---
Date of Service December 16, 2024 Assessment & Plan (1) ESRD (end stage renal disease): (2) Infection of amputation stump, right lower extremity: (3) SIRS (systemic inflammatory response syndrome): (4) Opioid dependence, uncomplicated: (5) Gastro-esophageal reflux disease without esophagitis: (6) Anxiety disorder, unspecified: (7) Cognitive communication deficit: (8) Atherosclerotic heart disease of [place] coronary artery without angina pectoris: (9) Epilepsy, unspecified, not intractable, without status epilepticus: (10) Acquired absence of right leg below knee: (11) Nicotine dependence, unspecified, uncomplicated: Plan #SIRS/Sepsis #Recent cellutitis/Catheter site infection #Possible RLL PNx #New Proctocolitis - was recently admitted at [facility] in October for exit site infection and was treated with a 9 day course of IV Daptomycin here from 11/17 until 11/26 no further antibiotics needed on discharge given exchange of PermCath and negative PermCath tip and blood cultures. - possible right lung consolidation and proctocolitis on CT in ED - Enterococcus Faecalis on right stump culture from 11/21 - cefepime started in ED, continue, add daptomycin given enterococcus in site culture, send MRSA swab given recent hospitalizations - Catheter site and right stump clinically at baseline with minimal erythema or edema, abx as above, see ID consult, appreacaiate recs - Source: right knee and spine evaluated, no indication that they are presenting source - See ID progress note. Clinically improved, CRP stable, will transition to linezolid, cefpodoxime and flagyl in consideration for return to [facility] #Pressure-induced deep tissue damage/injury of left buttock, present on arrival #Right BKA wound #MRI findings with retrolisthesis and foraminal stenosis - Right BKA occurred 1 year ago at [facility], follows with surgeon in [place] - Wound care nurse consulted, appreciate assistance - Wound culture from R BKA site with Enterococcus faecalis, sensitivities reveal intermediate sensitivity to Vanco - Imaging as above, unable to complete MRI today as he would likely need some small amount of sedation minutes quite hypotensive after dialysis. - Consult to spinal surgery for evaluation, no evidence of osteo, abx as above until 12/25 #Recent right stump ulceration - MRI findings not suggestive of acute source although there are findings that could indicate occult-infection, will continue to monitor, - See orthopedics consult- - no discrete indication for intervention per orthopedic surgery at this time, see abx per section 1 #Hypokalemia -Unable to make a full run of dialysis today, will recheck at 1800, replete with one third dose orally if still below normal range. Possible repeat dialysis tomorrow for volume - normalizing with dialysis #Diarrhea -CDiff PCR postiive, toxin negative, no additional loost stools noted " #ESRD - follows with [facility]. -- schedule at [facility] [place], inhouse dialysis currently - Consult Nephrology, see dialysis orders -repeat dialysis today per nephrology, BP much better this AM, back on routine schedule #Hypotension -uses midodrine with dialysis will continue, also PRN while hospitalized, on the low side most of the day, responding to midodrine #T2DM - A1c 6.4% in November 2024 - - Pharmacy glycemic consult placed and managed during hospital stay, hold oral DM2 agents #Atherosclerotic Disease #HLD -Statin, ASA no active sx a this time #Paroxysmal atrial fibrillation - Eliquis #History of epilepsy continue Keppra 1500mg Dialysis Dosing #Mild cognitive impairment - somnolent today, hx limited, noted previously #Opioid dependence #Phantom pain - Continue scheduled oxycodone, gabapentin and prn Tylenol per home doses #GERD -Continue Protonix 40 mg #FEN -Renal Diet #CODE STATUS -Full code per his wishes Admission and Anticipated Discharge Date Admission Date: December 11, 2024 Subjective No significant changes per patient overnight. Back pain persist no improvement or worsening. No radicular type symptoms. No stool seen incontinence x 1. No fever chills or generalized signs of illness. Appetite has been good per nursing staff. No other acute events or concerns. He has been up watching TV most of the morning. Sleeping well. We discussed likely timeframe his antibiotic therapy. Case management working to discuss placement. Uncertain whether he can discharge with current antibiotic regimen due to his previous care facility Physical Exam Physical Exam: General: Well-appearing, no acute distress much more conversational today, HEENT: Conjunctivae non-injected, sclerae anicteric, MMM, OP clear. Resp: Clear to auscultation bilaterally Abd: Soft, nontender, nondistended. Back: No specific midline status or deformities. Ext: Bilateral BKAs. stumps without warmth or erythema , small pinpoint area of skin opening on R stump without surrounding erythema, no palpable induration or underlying fluctuance Skin: No rash or discoloration Neuro: Alert & interactive Psych: Pleasant, appropriate. Results & Data Results & Data Vital Signs (Past 12 Hours) Vital Signs Temp Pulse Pulse Resp BP Pulse Ox O2 Del Method 12/16/24 14:24 98 H 12/16/24 11:04 36.7 C 86 17 131/83 97 Room Air 12/16/24 07:54 36.6 C 91 H 15 128/84 97 Room Air 12/16/24 07:49 Room Air 12/16/24 07:00 88 12/16/24 04:28 37.0 C 90 19 142/89 H 94 Room Air Laboratory Results 12/11/24 06:03 Aerobic Blood Culture - Final Blood No growth in Aerobic bottle after 5 days. Anaerobic Blood Culture - Final 12/11/24 05:45 Aerobic Blood Culture - Final Blood No growth in Aerobic bottle after 5 days. Anaerobic Blood Culture - Final No growth in Anaerobic bottle after 5 days. 12/16/24 12/16/24 12/16/24 11:45 08:12 08:10 WBC RBC Hgb Hct MCV MCH MCHC RDW Std Deviation RDW Coeff of John Plt Count MPV Immature Gran % (Auto) Neut % (Auto) Lymph % (Auto) [place] % (Auto) Eos % (Auto) Baso % (Auto) Neut # (Auto) Lymph # (Auto) [place] # (Auto) Eos # (Auto) Baso # (Auto) Immature Gran # (Auto) Sodium Potassium Chloride Carbon Dioxide Anion Gap BUN Creatinine Est Cr Clr Drug Dosing eGFR BUN/Creatinine Ratio Glucose POC Glucose 168 H 219 H 209 H Calcium Magnesium Total Bilirubin AST ALT Alkaline Phosphatase C-Reactive Protein Total Protein Albumin Globulin Albumin/Globulin Ratio Procalcitonin 12/16/24 12/16/24 12/15/24 08:07 05:32 20:43 WBC 12.90 H RBC 3.99 L Hgb 11.9 L Hct 38.1 L MCV 95.5 MCH 29.8 MCHC 31.2 L RDW Std Deviation 55.8 H RDW Coeff of John 16.0 H Plt Count 188 MPV 10.1 Immature Gran % (Auto) 4.2 Neut % (Auto) 62.1 Lymph % (Auto) 9.5 [place] % (Auto) 10.4 Eos % (Auto) 12.6 Baso % (Auto) 1.2 Neut # (Auto) 8.03 H Lymph # (Auto) 1.22 [place] # (Auto) 1.34 H Eos # (Auto) 1.62 H Baso # (Auto) 0.15 Immature Gran # (Auto) 0.54 H Sodium 141 Potassium 3.7 Chloride 103 Carbon Dioxide 25 Anion Gap 13 H BUN 36 H Creatinine 4.13 H D Est Cr Clr Drug Dosing Not Reportable eGFR 15.23 BUN/Creatinine Ratio 8.7 L Glucose 202 H POC Glucose 423 H* 337 H* Calcium 9.5 Magnesium 1.8 Total Bilirubin 0.7 AST 19 ALT 9 Alkaline Phosphatase 168 H C-Reactive Protein 2.50 H Total Protein 6.8 Albumin 3.8 Globulin 3.0 Albumin/Globulin Ratio 1.3 Procalcitonin 7.82 H 12/15/24 12/15/24 19:46 17:12 WBC RBC Hgb Hct MCV MCH MCHC RDW Std Deviation RDW Coeff of John Plt Count MPV Immature Gran % (Auto) Neut % (Auto) Lymph % (Auto) [place] % (Auto) Eos % (Auto) Baso % (Auto) Neut # (Auto) Lymph # (Auto) [place] # (Auto) Eos # (Auto) Baso # (Auto) Immature Gran # (Auto) Sodium Potassium Chloride Carbon Dioxide Anion Gap BUN Creatinine Est Cr Clr Drug Dosing eGFR BUN/Creatinine Ratio Glucose POC Glucose 289 H 231 H Calcium Magnesium Total Bilirubin AST ALT Alkaline Phosphatase C-Reactive Protein Total Protein Albumin Globulin Albumin/Globulin Ratio Procalcitonin PG Care Time/CCT Total # of Minutes Spent Total Time Spent with Patient: Total time spent is greater than 50% in coordination of care (as documented) at patient's floor/unit and/or counseling patient: Coding Level of Care Code 14421 SUB INP/OBS CARE 35MIN Diagnoses ESRD (end stage renal disease) N18.6 Infection of amputation stump, right lower extremity T87.43 SIRS (systemic inflammatory response syndrome) R65.10 Opioid dependence, uncomplicated F11.20 Gastro-esophageal reflux disease without esophagitis K21.9 Anxiety disorder, unspecified F41.9 Cognitive communication deficit R41.841 Atherosclerotic heart disease of [place] coronary artery without angina pectoris I25.10 Epilepsy, unspecified, not intractable, without status epilepticus G40.909 Acquired absence of right leg below knee Z89.511 Nicotine dependence, uncomplicated, unspecified nicotine product type F17.200 Nicotine product type: unspecified (11) Nicotine dependence, unspecified, uncomplicated Nicotine product type: unspecified Qualified Code(s): F17.200 - Nicotine dependence, unspecified, uncomplicated
[2024-12-16] MEDS ORDERED: cefOXitin 2,000 MG in DEXTROSE 5 % MINI-B 50 ML IV SCH (15:45)
[2024-12-16] MEDS: LANTUS PER UNIT CHARGE SQ SCH (20:04)
[2024-12-16] MEDS ORDERED: LINEZOLID 600 MG TAB PO SCH (21:00)
[2024-12-17 05:50] LABS: Hematocrit (blood only) 36.7 % (42.0-52.0); Hemoglobin 11.1 g/dl (14.0-18.0); Immature Granulocytes # (auto) 0.50 K/uL (0.01-0.20); Immature Granulocytes % (auto) 4.2 %; Mean Corpuscular Hemoglobin 29.0 pg (25.0-34.0); Mean Corpuscular Volume 95.8 fL (80.0-100.0); Platelet Count 171 K/uL (130-400); RDW Standard Deviation 56.7 fL (36.4-46.3); Red Blood Count 3.83 M/uL (4.70-6.10); White Blood Count 11.88 K/ul (4.8-10.8)
[2024-12-17 06:15] LABS: Alanine Aminotransferase 10 U/L (7-52); Albumin Globulin Ratio 1.3 (0.9-2); Albumin Level 3.7 gm/dl (3.4-5.0); Alkaline Phosphatase 183 U/L (34-104); Anion Gap 12 (3-11); Bilirubin,Total 0.5 mg/dl (0.2-1.0); Blood Urea Nitrogen 80 mg/dl (6-23); Calcium 9.6 mg/dl (8.6-10.3); Carbon Dioxide 22 mmol/L (21-32); Chloride 103 mmol/L (98-107); Globulin 2.9 gm/dl (2.5-4.0); Glucose 261 mg/dl (70-99(Fasting)); Potassium 3.1 mmol/L (3.5-5.1); Sodium 137 mmol/L (136-145); Total Protein 6.6 gm/dl (6.0-8.3)
[2024-12-17] MEDS: CEFDINIR 300 MG CAP PO SCH (08:02)
--- NOTE | 2024-12-17 10:46 | Nephrology Progress Note ---
Date of Service December 17, 2024 Assessment & Plan (1) ESRD (end stage renal disease): Plan: patient is on dialysis Wednesday. He tolerated dialysis well Wednesday. Electrolytes are stable no signs of volume overload. No indication for dialysis today. K is 3.1. Will give kcl 40meq once today next HD on 12/18 or as needs dictate (2) Labile blood pressure: Plan: Continue midodrine w/ HD ONLY: Despite this he had significant hypotension on treatment. We gave an extra Midodrine dose with some improvement but he ended the session 500 mL positive. will continue midodrine with dialysis Admission and Anticipated Discharge Date Admission Date: December 11, 2024 Subjective Seen for ESRD. No SOB.Last HD was Wednesday. Review of Systems 2 Review of Systems: All other systems were reviewed and negative except as noted in HPI Physical Exam 2 Physical Exam: General exam: Appears comfortable, no acute distress HEENT: Pupils are equal and reactive to light Neck: No JVD, neck is supple trachea is midline Respiratory system: Clear breath sounds bilaterally. Gastrointestinal: Abdomen is soft, non distended, non tender, bowel sounds are present CVS: Regular rate and rhythm. No murmurs, rubs or gallops Musculoskeletal: No joint or muscle tenderness Extremities: Bilateral amputations Neuro: Oriented, no tremors, no focal neurological deficits Skin: No rashes Results & Data Vital Signs (Past 12 Hours) Vital Signs Temp Pulse Pulse Resp BP Pulse Ox O2 Del Method 12/17/24 09:17 91 H 12/17/24 07:35 36.7 C 91 H 17 141/95 H 96 Room Air 12/17/24 03:30 37.0 C 96 H 19 121/81 94 Room Air Laboratory Results 12/17/24 04:57 12/17/24 04:57 WBC 11.88 H RBC 3.83 L MCV 95.8 MCH 29.0 MCHC 30.2 L RDW Std Deviation 56.7 H RDW Coeff of John 16.4 H Plt Count 171 MPV 9.8 Albumin 3.7
[2024-12-17] MEDS: POTASSIUM CHLORIDE CRTAB 20 MEQ TABCR PO STA (11:18)
--- NOTE | 2024-12-17 12:11 | Hospitalist Progress Note ---
Date of Service December 17, 2024 Assessment & Plan (1) ESRD (end stage renal disease): (2) Infection of amputation stump, right lower extremity: (3) SIRS (systemic inflammatory response syndrome): (4) Opioid dependence, uncomplicated: (5) Gastro-esophageal reflux disease without esophagitis: (6) Anxiety disorder, unspecified: (7) Cognitive communication deficit: (8) Atherosclerotic heart disease of [place] coronary artery without angina pectoris: (9) Epilepsy, unspecified, not intractable, without status epilepticus: (10) Acquired absence of right leg below knee: (11) Nicotine dependence, unspecified, uncomplicated: Plan #SIRS/Sepsis #Recent cellutitis/Catheter site infection #Possible RLL PNx #New Proctocolitis - was recently admitted at [facility] in October for exit site infection and was treated with a 9 day course of IV Daptomycin here from 11/17 until 11/26 no further antibiotics needed on discharge given exchange of PermCath and negative PermCath tip and blood cultures. - possible right lung consolidation and proctocolitis on CT in ED - Enterococcus Faecalis on right stump culture from 11/21 - cefepime started in ED, continue, add daptomycin given enterococcus in site culture, send MRSA swab given recent hospitalizations - Catheter site and right stump clinically at baseline with minimal erythema or edema, abx as above, see ID consult, appreacaiate recs - Source: right knee and spine evaluated, no indication that they are presenting source - See ID progress note. Clinically improved, CRP stable - Attempted to transition to an oral based regimen in support of discharge however the doxepin is not compatible with linezolid, it would take a 2-week course to washout the doxepin prior to using linezolid and he will be through his antibiotic course by that time. We did switch to cefdinir and oral Flagyl - Continue serial inflammatory markers and vitamin labs current antibiotics until 12/25, #Pressure-induced deep tissue damage/injury of left buttock, present on arrival #Right BKA wound #MRI findings with retrolisthesis and foraminal stenosis - Right BKA occurred 1 year ago at [facility], follows with surgeon in [place] - Wound care nurse consulted, appreciate assistance - Wound culture from R BKA site with Enterococcus faecalis, sensitivities reveal intermediate sensitivity to Vanco - Imaging as above, unable to complete MRI today as he would likely need some small amount of sedation minutes quite hypotensive after dialysis. - Consult to spinal surgery for evaluation, no evidence of osteo, abx as above until 12/25 #Recent right stump ulceration - MRI findings not suggestive of acute source although there are findings that could indicate occult-infection, will continue to monitor, - See orthopedics consult- - no discrete indication for intervention per orthopedic surgery at this time, see abx per section 1 #Hypokalemia -Unable to make a full run of dialysis today, will recheck at 1800, replete with one third dose orally if still below normal range. Possible repeat dialysis tomorrow for volume - oral supplement given this morning, nephrology aware, dialysis tomorrow, a.m. labs #Diarrhea -CDiff PCR postiive, toxin negative, no additional loose stools noted " #ESRD - follows with [facility]. schedule at [facility], inhouse dialysis currently - Consult Nephrology, see dialysis orders -repeat dialysis today per nephrology, BP much better this AM, back on routine schedule #Hypotension -uses midodrine with dialysis will continue, also PRN while hospitalized, on the low side most of the day, responding to midodrine - Stable. #T2DM - A1c 6.4% in November 2024 - Pharmacy glycemic consult placed and managed during hospital stay, hold oral DM2 agents #Atherosclerotic Disease #HLD -Statin, ASA no active sx a this time #Paroxysmal atrial fibrillation - Eliquis #History of epilepsy continue Keppra 1500mg Dialysis Dosing #Mild cognitive impairment - somnolent today, hx limited, noted previously #Opioid dependence #Phantom pain - Continue scheduled oxycodone, gabapentin and prn Tylenol per home doses #GERD -Continue Protonix 40 mg #FEN -Renal Diet #CODE STATUS -Full code per his wishes Admission and Anticipated Discharge Date Admission Date: December 11, 2024 Subjective Doing okay this morning. Per nursing his aphasia as it is recent baseline. Ate a good breakfast. No concerns with sleep. Back pain is unchanged. No fevers chills or generalized signs of illness. Dialysis as scheduled yesterday Physical Exam Physical Exam: General: Well-appearing, no acute distress much more conversational today, HEENT: Conjunctivae non-injected, sclerae anicteric, MMM, OP clear. Resp: Clear to auscultation bilaterally Abd: Soft, nontender, nondistended. Back: No specific midline status or deformities. Ext: Bilateral BKAs. stumps without warmth or erythema , small pinpoint area of skin opening on R stump without surrounding erythema, no palpable induration or underlying fluctuance Skin: No rash or discoloration Neuro: Alert & interactive Psych: Pleasant, appropriate. Results & Data Results & Data Vital Signs (Past 12 Hours) Vital Signs Temp Pulse Pulse Resp BP Pulse Ox O2 Del Method 12/17/24 11:10 36.4 C L 98 H 16 111/81 96 Room Air 12/17/24 09:17 91 H 12/17/24 07:35 36.7 C 91 H 17 141/95 H 96 Room Air 12/17/24 03:30 37.0 C 96 H 19 121/81 94 Room Air Laboratory Results 12/17/24 12/17/24 12/17/24 11:51 07:56 04:57 WBC 11.88 H RBC 3.83 L Hgb 11.1 L Hct 36.7 L MCV 95.8 MCH 29.0 MCHC 30.2 L RDW Std Deviation 56.7 H RDW Coeff of John 16.4 H Plt Count 171 MPV 9.8 Immature Gran % (Auto) 4.2 Neut % (Auto) 60.8 Lymph % (Auto) 9.8 [place] % (Auto) 12.4 Eos % (Auto) 11.8 Baso % (Auto) 1.0 Neut # (Auto) 7.22 H Lymph # (Auto) 1.17 L [place] # (Auto) 1.47 H Eos # (Auto) 1.40 H Baso # (Auto) 0.12 Immature Gran # (Auto) 0.50 H Sodium 137 Potassium 3.1 L Chloride 103 Carbon Dioxide 22 Anion Gap 12 H BUN 80 H D Creatinine 6.27 H* D Est Cr Clr Drug Dosing Not Reportable eGFR 9.23 BUN/Creatinine Ratio 12.8 Glucose 261 H POC Glucose 197 H 201 H Calcium 9.6 Total Bilirubin 0.5 AST 16 ALT 10 Alkaline Phosphatase 183 H C-Reactive Protein 1.70 H Total Protein 6.6 Albumin 3.7 Globulin 2.9 Albumin/Globulin Ratio 1.3 Procalcitonin 6.35 H 12/16/24 12/16/24 19:56 16:59 WBC RBC Hgb Hct MCV MCH MCHC RDW Std Deviation RDW Coeff of John Plt Count MPV Immature Gran % (Auto) Neut % (Auto) Lymph % (Auto) [place] % (Auto) Eos % (Auto) Baso % (Auto) Neut # (Auto) Lymph # (Auto) [place] # (Auto) Eos # (Auto) Baso # (Auto) Immature Gran # (Auto) Sodium Potassium Chloride Carbon Dioxide Anion Gap BUN Creatinine Est Cr Clr Drug Dosing eGFR BUN/Creatinine Ratio Glucose POC Glucose 256 H 214 H Calcium Total Bilirubin AST ALT Alkaline Phosphatase C-Reactive Protein Total Protein Albumin Globulin Albumin/Globulin Ratio Procalcitonin PG Care Time/CCT Total # of Minutes Spent Total Time Spent with Patient: Total time spent is greater than 50% in coordination of care (as documented) at patient's floor/unit and/or counseling patient: Coding Level of Care Code 46959 SUB INP/OBS CARE 235MIN Diagnoses ESRD (end stage renal disease) N18.6 Infection of amputation stump, right lower extremity T87.43 SIRS (systemic inflammatory response syndrome) R65.10 Opioid dependence, uncomplicated F11.20 Gastro-esophageal reflux disease without esophagitis K21.9 Anxiety disorder, unspecified F41.9 Cognitive communication deficit R41.841 Atherosclerotic heart disease of [place] coronary artery without angina pectoris I25.10 Epilepsy, unspecified, not intractable, without status epilepticus G40.909 Acquired absence of right leg below knee Z89.511 Nicotine dependence, uncomplicated, unspecified nicotine product type F17.200 Nicotine product type: unspecified (11) Nicotine dependence, unspecified, uncomplicated Nicotine product type: unspecified Qualified Code(s): F17.200 - Nicotine dependence, unspecified, uncomplicated
--- NOTE | 2024-12-17 13:22 | Pharmacy Report ---
Pharmacy Glycemic Short Note 2 - Date of Service December 17, 2024 - Glycemic Short BSG Results (Last 24 hours): 12/16/24 12/16/24 12/17/24 16:59 19:56 04:57 Glucose 261 H POC Glucose 214 H 256 H 12/17/24 12/17/24 07:56 11:51 Glucose POC Glucose 201 H 197 H OUTPATIENT ANTIDIABETIC REGIMEN: * Sitagliptin 25mg daily * HbA1c: 6.4% (11/15/2024) ASSESSMENT: 12/17/24: * Hemodialysis on 12/13, 12/14, and 12/15 * Blood sugars began to trend up significantly on 12/15 - unclear reason for this * Basal insulin initiated and bolus insulin regimen intensified * Hesitant to increase further despite hyperglycemia given HD with well- controlled T2DM as an outpatient on sitagliptin only 12/15: * Olaf received only 1 units of insulin, it was correctional * Fasting BSG was 158mg/dL this morning. He was dialyzed again today. * Will continue current regimen with correction insulin only.-Of note, he reportedly has refused a few doses of insulin. 12/13: * Patient received total of 20 units of insulin yesterday, all of correctional * BSGs trending down later in day - will loosen CF and broaden goal range 12/11: * Olaf is a 64 year old male with T2DM who presents to the hospital with fever and vomiting * Patient is on HD Wednesday, Wednesday, and Wednesday (last session 12/11, completed this evening) * Glucose was 238 mg/dL on arrival, elevated * Patient was in dialysis and unable to get insulin or glucose checks * Now that patient has returned, will plan on just getting 2100 glucose check and administer Novolog as necessary * Renal diet ordered * Stressors: infection * Patient had recent hospitalization where he had an insulin regimen of CF 30, CR 8 * Chose regimen of CF 30, CR 9 - stress level of 2 PLAN FOR INPATIENT GLYCEMIC CONTROL: * Hold outpatient oral diabetes medications * Basal insulin * Lantus -0-4-8 units SC HS (see EHR for details) * Bolus insulin * NovoLog per scale ACHS or Q6hrs while NPO * Goal Range: Low 110 mg/dL - High 160 mg/dL * Correction Factor: 30 mg/dL/unit * Nutritional / Prandial insulin per carb ratio of 1 unit per 8 grams CHO consumed
[2024-12-18 04:46] LABS: Cdiff Toxin B Gene (2yr or >) Negative Cdiff Gene (Neg)
[2024-12-18 06:39] LABS: Hematocrit (blood only) 33.3 % (42.0-52.0); Hemoglobin 10.1 g/dl (14.0-18.0); Immature Granulocytes # (auto) 0.32 K/uL (0.01-0.20); Immature Granulocytes % (auto) 3.0 %; Mean Corpuscular Hemoglobin 29.1 pg (25.0-34.0); Mean Corpuscular Volume 96.0 fL (80.0-100.0); Platelet Count 180 K/uL (130-400); RDW Standard Deviation 58.4 fL (36.4-46.3); Red Blood Count 3.47 M/uL (4.70-6.10); White Blood Count 10.61 K/ul (4.8-10.8)
[2024-12-18] MEDS ORDERED: SODIUM CHLORIDE 0.9% 1,000 ML IV PRN (07:00)
[2024-12-18 07:09] LABS: Anion Gap 14 (3-11); Blood Urea Nitrogen 108 mg/dl (6-23); Calcium 9.4 mg/dl (8.6-10.3); Carbon Dioxide 19 mmol/L (21-32); Chloride 104 mmol/L (98-107); Glucose 182 mg/dl (70-99(Fasting)); Potassium 3.5 mmol/L (3.5-5.1); Sodium 137 mmol/L (136-145)
--- NOTE | 2024-12-18 10:37 | Nephrology Progress Note ---
Date of Service December 18, 2024 Assessment & Plan Admission and Anticipated Discharge Date Admission Date: December 11, 2024 Subjective Assessment & Plan (1) ESRD (end stage renal disease): Plan: patient is on dialysis Wednesday. He tolerated dialysis well Wednesday. Electrolytes are stable no signs of volume overload. next HD later today--3.5 hrs and 3k bath. will aim for 1-2 kilo today given Diarrhea and Low BP (2) Labile blood pressure: Plan: Continue midodrine w/ HD. Despite this he had significant hypotension on treatment. will continue midodrine with dialysis Subjective Seen for ESRD. No SOB. Last HD was Wednesday. BP is very low. Also lot of diarrhea overnight. eating 100% though Review of Systems Review of Systems: All other systems were reviewed and negative except as noted in HPI Physical Exam Physical Exam: General exam: Appears comfortable, no acute distress HEENT: Pupils are equal and reactive to light Neck: No JVD, neck is supple trachea is midline Respiratory system: Clear breath sounds bilaterally. Gastrointestinal: Abdomen is soft, non distended, non tender, bowel sounds are present CVS: Regular rate and rhythm. No murmurs, rubs or gallops Extremities: Bilateral amputations Skin: No rashes Results & Data Vital Signs (Past 12 Hours) Vital Signs Temp Pulse Pulse Resp BP Pulse Ox O2 Del Method 12/18/24 07:37 36.8 C 84 20 107/68 93 Room Air 12/18/24 07:20 87 12/18/24 03:33 37 C 90 19 103/69 93 Room Air 12/18/24 00:28 36.9 C 83 19 138/82 93 Room Air
--- NOTE | 2024-12-18 13:36 | Infectious Disease Progress Nt ---
Date of Service December 18, 2024 Assessment & Plan (1) ESRD on dialysis: (2) Fever: Plan Olaf aGmble is a 64-year-old male with past medical history of ESRD on HD, (M, W, F), DM2, A-fib, epilepsy, cognitive impairment, bilateral BKA recently admitted 11/17/2024 - 11/26/2024 with hypotension and rigors. During that admission he was noted to be febrile with leukocytosis and tachycardia. Diagnosed with a possible exit site HD catheter infection. He was also found to have a right BKA wound. Wound culture grew Enterococcus faecalis with intermediate sensitivities to vancomycin. He was taken to the OR for removal of HD catheter, blood cultures and cath tip sterile. A new permacath was placed on 11/24/24. He is usually anuric but was found to have an episode of purulent urine. Culture grew moderate counts of mixed skin anamaria. He completed 9 days of daptomycin and Levaquin. He returned to the ED from his [facility] on 12/11/24 with fever, nausea and vomiting. He also complained of low back pain. In the ED T 37.8, Tmax 38.6, HR 118, RR 14, BP 142/83. Labs: WBC 20.68, platelets 224, anion gap 14, BUN 32, creatinine 6.34, alk phos 151, MRSA nasal screen positive. Blood cultures no growth to date. Influenza, RSV, COVID-19 PCR negative. Chest x-ray shows a linear atelectatic band of the right lower zone. Prior right-sided pleural effusion resolved. Stable right sided tracheal deviation with hilar prominence. CTAP demonstrated mild right pleural effusion with basal lobe segmental collapse consolidation of the right lower lobe. Few atelectatic bands noted involving the bilateral lung bases and in the right middle lobe. Diffuse mucosal thickening involving the distal rectum and anal canal with the possibility of proctocolitis. CT head shows no acute intracranial abnormality. Chronic microvascular ischemic changes. Focal encep halomalacia/gliosis in the left frontal lobe which may be sequela of prior insult. He has been started on daptomycin and cefepime. Infectious disease consulted for possible SIRS. Micro Data: 12/11/24 blood culture: NG 12/18 cdiff tox gene PCR neg, C. diff [id number] Prior microbiology: 11/24/2024 catheter tip culture: NG 11/21/2024 right BKA site culture: E faecalis (ampicillin sensitive, intermediate vancomycin) 11/19/2024 urine culture more than 3 types of organisms presentall moderate counts of mixed probable skin anamaria Antibiotic Summary: Cefepime Daptomycin 12/11present metronidazole 12/11 present Cefdinir 12/17-present ID Problem List: # SIRS of unclear etiology, improving Leukocytosis, fever, tachycardia, unknown source # Proctocolitis on imaging # R stump pain with synovial effusion # Presence of lumbar spine hardware. 12/14 MRI L-spine with history of L2-S1 interbody fusion, showing posterior displacement of the L5-S1 fusion c/f hardware instability # Focal encephalomalacia/gliosis in the left frontal lobe # ESRD on HD MWF # Recent right BKA site wound, cx + E faecalis (amp Susceptible, Vanco Int susceptibility ) # Recent HD catheter possible exit site Infection, blood cx, cath tip cx NG # Penicillin allergy, throat swelling # Elevated procalcitonin, trending down Discussion He presents with nausea, vomiting, back pain, and fever. Labs notable for leukocytosis, elevated procalcitonin, positive MRSA screen. It is hard to interpret an elevated procalcitonin in a patient with end-stage renal disease but it has increased since his recent admission 0.53---> 4.94. Chest x-ray with no humza infiltrate and he is on room air, without documentation of respiratory symptoms. CTAP shows sub seq collapse consolidation of RLL as well as diffuse mucosal thickening involving the distal rectum and anal canal c/f proctocolitis. Blood cultures NGTD. On 12/12 evaluation, pt with baseline aphasia and had difficulty providing ROS, but seemed to indicate pain in his R stump vs. hips, and also said yes when asked about back pain, thus imaging of the back and R stump were performed. 12/14 MRI L-spine with history of L2-S1 interbody fusion, showing posterior displacement of the L5-S1 fusion c/f hardware instability; no definitive e/o abscess or osteomyelitis though evaluation is limited by artifact. 12/14 MRI RLE with synovial effusion and small fluid signals adjacent to tibial component, possibly post-operative though infection cannot be excluded; diffuse myogenic signal alteration c/f myositis/cellulitis vs. neuropathic injury. Ortho evaluated the patient on 12/15 and recommended no further evaluation of the spine at this time (will have outpatient f/u) given lack of e/o infection on MRI. Recommend ortho to reevaluate R stump synovial effusion and consider joint aspiration to evaluate for septic arthritis. Although R stump infection is considered, the pt does not report any ongoing pain of his R stump (though limited by neuropathy); there are no overt skin findings of R stump cellulitis. Overall, patients initial presentation is concerning for infection, though without a definitive source. He has had improvement of his symptoms, fevers, and WBC count on daptomycin, cefepime, and metronidazole. Pending ortho recs, if improving and discharging, would consider changing to linezolid 600 mg PO BID, cefpodoxime 400 mg PO BID, and metronidazole 500 mg PO BID, to complete a 2-week course (12/1112/25/24) for possible R stump SSTI and possible proctocolitis. Of note, pt with reported allergy to PCN, throat swelling. 12/18--Switch to Linezolid was held as he is on doxepin. He remains on Dapt omycin and Flagyl Team switched from cefepime to Cefdinir as no cefpodoxime available inpt. Ortho evaluated R stump. No intervention. They have Low suspicion for infection . Recommendations: - Continue daptomycin 700 mg IV q48h (renally dosed) for possible R stump infection - Continue cefdinir 300 mg Po daily for possible proctocolitis - Continue metronidazole 500 mg PO BID for anaerobic/GI coverage given possible proctocolitis - Pending ortho recs, if improving and discharging, would consider changing to to complete a 2-week course (12/1112/25/24) for possible R stump SSTI and possible proctocolitis - Ortho evaluated spine hardware displacement, low suspicion for infection at this time, recommending outpatient follow-up - Ensure outpatient f/u with ortho spine and PCP ID will sign off. Please call with questions. Lester Medina MD, MPH Infectious Disease [facility], ID Division Call [phone] with questions Admission and Anticipated Discharge Date Admission Date: December 11, 2024 Subjective This patient recommendation is based on a telemedicine consult request which was completed asynchronously through chart review and information provided by the primary physician. The patient was not seen or examined today. The evaluation is consultative in nature and all patient care and treatment decisions can either be accepted or rejected by the patient's primary hospital-based treating physician using their own independent medical judgment for their patient. Time Spent Reviewing Chart: 21 - 30 minutes Afebrile Switch to Linezolid held as he is on Doxepin. Remains of Dapto/ flagyl Team dced Cefepime and started Cefdinir. Results & Data Vital Signs (Past 12 Hours) Vital Signs Temp Pulse Pulse Resp BP Pulse Ox O2 Del Method 12/18/24 12:13 103/62 12/18/24 11:00 36.6 C 85 19 86/60 L 92 Room Air 12/18/24 10:39 37.3 C 88 16 71/45 L 94 Room Air 12/18/24 07:37 36.8 C 84 20 107/68 93 Room Air 12/18/24 07:20 87 12/18/24 03:33 37 C 90 19 103/69 93 Room Air Laboratory Results Laboratory Results - last 48 hr 12/16/24 12/16/24 12/17/24 16:59 19:56 04:57 WBC 11.88 H RBC 3.83 L Hgb 11.1 L Hct 36.7 L MCV 95.8 MCH 29.0 MCHC 30.2 L RDW Std Deviation 56.7 H RDW Coeff of John 16.4 H Plt Count 171 MPV 9.8 Immature Gran % (Auto) 4.2 Neut % (Auto) 60.8 Lymph % (Auto) 9.8 Island % (Auto) 12.4 Eos % (Auto) 11.8 Baso % (Auto) 1.0 Neut # (Auto) 7.22 H Lymph # (Auto) 1.17 L Island # (Auto) 1.47 H Eos # (Auto) 1.40 H Baso # (Auto) 0.12 Immature Gran # (Auto) 0.50 H Sodium 137 Potassium 3.1 L Chloride 103 Carbon Dioxide 22 Anion Gap 12 H BUN 80 H D Creatinine 6.27 H* D Est Cr Clr Drug Dosing Not Reportable eGFR 9.23 BUN/Creatinine Ratio 12.8 Glucose 261 H POC Glucose 214 H 256 H Calcium 9.6 Total Bilirubin 0.5 AST 16 ALT 10 Alkaline Phosphatase 183 H C-Reactive Protein 1.70 H Total Protein 6.6 Albumin 3.7 Globulin 2.9 Albumin/Globulin Ratio 1.3 Procalcitonin 6.35 H Stl C. diff Tox B Gene Stl C. diff [id number] 12/17/24 12/17/24 12/17/24 07:56 11:51 16:55 WBC RBC Hgb Hct MCV MCH MCHC RDW Std Deviation RDW Coeff of John Plt Count MPV Immature Gran % (Auto) Neut % (Auto) Lymph % (Auto) Island % (Auto) Eos % (Auto) Baso % (Auto) Neut # (Auto) Lymph # (Auto) Island # (Auto) Eos # (Auto) Baso # (Auto) Immature Gran # (Auto) Sodium Potassium Chloride Carbon Dioxide Anion Gap BUN Creatinine Est Cr Clr Drug Dosing eGFR BUN/Creatinine Ratio Glucose POC Glucose 201 H 197 H 188 H Calcium Total Bilirubin AST ALT Alkaline Phosphatase C-Reactive Protein Total Protein Albumin Globulin Albumin/Globulin Ratio Procalcitonin Stl C. diff Tox B Gene Stl C. diff [id number] 12/17/24 12/18/24 12/18/24 20:12 05:44 07:59 WBC 10.61 RBC 3.47 L Hgb 10.1 L Hct 33.3 L MCV 96.0 MCH 29.1 MCHC 30.3 L RDW Std Deviation 58.4 H RDW Coeff of John 16.8 H Plt Count 180 MPV 10.1 Immature Gran % (Auto) 3.0 Neut % (Auto) 62.9 Lymph % (Auto) 10.6 Island % (Auto) 12.0 Eos % (Auto) 10.5 Baso % (Auto) 1.0 Neut # (Auto) 6.68 H Lymph # (Auto) 1.12 L Island # (Auto) 1.27 H Eos # (Auto) 1.11 H Baso # (Auto) 0.11 Immature Gran # (Auto) 0.32 H Sodium 137 Potassium 3.5 Chloride 104 Carbon Dioxide 19 L Anion Gap 14 H BUN 108 H D Creatinine 7.40 H* D Est Cr Clr Drug Dosing Not Reportable eGFR 7.56 BUN/Creatinine Ratio 14.6 Glucose 182 H POC Glucose 186 H 172 H Calcium 9.4 Total Bilirubin AST ALT Alkaline Phosphatase C-Reactive Protein 1.56 H Total Protein Albumin Globulin Albumin/Globulin Ratio Procalcitonin Stl C. diff Tox B Gene Stl C. diff [id number] 12/18/24 12/18/24 11:43 Unknown WBC RBC Hgb Hct MCV MCH MCHC RDW Std Deviation RDW Coeff of John Plt Count MPV Immature Gran % (Auto) Neut % (Auto) Lymph % (Auto) Island % (Auto) Eos % (Auto) Baso % (Auto) Neut # (Auto) Lymph # (Auto) Island # (Auto) Eos # (Auto) Baso # (Auto) Immature Gran # (Auto) Sodium Potassium Chloride Carbon Dioxide Anion Gap BUN Creatinine Est Cr Clr Drug Dosing eGFR BUN/Creatinine Ratio Glucose POC Glucose 176 H Calcium Total Bilirubin AST ALT Alkaline Phosphatase C-Reactive Protein Total Protein Albumin Globulin Albumin/Globulin Ratio Procalcitonin Stl C. diff Tox B Gene Negative Cdiff Gene Stl C. diff [id number] NEGATIVE Microbiology 12/11/24 06:03 Blood Aerobic Blood Culture - Final No growth in Aerobic bottle after 5 days. 12/11/24 06:03 Blood Anaerobic Blood Culture - Final 12/11/24 05:45 Blood Aerobic Blood Culture - Final No growth in Aerobic bottle after 5 days. 12/11/24 05:45 Blood Anaerobic Blood Culture - Final No growth in Anaerobic bottle after 5 days. Diagnostic Findings Knee X-Ray 12/15/24 14:45 XR knee RT 3V CLINICAL HISTORY: right stump infection COMPARISON: MRI of 12/14/2024 FINDINGS: Right knee prosthesis shows no hardware complication. There is [id number] amputation. No fracture or dislocation seen. No evidence of osteomyelitis seen. There are diffuse atherosclerotic calcifications. IMPRESSION: No osteomyelitis seen. ACT 112: Negative or not required by law. Electronically signed by: Christoph Holland M.D. 12/15/2024 3:44 PM 12/14 MRI L-spine 1. Status post posterior spinal fixation from L2?S1 with interbody fusion at L3?L4, L4?L5, and L5?S1. 2. Posterior displacement of the L5?S1 interbody fusion device suggests hardware instability?CT correlation is recommended. 3. No definite MRI evidence of abscess or osteomyelitis in the evaluated regions, though evaluation is limited by metallic susceptibility artifact. 4. Post-laminectomy changes at L4 and L5 with facet hypertrophy and ankylosis causing foraminal narrowing and nerve root impingement at the operated levels. 5. Mild L1?L2 degenerative retrolisthesis with a 3.5 mm asymmetric annular bulge causing mild canal and foraminal stenosis. 6. Myogenic atrophy of the paraspinal muscles is consistent with neuropathic injury or chronic denervation. 7. Levoconvex lumbar scoliosis (Crocker?Lippmann angle 11.5°). 8. Posterior subcutaneous orthostatic edema and Schmorl's nodes at multiple levels. 9. Bilateral senile atrophy with parenchymal cysts. 10. Multilevel thoracic disc pathologies are seen. A dedicated MRI study is recommended after a detailed neurological evaluation. 11. The comparison matches CT findings. 12/14 MRI RLE 1. Status post right total knee arthroplasty (TKA) with associated metallic susceptibility artifacts limiting detailed assessment. (Limited). 2. Synovial effusion and small fluid signals adjacent to the tibial component, likely postoperative or inflammatory in nature?infectious etiology cannot be excluded; recommend clinical and laboratory correlation. 3. Right below-knee amputation (BKA) with a well-formed stump and no MRI evidence of abscess, osteomyelitis, or periosteal reaction. 4. Diffuse myogenic signal alteration with posterior subcutaneous edema?likely inflammatory myositis or cellulitis, though neuropathic injury changes may contribute. 5. Unremarkable residual tibia, fibula, and neurovascular structures. 12/11 CT A/P Mild right pleural effusion with basal subsegmental collapse consolidation of right lower lobes are seen. Few atelectatic bands are noted involving bilateral lung bases and in right middle lobe. Multiple small uncomplicated sigmoid colonic diverticulosis Diffuse mucosal thickening is noted involving distal rectum and anal canal - possibility of proctocolitis. - clinical correlation suggested. Medications Administered Home Medications Medication Instructions Recorded Confirmed Last Taken lidocaine 4 % topical patch 1 patch topical Q12 08/24/23 12/11/24 Unknown acetaminophen 325 mg tablet 650 mg PO Q6 PRN PAIN 1-10 SCALE 11/17/24 12/11/24 Unknown (Tylenol) acetaminophen 325 mg tablet 650 mg PO Q6 PRN temp above 100.1 11/17/24 12/11/24 Unknown (Tylenol) allopurinol 100 mg tablet 100 mg PO .M,W,F 11/17/24 12/11/24 Unknown (Zyloprim) apixaban 5 mg tablet (Eliquis) 5 mg PO AMHS 11/17/24 12/11/24 Unknown aspirin 81 mg tablet,delayed 81 mg PO QAM 11/17/24 12/11/24 Unknown release clonidine HCl 0.1 mg tablet 0.1 mg PO .EVERY 24 HOURS PRN 11/17/24 12/11/24 Unknown Hypertension dextran 70-hypromellose (PF) 0.1 1 drp OPB QAM 11/17/24 12/11/24 Unknown %-0.3 % eye drops in a dropperette (Artificial Tears (PF)) diphenhydramine HCl 25 mg tablet 25 mg PO Q6 PRN Allergy Symptoms 11/17/24 12/11/24 Unknown (Benadryl Allergy) doxepin 10 mg capsule 10 mg PO HS 11/17/24 12/11/24 Unknown ergocalciferol (vitamin D2) 1,250 1,250 mcg PO WK 11/17/24 12/11/24 Unknown mcg (50,000 unit) capsule escitalopram oxalate 5 mg tablet 5 mg PO QAM 11/17/24 12/11/24 Unknown (Lexapro) ferric citrate 210 mg iron tablet 210 mg PO TID 11/17/24 12/11/24 Unknown (Auryxia) ferric citrate 210 mg iron tablet 420 mg PO WM 11/17/24 12/11/24 Unknown (Auryxia) gabapentin 100 mg tablet 0 mg PO TID 11/17/24 12/11/24 Unknown levetiracetam 1,000 mg tablet 0 mg PO QAM 11/17/24 12/11/24 Unknown levetiracetam 500 mg tablet 500 mg PO 3XWK 11/17/24 12/11/24 Unknown linagliptin 5 mg tablet 0 mg PO DAILY 11/17/24 12/11/24 Unknown loperamide 2 mg tablet (Imodium 2 mg PO Q6H PRN LOOSE STOOLS 11/17/24 12/11/24 Unknown A-D) menthol 0.44 %-zinc oxide 20.6 % 1 applic topical Q12 PRN Itching 11/17/24 12/11/24 Unknown topical ointment (Calmoseptine) menthol 0.44 %-zinc oxide 20.6 % 1 applic topical TID 11/17/24 12/11/24 Unknown topical ointment (Calmoseptine) nicotine 21 mg/24 hr daily 1 patch transdermal DAILY 11/17/24 12/11/24 Unknown transdermal patch oxycodone 10 mg tablet,crush 10 mg PO AMHS 11/17/24 12/11/24 Unknown resistant,extended release 12 hr (OxyContin) pantoprazole 40 mg tablet,delayed 40 mg PO QAM 11/17/24 12/11/24 Unknown release prazosin 1 mg capsule 1 mg PO HS 11/17/24 12/11/24 Unknown rosuvastatin 10 mg tablet 0 mg PO QPM 11/17/24 12/11/24 Unknown triamcinolone acetonide 0.1 % 1 applic topical 2XD 11/17/24 12/11/24 Unknown topical cream vitamin B complex-vitamin C-folic 1 tab PO QAM 11/17/24 12/11/24 Unknown acid 0.8 mg tablet (Renal Vitamin) atorvastatin 20 mg tablet 20 mg PO DAILY 12/11/24 12/11/24 Unknown bisacodyl 10 mg rectal suppository 10 mg NM DAILY PRN Constipation 12/11/24 12/11/24 Unknown (Dulcolax (bisacodyl)) diclofenac sodium 1 % topical gel 0 g EXT TID 12/11/24 12/11/24 Unknown (Voltaren Arthritis Pain) docusate sodium 100 mg capsule 100 mg PO DAILY 12/11/24 12/11/24 Unknown (Colace) ferric citrate 210 mg iron tablet 210 mg PO UD PRN end stage renal 12/11/24 Unknown disease lidocaine 4 % topical patch 1 patch topical DAILY 12/11/24 12/11/24 Unknown midodrine 10 mg tablet 0 mg PO DAILY PRN hypotension 12/11/24 12/11/24 Unknown midodrine 5 mg tablet 5 mg PO .M,W,F Post dialysis 12/11/24 12/11/24 Unknown midodrine 5 mg tablet 10 mg PO .M,W,F 12/11/24 12/11/24 Unknown nystatin 100,000 unit/gram topical 1 applic topical UD 12/11/24 12/11/24 Unknown cream oxycodone 5 mg tablet 5 mg PO Q4H PRN Pain 12/11/24 12/11/24 Unknown sitagliptin phosphate 25 mg tablet 25 mg PO DAILY 12/11/24 12/11/24 Unknown (Januvia) Active Medications Generic Name Dose Route Start Last Admin Trade Name Freq PRN Reason Stop Dose Admin Acetaminophen 650 mg 12/11/24 14:38 12/13/24 21:21 Acetaminophen 325 Mg Tab PO 01/10/25 14:37 650 mg Q4H PRN Administration Pain or Fever Allopurinol 100 mg 12/13/24 09:00 12/18/24 08:47 Allopurinol 100 Mg Tab PO 01/12/25 08:59 100 mg [id number] AILYN Administration Apixaban 5 mg 12/11/24 21:00 12/18/24 08:47 Apixaban 5 Mg Tablet PO 01/10/25 20:59 5 mg AMHS AILYN Administration Artificial Tears 1 drops 12/12/24 09:00 12/18/24 08:53 Artificial Tears OP 01/11/25 08:59 1 drops QAM AILYN Administration Aspirin 81 mg 12/12/24 09:00 12/18/24 08:46 Aspirin 81 Mg Ectab PO 01/11/25 08:59 81 mg QAM AILYN Administration Atorvastatin Calcium 20 mg 12/12/24 09:00 12/18/24 08:46 Atorvastatin 20 Mg Tab PO 01/11/25 08:59 20 mg DAILY AILYN Administration Cefdinir 300 mg 12/17/24 09:00 12/18/24 08:46 Cefdinir 300 Mg Cap PO 01/28/25 08:59 300 mg DAILY AILYN Administration Diclofenac Sodium 2 gm 12/11/24 21:00 12/18/24 13:18 Diclofenac Sod 1% Gel 100 Gm Tube EXT 01/10/25 20:59 2 gm TID AILYN Administration Protocol Docusate Sodium 100 mg 12/12/24 09:00 12/18/24 08:38 Docusate Sodium 100 Mg Cap PO 01/11/25 08:59 Not Given DAILY AILYN Doxepin HCl 10 mg 12/11/24 21:00 12/17/24 20:21 Doxepin Hcl 10 Mg Capsule PO 01/10/25 20:59 10 mg HS AILYN Administration Ergocalciferol 1,250 mcg 12/12/24 09:00 12/12/24 09:17 Ergocalciferol 1250 Mcg (50,000 Units) Cap PO 01/11/25 08:59 1,250 mcg Q7D AILYN Administration Escitalopram Oxalate 5 mg 12/12/24 09:00 12/18/24 08:47 Escitalopram Oxalate 10 Mg Tab PO 01/11/25 08:59 5 mg QAM AILYN Administration Gabapentin 100 mg 12/11/24 21:00 12/18/24 13:18 Gabapentin 100 Mg Cap PO 01/10/25 20:59 100 mg TID AILYN Administration Lorazepam 0.5 mg/ Syringe 0.5 mls @ 2 mls/min 12/12/24 18:21 12/14/24 17:16 IV 01/11/25 18:20 2 mls/min ONCE PRN Administration Prior to MRI Daptomycin 700 mg/ Syringe 14 mls @ 7 mls/min 12/14/24 10:00 12/18/24 10:15 IV 12/21/24 09:59 7 mls/min Q48H AILYN Administration Protocol Insulin Aspart 0 units 12/11/24 16:30 12/18/24 12:11 Insulin Aspart Per Unit Charge SC 01/10/25 16:29 2 units ACHS AILYN Administration Insulin Glargine 0 units 12/16/24 21:00 12/17/24 20:20 Lantus Per Unit Charge SQ 01/15/25 20:59 8 units HS AILYN Administration Protocol Levetiracetam 1,000 mg 12/12/24 09:00 12/18/24 08:46 Levetiracetam 500 Mg Tab PO 01/11/25 08:59 1,000 mg QAM AILYN Administration Levetiracetam 500 mg 12/13/24 09:00 12/18/24 08:46 Levetiracetam 500 Mg Tab PO 01/12/25 08:59 500 mg [id number] AILYN Administration Lidocaine 1 patch 12/12/24 09:00 12/18/24 08:46 Lidocaine 5% 1 Patch TD 01/11/25 08:59 1 patch DAILY AILYN Administration Metronidazole 500 mg 12/15/24 21:00 12/18/24 08:46 Metronidazole 500 Mg Tab PO 12/19/24 20:59 500 mg BID AILYN Administration Protocol Midodrine 10 mg 12/11/24 14:38 12/18/24 10:54 Midodrine Hcl 10 Mg Tab PO 01/10/25 14:37 10 mg DAILY PRN Administration hypotension Midodrine 10 mg 12/13/24 16:00 12/15/24 13:12 Midodrine Hcl 2.5 Mg Tab PO 01/12/25 08:59 10 mg [email or web address] AILYN Administration Miscellaneous 1 each 12/12/24 09:00 12/18/24 08:48 Remove Lidoderm Patch N/A 01/11/25 08:59 1 each DAILY AILYN Administration Miscellaneous 1 each 12/12/24 08:59 12/18/24 08:47 Remove Nicoderm Patch N/A 01/11/25 08:58 1 each [id number] AILYN Administration Nicotine 1 patch 12/12/24 09:00 12/18/24 08:45 Nicotine 21 Mg/24 Hr Tdsy TD 01/11/25 08:59 1 patch DAILY AILYN Administration Oxycodone HCl 5 mg 12/11/24 14:38 12/17/24 15:24 Oxycodone Hcl Ir 5 Mg Tab (Immediate Release) PO 12/25/24 14:37 5 mg Q4H PRN Administration Pain Oxycodone HCl 10 mg 12/11/24 21:00 12/18/24 08:53 Oxycodone Hcl 10 Mg Tabcr (Oxycontin) PO 12/25/24 20:59 10 mg AMHS AILYN Administration Pantoprazole Sodium 40 mg 12/12/24 09:00 12/18/24 08:47 Pantoprazole 40 Mg Tab PO 01/11/25 08:59 40 mg QAM AILYN Administration Prazosin HCl 1 mg 12/11/24 21:00 12/17/24 20:21 Prazosin Hcl 1 Mg Cap PO 01/10/25 20:59 1 mg HS AILYN Administration Triamcinolone Acetonide 1 appln 12/11/24 21:00 12/18/24 08:47 Triamcinolone Acet 0.1% Cr 15 Gm Tube TOP 01/10/25 20:59 1 appln BID AILYN Administration Vitamin B Complex/Folic Acid 1 cap 12/12/24 09:00 12/18/24 08:46 Nephrocaps PO 01/11/25 08:59 1 cap QAM AILYN Administration
[2024-12-18] MEDS: HEPARIN SOD (PORCINE) 1000 UNIT/ML IV ONE (14:20)
--- NOTE | 2024-12-18 15:01 | Hospitalist Progress Note ---
Date of Service December 18, 2024 Assessment & Plan (1) Infection of amputation stump, right lower extremity: (2) Proctocolitis: (3) ESRD (end stage renal disease): (4) SIRS (systemic inflammatory response syndrome): Plan 64 yo gentleman with PMH of ESRD on HD, DM2, A fib, epilepsy, cognitive impairment, GERD, and bilateral BKA who presented to ED for rigors and vomiting x 24 hours. #SIRS/Sepsis | Possible RLL PNA | New Proctocolitis | Recent cellutitis/Catheter site infection - was recently admitted at [facility] in October for exit site infection and was treated with a 9 day course of IV Daptomycin here from 11/17 until 11/26 no further antibiotics needed on discharge given exchange of PermCath and negative PermCath tip and blood cultures - Possible right lung consolidation and proctocolitis on CT on admission - Enterococcus Faecalis on right stump culture from 11/21 - Catheter site and right stump clinically at baseline with minimal erythema or edema - ID consulted - recommends continuing antibiotics through 12/25 with daptomycin for possible right BKA stump infection, cefepime for possible proctocolitis, metronidazole for anaerobic/GI coverage with possible proctocolitis - Attempted to transition to an oral based regimen in support of discharge, however the doxepin is not compatible with linezolid, and it would take a 2-week course to washout the doxepin prior to using linezolid at which time he would have completed his antibiotic course #Pressure-induced deep tissue damage/injury of left buttock, present on arrival | Right BKA wound | Low back pain - Right BKA occurred 1 year ago at [facility], follows with surgeon in [place] - Wound culture from R BKA site with Enterococcus faecalis, sensitivities reveal intermediate sensitivity to Vanco - Wound care nurse consulted, appreciate assistance - MRI findings with retrolisthesis and foraminal stenosis - Orthospine consulted given low back pain and history of lumbar fusion. MRI without evidence of abscess or osteomyelitis of the spine. No surgical intervention indicated. Continue antibiotics as above #Recent right stump ulceration - MRI findings not suggestive of acute source although there are findings that could indicate occult-infection, will continue to monitor - See orthopedics consult - No discrete indication for intervention per orthopedic surgery at this time, see abx per section 1 #Hypokalemia - Repleted and remains WNL #Diarrhea - C diff toxin gene negative - Imodium available PRN #ESRD - Follows with [facility]. schedule at [facility], inhouse dialysis currently - Consult Nephrology - will defer dialysis regimen to nephro team #Hypotension - Uses midodrine with dialysis will continue, also PRN while hospitalized, on the low side most of the day, responding to midodrine #T2DM - A1c 6.4% in November 2024 - Pharmacy glycemic consult placed and managed during hospital stay, hold oral DM2 agents #Atherosclerotic Disease | HLD - continue statin, aspirin #Paroxysmal atrial fibrillation - Continue Eliquis #History of epilepsy continue Keppra 1500mg Dialysis Dosing #Mild cognitive impairment - documented per patient history but is A&Ox4 #Opioid dependence | Phantom pain - Continue scheduled oxycodone, gabapentin and prn Tylenol per home doses #GERD - Continue Protonix 40 mg VTE PPx: Eliquis Dispo: Medically stable. Will need IV Daptomycin through 12/25 - if this can be coordinated through his SNF, he can be discharged. If not, he will remain inpatient to complete his antibiotic course. Ordered Imodium Admission and Anticipated Discharge Date Admission Date: December 11, 2024 Subjective Patient seen and evaluated at bedside during dialysis. He reports "I feel good today." We discussed that unfortunately we cannot transition to linezolid due to his doxepin medication. We discussed potentially coordinating his IV antibiotics outpatient at [facility], however this has not yet been coordinated so he will remain inpatient for now. He has had incontinent loose stool today, his C. difficile was negative, we discussed using Imodium as needed for diarrhea. He denies any additional complaints or concerns at this time. Physical Exam Physical Exam: General: No acute distress, nondiaphoretic, well-developed, well-nourished. Skin: Warm, dry. Perm cath to right chest wall. Cardiac: Regular rate and rhythm without murmurs gallops or rubs. Pulm: Clear to auscultation bilaterally without wheezes, rales or rhonchi. Normal respiratory effort. 92% on room air. Abdominal: Soft, nontender, nondistended. Bowel sounds present. Extremities: Bilateral BKAs. Very small scabbed opened area of the medial distal right BKA site. No increased warmth, erythema, drainage, or other signs of infection and BKA sites bilaterally. Neuro: A&O x3. No focal neurological deficits. Results & Data Results & Data Vital Signs (Past 12 Hours) Vital Signs Temp Pulse Pulse Pulse Resp BP BP 12/18/24 14:30 78 91/58 L 12/18/24 14:02 77 110/63 12/18/24 14:02 97.5 F L 78 78 12/18/24 12:13 103/62 12/18/24 11:00 97.9 F 85 19 86/60 L 12/18/24 10:39 99.1 F 88 16 71/45 L 12/18/24 07:37 98.2 F 84 20 107/68 12/18/24 07:20 87 12/18/24 03:33 98.6 F 90 19 103/69 Pulse Ox O2 Del Method 12/18/24 14:30 12/18/24 14:02 12/18/24 14:02 12/18/24 12:13 12/18/24 11:00 92 Room Air 12/18/24 10:39 94 Room Air 12/18/24 07:37 93 Room Air 12/18/24 07:20 12/18/24 03:33 93 Room Air Laboratory Results Reviewed CBC with differential Reviewed BMP Reviewed stool studies PG Care Time/CCT Total # of Minutes Spent Total Time Spent with Patient: Total time spent is greater than 50% in coordination of care (as documented) at patient's floor/unit and/or counseling patient: Coding Level of Care Code 54431 SUB INP/OBS CARE 2/35MIN Diagnoses Infection of amputation stump, right lower extremity T87.43 Proctocolitis K52.9 ESRD (end stage renal disease) N18.6 SIRS (systemic inflammatory response syndrome) R65.10
[2024-12-18] MEDS: HEPARIN SOD (PORCINE) 1000 UNIT/ML IV SCH (17:36)
[2024-12-18] MEDS: LOPERAMIDE HCL 2 MG CAP PO PRN (20:43)
[2024-12-19 06:58] LABS: Hematocrit (blood only) 34.5 % (42.0-52.0); Hemoglobin 10.5 g/dl (14.0-18.0); Mean Corpuscular Hemoglobin 28.5 pg (25.0-34.0); Mean Corpuscular Volume 93.5 fL (80.0-100.0); Platelet Count 206 K/uL (130-400); RDW Standard Deviation 57.1 fL (36.4-46.3); Red Blood Count 3.69 M/uL (4.70-6.10); White Blood Count 10.69 K/ul (4.8-10.8)
[2024-12-19 07:15] LABS: Anion Gap 11 (3-11); Calcium 8.9 mg/dl (8.6-10.3); Carbon Dioxide 25 mmol/L (21-32); Chloride 102 mmol/L (98-107); Potassium 3.0 mmol/L (3.5-5.1); Sodium 138 mmol/L (136-145)
[2024-12-19 07:22] LABS: Blood Urea Nitrogen 48 mg/dl (6-23); Glucose 128 mg/dl (70-99(Fasting))
--- NOTE | 2024-12-19 10:25 | Nephrology Progress Note ---
Date of Service December 19, 2024 Assessment & Plan Admission and Anticipated Discharge Date Admission Date: December 11, 2024 Subjective Assessment & Plan (1) ESRD (end stage renal disease): Plan: patient is on dialysis Wednesday. He tolerated dialysis well Wednesday. Electrolytes are stable no signs of volume overload. next HD later today--3.5 hrs and 3k bath. will aim for 1-2 kilo today given Diarrhea and Low BP (2) Labile blood pressure: Plan: Continue midodrine w/ HD. Despite this he had significant hypotension on treatment. Will continue midodrine with dialysis Subjective Seen for ESRD. No SOB. Last HD was Wednesday. BP is still low and having some Diarrhea. eating 100% though Review of Systems Review of Systems: All other systems were reviewed and negative except as noted in HPI Physical Exam Physical Exam: General exam: Appears comfortable, no acute distress HEENT: Pupils are equal and reactive to light Neck: No JVD, neck is supple trachea is midline Respiratory system: Clear breath sounds bilaterally. Gastrointestinal: Abdomen is soft, non distended, non tender, bowel sounds are present CVS: Regular rate and rhythm. No murmurs, rubs or gallops Extremities: Bilateral amputations Skin: No rashes Results & Data Vital Signs (Past 12 Hours) Vital Signs Temp Pulse Pulse Resp BP Pulse Ox O2 Del Method 12/19/24 09:36 Room Air 12/19/24 07:32 36.6 C 69 18 100/66 94 Room Air 12/19/24 07:09 65 12/19/24 04:00 36.8 C 68 18 138/88 93 Room Air 12/18/24 23:42 36.5 C 74 14 114/74 94 Room Air
--- NOTE | 2024-12-19 14:42 | Hospitalist Progress Note ---
"Date of Service December 19, 2024 Assessment & Plan (1) Infection of amputation stump, right lower extremity: (2) Proctocolitis: (3) ESRD (end stage renal disease): Plan 64 yo gentleman with PMH of ESRD on HD, DM2, A fib, epilepsy, cognitive impairment, GERD, and bilateral BKA who presented to ED for rigors and vomiting x 24 hours. #Sepsis, POA | possible MRSA Pneumonia | New Proctocolitis | Recent cellulitis/Catheter site infection - was recently admitted at [facility] in October for exit site infection and was treated with a 9 day course of IV Daptomycin here from 11/17 until 11/26 no further antibiotics needed on discharge given exchange of PermCath and negative PermCath tip and blood cultures - Possible right lung consolidation and proctocolitis on CT on admission - Enterococcus Faecalis on right stump culture from 11/21 - Catheter site and right stump clinically at baseline with minimal erythema or edema - ID consulted - recommends continuing antibiotics through 12/25 with daptomycin for possible right BKA stump infection, cefepime for possible proctocolitis, metronidazole for anaerobic/GI coverage with possible proctocolitis - Attempted to transition to an oral based regimen in support of discharge, however the doxepin is not compatible with linezolid, and it would take a 2-week course to washout the doxepin prior to using linezolid at which time he would have completed his antibiotic course - Continue daptomycin IV, cefdinir p.o., and Flagyl p.o. #Pressure ulcer of left middle buttock, stage 3, POA | Right BKA wound | Low back pain - Right BKA occurred [address] [facility], follows with surgeon in [place] - Wound culture from R BKA site with Enterococcus faecalis, sensitivities reveal intermediate sensitivity to Vanco - Wound care nurse consulted, appreciate assistance - MRI findings with retrolisthesis and foraminal stenosis - Orthospine consulted given low back pain and history of lumbar fusion. MRI without evidence of abscess or osteomyelitis of the spine. No surgical intervention indicated. Continue antibiotics as above #Recent right stump ulceration - MRI findings not suggestive of acute source although there are findings that could indicate occult-infection, will continue to monitor - See orthopedics consult - No discrete indication for intervention per orthopedic surgery at this time, see abx per section 1 #Hypokalemia - Low again today 12/19 at 3.0 - will defer repletion to nephrology #Diarrhea - C diff toxin gene negative - Imodium available PRN #ESRD - Follows with [facility]. - schedule at [facility], inhouse dialysis currently - Consult Nephrology - will defer dialysis regimen to nephro team #Hypotension - Uses midodrine with dialysis will continue, also PRN while hospitalized, on the low side most of the day, responding to midodrine, asymptomatic #T2DM - A1c 6.4% in November 2024 - Pharmacy glycemic consult placed and managed during hospital stay, hold oral DM2 agents #Atherosclerotic Disease | HLD - continue statin, aspirin #Paroxysmal atrial fibrillation - Continue Eliquis #History of epilepsy continue Keppra 1500mg Dialysis Dosing #Mild cognitive impairment - documented per patient history but is A&Ox4 #Opioid dependence | Phantom pain - Continue scheduled oxycodone, gabapentin and prn Tylenol per home doses #GERD - Continue Protonix 40 mg VTE PPx: Eliquis Dispo: Medically stable. Will need IV Daptomycin through 12/25 - if this can be coordinated through his SNF, he can be discharged. If not, he will remain inpatient to complete his antibiotic course. Discussed discharge planning with CM Admission and Anticipated Discharge Date Admission Date: December 11, 2024 Supervising Physician Co-Signing Physician Notes chart reviewed, case d/w S [place] PAC, as above Subjective Patient seen and evaluated at bedside. He reports that his diarrhea has improved with Imodium. We discussed that unfortunately he does not seem like [facility] can coordinate his daptomycin outpatient, therefore he will remain inpatient to complete his antibiotic course. He is understanding. He denies any acute complaints or concerns at this time. Physical Exam Physical Exam: General: No acute distress, nondiaphoretic, well-developed, well-nourished. Skin: Warm, dry. Perm cath to right chest wall. Cardiac: Regular rate and rhythm without murmurs gallops or rubs. Pulm: Clear to auscultation bilaterally without wheezes, rales or rhonchi. Normal respiratory effort. 94% on room air. Abdominal: Soft, nontender, nondistended. Bowel sounds present. Extremities: Bilateral BKAs. Very small scabbed opened area of the medial distal right BKA site. No increased warmth, erythema, drainage, or other signs of infection and BKA sites bilaterally. Neuro: A&O x3. No focal neurological deficits. Results & Data Results & Data Vital Signs (Past 12 Hours) Vital Signs Temp Pulse Pulse Resp BP Pulse Ox O2 Del Method 12/19/24 13:58 72 12/19/24 10:56 97.7 F 71 18 92/63 L 94 Room Air 12/19/24 09:36 Room Air 12/19/24 07:32 97.9 F 69 18 100/66 94 Room Air 12/19/24 07:09 65 12/19/24 04:00 98.2 F 68 18 138/88 93 Room Air Laboratory Results Reviewed CBC Reviewed BMP PG Care Time/CCT Total # of Minutes Spent Total Time Spent with Patient: Total time spent is greater than 50% in coordination of care (as documented) at patient's floor/unit and/or counseling patient: Coding Level of Care Code 96834 SUB INP/OBS CARE 2/35MIN Diagnoses Infection of amputation stump, right lower extremity T87.43 Proctocolitis K52.9 ESRD (end stage renal disease) N18.6"
[2024-12-20] MEDS ORDERED: SODIUM CHLORIDE 0.9% 1,000 ML IV PRN (07:00)
[2024-12-20 07:23] LABS: Hematocrit (blood only) 34.1 % (42.0-52.0); Hemoglobin 10.9 g/dl (14.0-18.0); Mean Corpuscular Hemoglobin 29.9 pg (25.0-34.0); Mean Corpuscular Volume 93.4 fL (80.0-100.0); Platelet Count 212 K/uL (130-400); RDW Standard Deviation 56.8 fL (36.4-46.3); Red Blood Count 3.65 M/uL (4.70-6.10); White Blood Count 9.31 K/ul (4.8-10.8)
[2024-12-20 08:08] LABS: Anion Gap 15 (3-11); Blood Urea Nitrogen 75 mg/dl (6-23); Calcium 9.1 mg/dl (8.6-10.3); Carbon Dioxide 23 mmol/L (21-32); Chloride 101 mmol/L (98-107); Creatine Kinase 40 U/L (30-223); Glucose 189 mg/dl (70-99(Fasting)); Potassium 3.1 mmol/L (3.5-5.1); Sodium 139 mmol/L (136-145)
--- NOTE | 2024-12-20 11:32 | Nephrology Progress Note ---
Date of Service December 20, 2024 Assessment & Plan Admission and Anticipated Discharge Date Admission Date: December 11, 2024 Subjective Assessment & Plan (1) ESRD (end stage renal disease): Plan: patient is on dialysis Wednesday. He tolerated dialysis well on wednesday. Electrolytes are stable no signs of volume overload. next HD later today--3.5 hrs and 3k or if we have it use 4 K bath. will aim for 1-2 kilo today given Diarrhea and Low BP (2) Labile blood pressure: Plan: Continue midodrine w/ HD. Despite this he had significant hypotension on treatment. Will continue midodrine with dialysis Subjective Seen for ESRD. No SOB. Last HD was wednesday. Discharge being delayed for placement. BP is still low and having some Diarrhea. eating 100% though Review of Systems Review of Systems: All other systems were reviewed and negative except as noted in HPI Physical Exam Physical Exam: General exam: Appears comfortable, no acute distress HEENT: Pupils are equal and reactive to light Neck: No JVD, neck is supple trachea is midline Respiratory system: Clear breath sounds bilaterally. Gastrointestinal: Abdomen is soft, non distended, non tender, bowel sounds are present CVS: Regular rate and rhythm. No murmurs, rubs or gallops Extremities: Bilateral amputations Skin: No rashes Results & Data Vital Signs (Past 12 Hours) Vital Signs Temp Pulse Pulse Pulse Resp BP Pulse Ox 12/20/24 11:07 36.7 C 73 18 108/74 95 12/20/24 07:12 73 12/20/24 06:56 36.6 C 72 18 143/91 H 95 12/20/24 03:33 36.7 C 75 20 117/71 94 12/20/24 00:06 36.8 C 74 18 132/83 93 O2 Del Method 12/20/24 11:07 Room Air 12/20/24 07:12 12/20/24 06:56 Room Air 12/20/24 03:33 Room Air 12/20/24 00:06 Room Air
[2024-12-20] MEDS: LANTUS PER UNIT CHARGE SC ONE (13:20)
--- NOTE | 2024-12-20 14:53 | Pharmacy Report ---
Pharmacy Glycemic Short Note 2 - Date of Service December 20, 2024 - Glycemic Short BSG Results (Last 24 hours): 12/19/24 12/19/24 12/19/24 16:38 20:32 21:03 Glucose POC Glucose 171 H 318 H* 481 H* 12/19/24 12/19/24 12/20/24 21:11 22:21 06:38 Glucose 189 H POC Glucose 281 H 296 H 12/20/24 12/20/24 07:51 11:53 Glucose POC Glucose 238 H 253 H OUTPATIENT ANTIDIABETIC REGIMEN: * Sitagliptin 25mg daily * HbA1c: 6.4% (11/15/2024) ASSESSMENT: 12/20: * Olaf received a total of 29 units of insulin yesterday (10 units were basal and 19 units were bolus). BSGs started to trend up again yesterday (318mg/dL at HS) for unclear reasons. * Fasting BSG was still elevated this morning at 238mg/dL. Lantus 5 units SQ x 1 was ordered and bolus insulin parameters were tightened to a stress between 2 and 3. * He is scheduled for HD today. 12/17/24: * Hemodialysis on 12/13, 12/14, and 12/15 * Blood sugars began to trend up significantly on 12/15 - unclear reason for this * Basal insulin initiated and bolus insulin regimen intensified * Hesitant to increase further despite hyperglycemia given HD with well- controlled T2DM as an outpatient on sitagliptin only 12/15: * Olaf received only 1 units of insulin, it was correctional * Fasting BSG was 158mg/dL this morning. He was dialyzed again today. * Will continue current regimen with correction insulin only.-Of note, he reportedly has refused a few doses of insulin. 12/13: * Patient received total of 20 units of insulin yesterday, all of correctional * BSGs trending down later in day - will loosen CF and broaden goal range 12/11: * Olaf is a 64 year old male with T2DM who presents to the hospital with fever and vomiting * Patient is on HD Wednesday, Wednesday, and Wednesday (last session 12/11, completed this evening) * Glucose was 238 mg/dL on arrival, elevated * Patient was in dialysis and unable to get insulin or glucose checks * Now that patient has returned, will plan on just getting 2100 glucose check and administer Novolog as necessary * Renal diet ordered * Stressors: infection * Patient had recent hospitalization where he had an insulin regimen of CF 30, CR 8 * Chose regimen of CF 30, CR 9 - stress level of 2 PLAN FOR INPATIENT GLYCEMIC CONTROL: * Hold outpatient oral diabetes medications * Basal insulin * Lantus 5 units SQ x 1 this morning and Lantus scale (0,8, or 10 units depending on BSG) SQ HS (see EHR for details) * Bolus insulin * NovoLog per scale ACHS or Q6hrs while NPO * Goal Range: Low 110 mg/dL - High 160 mg/dL * Correction Factor: 25 mg/dL/unit * Nutritional / Prandial insulin per carb ratio of 1 unit per 6 grams CHO consumed
[2024-12-20] MEDS: CEFDINIR 300 MG CAP PO SCH (15:50)
--- NOTE | 2024-12-20 16:55 | Hospitalist Progress Note ---
"Date of Service December 20, 2024 Assessment & Plan (1) Infection of amputation stump, right lower extremity: (2) Proctocolitis: (3) ESRD (end stage renal disease): Plan 64 yo gentleman with PMH of ESRD on HD, DM2, A fib, epilepsy, cognitive impairment, GERD, and bilateral BKA who presented to ED for rigors and vomiting x 24 hours. #Sepsis, POA | possible MRSA Pneumonia | New Proctocolitis | Recent cellulitis/Catheter site infection - was recently admitted at [facility] in October for exit site infection and was treated with a 9 day course of IV Daptomycin here from 11/17 until 11/26 no further antibiotics needed on discharge given exchange of PermCath and negative PermCath tip and blood cultures - Possible right lung consolidation and proctocolitis on CT on admission - Enterococcus Faecalis on right stump culture from 11/21 - Catheter site and right stump clinically at baseline with minimal erythema or edema - ID consulted - recommends continuing antibiotics through 12/25 with daptomycin for possible right BKA stump infection, cefepime for possible proctocolitis, metronidazole for anaerobic/GI coverage with possible proctocolitis - Attempted to transition to an oral based regimen in support of discharge, however the doxepin is not compatible with linezolid, and it would take a 2-week course to washout the doxepin prior to using linezolid at which time he would have completed his antibiotic course - Continue daptomycin IV, cefdinir p.o., and Flagyl p.o. #Pressure ulcer of left middle buttock, stage 3, POA | Right BKA wound | Low back pain - Right BKA occurred 1 year ago at [facility], follows with surgeon in [place] - Wound culture from R BKA site with Enterococcus faecalis, sensitivities reveal intermediate sensitivity to Vanco - Wound care nurse consulted, appreciate assistance - MRI findings with retrolisthesis and foraminal stenosis - Orthospine consulted given low back pain and history of lumbar fusion. MRI without evidence of abscess or osteomyelitis of the spine. No surgical intervention indicated. Continue antibiotics as above #Recent right stump ulceration - MRI findings not suggestive of acute source although there are findings that could indicate occult-infection, will continue to monitor - See orthopedics consult - No discrete indication for intervention per orthopedic surgery at this time, see abx per section 1 #Hypokalemia - Low again today 12/20 at 3.1 - will defer repletion to nephrology #Diarrhea - C diff toxin gene negative - Imodium available PRN #ESRD - Follows with [facility]. schedule at [facility], inhouse dialysis currently - Consult Nephrology - will defer dialysis regimen to nephro team #Hypotension - Uses midodrine with dialysis will continue, also PRN while hospitalized, on the low side most of the day, responding to midodrine, asymptomatic #T2DM - A1c 6.4% in November 2024 - Pharmacy glycemic consult placed and managed during hospital stay, hold oral DM2 agents #Atherosclerotic Disease | HLD - continue statin, aspirin #Paroxysmal atrial fibrillation - Continue Eliquis #History of epilepsy continue Keppra 1500mg Dialysis Dosing #Mild cognitive impairment - documented per patient history but is A&Ox4 #Opioid dependence | Phantom pain - Continue scheduled oxycodone, gabapentin and prn Tylenol per home doses #GERD - Continue Protonix 40 mg VTE PPx: Eliquis Dispo: Medically stable. Will need IV Daptomycin through 12/25, unfortunately his SNF cannot accommodate IV daptomycin so he will remain hospitalized through completion of his antibiotic course. Admission and Anticipated Discharge Date Admission Date: December 11, 2024 Supervising Physician Co-Signing Physician Notes chart reviewed, case d/w S [place] PAC, as above Subjective Attempted to round on patient x 2 this morning but was sleeping both times. Patient seen and evaluated at bedside during his dialysis treatment. He reports feeling well overall. His diarrhea has resolved. He reports that he is well tolerating his diet and sleeps well overnight. He denies any acute complaints or concerns at this time. Telemetry reviewed: NSR in 70s. Physical Exam Physical Exam: General: No acute distress, nondiaphoretic, well-developed, well-nourished. Skin: Warm, dry. Perm cath to right chest wall. Cardiac: Well-perfused. Rate in 80s. Pulm: Normal respiratory effort. 95% on room air. Extremities: Bilateral BKAs. Very small scabbed opened area of the medial distal right BKA site. No increased warmth, erythema, drainage, or other signs of infection and BKA sites bilaterally. Neuro: A&O x3. No focal neurological deficits. Results & Data Results & Data Vital Signs (Past 12 Hours) Vital Signs Temp Pulse Pulse Pulse Resp BP BP 12/20/24 16:30 82 118/76 12/20/24 16:00 82 113/76 12/20/24 15:30 82 105/68 12/20/24 15:00 81 108/63 12/20/24 14:51 76 12/20/24 14:30 74 99/58 L 12/20/24 14:15 73 120/69 12/20/24 14:09 98.1 F 77 12/20/24 11:07 98.1 F 73 18 108/74 12/20/24 07:12 73 12/20/24 06:56 97.9 F 72 18 143/91 H Pulse Ox O2 Del Method 12/20/24 16:30 12/20/24 16:00 12/20/24 15:30 12/20/24 15:00 12/20/24 14:51 12/20/24 14:30 12/20/24 14:15 12/20/24 14:09 12/20/24 11:07 95 Room Air 12/20/24 07:12 12/20/24 06:56 95 Room Air Laboratory Results Reviewed CBC Reviewed BMP PG Care Time/CCT Total # of Minutes Spent Total Time Spent with Patient: Total time spent is greater than 50% in coordination of care (as documented) at patient's floor/unit and/or counseling patient: Coding Level of Care Code 17050 SUB INP/OBS CARE 2/35MIN Diagnoses Infection of amputation stump, right lower extremity T87.43 Proctocolitis K52.9 ESRD (end stage renal disease) N18.6"
[2024-12-20] MEDS: metroNIDAZOLE 500 MG TAB PO SCH (20:35)
[2024-12-21 06:14] LABS: Hematocrit (blood only) 34.2 % (42.0-52.0); Hemoglobin 11.0 g/dl (14.0-18.0); Mean Corpuscular Hemoglobin 30.2 pg (25.0-34.0); Mean Corpuscular Volume 94.0 fL (80.0-100.0); Platelet Count 216 K/uL (130-400); RDW Standard Deviation 57.0 fL (36.4-46.3); Red Blood Count 3.64 M/uL (4.70-6.10); White Blood Count 8.18 K/ul (4.8-10.8)
[2024-12-21 06:40] LABS: Anion Gap 11 (3-11); Blood Urea Nitrogen 44 mg/dl (6-23); Calcium 9.1 mg/dl (8.6-10.3); Carbon Dioxide 26 mmol/L (21-32); Chloride 101 mmol/L (98-107); Glucose 269 mg/dl (70-99(Fasting)); Potassium 3.4 mmol/L (3.5-5.1); Sodium 138 mmol/L (136-145)
[2024-12-21] MEDS: LANTUS PER UNIT CHARGE SC SCH (09:38)
--- NOTE | 2024-12-21 10:37 | Hospitalist Progress Note ---
"Date of Service December 21, 2024 Assessment & Plan (1) Infection of amputation stump, right lower extremity: (2) Proctocolitis: (3) ESRD (end stage renal disease): Plan 64 yo gentleman with PMH of ESRD on HD, DM2, A fib, epilepsy, cognitive impairment, GERD, and bilateral BKA who presented to ED for rigors and vomiting x 24 hours. #Sepsis, POA | possible MRSA Pneumonia | New Proctocolitis - was recently admitted at [facility] in October for exit site infection and was treated with a 9 day course of IV Daptomycin here from 11/17 until 11/26 no further antibiotics needed on discharge given exchange of PermCath and negative PermCath tip and blood cultures - Possible right lung consolidation and proctocolitis on CT on admission - Catheter site and right stump clinically at baseline with minimal erythema or edema - ID consulted - recommends continuing antibiotics through 12/25 with daptomycin for possible right BKA stump infection, cefepime for possible proctocolitis, m etronidazole for anaerobic/GI coverage with possible proctocolitis - Attempted to transition to an oral based regimen in support of discharge, however the doxepin is not compatible with linezolid, and it would take a 2-week course to washout the doxepin prior to using linezolid at which time he would have completed his antibiotic course - Continue daptomycin IV, cefdinir p.o., and Flagyl p.o. #Right BKA wound | Pressure ulcer of left middle buttock, stage 3, POA - Right BKA occurred 1 year ago at [facility], follows with surgeon in [place] - Wound culture from R BKA site with Enterococcus faecalis, sensitivities reveal intermediate sensitivity to Vanco - Wound care nurse consulted, appreciate assistance #Low back pain - MRI findings with retrolisthesis and foraminal stenosis - [facility]ine consulted given low back pain and history of lumbar fusion. MRI without evidence of abscess or osteomyelitis of the spine. No surgical intervention indicated. Continue antibiotics as above #Hypokalemia - Low again but improved today 12/21 at 3.4 - will defer repletion to nephrology #Diarrhea - C diff toxin gene negative - Imodium available PRN #ESRD - Follows with [facility]. M-W-F schedule at [facility], inhouse dialysis currently - Consult Nephrology - will defer dialysis regimen to nephro team #Hypotension - Uses midodrine with dialysis will continue, also PRN while hospitalized, on the low side most of the day, responding to midodrine, asymptomatic #T2DM - A1c 6.4% in November 2024 - Pharmacy glycemic consult placed and managed during hospital stay, hold oral DM2 agents #Atherosclerotic Disease | HLD - continue statin, aspirin #Paroxysmal atrial fibrillation - Continue Eliquis #History of epilepsy continue Keppra 1500mg Dialysis Dosing #Mild cognitive impairment - documented per patient history but is A&Ox4 #Opioid dependence | Phantom pain - Continue scheduled oxycodone, gabapentin and prn Tylenol per home doses #GERD - Continue Protonix 40 mg VTE PPx: Eliquis Dispo: Medically stable. Will need IV Daptomycin through 12/25, unfortunately his SNF cannot accommodate IV daptomycin so he will remain hospitalized through completion of his antibiotic course. Admission and Anticipated Discharge Date Admission Date: December 11, 2024 Supervising Physician Co-Signing Physician Notes chart reviewed, case d/w S Gross PAC, as above Subjective Patient seen and evaluated at bedside. He reports feeling tired and wanting to take a nap. He denies any complaints or concerns. Allowed patient to rest and encouraged him to ring for his RN if he needs anything. Telemetry reviewed: NSR 70-80s. Physical Exam Physical Exam: General: No acute distress, nondiaphoretic, well-developed, well-nourished. Skin: Warm, dry. Perm cath to right chest wall. Cardiac: Well-perfused. Rate in 80s. Pulm: Normal respiratory effort. 94% on room air. Extremities: Bilateral BKAs. Neuro: A&O x3. No focal neurological deficits. Results & Data Results & Data Vital Signs (Past 12 Hours) Vital Signs Temp Pulse Pulse Resp BP Pulse Ox O2 Del Method 12/21/24 10:36 82 12/21/24 07:13 98.2 F 75 18 143/82 H 94 Room Air 12/21/24 02:45 98.2 F 79 18 127/85 93 Room Air 12/20/24 22:50 98.2 F 79 18 127/81 93 Room Air Laboratory Results Reviewed CBC, BMP PG Care Time/CCT Total # of Minutes Spent Total Time Spent with Patient: Total time spent is greater than 50% in coordination of care (as documented) at patient's floor/unit and/or counseling patient: Coding Level of Care Code 02838 SUB INP/OBS CARE 235MIN Diagnoses Infection of amputation stump, right lower extremity T87.43 Proctocolitis K52.9 ESRD (end stage renal disease) N18.6"
--- NOTE | 2024-12-22 11:49 | Dialysis Progress Note ---
Date of Service December 22, 2024 Assessment & Plan Admission and Anticipated Discharge Date Admission Date: December 11, 2024 Subjective Assessment & Plan (1) ESRD (end stage renal disease): Plan: patient is on dialysis Wednesday. He tolerated dialysis well on wednesday. Electrolytes are stable no signs of volume overload. next HD later today--3.5 hrs and 3k .will aim for 2 kilo today given Diarrhea and Low BP (2) Labile blood pressure: Plan: Continue midodrine w/ HD. Despite this he had significant hypotension on treatment. Will continue midodrine with dialysis Subjective Seen for ESRD. No SOB. Last HD was wednesday. Discharge being delayed for place ment. BP is still low and having some Diarrhea. eating 100% though Review of Systems Review of Systems: All other systems were reviewed and negative except as noted in HPI Physical Exam Physical Exam: General exam: Appears comfortable, no acute distress HEENT: Pupils are equal and reactive to light Neck: No JVD, neck is supple trachea is midline Respiratory system: Clear breath sounds bilaterally. Gastrointestinal: Abdomen is soft, non distended, non tender, bowel sounds are present CVS: Regular rate and rhythm. No murmurs, rubs or gallops Extremities: Bilateral amputations Skin: No rashes Results & Data Vital Signs (Past 12 Hours) Vital Signs Temp Pulse Pulse Resp BP Pulse Ox O2 Del Method 12/22/24 07:24 36.5 C 85 18 116/77 93 Room Air 12/22/24 07:19 81 12/22/24 03:53 36.7 C 83 16 115/60 94 Room Air 12/21/24 23:59 37 C 85 18 105/70 93 Room Air
--- NOTE | 2024-12-22 13:58 | Hospitalist Progress Note ---
"Date of Service December 22, 2024 Assessment & Plan (1) Infection of amputation stump, right lower extremity: (2) Proctocolitis: (3) ESRD (end stage renal disease): Plan 64 yo gentleman with PMH of ESRD on HD, DM2, A fib, epilepsy, cognitive impairment, GERD, and bilateral BKA who presented to ED for rigors and vomiting x 24 hours. #Sepsis, POA | possible MRSA Pneumonia | New Proctocolitis - was recently admitted at [facility] in October for exit site infection and was treated with a 9 day course of IV Daptomycin here from 11/17 until 11/26 no further antibiotics needed on discharge given exchange of PermCath and negative PermCath tip and blood cultures - Possible right lung consolidation and proctocolitis on CT on admission - Catheter site and right stump clinically at baseline with minimal erythema or edema - ID consulted - recommends continuing antibiotics through 12/25 with daptomycin for possible right BKA stump infection, cefepime for possible proctocolitis, m etronidazole for anaerobic/GI coverage with possible proctocolitis - Attempted to transition to an oral based regimen in support of discharge, however the doxepin is not compatible with linezolid, and it would take a 2-week course to washout the doxepin prior to using linezolid at which time he would have completed his antibiotic course - Continue daptomycin IV, cefdinir p.o., and Flagyl p.o. #Right BKA wound | Pressure ulcer of left middle buttock, stage 3, POA - Right BKA occurred 1 year ago at [facility], follows with surgeon in [place] - Wound culture from R BKA site with Enterococcus faecalis, sensitivities reveal intermediate sensitivity to Vanco - Wound care nurse consulted, appreciate assistance #Low back pain - MRI findings with retrolisthesis and foraminal stenosis - Orthospine consulted given low back pain and history of lumbar fusion. MRI without evidence of abscess or osteomyelitis of the spine. No surgical intervention indicated. Continue antibiotics as above #Hypokalemia - Low again but improved today 12/21 at 3.4 - will defer repletion to nephrology #Diarrhea - C diff toxin gene negative - Imodium available PRN #ESRD - Follows with [facility]. M-W-F schedule at [facility], inhouse dialysis currently - Consult Nephrology - will defer dialysis regimen to nephro team #Hypotension - Uses midodrine with dialysis will continue, also PRN while hospitalized, on the low side most of the day, responding to midodrine, asymptomatic #T2DM - A1c 6.4% in November 2024 - Pharmacy glycemic consult placed and managed during hospital stay, hold oral DM2 agents #Atherosclerotic Disease | HLD - continue statin, aspirin #Paroxysmal atrial fibrillation - Continue Eliquis #History of epilepsy continue Keppra 1500mg Dialysis Dosing #Mild cognitive impairment - documented per patient history but is A&Ox4 #Opioid dependence | Phantom pain - Continue scheduled oxycodone, gabapentin and prn Tylenol per home doses #GERD - Continue Protonix 40 mg VTE PPx: Eliquis Dispo: Medically stable. Will need IV Daptomycin through 12/25, unfortunately his SNF cannot accommodate IV daptomycin so he will remain hospitalized through completion of his antibiotic course. Admission and Anticipated Discharge Date Admission Date: December 11, 2024 Subjective Patient seen and evaluated at bedside during dialysis. He feels well overall and denies any complaints at this time. Will remain inpatient through the weekend to complete his course of IV daptomycin. Physical Exam Physical Exam: General: No acute distress, nondiaphoretic, well-developed, well-nourished. Skin: Warm, dry. Perm cath to right chest wall. Cardiac: Well-perfused. Rate in 80s. Pulm: Normal respiratory effort. 93% on room air. Extremities: Bilateral BKAs. Very small scabbed opened area of the medial distal right BKA site. No increased warmth, erythema, drainage, or other signs of infection and BKA sites bilaterally. Neuro: A&O x3. No focal neurological deficits. Results & Data Results & Data Vital Signs (Past 12 Hours) Vital Signs Temp Pulse Pulse Pulse Resp BP BP 12/22/24 12:00 84 102/74 12/22/24 11:30 84 100/77 12/22/24 11:00 89 107/63 12/22/24 10:30 79 91/73 L 12/22/24 10:00 80 119/69 12/22/24 09:55 98.1 F 81 12/22/24 08:30 12/22/24 07:24 97.7 F 85 18 116/77 12/22/24 07:19 81 11/07/25 03:53 98.1 F 83 16 115/60 Pulse Ox O2 Del Method 12/22/24 12:00 12/22/24 11:30 12/22/24 11:00 12/22/24 10:30 12/22/24 10:00 12/22/24 09:55 12/22/24 08:30 Room Air 12/22/24 07:24 93 Room Air 12/22/24 07:19 12/22/24 03:53 94 Room Air Laboratory Results CBC and BMP ordered has a.m. labs, still yet to be obtained PG Care Time/CCT Total # of Minutes Spent Total Time Spent with Patient: Total time spent is greater than 50% in coordination of care (as documented) at patient's floor/unit and/or counseling patient: Coding Level of Care Code 07227 SUB INP/OBS CARE 03/11MIN Diagnoses Infection of amputation stump, right lower extremity T87.43 Proctocolitis K52.9 ESRD (end stage renal disease) N18.6"
--- NOTE | 2024-12-22 14:27 | Pharmacy Report ---
Pharmacy Glycemic Short Note 2 - Date of Service December 22, 2024 - Glycemic Short BSG Results (Last 24 hours): 12/21/24 12/21/24 12/22/24 16:32 20:23 07:52 POC Glucose 170 H 92 241 H 12/22/24 13:59 POC Glucose 126 H OUTPATIENT ANTIDIABETIC REGIMEN: * Sitagliptin 25mg daily * HbA1c: 6.4% (11/15/2024) ASSESSMENT: 12/22: * Patient received total of 54 units of insulin yesterday, of which 15 units w ere basal * Fasting BSG still >200, day 2 of dose increase - will keep basal same for today and reevaluate tomorrow 12/20: * Olaf received a total of 29 units of insulin yesterday (10 units were basal and 19 units were bolus). BSGs started to trend up again yesterday (318mg/dL at HS) for unclear reasons. * Fasting BSG was still elevated this morning at 238mg/dL. Lantus 5 units SQ x 1 was ordered and bolus insulin parameters were tightened to a stress between 2 and 3. * He is scheduled for HD today. 12/17/24: * Hemodialysis on 12/13, 12/14, and 12/15 * Blood sugars began to trend up significantly on 12/15 - unclear reason for this * Basal insulin initiated and bolus insulin regimen intensified * Hesitant to increase further despite hyperglycemia given HD with well- controlled T2DM as an outpatient on sitagliptin only 12/15: * Olaf received only 1 units of insulin, it was correctional * Fasting BSG was 158mg/dL this morning. He was dialyzed again today. * Will continue current regimen with correction insulin only.-Of note, he reportedly has refused a few doses of insulin. 12/13: * Patient received total of 20 units of insulin yesterday, all of correctional * BSGs trending down later in day - will loosen CF and broaden goal range 12/11: * Olaf is a 64 year old male with T2DM who presents to the hospital with fever and vomiting * Patient is on HD Wednesday, Wednesday, and Wednesday (last session 12/11, completed this evening) * Glucose was 238 mg/dL on arrival, elevated * Patient was in dialysis and unable to get insulin or glucose checks * Now that patient has returned, will plan on just getting 2100 glucose check and administer Novolog as necessary * Renal diet ordered * Stressors: infection * Patient had recent hospitalization where he had an insulin regimen of CF 30, CR 8 * Chose regimen of CF 30, CR 9 - stress level of 2 PLAN FOR INPATIENT GLYCEMIC CONTROL: * Hold outpatient oral diabetes medications * Basal insulin * Lantus 15 units daily * Bolus insulin * NovoLog per scale ACHS or Q6hrs while NPO * Goal Range: Low 110 mg/dL - High 160 mg/dL * Correction Factor: 25 mg/dL/unit * Nutritional / Prandial insulin per carb ratio of 1 unit per 8 grams CHO consumed
[2024-12-22] MEDS: levETIRAcetam 500 MG TAB PO SCH (16:25)
[2024-12-22] MEDS: MIDODRINE HCL 10 MG TAB PO STA (23:07)
[2024-12-22 23:21] LABS: Hematocrit (blood only) 34.9 % (42.0-52.0); Hemoglobin 11.1 g/dl (14.0-18.0); Mean Corpuscular Hemoglobin 29.9 pg (25.0-34.0); Mean Corpuscular Volume 94.1 fL (80.0-100.0); Platelet Count 223 K/uL (130-400); RDW Standard Deviation 57.0 fL (36.4-46.3); Red Blood Count 3.71 M/uL (4.70-6.10); White Blood Count 10.01 K/ul (4.8-10.8)
[2024-12-22 23:35] LABS: Anion Gap 10 (3-11); Blood Urea Nitrogen 49 mg/dl (6-23); Calcium 9.3 mg/dl (8.6-10.3); Carbon Dioxide 26 mmol/L (21-32); Chloride 102 mmol/L (98-107); Glucose 230 mg/dl (70-99(Fasting)); Potassium 3.2 mmol/L (3.5-5.1); Sodium 138 mmol/L (136-145)
[2024-12-23 07:40] LABS: Anion Gap 13 (3-11); Blood Urea Nitrogen 57 mg/dl (6-23); Calcium 9.7 mg/dl (8.6-10.3); Carbon Dioxide 27 mmol/L (21-32); Chloride 100 mmol/L (98-107); Glucose 158 mg/dl (70-99(Fasting)); Potassium 3.4 mmol/L (3.5-5.1); Sodium 140 mmol/L (136-145)
--- NOTE | 2024-12-23 13:12 | Hospitalist Progress Note ---
"Date of Service December 23, 2024 Assessment & Plan (1) Infection of amputation stump, right lower extremity: (2) Proctocolitis: (3) ESRD (end stage renal disease): Plan 64 yo gentleman with PMH of ESRD on HD, DM2, A fib, epilepsy, cognitive impairment, GERD, and bilateral BKA who presented to ED for rigors and vomiting x 24 hours. #Sepsis, POA | possible MRSA Pneumonia | New Proctocolitis - was recently admitted at [facility] in October for exit site infection and was treated with a 9 day course of IV Daptomycin here from 11/17 until 11/26 no further antibiotics needed on discharge given exchange of PermCath and negative PermCath tip and blood cultures - Possible right lung consolidation and proctocolitis on CT on admission - Catheter site and right stump clinically at baseline with minimal erythema or edema - ID consulted - recommends continuing antibiotics through 12/25 with daptomycin for possible right BKA stump infection, cefepime for possible proctocolitis, m etronidazole for anaerobic/GI coverage with possible proctocolitis - Attempted to transition to an oral based regimen in support of discharge, however the doxepin is not compatible with linezolid, and it would take a 2-week course to washout the doxepin prior to using linezolid at which time he would have completed his antibiotic course - Continue daptomycin IV, cefdinir p.o., and Flagyl p.o. #Right BKA wound | Pressure ulcer of left middle buttock, stage 3, POA - Right BKA occurred 1 year ago at [facility], follows with surgeon in [place] - Wound culture from R BKA site with Enterococcus faecalis, sensitivities reveal intermediate sensitivity to Vanco - Wound care nurse consulted, appreciate assistance #Low back pain - MRI findings with retrolisthesis and foraminal stenosis - Orthospine consulted given low back pain and history of lumbar fusion. MRI without evidence of abscess or osteomyelitis of the spine. No surgical intervention indicated. Continue antibiotics as above #Hypokalemia - Low again but improved today 12/21 at 3.4 - will defer repletion to nephrology #Diarrhea - C diff toxin gene negative - Imodium available PRN #ESRD - Follows with [facility]. M-W-F schedule at [facility], inhouse dialysis currently - Consult Nephrology - will defer dialysis regimen to nephro team #Hypotension - Uses midodrine with dialysis will continue, also PRN while hospitalized, on the low side most of the day, responding to midodrine, asymptomatic #T2DM - A1c 6.4% in November 2024 - Pharmacy glycemic consult placed and managed during hospital stay, hold oral DM2 agents #Atherosclerotic Disease | HLD - continue statin, aspirin #Paroxysmal atrial fibrillation - Continue Eliquis #History of epilepsy continue Keppra 1500mg Dialysis Dosing #Mild cognitive impairment - documented per patient history but is A&Ox4 #Opioid dependence | Phantom pain - Continue scheduled oxycodone, gabapentin and prn Tylenol per home doses #GERD - Continue Protonix 40 mg VTE PPx: Eliquis Dispo: Medically stable. Will need IV Daptomycin through 12/25, unfortunately his SNF cannot accommodate IV daptomycin so he will remain hospitalized through completion of his antibiotic course. Admission and Anticipated Discharge Date Admission Date: December 11, 2024 Subjective Patient seen and evaluated at bedside. He reports feeling better after shower this morning. He is excited to watch the hoozin game this afternoon. He denies any complaints or concerns at this time. Telemetry reviewed: NSR 7080s. Physical Exam Physical Exam: General: No acute distress, nondiaphoretic, well-developed, well-nourished. Skin: Warm, dry. Perm cath to right chest wall. Cardiac: Well-perfused. Rate in 70s. Pulm: Normal respiratory effort. 91% on room air. Extremities: Bilateral BKAs. Very small scabbed opened area of the medial distal right BKA site. No increased warmth, erythema, drainage, or other signs of infection and BKA sites bilaterally. Neuro: A&O x3. No focal neurological deficits. Results & Data Results & Data Vital Signs (Past 12 Hours) Vital Signs Temp Pulse Resp BP Pulse Ox O2 Del Method 12/23/24 11:42 98.1 F 74 18 147/93 H 91 Room Air 12/23/24 11:06 Room Air 12/23/24 08:05 98.2 F 61 18 133/75 94 Room Air 12/23/24 07:26 98.1 F 78 18 148/85 H 95 Room Air 12/23/24 02:59 98.1 F 71 18 125/79 94 Room Air Laboratory Results Reviewed CBC Reviewed BMP PG Care Time/CCT Total # of Minutes Spent Total Time Spent with Patient: Total time spent is greater than 50% in coordination of care (as documented) at patient's floor/unit and/or counseling patient: Coding Level of Care Code 21835 SUB INP/OBS CARE 2/35MIN Diagnoses Infection of amputation stump, right lower extremity T87.43 Proctocolitis K52.9 ESRD (end stage renal disease) N18.6"
[2024-12-24 07:12] LABS: Anion Gap 14 (3-11); Blood Urea Nitrogen 106 mg/dl (6-23); Calcium 9.4 mg/dl (8.6-10.3); Carbon Dioxide 23 mmol/L (21-32); Chloride 98 mmol/L (98-107); Glucose 126 mg/dl (70-99(Fasting)); Potassium 3.6 mmol/L (3.5-5.1); Sodium 135 mmol/L (136-145)
--- NOTE | 2024-12-24 11:49 | Hospitalist Progress Note ---
"Date of Service December 24, 2024 Assessment & Plan (1) Infection of amputation stump, right lower extremity: (2) Proctocolitis: (3) ESRD (end stage renal disease): Plan 64 yo gentleman with PMH of ESRD on HD, DM2, A fib, epilepsy, cognitive impairment, GERD, and bilateral BKA who presented to ED for rigors and vomiting x 24 hours. #Sepsis, POA | possible MRSA Pneumonia | New Proctocolitis - was recently admitted at [facility] in October for exit site infection and was treated with a 9 day course of IV Daptomycin here from 11/17 until 11/26 no further antibiotics needed on discharge given exchange of PermCath and negative PermCath tip and blood cultures - Possible right lung consolidation and proctocolitis on CT on admission - Catheter site and right stump clinically at baseline with minimal erythema or edema - ID consulted - recommends continuing antibiotics through 12/25 with daptomycin for possible right BKA stump infection, cefepime for possible proctocolitis, m etronidazole for anaerobic/GI coverage with possible proctocolitis - Attempted to transition to an oral based regimen in support of discharge, however the doxepin is not compatible with linezolid, and it would take a 2-week course to washout the doxepin prior to using linezolid at which time he would have completed his antibiotic course - Continue daptomycin IV, cefdinir p.o., and Flagyl p.o. #Right BKA wound | Pressure ulcer of left middle buttock, stage 3, POA - Right BKA occurred 1 year ago at [facility], follows with surgeon in [place] - Wound culture from R BKA site with Enterococcus faecalis, sensitivities reveal intermediate sensitivity to Vanco - Wound care nurse consulted, appreciate assistance #Low back pain - MRI findings with retrolisthesis and foraminal stenosis - Orthospine consulted given low back pain and history of lumbar fusion. MRI without evidence of abscess or osteomyelitis of the spine. No surgical intervention indicated. Continue antibiotics as above #Hypokalemia - Low again but improved today 12/21 at 3.4 - will defer repletion to nephrology #Diarrhea - C diff toxin gene negative - Imodium available PRN #ESRD - Follows with [facility]. M-W-F schedule at [facility], inhouse dialysis currently - Consult Nephrology - will defer dialysis regimen to nephro team #Hypotension - Uses midodrine with dialysis will continue, also PRN while hospitalized, on the low side most of the day, responding to midodrine, asymptomatic #T2DM - A1c 6.4% in November 2024 - Pharmacy glycemic consult placed and managed during hospital stay, hold oral DM2 agents #Atherosclerotic Disease | HLD - continue statin, aspirin #Paroxysmal atrial fibrillation - Continue Eliquis #History of epilepsy continue Keppra 1500mg Dialysis Dosing #Mild cognitive impairment - documented per patient history but is A&Ox4 #Opioid dependence | Phantom pain - Continue scheduled oxycodone, gabapentin and prn Tylenol per home doses #GERD - Continue Protonix 40 mg VTE PPx: Eliquis Dispo: Medically stable. Will need IV Daptomycin through 12/25, unfortunately his SNF cannot accommodate IV daptomycin so he will remain hospitalized through completion of his antibiotic course. Admission and Anticipated Discharge Date Admission Date: December 11, 2024 Subjective Patient seen and evaluated at bedside. He reports feeling well overall. He is tired today. He requests another soda. We discussed that tomorrow is his last dose of IV Daptomycin. He denies any additional complaints or concerns at this time. Telemetry reviewed: NSR 70-80s. Physical Exam Physical Exam: General: No acute distress, nondiaphoretic, well-developed, well-nourished. Skin: Warm, dry. Perm cath to right chest wall. Cardiac: Well-perfused. Rate in 70s. Pulm: Normal respiratory effort. 95% on room air. Extremities: Bilateral BKAs. Very small scabbed opened area of the medial distal right BKA site. No increased warmth, erythema, drainage, or other signs of infection and BKA sites bilaterally. Neuro: A&O x3. No focal neurological deficits. Results & Data Results & Data Vital Signs (Past 12 Hours) Vital Signs Temp Pulse Pulse Resp BP Pulse Ox O2 Del Method 12/24/24 08:09 98.2 F 72 20 135/72 95 Room Air 12/24/24 07:28 70 12/24/24 04:10 98.4 F 79 18 107/72 94 Room Air Laboratory Results Reviewed BMP PG Care Time/CCT Total # of Minutes Spent Total Time Spent with Patient: Total time spent is greater than 50% in coordination of care (as documented) at patient's floor/unit and/or counseling patient: Coding Level of Care Code 34825 SUB INP/OBS CARE MIN Diagnoses Infection of amputation stump, right lower extremity T87.43 Proctocolitis K52.9 ESRD (end stage renal disease) N18.6"
[2024-12-24 20:10] VITALS: RESP 20
[2024-12-25 08:20] VITALS: O2SAT 98
[2024-12-25 11:36] LABS: Anion Gap 16 (3-11); Calcium 8.5 mg/dl (8.6-10.3); Carbon Dioxide 21 mmol/L (21-32); Chloride 96 mmol/L (98-107); Potassium 3.6 mmol/L (3.5-5.1); Sodium 133 mmol/L (136-145)
[2024-12-25 12:13] LABS: Blood Urea Nitrogen 137 mg/dl (6-23); Glucose 166 mg/dl (70-99(Fasting))
[2024-12-25 14:33] VITALS: PULSE 68
[2024-12-25 14:36] VITALS: BP 143/79; TEMP 98.4
--- NOTE | 2024-12-25 15:01 | Discharge Summary ---
"Discharge Summary Date of Service December 25, 2024 Principal Dx & Hospital Course #1 = Principal Diagnosis (1) Infection of amputation stump, right lower extremity: (2) Proctocolitis: (3) ESRD (end stage renal disease): Plan 64 yo gentleman with PMH of ESRD on HD, DM2, A fib, epilepsy, cognitive impairment, GERD, and bilateral BKA who presented to ED for rigors and vomiting x 24 hours. #Sepsis, POA | possible MRSA Pneumonia | New Proctocolitis - was recently admitted at [facility] in October for exit site infection and was treated with a 9 day course of IV Daptomycin here from 11/17 until 11/26 no further antibiotics needed on discharge given exchange of PermCath and negative PermCath tip and blood cultures - Possible right lung consolidation and proctocolitis on CT on admission - Catheter site and right stump clinically at baseline with minimal erythema or edema - ID consulted - recommends continuing antibiotics through 12/25 with daptomycin for possible right BKA stump infection, cefepime for possible proctocolitis, metronidazole for anaerobic/GI coverage with possible proctocolitis - Attempted to transition to an oral based regimen in support of discharge, however the doxepin is not compatible with linezolid, and it would take a 2-week course to washout the doxepin prior to using linezolid at which time he would have completed his antibiotic course - Antibiotics complete as of 12/25, DC to [facility], resume prior medications as prescribed. #Right BKA wound | Pressure ulcer of left middle buttock, stage 3, POA - Right BKA occurred 1 year ago at [facility], follows with surgeon in [place] - Wound care nurse consulted, appreciate assistance. #Low back pain - MRI findings with retrolisthesis and foraminal stenosis - [facility] consulted given low back pain and history of lumbar fusion. MRI without evidence of abscess or osteomyelitis of the spine. No surgical intervention indicated. Continue antibiotics as above - Outpatient follow-up if pain persists or worsens in any way. #Diarrhea - C diff toxin gene negative - Imodium available PRN #ESRD - Follows with [facility]. schedule at [facility], inhouse dialysis currently - Consult Nephrology - will defer dialysis regimen to nephro team #Hypotension - Uses midodrine with dialysis will continue, also PRN while hospitalized, on the low side most of the day, responding to midodrine, asymptomatic #T2DM - A1c 6.4% in November 2024 - Pharmacy glycemic consult placed and managed during hospital stay, hold oral DM2 agents #Atherosclerotic Disease | HLD - continue statin, aspirin #Paroxysmal atrial fibrillation - Continue Eliquis #History of epilepsy continue Keppra 1500mg Dialysis Dosing #Mild cognitive impairment - documented per patient history but is A&Ox4 #Opioid dependence | Phantom pain - Continue scheduled oxycodone, gabapentin and prn Tylenol per home doses #GERD - Continue PPI Admission HPI Per Admitting Provider Pt is a 64 yo gentleman with PMH of ESRD on HD, DM2, a-fib, epilepsy, cognitive impairment, GERD, and bilateral BKA who presented to ED for rigors and vomiting x 24 hours. reports yesterday was a normal and uneventful day, woke up this morning with fatigue, malaise, nasuea and ultimately vomiting, emesis was food/clear, no blood. Denies abdominal pain or diarrhea. No sick contacts, this is an unusual symptom for him. Otherwise recent medical hx notable for hospitalization from 11/17 to 11/26/24 with concern for sepsis/cauti and R stump cellulitis. He was treated with a 9 day course of daptomycin, catheter was excahnged and he DCd to resume dialysis, has been well until this AM. Discharge Exam General: No acute distress, nondiaphoretic, well-developed, well-nourished. Skin: Warm, dry. Perm cath to right chest wall. Cardiac: Well-perfused. Rate in 70s. Pulm: Normal respiratory effort. 95% on room air. Extremities: Bilateral BKAs. Very small <2mm scabbed opened area of the medial distal right BKA site. No increased warmth, erythema, drainage, or other signs of infection and BKA sites bilaterally. Neuro: A&O x3. No focal neurological deficits. Discharge Plan Discharge Items Patient Disposition: Transfer Shelter Fac Reason For Visit: SIRS Discharge Diagnosis: SIRS/recurrent leg ulceration Condition on Discharge: Fair Activity: Resume your previous activity Non-emergency contact: Primary Care Provider Call non-emergency contact if: you have any medication questions, your symptoms worsen, your pain is concerning for you and your temperature is above 101 Follow-up/Referrals: Calvin Fisher PA-C [Primary Care Provider] - Diet: Dialysis Renal Addtl Attending Provider Instructions: -Recheck CRP and Procalcitonin in 7-10 days Pending Studies at Discharge: No Stand-Alone Forms: My [facility] Skilled Items Patient informed of condition?: Yes DNR: No Discharge Level of Care: Skilled Communicable Disease: No Discharge Prognosis: Stable Lines: Banks Urinary Catheter: No Medications and DC Order Prescriptions: Continued lidocaine 4 % Adhesive Patch,Medicated 1 patch TOPICAL Q12 Rx Instructions: BACK PAIN REMOVE PER SCHEDULE aspirin 81 mg Tablet,Delayed Release (Dr/Ec) 81 mg PO QAM linagliptin 5 mg Tablet 0 mg PO DAILY Patient Comments: 12/11- Not on faxed list unable to verify. original: 5 mg po daily oxycodone [OxyContin] 10 mg tablet,oral only,ext.rel.12 hr 10 mg PO AMHS nicotine 21 mg/24 hr Patch 24 Hour 1 patch TRANSDERMAL DAILY Rx Instructions: remove per schedule gabapentin 100 mg Tablet 0 mg PO TID Patient Comments: 12/11- Not on faxed list unable to verify. Original: 200 mg TID Eliquis 5 mg tablet 5 mg PO AMHS ferric citrate [Auryxia] 210 mg iron Tablet 420 mg PO WM ferric citrate [Auryxia] 210 mg iron Tablet 210 mg PO TID doxepin 10 mg capsule 10 mg PO HS pantoprazole 40 mg tablet,delayed release (DR/EC) 40 mg PO QAM allopurinol [Zyloprim] 100 mg Tablet 100 mg PO .M,W,F Rx Instructions: give 1 tablet in the morning every MON,WED,FRI prazosin 1 mg Capsule 1 mg PO HS Renal Vitamin 0.8 mg Tablet 1 tab PO QAM escitalopram oxalate [Lexapro] 5 mg Tablet 5 mg PO QAM levetiracetam 1,000 mg tablet 0 mg PO QAM Patient Comments: - Not on faxed list unable to verify. Original: 1000mg po qam levetiracetam 500 mg tablet 500 mg PO 3XWK Rx Instructions: GIVE EVERY MON,WED,FRI Artificial Tears (PF) 0.1-0.3 % Dropperette 1 drp OPB QAM rosuvastatin 10 mg tablet 0 mg PO QPM Patient Comments: 12/11- Not on faxed list unable to verify. original: 10 mg po qpm menthol-zinc oxide [Calmoseptine] 0.44-20.6 % Ointment 1 applic TOPICAL TID Rx Instructions: APPLY TO BUTTOCK AND GROIN REDDENED AREAS STOP APPLICATION WHEN HEALED clonidine HCl 0.1 mg tablet 0.1 mg PO .EVERY 24 HOURS PRN (Reason: Hypertension) Rx Instructions: GIVE FOR SBP > 140 ergocalciferol (vitamin D2) 1,250 mcg (50,000 unit) Capsule 1,250 mcg PO WK Rx Instructions: GIVE 1 CAPSULE EVERY WEDNESDAY acetaminophen [Tylenol] 325 mg Tablet 650 mg PO Q6 MDD 3g PRN (Reason: temp above 100.1) acetaminophen [Tylenol] 325 mg Tablet 650 mg PO Q6 MDD 3G PRN (Reason: PAIN 1-10 SCALE) loperamide [Imodium A-D] 2 mg Tablet 2 mg PO Q6H MDD 4 TABS IN 24 HOURS PRN (Reason: LOOSE STOOLS) Patient Comments: 12/11- Not on faxed list unable to verify Rx Instructions: GIVE 2 TABS FIRST LOOSE STOOL ANDTHEN 1 TAB AFTER EACH SUBSEQUENT LOOSE STOOL diphenhydramine HCl [Benadryl Allergy] 25 mg Tablet 25 mg PO Q6 PRN (Reason: Allergy Symptoms) menthol-zinc oxide [Calmoseptine] 0.44-20.6 % Ointment 1 applic TOPICAL Q12 PRN (Reason: Itching) Rx Instructions: APPLY TO RASH ON BACK FOR ITCHING triamcinolone acetonide 0.1 % Cream 1 applic TOPICAL 2XD Rx Instructions: APPLY TO BACK EVERY DAY AND EVENING SHIFT atorvastatin 20 mg Tablet 20 mg PO DAILY lidocaine 4 % Adhesive Patch,Medicated 1 patch TOPICAL DAILY Rx Instructions: apply to right shoulder midodrine 5 mg Tablet 10 mg PO .,, midodrine 5 mg Tablet 5 mg PO .M,, bisacodyl [Dulcolax (bisacodyl)] 10 mg Suppository 10 mg [place] DAILY PRN (Reason: Constipation) nystatin 100,000 unit/gram Cream 1 applic TOPICAL UD docusate sodium [Colace] 100 mg Capsule 100 mg PO DAILY oxycodone 5 mg Tablet 5 mg PO Q4H PRN (Reason: Pain) Januvia 25 mg Tablet 25 mg PO DAILY ferric citrate 210 mg iron Tablet 210 mg PO UD PRN (Reason: end stage renal disease) midodrine 10 mg tablet 0 mg PO DAILY PRN (Reason: hypotension) Patient Comments: 12/11- Not on faxed list as PRN. unable to verify. 10 mg po daily prn diclofenac sodium [Voltaren Arthritis Pain] 1 % gel 0 g EXT TID Patient Comments: 12/11- Not on faxed list unable to verify. Original: 2 g TID Discharge Orders: Discharge Order (Routine); Ordered 12/25/24 Ordered By: Gabriel Osorio/Other Patient Handouts: Hemodialysis Admission Data Admit Date/Time: 12/11/24 09:57 Attending Provider: Gabriel Mcfadden Admit Provider: Gabriel Mcfadden Primary Care Provider: Calvin Fisher Other Providers: Vinicio,; Gabriel Mcfadden; Shahla Ramírez; Michele Meneses; Elmo Croft Hospital Stay Data Consultations 12/11/24 08:12 ED Decision to Admit Stat 12/11/24 09:57 Consult Infectious Diseases Stat 12/11/24 14:38 Consult Nephrology Routine 12/15/24 13:37 Consult Orthopedic Spine Surgery Stat 12/15/24 13:42 Consult Orthopedic Surgery Stat Diagnostic Imagining Performed 12/11/24 06:02 CT abd pelvis wo con Stat 12/11/24 06:05 CT head/brain wo con Stat 12/14/24 00:00 MR lower leg RT wo con Urgent MR lumbar spine wo con Urgent Pending Results Patient Have Any Pending Studies at Discharge: No Discharge Instructions Given to Patient (Per Discharging Provider) -Recheck CRP and Procalcitonin in 7-10 days Total Time Total Time Spent Total Time Spent (In Minutes): 44 minutes spent reviewing DC plan, follow-up testing, coordinating with [employer] surface fire support planner and SNF for DC preparations. Coding Level of Care Code 23934 INP/OBS DISCH >30 MIN Diagnoses Infection of amputation stump, right lower extremity T87.43 Proctocolitis K52.9 ESRD (end stage renal disease) N18.6"
--- NOTE | 2024-12-25 15:06 | Dialysis Progress Note ---
Date of Service December 25, 2024 Assessment & Plan (1) ESRD (end stage renal disease): Plan: patient is on dialysis Wednesday. He tolerated dialysis well Wednesday. Electrolytes are stable no signs of volume overload. No indication for dialysis today. K is 3.6. next HD on 12/27 as OP or IP monitor K post d/c (2) Labile blood pressure: Plan: has standing midodrine now as well as order for midodrine w/ HD ONLY: >continue at d/c Admission and Anticipated Discharge Date Admission Date: December 11, 2024 Subjective seen and evaluated on dialysis. no c/o sob or diarrhea; some mild BL arm swelling. Review of Systems 2 Review of Systems: All systems reviewed & are unremarkable except as noted in Subjective Physical Exam 2 Constitutional: well developed and well nourished Eyes: EOM intact bilaterally ENMT: Mouth: + dry oral mucous membranes Respiratory: normal respiratory effort Auscultation: + diminished lung sounds Cardiovascular: Rate/Rhythm: regular rate and regular rhythm Extremities: + edema (Trace on distal BL upper extremities) Gastrointestinal (Abdomen): Inspection/Auscultation: normal bowel sounds P ercussion/Palpation: abdomen soft; abdomen nontender Musculoskeletal: Extremities: + abnormal strength (s/p BL BKA) Skin: no rashes, warm and dry Results & Data Vital Signs (Past 12 Hours) Vital Signs Temp Pulse Pulse Pulse Resp BP BP 12/25/24 14:15 36.9 C 68 143/79 H 12/25/24 13:30 68 93/63 L 12/25/24 13:00 71 104/67 12/25/24 12:30 72 107/68 12/25/24 12:00 75 109/72 12/25/24 11:30 78 105/59 L 12/25/24 11:00 76 98/56 L 12/25/24 10:30 72 118/70 12/25/24 10:00 67 140/76 12/25/24 09:50 36.4 C L 69 12/25/24 08:19 36.6 C 75 20 115/74 12/25/24 08:00 12/25/24 07:29 75 12/25/24 04:41 36.8 C 76 20 136/77 Pulse Ox O2 Del Method 12/25/24 14:15 12/25/24 13:30 12/25/24 13:00 12/25/24 12:30 12/25/24 12:00 12/25/24 11:30 12/25/24 11:00 12/25/24 10:30 12/25/24 10:00 12/25/24 09:50 12/25/24 08:19 98 Room Air 12/25/24 08:00 Room Air 12/25/24 07:29 12/25/24 04:41 92 Room Air Laboratory Results 12/22/24 23:02 12/25/24 10:01
== END 2024-12-25 17:05 | DRG 871 ==
LOC: ED 05:18 → EDINP 09:57 → SUATTDRO 09:57 → 4W 14:13 → 2W 12-19 01:07

== ENCOUNTER 2024-12-31 20:28 | Observation (INO) ==
--- NOTE | 2024-12-31 20:46 | Emergency Department Note ---
Impression & Plan Acute alteration in mental status, Fever, Hypoxia, Pleural effusion, End stage kidney disease ED Provider Note NAME: MILLI Amezcua AGE: 64 SEX: M : 1960 ARRIVES VIA: Ambulance INFORMANT: Patient, ED PROVIDER(S): Primo Price DO CHIEF COMPLAINT: Altered mental status HPI: The patient is a 64-year-old male who presented to the emergency department for an evaluation of difficulty breathing fever and altered mental status. The patient was noted to have the symptoms over the course of the evening. The patient himself does not offer any complaints. He was noted to have an oxygen saturation of 70% prior to arrival. En route his oxygen saturation did improve. His mental status improved slightly. The patient does not complain of any chest pain. He does have a history of renal failure and receives dialysis on Wednesday. The patient reportedly has been compliant with his outpatient medications. ROS: See above HPI for pertinent positives & negatives. A total of 10 systems reviewed and were otherwise negative. PAST MEDICAL HISTORY: See Below PAST SURGICAL HISTORY: See Below FAMILY HISTORY: See Below SOCIAL HISTORY: See Below HOME MEDICATIONS: See Below ALLERGIES: See Below VITALS: See Below PHYSICAL EXAMINATION: GENERAL: The patient is listless and slow to respond to questions. EYES: The conjunctivae are clear. The pupils are constricted but reactive bilaterally. EARS, NOSE, MOUTH AND THROAT: The nose is without any evidence of any deformity. Mucous membranes are dry. NECK: The neck is nontender and supple. RESPIRATORY: Shallow respirations were noted throughout. Rhonchi are noted scattered. CARDIOVASCULAR: Regular rate and rhythm noted there no murmurs rubs or gallops normal S1 normal S2. GASTROINTESTINAL: The abdomen is soft. Abdomen is nontender. MUSCULOSKELETAL/EXTREMITIES: Bilateral lower extremity amputations were noted. SKIN: Skin is warm and dry. NEUROLOGIC: Patient is awake to verbal commands. The patient follows commands slowly and not consistently. MEDICAL DECISION MAKING: The patient is a 64-year-old male who presented to the emergency department from his personal-long-term for an evaluation. The patient reportedly had an oxygen saturation in the 70s. The patient was recently in our facility for a infection of his postoperative leg amputation site. The area of concern is not fluctuant or erythematous. He does have tenderness area but I think this may be chronic ever since the infection. I discussed the patient's laboratory and radiographic studies with him. Given his findings I do feel the patient would be a better candidate for inpatient management. He is due for dialysis tomorrow. Potassium is acceptable. The patient was also taking pain medication. I would wonder how much of his pain medication is going into his alteration of mental status at this time. Given the patient's findings I discussed his condition with the on- call [facility] hospitalist. They have agreed to evaluate the patient in the emergency department. Triage Nursing notes reviewed. Prior medical records reviewed Vital Signs: reviewed and remarkable for fever and hypoxia. Differential diagnosis: Infection, hypoglycemia, electrolyte abnormalities, overdose, toxicologic, cardiac sources, intracerebral event, neurologic, trauma, as well as other pathologies. ER treatment provided: See below Diagnostics interpreted by me: ECG: EKG was obtained in the emergency department. My interpretation is normal sinus rhythm at 86 bpm. There is no ectopy. There is no acute ST segment abnormalities noted. This was compared to a tracing from December 11, 2024. No changes were noted. Cardiac Monitoring: An order was placed for continuous cardiac monitoring. The monitor shows a rate of 83 bpm with sinus rhythm. Laboratory studies: As stated above and show below. Imaging studies: See below. Radiographic imaging was reviewed by myself Consultation(s): I discussed this case with Chrissie who is on for the [facility]ist group. Past Med/Surg History Problem List (Updated 01/01/25 @ 00:29 by Primo Price DO) End stage kidney disease (Acute) Pleural effusion (Acute) Hypoxia (Acute) Acute alteration in mental status (Acute) Proctocolitis Fixation hardware in spine ESRD on dialysis (Acute) Pneumonia (Acute) Fever (Acute) Labile blood pressure ESRD (end stage renal disease) Medical History Infection of amputation stump, right lower extremity Infection of exit site of hemodialysis catheter SIRS (systemic inflammatory response syndrome) Acute hypotension Amputation leg, bilat Opioid dependence, uncomplicated Nicotine dependence, unspecified, uncomplicated Gastro-esophageal reflux disease without esophagitis Unspecified atrial fibrillation Anxiety disorder, unspecified Cognitive communication deficit Atherosclerotic heart disease of [place] coronary artery without angina pectoris Other chronic pain Cerebral infarction, unspecified Epilepsy, unspecified, not intractable, without status epilepticus Acquired absence of right leg below knee Social History Smoking Status: Unknown if ever smoked Tobacco Type: E-cigarettes / Vaping Second Hand Exposure: No; Do You Dip or Chew Tobacco: No; Preferred Language: Kiswahili Communication Ability: Effective Communication Ability Comment: patient confused, unable to assess Dermatology Teacher Required: No Beliefs That Will Affect Care: None Current Living Situation: Snf Feels Safe at Home: Declines to Answer Assistive Devices: None Allergies Allergies Allergy/AdvReac Type Severity Reaction Status Date / Time Penicillins Allergy Severe THROAT Verified 12/31/24 21:49 SWES Home Meds Home Medications Medication Instructions Recorded Confirmed lidocaine 4 % topical patch 1 patch topical QAM 08/24/23 12/31/24 acetaminophen 325 mg tablet 650 mg PO Q6 PRN temp above 11/17/24 12/31/24 (Tylenol) 100.1/PAIN allopurinol 100 mg tablet 100 mg PO 3XWK 11/17/24 12/31/24 (Zyloprim) apixaban 5 mg tablet (Eliquis) 5 mg PO AMHS 11/17/24 12/31/24 aspirin 81 mg tablet,delayed 81 mg PO QAM 11/17/24 12/31/24 release clonidine HCl 0.1 mg tablet 0.1 mg PO Q24H PRN Hypertension 11/17/24 12/31/24 diphenhydramine HCl 25 mg tablet 25 mg PO Q6 PRN Allergy Symptoms 11/17/24 12/31/24 (Benadryl Allergy) doxepin 10 mg capsule 10 mg PO HS 11/17/24 12/31/24 ergocalciferol (vitamin D2) 1,250 1,250 mcg PO WK 11/17/24 12/31/24 mcg (50,000 unit) capsule escitalopram oxalate 5 mg tablet 5 mg PO QAM 11/17/24 12/31/24 (Lexapro) ferric citrate 210 mg iron tablet 210 mg PO TIDM 11/17/24 12/31/24 (Auryxia) gabapentin 100 mg tablet 200 mg PO TID 11/17/24 12/31/24 levetiracetam 500 mg tablet 500 mg PO 3XWK 11/17/24 12/31/24 linagliptin 5 mg tablet 5 mg PO DAILY 11/17/24 12/31/24 loperamide 2 mg tablet (Imodium 2 mg PO Q6H PRN LOOSE STOOLS 11/17/24 12/31/24 A-D) oxycodone 10 mg tablet,crush 10 mg PO AMHS 11/17/24 12/31/24 resistant,extended release 12 hr (OxyContin) pantoprazole 40 mg tablet,delayed 40 mg PO QAM 11/17/24 12/31/24 release prazosin 1 mg capsule 1 mg PO HS 11/17/24 12/31/24 triamcinolone acetonide 0.1 % 1 applic topical BID PRN Rash 11/17/24 12/31/24 topical cream vitamin B complex-vitamin C-folic 1 tab PO QAM 11/17/24 12/31/24 acid 0.8 mg tablet (Renal Vitamin) atorvastatin 20 mg tablet 20 mg PO DAILY 12/11/24 12/31/24 bisacodyl 10 mg rectal suppository 10 mg ID DAILY PRN NO BM FOR 3 DAYS 12/11/24 12/31/24 (Dulcolax (bisacodyl)) docusate sodium 100 mg capsule 100 mg PO DAILY 12/11/24 12/31/24 (Colace) midodrine 5 mg tablet 10 mg PO 3XWK 12/11/24 12/31/24 oxycodone 5 mg tablet 5 mg PO Q4H PRN Pain 12/11/24 12/31/24 sitagliptin phosphate 25 mg tablet 25 mg PO DAILY 12/11/24 12/31/24 (Januvia) carboxymethylcellulose sodium 0.5 1 drp OPB QAM 12/31/24 12/31/24 % eye drops (Refresh Tears) menthol 0.44 %-zinc oxide 20.6 % 1 applic topical BID 12/31/24 12/31/24 topical ointment (Calmoseptine) Results & Data (ED) Vital Signs Vital Signs - 24 hr 12/31/24 20:34 12/31/24 20:34 12/31/24 20:34 Temperature 37.8 C H 37.8 C H Temperature Source Oral Oral Pulse Rate 107 H Pulse Rate [Right Finger] 107 H Pulse Rhythm Pulse Rhythm [Right Finger] Respiratory Rate 20 20 Respiratory Effort / Characteristics Non-Labored Non-Labored Respiratory Depth Normal Normal Blood Pressure 109/91 Blood Pressure [Right Arm] 109/91 Blood Pressure Mean 97 Blood Pressure Mean [Right Arm] 97 Pulse Oximetry 90 90 90 Oxygen Delivery Method Room Air Room Air Room Air Oxygen Flow Rate Sepsis Recent Fever Within 48 Hours Yes Sepsis New/Unexplained Change in Mental Status No Sepsis Action Taken by Nursing No Action Required 12/31/24 20:36 12/31/24 20:46 12/31/24 21:10 Temperature 37.8 C H Temperature Source Oral Pulse Rate 85 Pulse Rate [Right Finger] 85 86 Pulse Rhythm Pulse Rhythm [Right Finger] Regular Respiratory Rate 20 20 Respiratory Effort / Characteristics Non-Labored Non-Labored Respiratory Depth Normal Normal Blood Pressure Blood Pressure [Right Arm] 109/91 140/82 Blood Pressure Mean Blood Pressure Mean [Right Arm] 97 101 Pulse Oximetry 94 Oxygen Delivery Method Nasal Cannula Nasal Cannula Oxygen Flow Rate 2 2 Sepsis Recent Fever Within 48 Hours Sepsis New/Unexplained Change in Mental Status Sepsis Action Taken by Nursing 12/31/24 21:11 12/31/24 21:30 12/31/24 22:28 Temperature Temperature Source Pulse Rate 100 H Pulse Rate [Right Finger] 84 82 Pulse Rhythm Irregular Pulse Rhythm [Right Finger] Regular Regular Respiratory Rate 20 20 20 Respiratory Effort / Characteristics Non-Labored Non-Labored Respiratory Depth Normal Normal Blood Pressure Blood Pressure [Right Arm] 113/67 105/83 Blood Pressure Mean Blood Pressure Mean [Right Arm] 82 90 Pulse Oximetry 97 97 97 Oxygen Delivery Method Nasal Cannula Nasal Cannula Nasal Cannula Oxygen Flow Rate 2 2 2 Sepsis Recent Fever Within 48 Hours Sepsis New/Unexplained Change in Mental Status Sepsis Action Taken by Nursing 12/31/24 23:00 Temperature Temperature Source Pulse Rate Pulse Rate [Right Finger] 83 Pulse Rhythm Pulse Rhythm [Right Finger] Regular Respiratory Rate 18 Respiratory Effort / Characteristics Non-Labored Respiratory Depth Normal Blood Pressure Blood Pressure [Right Arm] 116/76 Blood Pressure Mean Blood Pressure Mean [Right Arm] 89 Pulse Oximetry 100 Oxygen Delivery Method Nasal Cannula Oxygen Flow Rate 2 Sepsis Recent Fever Within 48 Hours Sepsis New/Unexplained Change in Mental Status Sepsis Action Taken by Snf Medications Current Medication List: was personally reviewed by me Laboratory Data Attestation: I reviewed the patient's lab results. 12/31/24 21:37 12/31/24 21:37 Lab Results 12/31/24 12/31/24 Range/Units 20:35 21:37 WBC 9.86 (4.8-10.8) K/ul RBC 3.61 L (4.70-6.10) M/uL Hgb 10.7 L (14.0-18.0) g/dL Hct 33.2 L (42.0-52.0) % MCV 92.0 (80.0-100.0) fL MCH 29.6 (25.0-34.0) pg MCHC 32.2 (32.0-36.0) g/dL RDW Std Deviation 53.1 H (36.4-46.3) fL RDW Coeff of John 15.6 H (11.5-14.5) % Plt Count 196 (130-400) K/uL MPV 10.5 (9.4-12.4) fL Immature Gran % (Auto) 0.4 % Neut % (Auto) 71.0 % Lymph % (Auto) 9.2 % Jess[place] % (Auto) 8.8 % Eos % (Auto) 9.5 % Baso % (Auto) 1.1 % Neut # (Auto) 6.99 H (1.40-6.50) K/uL Lymph # (Auto) 0.91 L (1.20-3.40) K/uL Jess[place] # (Auto) 0.87 H (0.11-0.59) K/uL Eos # (Auto) 0.94 H (0.00-0.50) K/uL Baso # (Auto) 0.11 (0.00-0.20) K/uL Immature Gran # (Auto) 0.04 (0.01-0.20) K/uL PT 11.6 (9.0-12.0) Seconds INR 1.1 (0.9-1.1) APTT 31 (21-31) Seconds PTT Ratio 1.1 VBG pH 7.35 L (7.36-7.41) VBG pCO2 50 (38-50) mmHg VBG pO2 45 mmHg VBG HCO3 28 mmol/L VBG O2 Saturation 73.9 % VBG Base Excess 1.2 mEq/L Sodium 135 L (136-145) mmol/L Potassium 4.2 (3.5-5.1) mmol/L Chloride 97 L (98-107) mmol/L Carbon Dioxide 25 (21-32) mmol/L Anion Gap 13 H (3-11) BUN 58 H (6-23) mg/dl Creatinine 7.00 H* (0.6-1.4) mg/dl Est Cr Clr Drug Dosing Not Reportable eGFR 8.08 BUN/Creatinine Ratio 8.3 L (10-20) Glucose 130 H (70-99(Fasting)) mg/dl Lactate 1.2 (0.4-2.0) mmol/L Calcium 9.0 (8.6-10.3) mg/dl Magnesium 2.0 (1.7-2.4) mg/dl Total Bilirubin 0.6 (0.2-1.0) mg/dl Direct Bilirubin 0.1 (0-0.2) mg/dl AST 16 (13-39) U/L ALT 12 (7-52) U/L Alkaline Phosphatase 140 H (34-104) U/L Ammonia 33.0 (18-72) umol/L Troponin I High Sens 6.3 (0-20) pg/ml Total Protein 6.4 (6.0-8.3) gm/dl Albumin 3.4 (3.4-5.0) gm/dl Procalcitonin 0.67 H (0-0.5) ng/ml SARS-CoV-2 (PCR) NEGATIVE (Negative) Influenza Type A (PCR) Negative (Neg) Influenza Type B (PCR) Negative (Neg) RSV (RT-PCR) Negative (Neg) Administered Medications Discontinued Medications Ceftriaxone Sodium (Rocephin) 2,000 mg in 50 mls @ 100 mls/hr IV NOW STA Stop: 12/31/24 23:00 Last Infusion: 01/01/25 00:18 Dose: Infused Documented By: Admin: 12/31/24 23:16 Dose: 100 mls/hr Documented By: LANCE Imaging Data Attestation: I personally reviewed and interpreted this imaging study as follows: My Impression: 1 view chest x-ray was obtained in the emergency department. My interpretation is right pleural effusion, there is no free air, final report below. Radiologist's Impression: Chest X-Ray 12/31/24 20:40 Exam(s): XR CXR 1 VIEW EXAM: XR Chest, 1 View CLINICAL HISTORY: Reason for exam: Sepsis. TECHNIQUE: Frontal view of the chest. COMPARISON: 12/11/2024 FINDINGS: Lungs: Unremarkable. No consolidation. Pleural space: Small right pleural effusion new since prior exam. No pneumothorax. Heart: Unremarkable. No cardiomegaly. Mediastinum: Unremarkable. Normal mediastinal contour. Bones/joints: Unremarkable. No acute fracture. Tubes, lines and devices: Tunneled right-sided hemodialysis catheter. IMPRESSION: New small right pleural effusion Electronically signed by: Alonzo White MD 12/31/24 21:[address] 12/31/24 20:42 Exam(s): CT HEAD Without Contrast EXAM: CT Head Without Intravenous Contrast CLINICAL HISTORY: Reason for exam: ams. TECHNIQUE: Axial computed tomography images of the head/brain without intravenous contrast. CTDI is 36.43 mGy and DLP is 2459.77 mGy-cm. Automated exposure control was utilized for the study. A dose lowering technique was utilized adhering to the principles of ALARA. COMPARISON: 12/11/2024 FINDINGS: Brain: Mild ischemic microangiopathy. Chronic left frontal lobe infarct. Age-appropriate cerebral volume loss. No hemorrhage. Ventricles: Unremarkable. No ventriculomegaly. Bones/joints: Unremarkable. No acute fracture. Soft tissues: Unremarkable. Sinuses: Unremarkable as visualized. No acute sinusitis. Mastoid air cells: Unremarkable as visualized. No mastoid effusion. IMPRESSION: No acute findings in the head/brain. Stable chronic changes as above Electronically signed by: Alonzo White MD 12/31/24 22:26 PM Abdomen/Pelvis CT 12/31/24 21:11 Exam(s): CT ABDOMEN + PELVIS Without Contrast EXAM: CT Abdomen and Pelvis Without Intravenous Contrast CLINICAL HISTORY: Reason for exam: ams. TECHNIQUE: Axial computed tomography images of the abdomen and pelvis without intravenous contrast. CTDI is 36.43 mGy and DLP is 2459.77 mGy-cm. Automated exposure control was utilized for the study. A dose lowering technique was utilized adhering to the principles of ALARA. COMPARISON: 12/11/2024 FINDINGS: Lung bases: See below. Pleural space: Bilateral pleural effusions [id number] with compressive atelectasis of both lower lobes. Heart: Coronary artery calcifications. Aortic valve calcification. ABDOMEN: Liver: Unremarkable. Gallbladder and bile ducts: Postop changes prior cholecystectomy. No ductal dilation. Pancreas: Unremarkable. No ductal dilation. Spleen: stable splenic cysts measuring up to 2.7 cm. Adrenals: Unremarkable. No mass. Kidneys and ureters: Simple stable 2.1 cm left renal cysts. No follow- up of these simple cysts is necessary. No obstructing stones. No hydronephrosis. Stomach and bowel: Unremarkable. No obstruction. No mucosal thickening. PELVIS: Appendix: No findings to suggest acute appendicitis. Bladder: Unremarkable. No stones. Reproductive: Unremarkable as visualized. ABDOMEN and PELVIS: Intraperitoneal space: Unremarkable. No free air. No significant fluid collection. Bones/joints: Postop changes L2 through S1 posterior fusion. No acute fracture. No dislocation. Soft tissues: Unremarkable. Vasculature: See above. Lymph nodes: Unremarkable. No enlarged lymph nodes. IMPRESSION: No acute findings in the abdomen or pelvis. Electronically signed by: Alonzo White MD 12/31/24 22:34 PM Discharge Plan Visit Data Chief Complaint: Weakness Stated Complaint: WEAKNESS, CONFUSION ED Provider: Priom Price Discharge Problem: Acute alteration in mental status, Fever, Hypoxia, Pleural effusion, End stage kidney disease Patient Disposition: Being Evaluated by Hospitalist Condition: Fair Forms Stand Alone Forms: [facility] Prescriptions Prescriptions: No Action menthol-zinc oxide [Calmoseptine] 0.44-20.6 % Ointment 1 applic TOPICAL BID carboxymethylcellulose sodium [Refresh Tears] 0.5 % Drops 1 drp OPB QAM lidocaine 4 % Adhesive Patch,Medicated 1 patch TOPICAL QAM Rx Instructions: BACK PAIN REMOVE PER SCHEDULE aspirin 81 mg Tablet,Delayed Release (Dr/Ec) 81 mg PO QAM linagliptin 5 mg Tablet 5 mg PO DAILY Patient Comments: 12/11- Not on faxed list unable to verify. original: 5 mg po daily oxycodone [OxyContin] 10 mg tablet,oral only,ext.rel.12 hr 10 mg PO AMHS gabapentin 100 mg Tablet 200 mg PO TID Patient Comments: 12/11- Not on faxed list unable to verify. Original: 200 mg TID Eliquis 5 mg tablet 5 mg PO AMHS ferric citrate [Auryxia] 210 mg iron Tablet 210 mg PO TIDM doxepin 10 mg capsule 10 mg PO HS pantoprazole 40 mg tablet,delayed release (DR/EC) 40 mg PO QAM allopurinol [Zyloprim] 100 mg Tablet 100 mg PO 3XWK Rx Instructions: MON, WED, & FRI MORNINGS prazosin 1 mg Capsule 1 mg PO HS Renal Vitamin 0.8 mg Tablet 1 tab PO QAM escitalopram oxalate [Lexapro] 5 mg Tablet 5 mg PO QAM levetiracetam 500 mg tablet 500 mg PO 3XWK Rx Instructions: GIVE EVERY MON,WED,FRI clonidine HCl 0.1 mg tablet 0.1 mg PO Q24H PRN (Reason: Hypertension) Rx Instructions: GIVE FOR SBP > 140 ergocalciferol (vitamin D2) 1,250 mcg (50,000 unit) Capsule 1,250 mcg PO WK Rx Instructions: THRUSDAYS acetaminophen [Tylenol] 325 mg Tablet 650 mg PO Q6 MDD 3 GRAMS APAP/24 HOURS PRN (Reason: temp above 100.1/PAIN) loperamide [Imodium A-D] 2 mg Tablet 2 mg PO Q6H MDD 4 TABS IN 24 HOURS PRN (Reason: LOOSE STOOLS) Patient Comments: 12/11- Not on faxed list unable to verify Rx Instructions: GIVE 2 TABS FIRST LOOSE STOOL ANDTHEN 1 TAB AFTER EACH SUBSEQUENT LOOSE STOOL diphenhydramine HCl [Benadryl Allergy] 25 mg Tablet 25 mg PO Q6 PRN (Reason: Allergy Symptoms) triamcinolone acetonide 0.1 % Cream 1 applic TOPICAL BID PRN (Reason: Rash) Rx Instructions: APPLY TO RASH ON BACK atorvastatin 20 mg Tablet 20 mg PO DAILY midodrine 5 mg Tablet 10 mg PO 3XWK Rx Instructions: MON, WED, & FRI AFTERNOON bisacodyl [Dulcolax (bisacodyl)] 10 mg Suppository 10 mg ID DAILY PRN (Reason: NO BM FOR 3 DAYS) docusate sodium [Colace] 100 mg Capsule 100 mg PO DAILY oxycodone 5 mg Tablet 5 mg PO Q4H PRN (Reason: Pain) Januvia 25 mg Tablet 25 mg PO DAILY Referrals Referrals: Calvin Fisher PA-C [Primary Care Provider] -
--- NOTE | 2024-12-31 21:30 | XRay Report ---
Exam(s): XR CXR 1 VIEW EXAM: XR Chest, 1 View CLINICAL HISTORY: Reason for exam: Sepsis. TECHNIQUE: Frontal view of the chest. COMPARISON: 12/11/2024 FINDINGS: Lungs: Unremarkable. No consolidation. Pleural space: Small right pleural effusion new since prior exam. No pneumothorax. Heart: Unremarkable. No cardiomegaly. Mediastinum: Unremarkable. Normal mediastinal contour. Bones/joints: Unremarkable. No acute fracture. Tubes, lines and devices: Tunneled right-sided hemodialysis catheter. IMPRESSION: New small right pleural effusion Electronically signed by: Alonzo White MD 12/31/24 21:29 PM
[2024-12-31 21:40] LABS: Influenza A virus by PCR Negative (Neg); Influenza B virus by PCR Negative (Neg); SARS CoV2 RNA(COVID-19) Ceph NEGATIVE (Negative)
[2024-12-31 22:03] LABS: Hematocrit (blood only) 33.2 % (42.0-52.0); Hemoglobin 10.7 g/dL (14.0-18.0); Immature Granulocytes # (auto) 0.04 K/uL (0.01-0.20); Immature Granulocytes % (auto) 0.4 %; Mean Corpuscular Hemoglobin 29.6 pg (25.0-34.0); Mean Corpuscular Volume 92.0 fL (80.0-100.0); Platelet Count 196 K/uL (130-400); RDW Standard Deviation 53.1 fL (36.4-46.3); Red Blood Count 3.61 M/uL (4.70-6.10); White Blood Count 9.86 K/ul (4.8-10.8)
[2024-12-31 22:09] LABS: Base Excess VBG 1.2 mEq/L; HCO3 VBG 28 mmol/L; Oxygen Saturation VBG 73.9 %; PCO2 VBG 50 mmHg (38-50); PO2 VBG 45 mmHg; pH VBG 7.35 (7.36-7.41)
--- NOTE | 2024-12-31 22:27 | CT Scan Report ---
Exam(s): CT HEAD Without Contrast EXAM: CT Head Without Intravenous Contrast CLINICAL HISTORY: Reason for exam: ams. TECHNIQUE: Axial computed tomography images of the head/brain without intravenous contrast. CTDI is 36.43 mGy and DLP is 2459.77 mGy-cm. Automated exposure control was utilized for the study. A dose lowering technique was utilized adhering to the principles of ALARA. COMPARISON: 12/11/2024 FINDINGS: Brain: Mild ischemic microangiopathy. Chronic left frontal lobe infarct. Age-appropriate cerebral volume loss. No hemorrhage. Ventricles: Unremarkable. No ventriculomegaly. Bones/joints: Unremarkable. No acute fracture. Soft tissues: Unremarkable. Sinuses: Unremarkable as visualized. No acute sinusitis. Mastoid air cells: Unremarkable as visualized. No mastoid effusion. IMPRESSION: No acute findings in the head/brain. Stable chronic changes as above Electronically signed by: Alonzo White MD 12/31/24 22:26 PM
[2024-12-31] MEDS ORDERED: VANCOMYCIN CONSULT ACTIVE PRN (22:31)
[2024-12-31 22:32] LABS: Alanine Aminotransferase 12 U/L (7-52); Albumin Level 3.4 gm/dl (3.4-5.0); Alkaline Phosphatase 140 U/L (34-104); Anion Gap 13 (3-11); Bilirubin,Total 0.6 mg/dl (0.2-1.0); Blood Urea Nitrogen 58 mg/dl (6-23); Calcium 9.0 mg/dl (8.6-10.3); Carbon Dioxide 25 mmol/L (21-32); Chloride 97 mmol/L (98-107); Glucose 130 mg/dl (70-99(Fasting)); Magnesium 2.0 mg/dl (1.7-2.4); Potassium 4.2 mmol/L (3.5-5.1); Sodium 135 mmol/L (136-145); Total Protein 6.4 gm/dl (6.0-8.3)
[2024-12-31 22:33] LABS: INR 1.1 (0.9-1.1); Partial Thromboplastin Time 31 Seconds (21-31); Prothrombin Time 11.6 Seconds (9.0-12.0)
--- NOTE | 2024-12-31 22:35 | CT Scan Report ---
Exam(s): CT ABDOMEN + PELVIS Without Contrast EXAM: CT Abdomen and Pelvis Without Intravenous Contrast CLINICAL HISTORY: Reason for exam: ams. TECHNIQUE: Axial computed tomography images of the abdomen and pelvis without intravenous contrast. CTDI is 36.43 mGy and DLP is 2459.77 mGy-cm. Automated exposure control was utilized for the study. A dose lowering technique was utilized adhering to the principles of ALARA. COMPARISON: 12/11/2024 FINDINGS: Lung bases: See below. Pleural space: Bilateral pleural effusions [id number]-left with compressive atelectasis of both lower lobes. Heart: Coronary artery calcifications. Aortic valve calcification. ABDOMEN: Liver: Unremarkable. Gallbladder and bile ducts: Postop changes prior cholecystectomy. No ductal dilation. Pancreas: Unremarkable. No ductal dilation. Spleen: stable splenic cysts measuring up to 2.7 cm. Adrenals: Unremarkable. No mass. Kidneys and ureters: Simple stable 2.1 cm left renal cysts. No follow- up of these simple cysts is necessary. No obstructing stones. No hydronephrosis. Stomach and bowel: Unremarkable. No obstruction. No mucosal thickening. PELVIS: Appendix: No findings to suggest acute appendicitis. Bladder: Unremarkable. No stones. Reproductive: Unremarkable as visualized. ABDOMEN and PELVIS: Intraperitoneal space: Unremarkable. No free air. No significant fluid collection. Bones/joints: Postop changes L2 through S1 posterior fusion. No acute fracture. No dislocation. Soft tissues: Unremarkable. Vasculature: See above. Lymph nodes: Unremarkable. No enlarged lymph nodes. IMPRESSION: No acute findings in the abdomen or pelvis. Electronically signed by: Alonzo White MD 12/31/24 22:34 PM
[2024-12-31] MEDS: cefTRIAXone SODIUM 2,000 MG/50 ML BAG IV STA (23:16)
--- NOTE | 2024-12-31 23:54 | History & Physical Report ---
Date of Service December 31, 2024 Assessment & Plan (1) Acute alteration in mental status: (2) Fever: (3) ESRD on dialysis: (4) Type 2 diabetes mellitus: (5) Right arm pain: Plan 64-year-old male PMHx ESRD on HD, T2DM, AFib on Eliquis, epilepsy, cognitive impairment, GERD, bilateral BKA w/ phantom pain, HLD, hypotension, and prior proctocolitis presenting for altered mental status the night of arrival. He is a poor historian at baseline, history is limited. Evaluation reveals no leukocytosis/leukopenia, mild anemia at baseline. VBGs slightly abnormal with pH 7.35 and slight hypoxia reported by EMS, CXR with small new pleural effusion. Viral testing negative. Pt does have ESRD, HD MWF, small amounts of urine, Cr is elevated. Admission for further evaluation of fever and AMS. #AMS/Fever Non-specific symptoms developing day of arrival, HD M/W/F, still makes small amounts of urine, UA is pending. He is "not feeling very good" but nonspecific symptoms. Fever identified in ED. Procal elevated but in setting of normal WBC and lactate. CXR with small pleural effusion, but pt without respiratory symptoms, suspect reported hypoxia was related to KEERTHI vs O[facility], he is stable at admission. Bilateral BKA sites without clear skin changes or tenderness to palpation, unlikely source of infection, but prior R BKA stump infection, was treated with IV abx. Pt with port R chest, ? source, negative last admission. Prior pressure ulcer of L middle buttock POA. Blood cultures pending. No new murmur heard at time of admission. Received IV vancomycin and ceftriaxone in ED, d/c vancomycin given ESRD and would need for re-dosing around HD, dapto for renal. Admission for further evaluation and IV abx. - CBC w/o leukocytosis/leukopenia, baseline H/H (10.7/33.2); VBGs pH 7.35; CMP Na 135 (glucose 130), AG 13 with Cr 7 (ESRD, HS); lactate 1.2, procal 0.67; trop 6.3 - CBC, BMP am - COVID/Flu/RSV negative - UA pending - Blood cx pending - CXR new small R pleural effusion - Head CT no acute findings - CTAP no acute findings - Can consider echo - Zofran prn N/V - Acetaminophen prn fever/pain - Daptomycin + ceftriaxone IV empirically - adjust as appropriate #ESRD, HD HD MWF, makes urine still. Follows with [facility] neph[facility]. - Cr 7.00 - UA pending - Continue renal vitamin - may bring in if NF - Midodrine MWF afternoons - Nephro consulted - appreciate input + recs #T2DM H/o T2DM; At home regimen includes linagliptin (not able to be verified), Januvia; w/ neuropathy on gabapentin (unable to be verified) - Glucose on arrival 130; Most recent A1c 11/2024 @ 6.4% - Hold home regimen - SSI goal range 110-160, CF 25, CR 8 - Lantus 15U daily --> 7U BID - Adjust regimen as necessary #R arm pain/edema Complaining of R elbow pain, with some noted swelling. ROM WNL, no palpable deformity, pulses equal. Nonpitting, ? lymphatic related. Reports "broken", therefore initial imaging w/ XR. Pending further evaluation. *This was not initially presented to me by the patient at time of admission, came to bedside following admission for complaint of arm pain. - XR humerus + elbow pending #Phantom pain bilat BKA/Opioid dependence - Oxycodone as prescribed; PDMP independently reviewed at time of admission - ok to continue #Epilepsy- Levetiracetam 3x/wk (MWF) - continue #Psych- Lexapro, doxepin, ? prazosin - continue #HTN- Clonidine prn if SBP > 140 - continue #Afib- Eliquis - continue #HLD- Atorvastatin - hold while on dapto #GERD- Pantoprazole - continue This document was dictated utilizing Zazzy. Please excuse any grammatical errors that may be secondary to use of this software. Admission and Anticipated Discharge Date Admission Date: 12/31/2024 History of Present Illness Chief Complaint: Weakness Primary Care Provider: Calvin Fisher PA-C 64-year-old male PMHx ESRD on HD, T2DM, AFib on Eliquis, epilepsy, cognitive impairment, GERD, bilateral BKA w/ phantom pain, HLD, hypotension, and prior proctocolitis presenting for altered mental status the night of arrival. [facility] state patient was hard to wake, and was hypoxic when checked. He is a poor historian. States he does "not feel so good," but cannot clarify how. He reports that the felt feverish, but is unsure if he had a fever. He admits to pain "everyday, everywhere." Reports that his chest hurts sometimes, but not at present. He is without wounds, URI symptoms, or GI symptoms. Pt is an ESRD pt, HD on MWF and still makes small amounts of urine. Has not missed per his report. Denies SOB, dizziness, or cough. ED evaluation reveals CBC w/o leukocytosis/leukopenia, H/H 10.7/33.2; PT/INR WNL; VBGs pH 7.35; BMP Na 135, Cl 97, AG 13, BUN 58, Cr 7.0, ratio 8.3, glucose 130, alk phos 140; trop 6.3; procal 0.67; ammonia 33; lactate 1.2; COVID/Flu/RSV negative; CXR new small R pleural effusion; head CT without acute findings; CTAP no acute findings; EKG NSR @ 86 bpm.; Provided with vancomycin 2,250 mg IV, 500 mL NSS, and ceftriaxone 2g IV in ED. Please see Dr. Calhoun attestation for adjustments/additions to treatment plan. Allergies Allergy/AdvReac Type Severity Reaction Status Date / Time Penicillins Allergy Severe THROAT Verified 12/31/24 21:49 [facility] Home Medications Medication Instructions Recorded Confirmed Type lidocaine 4 % topical patch 1 patch topical QAM 08/24/23 12/31/24 History acetaminophen 325 mg tablet 650 mg PO Q6 PRN temp above 11/17/24 12/31/24 History (Tylenol) 100.1/PAIN allopurinol 100 mg tablet 100 mg PO 3XWK 11/17/24 12/31/24 History (Zyloprim) apixaban 5 mg tablet (Eliquis) 5 mg PO AMHS 11/17/24 12/31/24 History aspirin 81 mg tablet,delayed 81 mg PO QAM 11/17/24 12/31/24 History release clonidine HCl 0.1 mg tablet 0.1 mg PO Q24H PRN Hypertension 11/17/24 12/31/24 History diphenhydramine HCl 25 mg tablet 25 mg PO Q6 PRN Allergy Symptoms 11/17/24 12/31/24 History (Benadryl Allergy) doxepin 10 mg capsule 10 mg PO HS 11/17/24 12/31/24 History ergocalciferol (vitamin D2) 1,250 1,250 mcg PO WK 11/17/24 12/31/24 History mcg (50,000 unit) capsule escitalopram oxalate 5 mg tablet 5 mg PO QAM 11/17/24 12/31/24 History (Lexapro) ferric citrate 210 mg iron tablet 210 mg PO TIDM 11/17/24 12/31/24 History (Auryxia) gabapentin 100 mg tablet 200 mg PO TID 11/17/24 12/31/24 History levetiracetam 500 mg tablet 500 mg PO 3XWK 11/17/24 12/31/24 History linagliptin 5 mg tablet 5 mg PO DAILY 11/17/24 12/31/24 History loperamide 2 mg tablet (Imodium 2 mg PO Q6H PRN LOOSE STOOLS 11/17/24 12/31/24 History A-D) oxycodone 10 mg tablet,crush 10 mg PO AMHS 11/17/24 12/31/24 History resistant,extended release 12 hr (OxyContin) pantoprazole 40 mg tablet,delayed 40 mg PO QAM 11/17/24 12/31/24 History release prazosin 1 mg capsule 1 mg PO HS 11/17/24 12/31/24 History triamcinolone acetonide 0.1 % 1 applic topical BID PRN Rash 11/17/24 12/31/24 History topical cream vitamin B complex-vitamin C-folic 1 tab PO QAM 11/17/24 12/31/24 History acid 0.8 mg tablet (Renal Vitamin) atorvastatin 20 mg tablet 20 mg PO DAILY 12/11/24 12/31/24 History bisacodyl 10 mg rectal suppository 10 mg MI DAILY PRN NO BM FOR 3 DAYS 12/11/24 12/31/24 History (Dulcolax (bisacodyl)) docusate sodium 100 mg capsule 100 mg PO DAILY 12/11/24 12/31/24 History (Colace) midodrine 5 mg tablet 10 mg PO 3XWK 12/11/24 12/31/24 History oxycodone 5 mg tablet 5 mg PO Q4H PRN Pain 12/11/24 12/31/24 History sitagliptin phosphate 25 mg tablet 25 mg PO DAILY 12/11/24 12/31/24 History (Januvia) carboxymethylcellulose sodium 0.5 1 drp OPB QAM 12/31/24 12/31/24 History % eye drops (Refresh Tears) menthol 0.44 %-zinc oxide 20.6 % 1 applic topical BID 12/31/24 12/31/24 History topical ointment (Calmoseptine) Past Med/Surg History Problem List (Updated 01/01/25 @ 17:53 by Tiera Amador PA-C) Olecranon bursitis of right elbow Right arm pain Type 2 diabetes mellitus End stage kidney disease (Acute) Pleural effusion (Acute) Hypoxia (Acute) Acute alteration in mental status (Acute) Proctocolitis Fixation hardware in spine ESRD on dialysis (Acute) Pneumonia (Acute) Fever (Acute) Labile blood pressure ESRD (end stage renal disease) Medical History Infection of amputation stump, right lower extremity Infection of exit site of hemodialysis catheter SIRS (systemic inflammatory response syndrome) Acute hypotension Amputation leg, bilat Opioid dependence, uncomplicated Nicotine dependence, unspecified, uncomplicated Gastro-esophageal reflux disease without esophagitis Unspecified atrial fibrillation Anxiety disorder, unspecified Cognitive communication deficit Atherosclerotic heart disease of [place] coronary artery without angina pectoris Other chronic pain Cerebral infarction, unspecified Epilepsy, unspecified, not intractable, without status epilepticus Acquired absence of right leg below knee Social History Smoking Status: Unknown if ever smoked Tobacco Type: E-cigarettes / Vaping Second Hand Exposure: No; Do You Dip or Chew Tobacco: No; Preferred Language: Syriac Communication Ability: Impaired Communication Ability Comment: pt confused; unable to assess Conveyor Belt Repairer Required: No Beliefs That Will Affect Care: None Current Living Situation: Residential Current Living Situation Comment: [facility]io Feels Safe at Home: Declines to Answer Assistive Devices: None Review of Systems Review of Systems: All systems reviewed & are unremarkable except as noted in Subjective Physical Exam Physical Exam: General: No acute distress, appears chronically ill Skin: Warm and dry, no clear wounds identified Head: Normocephalic, atraumatic Eyes: PERRL, conjunctivae clear, sclera non-icteric ENT: External ear and ear canal without swelling; nose atraumatic; good dentition, tongue normal appearance, pharynx normal Neck: Supple, no LAD Cardio: RRR, no M/G/R, S1 and S2 normal; line @ R chest/arm Resp: Slightly diminished BS, pt not taking deep breaths; On O2 via NC; No respiratory distress, Lungs CTA in all lobes bilaterally, no wheezes, rales, or rhonchi Abdomen: Soft, symmetric, mild tenderness to palpation throughout; No masses or hepatosplenomegaly; BS normoactive MSK: Bilateral BKA, no clear wounds either side; R later epicondyle slightly tender to palpation; RUE with non-pitting edema; pulses palpable and equal; no edema otherwise. Neuro: Awake, alert; Sensation intact bilaterally; CN grossly intact Psych: Poor historian; Responds to all stimuli, but very limited in participation. Results & Data Results & Data Vital Signs (Past 12 Hours) Vital Signs Temp Pulse Pulse Resp BP BP Pulse Ox 12/31/24 23:00 83 18 116/76 100 12/31/24 22:28 82 20 105/83 97 12/31/24 21:30 84 20 113/67 97 12/31/24 21:11 100 H 20 97 12/31/24 21:10 86 20 140/82 94 12/31/24 20:46 37.8 C H 85 20 109/91 12/31/24 20:36 85 12/31/24 20:34 37.8 C H 107 H 20 109/91 90 12/31/24 20:34 90 12/31/24 20:34 37.8 C H 107 H 20 109/91 90 O2 Del Method O2 Flow Rate 12/31/24 23:00 Nasal Cannula 2 12/31/24 22:28 Nasal Cannula 2 12/31/24 21:30 Nasal Cannula 2 12/31/24 21:11 Nasal Cannula 2 12/31/24 21:10 Nasal Cannula 2 12/31/24 20:46 Nasal Cannula 2 12/31/24 20:36 12/31/24 20:34 Room Air 12/31/24 20:34 Room Air 12/31/24 20:34 Room Air Laboratory Results 12/31/24 21:37 Aerobic Blood Culture - Pending Blood Anaerobic Blood Culture - Pending 12/31/24 21:37 Aerobic Blood Culture - Pending Blood Anaerobic Blood Culture - Pending 12/31/24 12/31/24 21:37 20:35 WBC 9.86 RBC 3.61 L Hgb 10.7 L Hct 33.2 L MCV 92.0 MCH 29.6 MCHC 32.2 RDW Std Deviation 53.1 H RDW Coeff of John 15.6 H Plt Count 196 MPV 10.5 Immature Gran % (Auto) 0.4 Neut % (Auto) 71.0 Lymph % (Auto) 9.2 [place] % (Auto) 8.8 Eos % (Auto) 9.5 Baso % (Auto) 1.1 Neut # (Auto) 6.99 H Lymph # (Auto) 0.91 L [place] # (Auto) 0.87 H Eos # (Auto) 0.94 H Baso # (Auto) 0.11 Immature Gran # (Auto) 0.04 PT 11.6 INR 1.1 APTT 31 PTT Ratio 1.1 VBG pH 7.35 L VBG pCO2 50 VBG pO2 45 VBG HCO3 28 VBG O2 Saturation 73.9 VBG Base Excess 1.2 Sodium 135 L Potassium 4.2 Chloride 97 L Carbon Dioxide 25 Anion Gap 13 H BUN 58 H Creatinine 7.00 H* Est Cr Clr Drug Dosing Not Reportable eGFR 8.08 BUN/Creatinine Ratio 8.3 L Glucose 130 H Lactate 1.2 Calcium 9.0 Magnesium 2.0 Total Bilirubin 0.6 Direct Bilirubin 0.1 AST 16 ALT 12 Alkaline Phosphatase 140 H Ammonia 33.0 Troponin I High Sens 6.3 Total Protein 6.4 Albumin 3.4 Procalcitonin 0.67 H SARS-CoV-2 (PCR) NEGATIVE Influenza Type A (PCR) Negative Influenza Type B (PCR) Negative RSV (RT-PCR) Negative Diagnostic Findings Chest X-Ray 12/31/24 20:40 Exam(s): XR CXR 1 VIEW EXAM: XR Chest, 1 View CLINICAL HISTORY: Reason for exam: Sepsis. TECHNIQUE: Frontal view of the chest. COMPARISON: 12/11/2024 FINDINGS: Lungs: Unremarkable. No consolidation. Pleural space: Small right pleural effusion new since prior exam. No pneumothorax. Heart: Unremarkable. No cardiomegaly. Mediastinum: Unremarkable. Normal mediastinal contour. Bones/joints: Unremarkable. No acute fracture. Tubes, lines and devices: Tunneled right-sided hemodialysis catheter. IMPRESSION: New small right pleural effusion Electronically signed by: Alonzo White MD 12/31/24 21:[address] 12/31/24 20:42 Exam(s): CT HEAD Without Contrast EXAM: CT Head Without Intravenous Contrast CLINICAL HISTORY: Reason for exam: ams. TECHNIQUE: Axial computed tomography images of the head/brain without intravenous contrast. CTDI is 36.43 mGy and DLP is 2459.77 mGy-cm. Automated exposure control was utilized for the study. A dose lowering technique was utilized adhering to the principles of ALARA. COMPARISON: 12/11/2024 FINDINGS: Brain: Mild ischemic microangiopathy. Chronic left frontal lobe infarct. Age-appropriate cerebral volume loss. No hemorrhage. Ventricles: Unremarkable. No ventriculomegaly. Bones/joints: Unremarkable. No acute fracture. Soft tissues: Unremarkable. Sinuses: Unremarkable as visualized. No acute sinusitis. Mastoid air cells: Unremarkable as visualized. No mastoid effusion. IMPRESSION: No acute findings in the head/brain. Stable chronic changes as above Electronically signed by: Alonzo White MD 12/31/24 22:26 PM Abdomen/Pelvis CT 12/31/24 21:11 Exam(s): CT ABDOMEN + PELVIS Without Contrast EXAM: CT Abdomen and Pelvis Without Intravenous Contrast CLINICAL HISTORY: Reason for exam: ams. TECHNIQUE: Axial computed tomography images of the abdomen and pelvis without intravenous contrast. CTDI is 36.43 mGy and DLP is 2459.77 mGy-cm. Automated exposure control was utilized for the study. A dose lowering technique was utilized adhering to the principles of ALARA. COMPARISON: 12/11/2024 FINDINGS: Lung bases: See below. Pleural space: Bilateral pleural effusions [id number]-left with compressive atelectasis of both lower lobes. Heart: Coronary artery calcifications. Aortic valve calcification. ABDOMEN: Liver: Unremarkable. Gallbladder and bile ducts: Postop changes prior cholecystectomy. No ductal dilation. Pancreas: Unremarkable. No ductal dilation. Spleen: stable splenic cysts measuring up to 2.7 cm. Adrenals: Unremarkable. No mass. Kidneys and ureters: Simple stable 2.1 cm left renal cysts. No follow- up of these simple cysts is necessary. No obstructing stones. No hydronephrosis. Stomach and bowel: Unremarkable. No obstruction. No mucosal thickening. PELVIS: Appendix: No findings to suggest acute appendicitis. Bladder: Unremarkable. No stones. Reproductive: Unremarkable as visualized. ABDOMEN and PELVIS: Intraperitoneal space: Unremarkable. No free air. No significant fluid collection. Bones/joints: Postop changes L2 through S1 posterior fusion. No acute fracture. No dislocation. Soft tissues: Unremarkable. Vasculature: See above. Lymph nodes: Unremarkable. No enlarged lymph nodes. IMPRESSION: No acute findings in the abdomen or pelvis. Electronically signed by: Alonzo White MD 12/31/24 22:34 PM Medications Administered Vancomycin IV Ceftriaxone 2g IV 500 mL NSS ECG Additional Comments: NSR 86 bpm, MI 164, QRS 80, QT/QTc 384/459, PRT 43/8/28 Code Status & VTE Plan Code Status Full Supervising Physician Co-Signing Physician Notes Attending addendum: I have physically seen this patient, have supervised the medical residents activities, and agree with the H&P unless as otherwise noted. Assessment and Plan: The patient is a 64-year-old male with past medical history including ESRD on HD, diabetes mellitus type 2, A-fib on Eliquis, epilepsy, cognitive impairment, GERD, bilateral BKA with phantom pain, hyperlipidemia, hypotension, and prior proctocolitis. He presents to the emergency department due to altered mental status that occurred earlier this evening prior to arrival. HPI and ROS are limited due to patient's poor historian status at baseline. Evaluation in the emergency department includes a chest x-ray which had a new small pleural effusion, COVID/flu/RSV testing that was negative. Patient received HD for ESRD on Wednesday/Wednesday/Wednesday, and is due this morning, and has some mild uremia as a potential cause. [facility] and treatment. Change in mental status/fever- Follow urine culture and sensitivity. Patient does produce small amounts of urine. Follow-up blood culture and sensitivity Empiric treatment from the ED: Vancomycin IV, ceftriaxone 2 g IV, and normal saline [address] of head with no acute findings CT abdomen pelvis no acute findings. Continued empiric treatment with daptomycin IV and ceftriaxone IV Zofran 4 mg IV every 6 hours as needed Acetaminophen 650 mg by mouth every 6 hours as needed for mild pain or fever ESRD on HD- Creatinine 7.00, within his range Continue supportive medications Midodrine Wednesday, Wednesday, Wednesday Consult nephrology Diabetes mellitus type 2 glucose 130 on admission Hemoglobin A1c on 12/09 was 6.4 Lantus adjustment as noted Accu-Cheks with SSI as noted Right arm pain and swelling- Unclear history, but no reported history of recent trauma X-ray humerus and elbow pending A-fib/hypertension- Continue Eliquis, and as needed clonidine Epilepsy- Keppra as noted Remaining orders and notations as noted PG Care Time/CCT Total # of Minutes Spent Total Time Spent with Patient: Total time spent is greater than 50% in coordination of care (as documented) at patient's floor/unit and/or counseling patient: Coding Level of Care Code 06947 INT INP/OBS CARE 3/75MIN Diagnoses Acute alteration in mental status R41.82 Fever R50.9 ESRD on dialysis N18.6; Z99.2 Type 2 diabetes mellitus E11.9 Right arm pain M79.601
[2025-01-01] MEDS: SODIUM CHLORIDE 0.9% 500 ML IV ONE (00:40)
[2025-01-01] MEDS ORDERED: VANCOMYCIN CONSULT ACTIVE PRN (00:46)
[2025-01-01] MEDS: VANCOMYCIN HCL 1,750 MG in SODIUM CHLORIDE 0.9% 500 ML IV ONE (02:03)
[2025-01-01] MEDS ORDERED: MELATONIN 3 MG TAB PO PRN (02:12)
[2025-01-01] MEDS ORDERED: ACETAMINOPHEN 325 MG TAB PO PRN (02:12)
[2025-01-01] MEDS ORDERED: POLYETHYLENE (MIRALAX) 17 GM PACK PO PRN (02:12)
[2025-01-01] MEDS ORDERED: ONDANSETRON INJ 2 MG/ML 2 ML VIAL IV PRN (02:12)
[2025-01-01] MEDS: VANCOMYCIN HCL 2,250 MG in SODIUM CHLORIDE 0.9% 500 ML IV ONE (02:22)
[2025-01-01] MEDS ORDERED: DEXTROSE 50% 50 ML SYRINGE IV PRN (02:58)
[2025-01-01] MEDS ORDERED: CARBOHYDRATES FOR HYPOGLYCEMIA PO PRN (02:58)
[2025-01-01] MEDS ORDERED: GLUCAGON FOR INJ 1 MG VIAL SQ PRN (02:58)
[2025-01-01] MEDS ORDERED: GLUCOSE 10 TAB/TUBE PO PRN (02:58)
[2025-01-01] MEDS ORDERED: GLUCOSE 40% GEL 15 GM TUBE PO PRN (02:58)
[2025-01-01] MEDS: REMOVE LIDODERM PATCH SCH (03:00)
--- NOTE | 2025-01-01 04:32 | XRay Report ---
EXAM: XR elbow RT 2V CLINICAL HISTORY: R elbow pain, edema, "broken" TECHNIQUE: X-ray images of the right elbow were obtained in anteroposterior (AP), lateral, and oblique projections. COMPARISON: No prior studies available for comparison. FINDINGS: Bone Structure: The bone structure of the right elbow is normal and well-aligned. No evidence of acute fracture or dislocation. No osseous lesions or abnormalities identified. Joint Spaces: Joint spaces are preserved. No evidence of joint effusion or subluxation. Mild degenerative changes are noted. Soft Tissues: Vascular calcification is noted. Soft tissue calcific foci are noted at the posterior aspect of the proximal forearm region. IMPRESSION: 1. No evidence of acute fractures, dislocations, or significant degenerative changes. 2. Mild degenerative changes of the elbow joint. 3. Vascular calcification is noted. 4. Soft tissue calcific foci are noted at the posterior aspect of the proximal forearm region. Disclaimer: A subtle bone abnormality or fracture may not be readily apparent on X-rays; thus, clinical correlation and further imaging, including follow-up CT, MRI, or follow-up X-rays, are advised as needed. Electronically signed by Cory Hurst 01-01-2025 04:32 AM
--- NOTE | 2025-01-01 04:37 | XRay Report ---
EXAM: XR humerus RT 2V CLINICAL HISTORY: R arm pain, "broken" TECHNIQUE: X-ray images of the right humerus were obtained in anteroposterior (AP) and lateral projections. COMPARISON: No prior studies available for comparison. FINDINGS: Bone Structure: Bone structure is normal and aligned. No evidence of fracture or dislocation. The humerus is intact without any osseous lesions or abnormalities. Joint Spaces: Shoulder and elbow joint spaces are normal. No evidence of joint effusion or subluxation. Osteoarthritic changes of the acromioclavicular joint. Soft Tissues: A small air locule is seen in the soft tissue at the lateral aspect of the distal humerus region, likely inflammatory. Vascular calcification is noted. A vascular device is seen at the lateral aspect of the arm. IMPRESSION: 1. No evidence of acute fracture, dislocation, or bony lesions. 2. A small air locule in the soft tissue at the lateral aspect of the distal humerus region, likely an inflammatory/post-recent procedural intervention. Clinical context and follow-up are required. 3. Vascular calcification is noted. 4. A vascular device is seen at the lateral aspect of the arm. 5. Osteoarthritic changes of the acromioclavicular joint. Disclaimer: A subtle bone abnormality or fracture may not be readily apparent on X-rays; thus, clinical correlation and further imaging, including follow-up CT, MRI, or follow-up X-rays, are advised as needed. Electronically signed by Cory Hurst 01-01-2025 04:36 AM
[2025-01-01 06:33] LABS: Hematocrit (blood only) 28.5 % (42.0-52.0); Hemoglobin 9.6 g/dL (14.0-18.0); Mean Corpuscular Hemoglobin 31.1 pg (25.0-34.0); Mean Corpuscular Volume 92.2 fL (80.0-100.0); Platelet Count 165 K/uL (130-400); RDW Standard Deviation 53.9 fL (36.4-46.3); Red Blood Count 3.09 M/uL (4.70-6.10); White Blood Count 8.82 K/ul (4.8-10.8)
[2025-01-01 07:05] LABS: Anion Gap 13.0 (3-11); Blood Urea Nitrogen 62.0 mg/dl (6-23); Calcium 8.7 mg/dl (8.6-10.3); Carbon Dioxide 25.0 mmol/L (21-32); Chloride 99.0 mmol/L (98-107); Creatinine Clr Calc Pharmacy 9.0 ml/min; Glucose 144.0 mg/dl (70-99(Fasting)); Potassium 4.0 mmol/L (3.5-5.1); Sodium 137.0 mmol/L (136-145)
[2025-01-01] MEDS: INSULIN ASPART PER UNIT CHARGE SC SCH (08:49)
[2025-01-01] MEDS: LANTUS PER UNIT CHARGE SQ SCH (08:49)
[2025-01-01] MEDS: ASPIRIN 81 MG ECTAB PO SCH (08:50)
[2025-01-01] MEDS: ARTIFICIAL TEARS OP SCH (08:50)
[2025-01-01] MEDS: levETIRAcetam 500 MG TAB PO SCH (08:50)
[2025-01-01] MEDS: NEPHROCAPS PO SCH (08:50)
[2025-01-01] MEDS: ESCITALOPRAM OXALATE 10 MG TAB PO SCH (08:50)
[2025-01-01] MEDS: APIXABAN 5 MG TABLET PO SCH (08:50)
[2025-01-01] MEDS: LIDOCAINE 5% 1 PATCH TD SCH (08:51)
[2025-01-01] MEDS ORDERED: SODIUM CHLORIDE 0.9% 1,000 ML IV PRN (10:12)
[2025-01-01] MEDS: MIDODRINE HCL 10 MG TAB PO SCH (10:21)
--- NOTE | 2025-01-01 12:56 | Nephrology Consultation ---
Date of Consultation January 01, 2025 Assessment & Plan (1) ESRD on dialysis: 64-year-old male with ESRD on chronic hemodialysis Wednesday who unfortunately gets admitted frequently for various infection related issues. at this point we are assuming he has infection of some type but unclear source. blood culture pending but he is on broad-spectrum antibiotic. does not appear to be in sepsis The reason for admission was altered mental status but at this point he appears to be at his baseline health which is poor no evidence of fluid overload or electrolyte issues he will get dialysis today as today is his normal dialysis day will do on a 2K bath and take about 2 kilos off if he is still in the hospital will do dialysis on Wednesday Plan time spent 48 mins. History of Present Illness Reason for Consultation: ESRD patient Wednesday for dialysis management Attending Physician: Tiera Joe MD History of Present Illness 64-year-old male with ESRD on chronic hemodialysis Wednesday and was discharged from hospital just 1 week ago. [facility] because of altered mental status. his last dialysis was on Wednesday as per schedule. currently he has pain all over his body but this is not new he was found to have fever in the Emergency Department and some leukocytosis and as a result he is getting antibiotics and cultures are pending. he has tunneled dialysis catheter for dialysis however at the time of my examination he appears pretty stable but worth noting that his baseline health is extremely poor. review of systems as detailed in HPI unless stated otherwise 12 systems reviewed and negative Physical examination middle aged white male who appears chronically ill he is awake alert oriented x3. Slow speech. No respiratory distress chest bilateral clear to auscultation. Does have a dialysis catheter in his right side CVS S1-S2 regular soft systolic murmur heard abdomen is soft nontender extremities bilateral BKA Allergies Allergy/AdvReac Type Severity Reaction Status Date / Time Penicillins Allergy Severe THROAT Verified 12/31/24 21:49 [facility] Home Medications Medication Instructions Recorded Confirmed Type lidocaine 4 % topical patch 1 patch topical QAM 08/24/23 12/31/24 History acetaminophen 325 mg tablet 650 mg PO Q6 PRN temp above 11/17/24 12/31/24 History (Tylenol) 100.1/PAIN allopurinol 100 mg tablet 100 mg PO 3XWK 11/17/24 12/31/24 History (Zyloprim) apixaban 5 mg tablet (Eliquis) 5 mg PO AMHS 11/17/24 12/31/24 History aspirin 81 mg tablet,delayed 81 mg PO QAM 11/17/24 12/31/24 History release clonidine HCl 0.1 mg tablet 0.1 mg PO Q24H PRN Hypertension 11/17/24 12/31/24 History diphenhydramine HCl 25 mg tablet 25 mg PO Q6 PRN Allergy Symptoms 11/17/24 12/31/24 History (Benadryl Allergy) doxepin 10 mg capsule 10 mg PO HS 11/17/24 12/31/24 History ergocalciferol (vitamin D2) 1,250 1,250 mcg PO WK 11/17/24 12/31/24 History mcg (50,000 unit) capsule escitalopram oxalate 5 mg tablet 5 mg PO QAM 11/17/24 12/31/24 History (Lexapro) ferric citrate 210 mg iron tablet 210 mg PO TIDM 11/17/24 12/31/24 History (Auryxia) gabapentin 100 mg tablet 200 mg PO TID 11/17/24 12/31/24 History levetiracetam 500 mg tablet 500 mg PO 3XWK 11/17/24 12/31/24 History linagliptin 5 mg tablet 5 mg PO DAILY 11/17/24 12/31/24 History loperamide 2 mg tablet (Imodium 2 mg PO Q6H PRN LOOSE STOOLS 11/17/24 12/31/24 History A-D) oxycodone 10 mg tablet,crush 10 mg PO AMHS 11/17/24 12/31/24 History resistant,extended release 12 hr (OxyContin) pantoprazole 40 mg tablet,delayed 40 mg PO QAM 11/17/24 12/31/24 History release prazosin 1 mg capsule 1 mg PO HS 11/17/24 12/31/24 History triamcinolone acetonide 0.1 % 1 applic topical BID PRN Rash 11/17/24 12/31/24 History topical cream vitamin B complex-vitamin C-folic 1 tab PO QAM 11/17/24 12/31/24 History acid 0.8 mg tablet (Renal Vitamin) atorvastatin 20 mg tablet 20 mg PO DAILY 12/11/24 12/31/24 History bisacodyl 10 mg rectal suppository 10 mg ID DAILY PRN NO BM FOR 3 DAYS 12/11/24 12/31/24 History (Dulcolax (bisacodyl)) docusate sodium 100 mg capsule 100 mg PO DAILY 12/11/24 12/31/24 History (Colace) midodrine 5 mg tablet 10 mg PO 3XWK 12/11/24 12/31/24 History oxycodone 5 mg tablet 5 mg PO Q4H PRN Pain 12/11/24 12/31/24 History sitagliptin phosphate 25 mg tablet 25 mg PO DAILY 12/11/24 12/31/24 History (Januvia) carboxymethylcellulose sodium 0.5 1 drp OPB QAM 12/31/24 12/31/24 History % eye drops (Refresh Tears) menthol 0.44 %-zinc oxide 20.6 % 1 applic topical BID 12/31/24 12/31/24 History topical ointment (Calmoseptine) Patient History Medical History Infection of amputation stump, right lower extremity Infection of exit site of hemodialysis catheter SIRS (systemic inflammatory response syndrome) Acute hypotension Amputation leg, bilat Opioid dependence, uncomplicated Nicotine dependence, unspecified, uncomplicated Gastro-esophageal reflux disease without esophagitis Unspecified atrial fibrillation Anxiety disorder, unspecified Cognitive communication deficit Atherosclerotic heart disease of [place] coronary artery without angina pectoris Other chronic pain Cerebral infarction, unspecified Epilepsy, unspecified, not intractable, without status epilepticus Acquired absence of right leg below knee Social History Smoking Status: Unknown if ever smoked Tobacco Type: E-cigarettes / Vaping Second Hand Exposure: No; Do You Dip or Chew Tobacco: No; Preferred Language: Pashto Communication Ability: Impaired Communication Ability Comment: pt confused; unable to assess Pacu Rn Required: No Beliefs That Will Affect Care: None Current Living Situation: Assisted Current Living Situation Comment: [facility] Feels Safe at Home: Declines to Answer Assistive Devices: None Results & Data Vital Signs (Past 12 Hours) Vital Signs Temp Pulse Pulse Pulse Resp BP BP 01/01/25 12:30 77 126/64 01/01/25 12:00 77 112/66 01/01/25 11:30 76 97/60 L 01/01/25 11:00 67 130/68 01/01/25 10:51 36.8 C 69 01/01/25 08:30 01/01/25 07:30 72 01/01/25 03:09 37.2 C 75 16 109/72 01/01/25 02:34 01/01/25 02:11 74 01/01/25 01:00 78 16 115/69 Pulse Ox O2 Del Method O2 Flow Rate 01/01/25 12:30 01/01/25 12:00 01/01/25 11:30 01/01/25 11:00 01/01/25 10:51 01/01/25 08:30 Nasal Cannula 2 01/01/25 07:30 01/01/25 03:09 97 Nasal Cannula 2 01/01/25 02:34 Nasal Cannula 2 01/01/25 02:11 01/01/25 01:00 99 Nasal Cannula Laboratory Results CBC, renal panel
--- NOTE | 2025-01-01 17:48 | Hospitalist Progress Note ---
<Statement entered by Tiera Joe MD - 01/01/25 19:12> I have reviewed vital signs, chart notes, labs and imaging. I have personally seen, evaluated and examined the patient. I have also discussed the management of the patient with the [facility] and I agree with the exam findings and the assessment and plan unless otherwise stated below. On my exam skin on posterior aspect of R elbow is painful to light touch. Mild erythema and warmth. No pain on ROM at the elbow. Swelling and tenderness of olecranon bursa. xrays were negative for fracture or foeign body. R olecranon bursitis - consider septic bursitis but is not very inflamed, probably mechanical. Consider soft tissue US to confirm diagnosis. No pain on ROM of elbow doubt septic joint. Consult ortho for aspiration if worsening. Consider gout - trial prednisone po x 1. Regarding the acute encephalopathy he's waxing and waning c/w a delirium. He does have baseline cognitive deficits. UA is abnormal but hard to interpret in ESRD Reviewed medlist from [facility] and looks like he used to be on gabapentin 200 mg tid, decreased to 100 mg tid at recent hospital discharge, was back to 200 mg tid on [facility] this week. Currently held. Recommend resuming only 100 mg once or twice a day, appropriate dosing for ESRD Date of Service January 01, 2025 Assessment & Plan (1) Acute alteration in mental status: (2) Fever: (3) ESRD on dialysis: (4) Olecranon bursitis of right elbow: (5) Type 2 diabetes mellitus: Plan 64-year-old male PMHx ESRD on HD, T2DM, AFib on Eliquis, epilepsy, cognitive impairment, GERD, bilateral BKA w/ phantom pain, HLD, hypotension, and prior proctocolitis presented for altered mental status the night of arrival. He is a poor historian at baseline, history is limited. Head CT and CT A/P are no acute findings. CXR with no small right pleural effusion. Admission for further evaluation of fever and AMS. #AMS - non-specific symptoms developed day of arrival. Tmax 100.0 F in ED. Procal elevated but less than prior and in setting of normal WBC and lactate. CXR with small pleural effusion, but pt without respiratory symptoms, suspect reported hypoxia was related to KEERTHI vs O[facility], he is stable at admission. Bilateral BKA sites without clear skin changes or tenderness to palpation, unlikely source of infection, but prior R BKA stump infection, was treated with IV abx. Prior pressure ulcer of L middle buttock POA. Received IV vancomycin and ceftriaxone in ED, d/c vancomycin given ESRD and would need for re-dosing around HD, dapto for renal. - COVID/Flu/RSV negative - Urine culture pending. UA suspicious for infection but also unreliable given HD and oliguric status - Blood cultures pending - Zofran prn N/V - Acetaminophen prn fever/pain - Continue empiric Daptomycin + ceftriaxone IV for now #Acute R arm pain/edema | Olecranon bursitis - complaining of R elbow pain, with some noted swelling - ROM WNL, no palpable deformity, pulses equal - Right humerus and elbow x-rays with no evidence of acute fractures, dislocations, or significant degenerative changes - Given isolated swelling to elbow region, suspect olecranon bursitis - NSAIDs contraindicated with ESRD - Prednisone 50 mg PO x 1 - monitor response - RUE venous Doppler pending to rule out DVT #ESRD, HD - HD MWF, oliguric. Follows with [facility] nephrology. - Midodrine MWF afternoons - Nephrology consulted and following, appreciate assistance - Defer dialysis regimen to nephro #T2DM - home regimen includes linagliptin and Januvia; also with neuropathy on gabapentin - Most recent A1c 11/2024 @ 6.4% - Hold home regimen while inpatient - Use SSI while admitted - Gabapentin on hold with AMS. Given his ESRD, recommend decreasing gabapentin dose when resuming to 100 mg TID. Ultimately would try to decrease to BID or once daily dosing #Phantom pain bilat BKA | Opioid dependence - Oxycodone as prescribed; PDMP reviewed at time of admission - ok to continue. Gabapentin on hold as above #Epilepsy- Levetiracetam 3x/wk (MWF) - continue #Psych- Lexapro, doxepin, prazosin - continue #HTN- Clonidine prn if SBP > 140 - continue #Afib- Eliquis - continue #HLD- Atorvastatin - hold while on dapto #GERD- Pantoprazole - continue VTE PPX: Eliquis Dispo: Continued inpatient stay. Eventually will return to [facility] Ordered RUE Doppler Ordered prednisone Admission and Anticipated Discharge Date Admission Date: December 31, 2024 Subjective Patient seen and evaluated at bedside. He is well-known to me from prior hospitalizations and appears to be more confused than his baseline. He initially cannot recall why he was sent into the hospital but then states he "felt like crap." He stated that his back was hurting but after evaluation of his back and further questioning, he denies back pain. He then reported right a rm pain. He cannot recall how long this has been going on for, but when I asked him if he remembers having pain in his right arm when he was in the hospital about a week and a half ago, he said no. Review of systems difficult to obtain. No additional complaints or concerns at this time. Telemetry reviewed: NSR 6070s. Review of Systems Musculoskeletal: + joint pain (R elbow) and + myalgia (RU E) Physical Exam Physical Exam: General: No acute distress, nondiaphoretic, well-developed, well-nourished. Skin: Warm, dry. Bilateral BKA's noted without evidence of acute infection. Right elbow swollen without significant erythema. MSK: Tender to palpation of right elbow. Cardiac: Regular rate and rhythm without murmurs gallops or rubs. Pulm: Clear to auscultation bilaterally without wheezes, rales or rhonchi. Normal respiratory effort. 100% on 2 L NC. Abdominal: Soft, nontender, nondistended. Bowel sounds present. Neuro: A&O x3 but intermittently confused. No focal neurological deficits. Results & Data Results & Data Vital Signs (Past 12 Hours) Vital Signs Temp Pulse Pulse Resp BP BP Pulse Ox 01/01/25 14:54 98.6 F 70 20 147/84 H 100 01/01/25 14:41 98.1 F 66 170/81 H 01/01/25 14:00 66 148/77 H 01/01/25 13:30 70 133/66 01/01/25 13:00 68 133/85 01/01/25 12:30 77 126/64 01/01/25 12:00 77 112/66 01/01/25 11:30 76 97/60 L 01/01/25 11:00 67 130/68 01/01/25 10:51 98.2 F 69 01/01/25 08:30 01/01/25 07:30 72 O2 Del Method O2 Flow Rate 01/01/25 14:54 Nasal Cannula 2 01/01/25 14:41 01/01/25 14:00 01/01/25 13:30 01/01/25 13:00 01/01/25 12:30 01/01/25 12:00 01/01/25 11:30 01/01/25 11:00 01/01/25 10:51 01/01/25 08:30 Nasal Cannula 2 01/01/25 07:30 Laboratory Results Reviewed CBC, BMP, chemistries, serologies, blood cultures PG Care Time/CCT Total # of Minutes Spent Total Time Spent with Patient: Total time spent is greater than 50% in coordination of care (as documented) at patient's floor/unit and/or counseling patient: Coding Level of Care Code 78763 SUB INP/OBS CARE 3/50MIN Diagnoses Acute alteration in mental status R41.82 Fever R50.9 ESRD on dialysis N18.6; Z99.2 Olecranon bursitis of right elbow M70.21 Type 2 diabetes mellitus E11.9
[2025-01-01] MEDS: DOXEPIN HCL 10 MG CAPSULE PO SCH (20:53)
[2025-01-01] MEDS: PRAZOSIN HCL 1 MG CAP PO SCH (20:54)
[2025-01-01] MEDS: cefTRIAXone SODIUM 2,000 MG/50 ML BAG IV SCH (21:00)
--- NOTE | 2025-01-01 21:12 | Ultrasound Report ---
Exam(s): US VENOUS RIGHT UPPER EXTREMITY EXAM: US Duplex Right Upper Extremity Veins CLINICAL HISTORY: Reason for exam: RUE pain. OTHER: Other Notes: RUE pain. No thrombus detected within RUE. Line/sterile dressing at innominate/prox subclavian area and also at prox/mid lateral upper arm at cephalic region. Ulnar veins not visualized due to position of arm. TECHNIQUE: Real-time duplex ultrasound scan of the right upper extremity veins integrating B-mode two-dimensional vascular structure, Doppler spectral analysis, color flow Doppler imaging and compression. COMPARISON: None FINDINGS: Deep veins: Unremarkable. No DVT in the internal jugular, subclavian, axillary, or brachial veins. The veins demonstrate normal color flow, are normally compressible, with normal phasic flow and/or augmentation response. Superficial veins: Unremarkable. No thrombus in the visualized basilic and cephalic veins. Soft tissues: No acute findings. Other: Presence of dressings limits evaluation near the proximal subclavian vein region and proximal/mid lateral upper arm. IMPRESSION: No definite venous thrombosis identified in the right upper extremity. Electronically signed by: Chris Wright M.D. 01/01/25 21:11 PM
[2025-01-02] MEDS: DAPTOmycin 500 MG in SYRINGE 0 ML IV SCH (05:18)
[2025-01-02 06:26] LABS: Anion Gap 14.0 (3-11); Calcium 9.3 mg/dl (8.6-10.3); Carbon Dioxide 23.0 mmol/L (21-32); Chloride 99.0 mmol/L (98-107); Potassium 4.8 mmol/L (3.5-5.1); Sodium 136.0 mmol/L (136-145)
[2025-01-02 06:27] LABS: Hematocrit (blood only) 35.4 % (42.0-52.0); Hemoglobin 11.5 g/dL (14.0-18.0); Mean Corpuscular Hemoglobin 30.3 pg (25.0-34.0); Mean Corpuscular Volume 93.2 fL (80.0-100.0); Platelet Count 190 K/uL (130-400); RDW Standard Deviation 53.2 fL (36.4-46.3); Red Blood Count 3.80 M/uL (4.70-6.10); White Blood Count 7.29 K/ul (4.8-10.8)
[2025-01-02 07:33] LABS: Blood Urea Nitrogen 44.0 mg/dl (6-23); Creatinine Clr Calc Pharmacy 13.9 ml/min; Glucose 361.0 mg/dl (70-99(Fasting))
--- NOTE | 2025-01-02 10:32 | Discharge Summary ---
<Statement entered by Tiera Joe MD - 01/02/25 19:08> Acute toxic metabolic encephalopathy refound no acute issues to trigger this besides his olecranon bursitis which does not seem severe enough to cause encephalopathy on its own. I do note that while in the hospital previously he was on gabapentin 100 mg and he was stable but after discharge dose was increased back to his previous baseline of 200 mg 3 times daily. This is high dosing in ESRD and could have triggered his encephalopathy, we reduced the dose back to 100 mg twice daily which is appropriate for his ESRD. Discharge Summary Date of Service January 02, 2025 Principal Dx & Hospital Course #1 = Principal Diagnosis (1) Acute alteration in mental status: (2) Right arm pain: (3) ESRD on dialysis: (4) Type 2 diabetes mellitus: Plan 64-year-old male PMHx ESRD on HD, T2DM, AFib on Eliquis, epilepsy, cognitive impairment, GERD, bilateral BKA w/ phantom pain, HLD, hypotension, and prior proctocolitis presented for altered mental status the night of arrival. He is a poor historian at baseline, history is limited. Head CT and CT A/P are no acute findings. CXR with no small right pleural effusion. Admission for further e valuation of fever and AMS. #AMS - non-specific symptoms developed day of arrival. Tmax 100.0 F in ED. Procal elevated but less than prior and in setting of normal WBC and lactate. CXR with small pleural effusion, but pt without respiratory symptoms, suspect reported hypoxia was related to KEERTHI vs OHS, he is stable at admission. Bilateral BKA sites without clear skin changes or tenderness to palpation, unlikely source of infection, but prior R BKA stump infection, was treated with IV abx. Prior pressure ulcer of L middle buttock POA. - COVID/Flu/RSV negative - UA abnormal but also unreliable given HD and oliguric status; urine culture pending - follow-up in outpatient setting - Blood cultures negative x 24 hours - Initially treated with empiric Daptomycin + ceftriaxone IV, but these were discontinued given low suspicion for acute infection. Remains afebrile, no leukocytosis - Waxing and waning encephalopathy, consistent with delirium in setting of b aseline cognitive deficits #Acute R arm pain/edema | Olecranon bursitis - complaining of R elbow pain, with some noted swelling - ROM WNL, no palpable deformity, pulses equal - Right humerus and elbow x-rays with no evidence of acute fractures, dislocations, or significant degenerative changes - RUE venous Doppler negative for DVT - Given isolated swelling to elbow region, suspect olecranon mechanical bursitis vs gout - NSAIDs contraindicated with ESRD - Prednisone 50 mg PO x 1 with significant improvement in elbow pain and swelling - Discharged with Medrol Dosepak - Monitor right elbow to ensure improvement/resolution. Low suspicion for septic bursitis or septic joint, but within the realm of possibility #ESRD, HD - HD MWF, oliguric. Follows with [facility] nephrology. - Midodrine MWF afternoons - Nephrology consulted, appreciate assistance #T2DM - home regimen includes linagliptin and Januvia; also with neuropathy on gabapentin - Most recent A1c 11/2024 @ 6.4% - Hold home regimen while inpatient - Use SSI while admitted - Gabapentin held while admitted given admission for AMS. Resumed on 100 mg BID (was previously taking 200 mg TID) for more appropriate dosing given his ESRD #Phantom pain bilat BKA | Opioid dependence - Oxycodone as prescribed; PDMP reviewed at time of admission - ok to continue. Gabapentin adjusted as above #Epilepsy- Levetiracetam 3x/wk (MWF) - continue #Psych- Lexapro, doxepin, prazosin - continue #HTN- Clonidine prn if SBP > 140 - continue #Afib- Eliquis - continue #HLD- Atorvastatin - hold while on dapto #GERD- Pantoprazole - continue VTE PPX: Eliquis Dispo: Discharged back to [facility] on 01/02 Notes For Next Care Provider Monitor right elbow to ensure improvement/resolution. Low suspicion for septic bursitis or septic joint, but within the realm of possibility. Monitor blood sugar while taking Medrol Dosepak. Gabapentin dosing and frequency may have played a role in his altered mental status. At [facility], he was receiving gabapentin 200 mg TID. Adjusted this to 100 mg BID given his ESRD on discharge. During his hospitalization, his encephalopathy was waxing and waning, consistent with delirium. He has known baseline cognitive deficits. Medication Changes From Visit Prescribed Medrol Dosepak Decreased gabapentin to 100 mg BID Admission HPI Per Admitting Provider 64-year-old male PMHx ESRD on HD, T2DM, AFib on Eliquis, epilepsy, cognitive impairment, GERD, bilateral BKA w/ phantom pain, HLD, hypotension, and prior proctocolitis presenting for altered mental status the night of arrival. Reports from [facility] facility state patient was hard to wake, and was hypoxic when checked. He is a poor historian. States he does "not feel so good," but cannot clarify how. He reports that the felt feverish, but is unsure if he had a fever. He admits to pain "everyday, everywhere." Reports that his chest hurts sometimes, but not at present. He is without wounds, URI symptoms, or GI symptoms. Pt is an ESRD pt, HD on MWF and still makes small amounts of urine. Has not missed per his report. Denies SOB, dizziness, or cough. ED evaluation reveals CBC w/o leukocytosis/leukopenia, H/H 10.7/33.2; PT/INR WNL; VBGs pH 7.35; BMP Na 135, Cl 97, AG 13, BUN 58, Cr 7.0, ratio 8.3, glucose 130, alk phos 140; trop 6.3; procal 0.67; ammonia 33; lactate 1.2; COVID/Flu/RSV negative; CXR new small R pleural effusion; head CT without acute findings; CTAP no acute findings; EKG NSR @ 86 bpm.; Provided with vancomycin 2,250 mg IV, 500 mL NSS, and ceftriaxone 2g IV in ED. Please see Dr. Calhoun attestation for adjustments/additions to treatment plan. Discharge Exam General: No acute distress, nondiaphoretic, well-developed, well-nourished. Skin: Warm, dry. Bilateral BKA's noted without evidence of acute infection. Right elbow without significant erythema, mild swelling remains but reduced compared to yesterday. MSK: Tenderness to palpation of right elbow significantly improved compared to yesterday. Full active and passive ROM of RUE. Cardiac: Regular rate and rhythm without murmurs gallops or rubs. Pulm: Clear to auscultation bilaterally without wheezes, rales or rhonchi. Normal respiratory effort. 93% on room air. Abdominal: Soft, nontender, nondistended. Bowel sounds present. Neuro: A&O x3 but intermittently confused. No focal neurological deficits. Discharge Plan Discharge Items Patient Disposition: Transfer Detention Fac Reason For Visit: ENCEPHALOPATHY Discharge Diagnosis: Right elbow gout vs mechanical olecranon bursitis Condition on Discharge: Fair Activity: Resume your previous activity Non-emergency contact: Primary Care Provider Call non-emergency contact if: you have any medication questions, your symptoms worsen, your pain is not controlled and you have a fever Follow-up/Referrals: Calvin Fisher PA-C [Primary Care Provider] - (Follow-up in 1-2 weeks) Diet: Carb Consistent or DM2 and Dialysis Renal Addtl Attending Provider Instructions: Jaswant, You were admitted to the hospital for further workup of altered mental status. I suspect this was due to a mistake with your medications, as you were getting more gabapentin than ou should have. You were treated with IV antibiotics empirically in the hospital, but these were discontinued as your infectious workup has been unremarkable. You had x-rays of your right elbow and humerus, which were negative. You also had a venous Doppler study of your right upper ex tremity, which was negative for a DVT. I suspect the pain you experienced in your right elbow is either from gout or mechanical bursitis. Your pain significantly improved after receiving 1 dose of prednisone. It is important to continue monitoring your right elbow to ensure it continues to improve/resolve. Upon discharge from the hospital: * Take a Medrol Dosepak as prescribed. This is an oral steroid taper. Follow the taper instructions on the package insert. * Your gabapentin has been reduced to 100 mg twice daily. * Monitor your blood sugar while taking the Medrol Dosepak as steroids can increase your blood sugar. * Keep a close eye on your right elbow to ensure it is improving/resolving. * Follow-up with your PCP in 1-2 weeks. Please return to the hospital if you experience any of the following: New or worsening pain/redness/swelling of your right elbow, chest pain, difficulty breathing, inability to tolerate oral intake, passing out, new or worsening confusion, or any other symptoms concerning for you. It was a pleasure taking care of you while you were in the hospital! Pending Studies at Discharge: Yes Studies:: Finalized urine and blood cultures Stand-Alone Forms: My [employer] Skilled Items Patient informed of condition?: Yes DNR: No Discharge Level of Care: Skilled Communicable Disease: No Discharge Prognosis: Stable Lines: None Urinary Catheter: No Medications and DC Order Prescriptions: New methylprednisolone [Medrol (Kwame)] 4 mg tablets,dose pack 4 mg PO UD Qty: 21 0RF Rx Instructions: Follow taper instructions on package insert. Continued menthol-zinc oxide [Calmoseptine] 0.44-20.6 % Ointment 1 applic TOPICAL BID carboxymethylcellulose sodium [Refresh Tears] 0.5 % Drops 1 drp OPB QAM lidocaine 4 % Adhesive Patch,Medicated 1 patch TOPICAL QAM Rx Instructions: BACK PAIN REMOVE PER SCHEDULE aspirin 81 mg Tablet,Delayed Release (Dr/Ec) 81 mg PO QAM linagliptin 5 mg Tablet 5 mg PO DAILY Patient Comments: 12/11- Not on faxed list unable to verify. original: 5 mg po daily oxycodone [OxyContin] 10 mg tablet,oral only,ext.rel.12 hr 10 mg PO AMHS Eliquis 5 mg tablet 5 mg PO AMHS ferric citrate [Auryxia] 210 mg iron Tablet 210 mg PO TIDM doxepin 10 mg capsule 10 mg PO HS pantoprazole 40 mg tablet,delayed release (DR/EC) 40 mg PO QAM allopurinol [Zyloprim] 100 mg Tablet 100 mg PO 3XWK Rx Instructions: MON, WED, & FRI MORNINGS prazosin 1 mg Capsule 1 mg PO HS Renal Vitamin 0.8 mg Tablet 1 tab PO QAM escitalopram oxalate [Lexapro] 5 mg Tablet 5 mg PO QAM levetiracetam 500 mg tablet 500 mg PO 3XWK Rx Instructions: GIVE EVERY MON,WED,FRI clonidine HCl 0.1 mg tablet 0.1 mg PO Q24H PRN (Reason: Hypertension) Rx Instructions: GIVE FOR SBP > 140 ergocalciferol (vitamin D2) 1,250 mcg (50,000 unit) Capsule 1,250 mcg PO WK Rx Instructions: THRUSDAYS acetaminophen [Tylenol] 325 mg Tablet 650 mg PO Q6 MDD 3 GRAMS APAP/24 HOURS PRN (Reason: temp above 100.1/PAIN) loperamide [Imodium A-D] 2 mg Tablet 2 mg PO Q6H MDD 4 TABS IN 24 HOURS PRN (Reason: LOOSE STOOLS) Patient Comments: 12/11- Not on faxed list unable to verify Rx Instructions: GIVE 2 TABS FIRST LOOSE STOOL ANDTHEN 1 TAB AFTER EACH SUBSEQUENT LOOSE STOOL diphenhydramine HCl [Benadryl Allergy] 25 mg Tablet 25 mg PO Q6 PRN (Reason: Allergy Symptoms) triamcinolone acetonide 0.1 % Cream 1 applic TOPICAL BID PRN (Reason: Rash) Rx Instructions: APPLY TO RASH ON BACK atorvastatin 20 mg Tablet 20 mg PO DAILY midodrine 5 mg Tablet 10 mg PO 3XWK Rx Instructions: MON, WED, & FRI AFTERNOON bisacodyl [Dulcolax (bisacodyl)] 10 mg Suppository 10 mg MN DAILY PRN (Reason: NO BM FOR 3 DAYS) docusate sodium [Colace] 100 mg Capsule 100 mg PO DAILY oxycodone 5 mg Tablet 5 mg PO Q4H PRN (Reason: Pain) Januvia 25 mg Tablet 25 mg PO DAILY Changed gabapentin 100 mg Tablet 100 mg PO BID Qty: 0 0RF Patient Comments: 12/11- Not on faxed list unable to verify. Original: 200 mg TID Discharge Orders: Discharge Order (Routine); Ordered 01/02/25 Ordered By: Tiera Amador Admission Data Admit Date/Time: 12/31/24 23:57 Attending Provider: Tiera Joe Admit Provider: Simba Calhoun Primary Care Provider: Calvin Fisher Other Providers: Simba Calhoun; Jaun Perez Hospital Stay Data Consultations 12/31/24 23:40 ED Decision to Admit Stat 01/01/25 02:12 Consult Nephrology Routine Diagnostic Imagining Performed Chest X-Ray 12/31/24 20:40 Exam(s): XR CXR 1 VIEW EXAM: XR Chest, 1 View CLINICAL HISTORY: Reason for exam: Sepsis. TECHNIQUE: Frontal view of the chest. COMPARISON: 12/11/2024 FINDINGS: Lungs: Unremarkable. No consolidation. Pleural space: Small right pleural effusion new since prior exam. No pneumothorax. Heart: Unremarkable. No cardiomegaly. Mediastinum: Unremarkable. Normal mediastinal contour. Bones/joints: Unremarkable. No acute fracture. Tubes, lines and devices: Tunneled right-sided hemodialysis catheter. IMPRESSION: New small right pleural effusion Electronically signed by: Alonzo White MD 12/31/24 21:[address] 12/31/24 20:42 Exam(s): CT HEAD Without Contrast EXAM: CT Head Without Intravenous Contrast CLINICAL HISTORY: Reason for exam: ams. TECHNIQUE: Axial computed tomography images of the head/brain without intravenous contrast. CTDI is 36.43 mGy and DLP is 2459.77 mGy-cm. Automated exposure control was utilized for the study. A dose lowering technique was utilized adhering to the principles of ALARA. COMPARISON: 12/11/2024 FINDINGS: Brain: Mild ischemic microangiopathy. Chronic left frontal lobe infarct. Age-appropriate cerebral volume loss. No hemorrhage. Ventricles: Unremarkable. No ventriculomegaly. Bones/joints: Unremarkable. No acute fracture. Soft tissues: Unremarkable. Sinuses: Unremarkable as visualized. No acute sinusitis. Mastoid air cells: Unremarkable as visualized. No mastoid effusion. IMPRESSION: No acute findings in the head/brain. Stable chronic changes as above Electronically signed by: Alonzo White MD 12/31/24 22:26 PM Abdomen/Pelvis CT 12/31/24 21:11 Exam(s): CT ABDOMEN + PELVIS Without Contrast EXAM: CT Abdomen and Pelvis Without Intravenous Contrast CLINICAL HISTORY: Reason for exam: ams. TECHNIQUE: Axial computed tomography images of the abdomen and pelvis without intravenous contrast. CTDI is 36.43 mGy and DLP is 2459.77 mGy-cm. Automated exposure control was utilized for the study. A dose lowering technique was utilized adhering to the principles of ALARA. COMPARISON: 12/11/2024 FINDINGS: Lung bases: See below. Pleural space: Bilateral pleural effusions [id number] with compressive atelectasis of both lower lobes. Heart: Coronary artery calcifications. Aortic valve calcification. ABDOMEN: Liver: Unremarkable. Gallbladder and bile ducts: Postop changes prior cholecystectomy. No ductal dilation. Pancreas: Unremarkable. No ductal dilation. Spleen: stable splenic cysts measuring up to 2.7 cm. Adrenals: Unremarkable. No mass. Kidneys and ureters: Simple stable 2.1 cm left renal cysts. No follow- up of these simple cysts is necessary. No obstructing stones. No hydronephrosis. Stomach and bowel: Unremarkable. No obstruction. No mucosal thickening. PELVIS: Appendix: No findings to suggest acute appendicitis. Bladder: Unremarkable. No stones. Reproductive: Unremarkable as visualized. ABDOMEN and PELVIS: Intraperitoneal space: Unremarkable. No free air. No significant fluid collection. Bones/joints: Postop changes L2 through S1 posterior fusion. No acute fracture. No dislocation. Soft tissues: Unremarkable. Vasculature: See above. Lymph nodes: Unremarkable. No enlarged lymph nodes. IMPRESSION: No acute findings in the abdomen or pelvis. Electronically signed by: Alonzo White MD 12/31/24 22:34 PM Elbow X-Ray 01/01/25 02:39 EXAM: XR elbow RT 2V CLINICAL HISTORY: R elbow pain, edema, "broken" TECHNIQUE: X-ray images of the right elbow were obtained in anteroposterior (AP), lateral, and oblique projections. COMPARISON: No prior studies available for comparison. FINDINGS: Bone Structure: The bone structure of the right elbow is normal and well-aligned. No evidence of acute fracture or dislocation. No osseous lesions or abnormalities identified. Joint Spaces: Joint spaces are preserved. No evidence of joint effusion or subluxation. Mild degenerative changes are noted. Soft Tissues: Vascular calcification is noted. Soft tissue calcific foci are noted at the posterior aspect of the proximal forearm region. IMPRESSION: 1. No evidence of acute fractures, dislocations, or significant degenerative changes. 2. Mild degenerative changes of the elbow joint. 3. Vascular calcification is noted. 4. Soft tissue calcific foci are noted at the posterior aspect of the proximal forearm region. Disclaimer: A subtle bone abnormality or fracture may not be readily apparent on X-rays; thus, clinical correlation and further imaging, including follow-up CT, MRI, or follow-up X-rays, are advised as needed. Electronically signed by Cory Hurst 01-01-2025 04:32 AM Humerus X-Ray 01/01/25 02:39 EXAM: XR humerus RT 2V CLINICAL HISTORY: R arm pain, "broken" TECHNIQUE: X-ray images of the right humerus were obtained in anteroposterior (AP) and lateral projections. COMPARISON: No prior studies available for comparison. FINDINGS: Bone Structure: Bone structure is normal and aligned. No evidence of fracture or dislocation. The humerus is intact without any osseous lesions or abnormalities. Joint Spaces: Shoulder and elbow joint spaces are normal. No evidence of joint effusion or subluxation. Osteoarthritic changes of the acromioclavicular joint. Soft Tissues: A small air locule is seen in the soft tissue at the lateral aspect of the distal humerus region, likely inflammatory. Vascular calcification is noted. A vascular device is seen at the lateral aspect of the arm. IMPRESSION: 1. No evidence of acute fracture, dislocation, or bony lesions. 2. A small air locule in the soft tissue at the lateral aspect of the distal humerus region, likely an inflammatory/post-recent procedural intervention. Clinical context and follow-up are required. 3. Vascular calcification is noted. 4. A vascular device is seen at the lateral aspect of the arm. 5. Osteoarthritic changes of the acromioclavicular joint. Disclaimer: A subtle bone abnormality or fracture may not be readily apparent on X-rays; thus, clinical correlation and further imaging, including follow-up CT, MRI, or follow-up X-rays, are advised as needed. Electronically signed by Cory Hurst 01-01-2025 04:36 AM Venous Doppler Study 01/01/25 17:46 Exam(s): US VENOUS RIGHT UPPER EXTREMITY EXAM: US Duplex Right Upper Extremity Veins CLINICAL HISTORY: Reason for exam: RUE pain. OTHER: Other Notes: RUE pain. No thrombus detected within RUE. Line/sterile dressing at innominate/prox subclavian area and also at prox/mid lateral upper arm at cephalic region. Ulnar veins not visualized due to position of arm. TECHNIQUE: Real-time duplex ultrasound scan of the right upper extremity veins integrating B-mode two-dimensional vascular structure, Doppler spectral analysis, color flow Doppler imaging and compression. COMPARISON: None FINDINGS: Deep veins: Unremarkable. No DVT in the internal jugular, subclavian, axillary, or brachial veins. The veins demonstrate normal color flow, are normally compressible, with normal phasic flow and/or augmentation response. Superficial veins: Unremarkable. No thrombus in the visualized basilic and cephalic veins. Soft tissues: No acute findings. Other: Presence of dressings limits evaluation near the proximal subclavian vein region and proximal/mid lateral upper arm. IMPRESSION: No definite venous thrombosis identified in the right upper extremity. Electronically signed by: Chris Wright M.D. 01/01/25 21:11 PM Pending Results Patient Have Any Pending Studies at Discharge: Yes Discharge Instructions Given to Patient (Per Discharging Provider) Jaswant, You were admitted to the hospital for further workup of altered mental status. I suspect this was due to a mistake with your medications, as you were getting more gabapentin than ou should have. You were treated with IV antibiotics empirically in the hospital, but these were discontinued as your infectious workup has been unremarkable. You had x-rays of your right elbow and humerus, which were negative. You also had a venous Doppler study of your right upper extremity, which was negative for a DVT. I suspect the pain you experienced in your right elbow is either from gout or mechanical bursitis. Your pain significantly improved after receiving 1 dose of prednisone. It is important to continue monitoring your right elbow to ensure it continues to improve/resolve. Upon discharge from the hospital: * Take a Medrol Dosepak as prescribed. This is an oral steroid taper. Follow the taper instructions on the package insert. * Your gabapentin has been reduced to 100 mg twice daily. * Monitor your blood sugar while taking the Medrol Dosepak as steroids can increase your blood sugar. * Keep a close eye on your right elbow to ensure it is improving/resolving. * Follow-up with your PCP in 1-2 weeks. Please return to the hospital if you experience any of the following: New or w orsening pain/redness/swelling of your right elbow, chest pain, difficulty breathing, inability to tolerate oral intake, passing out, new or worsening confusion, or any other symptoms concerning for you. It was a pleasure taking care of you while you were in the hospital! Total Time Total Time Spent Total Time Spent (In Minutes): Greater than 30 minutes spent completing this discharge process including direct patient care, medication reconciliation, documentation, review of labs and images, and coordination of care. Coding Level of Care Code 93398 INP/OBS DISCH >30 MIN Diagnoses Acute alteration in mental status R41.82 Right arm pain M79.601 ESRD on dialysis N18.6; Z99.2 Type 2 diabetes mellitus E11.9
[2025-01-02 10:38] VITALS: PULSE 66
[2025-01-02 10:48] VITALS: BP 185/85; RESP 19; TEMP 98.6; O2SAT 94
--- NOTE | 2025-01-02 22:10 | Electrocardiogram Report ---
Test Reason : Blood Pressure : */* mmHG Vent. Rate : 86 BPM Atrial Rate : 86 BPM P-R Int : 164 ms QRS Dur : 80 ms QT Int : 384 ms P-R-T Axes : 43 8 28 degrees QTcB Int : 459 ms Normal sinus rhythm Cannot rule out Anterior infarct When compared with ECG of 11-Dec-2024 05:26, No significant change was found Confirmed by Luis Pérez ([id number]) on 01/02/2025 10:10:14 PM Referred By: REFERRED SELF Confirmed By: Luis Pérez
== END 2025-01-02 12:10 | DRG 91 ==
LOC: ED 20:28 → INTOOBSV 23:57 → 4W 23:57 → SUATTDRO 23:57 → 4W 01-01 01:46